=== PATIENT | female | born 1950 | race Caucasian/White ===

== ENCOUNTER 2016-07-10 08:04 | Emergency (ER) | payer OTHER ==
[~2016-07-10] VITALS: Ht 159.4 cm; Wt 110.6 kg
[~2016-07-10 08:04] MED LIST: ADVIN25050 INH; ALBU0.08 INH; ALBU1AER9 PO; ASCA500 PO; ASPI-232 PO; ASPI-391 PO; ATOR-26 PO; CALC500C70 PO; CALCTAB5 PO; CHOL20005 PO; CLOP1TAB15 PO; CLR10 PO; CYAN10005 PO; FERR1TAB39 PO; FLUO20CA35 PO; FRS/40 PO; GLUCTAB7 PO; HYDR-5688 PO; LEVO25TA PO; LISI-461 PO; METO25TA3 PO; MOME50SP5; MULT-506 PO; PANT40TA PO; ROPI0.5T15 PO; XNX25 PO
[2016-07-10 08:14] VITALS: TEMP 37.7; Ht 159.4 cm; Wt 110.6 kg
[2016-07-10] MEDS ORDERED: METHYLPREDNISOLONE 125 MG VIAL IV STA (08:52)
[2016-07-10] MEDS ORDERED: ALBUT/IPRATROP 3MG/0.5MG NEB 3 ML VIAL INH STA (08:52)
--- NOTE | 2016-07-10 08:59 | EMERGENCY ROOM VISIT NOTE ---
History Report prepared by Nyasia: Jamila Rodriguez Under the Supervision of: Dr. Chau Boss M.D. First contact with patient: 08:19 Chief Complaint: RESPIRATORY PROBLEMS Stated Complaint: BREATHING ISSUES History of Present Illness The patient is a 66 year old female who presents to the Emergency Room with complaints of persistent flu-like symptoms that began Wednesday night. She currently rates her discomfort as a 6/10 in severity. The patient states that Wednesday evening she began with a productive cough of dark yellow sputum. She additionally notes a sore throat, headache, and post nasal drip. The patient states that her symptoms have worsened so she consulted her primary care physician yesterday. She states that her was positive for the flu yesterday, but states that she was negative. The patient states that she was prescribed Amoxicillin for her symptoms and states that around 0100 she took a dose along with Tylenol. She additionally associates chills and diaphoresis, but is unsure if she has had a fever. The patient notes shortness of breath, chest pain, chest congestion, and nausea. She states that she used a Nebulizer treatment with relief of her shortness of breath. The patient notes a headache today. She denies any recent weight change, vomiting, leg pain or swelling, urinary symptoms, constipation, diarrhea. The patient notes a history of asthma , COPD, and a previous AL in 2008. She denies being on any steroids. Source of History: patient, spouse/significant other Onset: Wednesday night Position: other (global) Symptom Intensity: 6/10 Quality: other (flu like symptoms) Timing: worsening, other (persistent) Associated Symptoms: + SOB, + chest pain, + chills, + cough, + diaphoresis, + headache, + nausea, + sorethroat, No diarrhea, No urinary symptoms, No vomiting Note: Associated Symptoms: chest congestion, post nasal drip Review of Systems See HPI for pertinent positives & negatives. A total of 10 systems reviewed and were otherwise negative. Past Medical & Surgical Medical Problems: (1) Anxiety State Nos (2) Asthma (3) Asthma (4) Asthma exacerbation (5) Asthma exacerbation (6) Asthma exacerbation (7) Bronchitis (8) CAD (coronary artery disease) (9) Cellulitis (10) Cellulitis (11) Coccyx contusion (12) Contusion of lower back (13) Contusion of multiple sites (14) Depressive Disorder Nec (15) Diabetes (16) Esophageal Reflux (17) Fall (18) Fall (19) Hyperlipidemia Nec/Nos (20) Hypertension (21) Hypothyroidism Nos (22) Low back pain (23) Lumbar disc herniation (24) AL (myocardial infarction) (25) AL (myocardial infarction) (26) Multiple contusions (27) Pneumonia (28) Reactive airway disease with wheezing (29) Sciatica (30) Sinusitis (31) Venous stasis ulcer of ankle Surgical Problems: (1) History of hysterectomy (2) Hx of cholecystectomy Old medical records were reviewed. Nurse's notes were reviewed and I agree with. Family History Patient reports no known family medical history. Social History Smoking Status: Never Smoker Alcohol Use: none Drug Use: none Marital Status: Housing Status: lives with family Occupation Status: retired Current/Historical Medications Scheduled Alprazolam (Xanax), 0.25 MG PO BID Ascorbic Acid (Vitamin C), 1,000 MG PO QAM Aspirin (Aspir-81), 81 MG PO QAM Atorvastatin (Lipitor), 80 MG PO HS Calcium Carbonate-Vitamin D W/ (Caltrate 600 Plus), 1 TAB PO DAILY Calcium/Vitamin D (Os-Rajeev 500 Plus D), 1 TAB PO BID Cholecalciferol (Vitamin D3), 2 TAB PO QAM Clopidogrel (Plavix), 75 MG PO QAM Cyanocobalamin (Vitamin B-12), 2,000 MCG PO QAM Ferrous Sulfate Dried (Feosol), 200 MG PO QAM Fluoxetine (Prozac), 20 MG PO QAM Fluticasone Prop/Salmeterol (Advair Diskus 250-50 Mcg/Dose), 1 PUFF INH BID Furosemide (Lasix), 40 MG PO QAM Gabapentin (Gabapentin), 1 CAP PO BID Btbaslkbgwv-Gkgkmnsgsmf-Bmq C- (Glucosamine Chondroitin), 2 TABS PO QAM Levothyroxine Sodium (Synthroid), 25 MCG PO QAM Lisinopril (Lisinopril), 10 MG PO QAM Loratadine (Claritin), 10 MG PO QAM Methylprednisolone (Medrol Dosepak), 0 PO DAILY Metoprolol Succinate (Toprol Xl), 25 MG PO QAM Multivitamin (Multivitamin), 1 TAB PO QAM Pantoprazole (Protonix), 40 MG PO QAM Ropinirole (Requip), 1 MG PO HS Scheduled PRN Albuterol Sulf (Proventil 0.083% 2.5MG/3ML), 2.5 MG INH QID PRN for SOB/Wheezing Albuterol Sulfate (Proair Respiclick), 2 PUFFS INH Q4H PRN for Shortness of Breath Wlilooc-Dvuyolscrsvvr-Qkzkpmea (Excedrin Extra Strength), 1 TAB PO Q6 PRN for Pain Hydrocodone/Acetaminophen 5MG/325MG ([place] 5MG/325MG), 1-2 TABLET PO Q4 PRN for Pain Mometasone Furoate (Nasal) (Mometasone Furoate), 1-2 SPRAYS NA DAILY PRN for Nasal Congestion Allergies Coded Allergies: Doxycycline (Verified Allergy, Severe, rash, 07/10/16) Tetracyclines (Verified Allergy, Intermediate, HIVES, 07/10/16) Lidocaine (Verified Adverse Reaction, Unknown, PT REQUIRES A LARGER DOSE TO HAVE EFFECT, 07/10/16) Physical Exam Vital Signs Date Time Temp Pulse Resp B/P Pulse Ox O2 Delivery O2 Flow Rate FiO2 07/10/16 11:46 76 20 106/49 96 07/10/16 11:14 83 18 110/53 93 Room Air 07/10/16 10:16 87 20 135/66 95 Room Air 07/10/16 08:36 Room Air 07/10/16 08:14 37.7 100 18 162/77 98 Room Air Physical Exam General: Well developed well nourished, mildly ill appearing middle aged female , in no acute distress, breathing comfortably on room air. Normal speech. Dry hacking intermittent cough, no respiratory distress. HEENT: Normal cephalic atraumatic. Pupils are equal round and reactive to light. Extraocular movements are intact. Oropharynx is pink with moist mucous membranes. No swelling of the mouth lips or tongue. Neck: Supple with a midline trachea. No meningeal signs or stiffness, no JVD or bruits. No Stridor. Chest: Clear to auscultation bilaterally. No wheezes or rhonchi. No increased work of breathing. Heart: regular rate and rhythm. Abdomen: Soft nontender, nondistended without rebound guarding or rigidity. Extremities: No cyanosis clubbing or edema. No calf tenderness or assymetry Spine/Back. Non tender to palpation. No CVA tenderness Skin: Good turgor without rashes. Neurologic exam: Cranial nerves two through 12 are intact. Motor and sensation are intact and symmetrical throughout. Medical Decision & Procedures ER Provider Diagnostic Interpretation: X-ray results as stated below per interpretation by me and the radiologist: CHEST ONE VIEW PORTABLE HISTORY: Short of breath. Atypical CHEST PAIN COMPARISON: Chest 11/29/2015. FINDINGS: There are low lung volumes. Stable linear density left lung base favor scarring or subsegmental atelectasis. The lungs are otherwise clear. No pleural effusions. No pneumothorax. The heart remains moderately enlarged. IMPRESSION: No significant change compared to the prior study. No acute process. Stable cardiomegaly. Electronically signed by: Brendan Frank M.D. 07/10/2016 9:15 AM Dictated Date/Time: 07/10/2016 9:13 AM Laboratory Results 07/10/16 09:15 Red Blood Count 3.85, Mean Corpuscular Volume 93.5, Mean Corpuscular Hemoglobin 31.9, Mean Corpuscular Hemoglobin Concent 34.2, Mean Platelet Volume 9.8, Neutrophils (%) (Auto) 78.2, Lymphocytes (%) (Auto) 14.4, Monocytes (%) (Auto) 5.9, Eosinophils (%) (Auto) 0.9, Basophils (%) (Auto) 0.4, Neutrophils # (Auto) 4.39, Lymphocytes # (Auto) 0.81, Monocytes # (Auto) 0.33, Eosinophils # (Auto) 0.05, Basophils # (Auto) 0.02 07/10/16 09:15 Test 07/10/16 09:03 07/10/16 09:15 07/10/16 09:24 Influenza Type A Antigen Neg for Influ A (NEG) Influenza Type B Antigen Neg for Influ B (NEG) White Blood Count 5.61 K/uL (4.8-10.8) Red Blood Count 3.85 M/uL (4.2-5.4) Hemoglobin 12.3 g/dL (12.0-16.0) Hematocrit 36.0 % (37-47) Mean Corpuscular Volume 93.5 fL (80-100) Mean Corpuscular Hemoglobin 31.9 pg (25-34) Mean Corpuscular Hemoglobin Concent 34.2 g/dl (32-36) Platelet Count 196 K/uL (130-400) Mean Platelet Volume 9.8 fL (7.4-10.4) Neutrophils (%) (Auto) 78.2 % Lymphocytes (%) (Auto) 14.4 % Monocytes (%) (Auto) 5.9 % Eosinophils (%) (Auto) 0.9 % Basophils (%) (Auto) 0.4 % Neutrophils # (Auto) 4.39 K/uL (1.4-6.5) Lymphocytes # (Auto) 0.81 K/uL (1.2-3.4) Monocytes # (Auto) 0.33 K/uL (0.11-0.59) Eosinophils # (Auto) 0.05 K/uL (0-0.5) Basophils # (Auto) 0.02 K/uL (0-0.2) RDW Standard Deviation 49.1 fL (36.4-46.3) RDW Coefficient of Variation 14.3 % (11.5-14.5) Immature Granulocyte % (Auto) 0.2 % Immature Granulocyte # (Auto) 0.01 K/uL (0.00-0.02) Anion Gap 8.0 mmol/L (3-11) Est Creatinine Clear Calc Drug Dose 65.8 ml/min Estimated GFR () 68.0 Estimated GFR (Non- 58.7 BUN/Creatinine Ratio 14.3 (10-20) Calcium Level 9.0 mg/dl (8.5-10.1) Total Bilirubin 0.4 mg/dl (0.2-1) Direct Bilirubin 0.1 mg/dl (0-0.2) Aspartate Amino Transf (AST/SGOT) 28 U/L (15-37) Alanine Aminotransferase (ALT/SGPT) 45 U/L (12-78) Alkaline Phosphatase 140 U/L (45-117) Total Protein 8.3 gm/dl (6.4-8.2) Albumin 3.5 gm/dl (3.4-5.0) Lipase 225 U/L (73-393) Bedside Troponin I 0.000 ng/ml (0-0.045) NT-Oqf-C-Type Natriuretic Peptide 306 pg/ml (0-900) Laboratory studies as stated above per my review. Medications Administered Medications (Trade) Dose Ordered Sig/Dilshad Route Start Time Stop Time Status Last Admin Dose Admin Methylprednisolone Sodium Succinate (Solu-Medrol IV) 125 mg NOW STAT IV 07/10/16 08:52 07/10/16 08:56 DC 07/10/16 09:03 125 MG Albuterol/ Ipratropium (Duoneb) 3 ml NOW STAT INH 07/10/16 08:52 07/10/16 08:55 DC 07/10/16 09:02 3 ML Morphine Sulfate (MoRPHine SULFATE INJ) 4 mg NOW STAT IV 07/10/16 10:14 07/10/16 10:15 DC 07/10/16 10:43 4 MG Ondansetron HCl (Zofran Inj) 4 mg NOW STAT IV 07/10/16 10:14 07/10/16 10:15 DC 07/10/16 10:42 4 MG ECG Indication: SOB/dyspnea Rate (beats per minute): 91 Rhythm: normal sinus Findings: no acute ischemic change, no ectopy, other (normal intervals) Comparison ECG Date: 11/16/15 Change: no significant change ED Course 0822: Past medical records reviewed. The patient was evaluated in room B9, and a complete history and physical examination were performed by the medical student. 0842: Past medical records reviewed. The patient was evaluated in room B9, and a complete history and physical examination were performed. 0852: Ordered DuoNeb 3 ml INH, Solu-Medrol IV 125 mg IV. 1013: I reevaluated the patient and she is resting comfortably. I discussed the exam findings with her and I discussed the treatment plan. She verbalized complete understanding and agreement. She is ready to go home once she receives her medications. 1014: Ordered Zofran Inj 4 mg IV, Morphine Sulfate 4 mg IV. Medical Decision Differentials include, but are not limited to; influenza, bronchitis, pneumonia , acute coronary syndrome, arrhythmia, congestive heart failure. This patient comes in as described above. She has a history asthma and has a dry hacking cough. She has sinus type symptoms as well .her was diagnosed with influenza yesterday and she had a negative flu swab.- Her symptoms are gone on for about 45 days now. She looks well on exam except for having a dry hacking cough.. She's not hypoxemic. She's no respiratory distress. IV access established, EKG, chest and multiple blood testing was obtained. Influenza swab was negative. Chest x-ray shows no acute infiltrate failure or pneumothorax. EKG does not suggest acute cardiac event or arrhythmia. She has no white count or fever discussed infection or sepsis. She 's had no significant electrolyte or metabolic abnormalities. She was given DuoNeb as well as Solu-Medrol 125 mg IV, IV hydration, as well as IV morphine and IV Zofran. She is feeling much better and gup to going home. I think she does have a bronchitis/sinusitis that is exacerbating her asthma. I will have her continue use her meds at home including the antibiotics. She just started as well as use a Medrol Dosepak. She is to return if: Worsening of symptoms, shortness of breath, fever or chills, any problems concerns. She is happy the plan and discharged to home. Impression Primary Impression: Sinusitis Additional Impression: Bronchitis Scribe Attestation The scribe's documentation has been prepared under my direction and personally reviewed by me in its entirety. I confirm that the note above accurately reflects all work, treatment, procedures, and medical decision making performed by me. Departure Information Dispostion Home / Self-Care Prescriptions Methylprednisolone (MEDROL DOSEPAK) 4 Mg Bakari 0 PO DAILY, #1 PKT Prov: Chau Boss M.D. 07/10/16 Referrals Jose Maria Barriga M.D. (PCP) Forms HOME CARE DOCUMENTATION FORM, IMPORTANT VISIT INFORMATION, WORK / SCHOOL INSTRUCTIONS Patient Instructions My [facility] Additional Instructions Rest. Drink any of fluids. Continue your antibiotic and inhalers Use Medrol Dosepak as directed steroid Use your normal medication for his sinus headache. Return if: Increasing pain, shortness of breath, worsening symptoms, fever or chills any new problems or concerns. Follow-up with your doctor in 1-2 days for recheck. Problem Qualifiers
--- NOTE | 2016-07-10 09:16 | DIAGNOSTIC IMAGING REPORT ---
CHEST ONE VIEW PORTABLE HISTORY: Short of breath. Atypical CHEST PAIN COMPARISON: Chest 11/29/2015. FINDINGS: There are low lung volumes. Stable linear density left lung base favor scarring or subsegmental atelectasis. The lungs are otherwise clear. No pleural effusions. No pneumothorax. The heart remains moderately enlarged. IMPRESSION: No significant change compared to the prior study. No acute process. Stable cardiomegaly. Electronically signed by: Brendan Frank M.D. 07/10/2016 9:15 AM Dictated Date/Time: 07/10/2016 9:13 AM
[2016-07-10] MEDS ORDERED: NRN300 PO (09:35)
[2016-07-10 09:39] LABS: BASO % 0.4 %; BASO ABS # 0.02 K/uL (0-0.2); COMPLETE YES; EOS % 0.9 %; IG% 0.2 %; LYMPH % 14.4 %; LYMPH ABS # 0.81 K/uL (1.2-3.4); MEAN CELL VOLUME 93.5 fL (80-100); MEAN CORPUSCULAR HEMOGLOBIN 31.9 pg (25-34); MEAN CORPUSCULAR HGB CONC 34.2 g/dl (32-36); MEAN PLATELET VOLUME 9.8 fL (7.4-10.4); MONO % 5.9 %; NEUT % 78.2 %; PLATELET COUNT 196 K/uL (130-400); RED BLOOD COUNT 3.85 M/uL (4.2-5.4); WHITE BLOOD COUNT 5.61 K/uL (4.8-10.8)
[2016-07-10] MEDS ORDERED: CALCTAB7 PO (09:41)
[2016-07-10] MEDS ORDERED: ALBU18002 INH (09:41)
[2016-07-10] MEDS ORDERED: ALBINS/ INH (09:41)
[2016-07-10] MEDS ORDERED: MOME6000 (09:41)
[2016-07-10] MEDS ORDERED: ALPR0.25 PO (09:41)
[2016-07-10] MEDS ORDERED: ADVIN25050 INH (09:41)
[2016-07-10 09:56] LABS: BUN/CREATININE RATIO 14.3 (10-20); POTASSIUM 4.3 mmol/L (3.5-5.1)
[2016-07-10] MEDS ORDERED: ONDANSETRON INJ 2 MG/ML 2 ML VIAL IV STA (10:14)
[2016-07-10] MEDS ORDERED: MoRPHine SULFATE 4 MG/ML 1 ML CARP\\VIAL IV STA (10:14)
[2016-07-10] MEDS ORDERED: METH4PAK PO (10:19)
[2016-07-10 11:46] VITALS: BP 106/49; PULSE 76; O2SAT 96
[2017-02-19] MEDS ORDERED: NTRGSL/4 UT (08:57)
[2017-02-19] MEDS ORDERED: OMEG10007 PO (09:01)
[2017-02-19] MEDS ORDERED: DICL-201 PO (09:02)
== END 2016-07-10 11:49 | disposition home or self-care (01) ==
LOC: C.EDB 08:05
DX: J40 Bronchitis, not specified as acute or chronic (principal); J32.9 Chronic sinusitis, unspecified; I25.10 Atherosclerotic heart disease of native coronary artery without angina pectoris; E11.9 Type 2 diabetes mellitus without complications; E78.5 Hyperlipidemia, unspecified; K21.9 Gastro-esophageal reflux disease without esophagitis; E03.9 Hypothyroidism, unspecified; I10 Essential (primary) hypertension; F32.9 Major depressive disorder, single episode, unspecified; J45.909 Unspecified asthma, uncomplicated; F41.9 Anxiety disorder, unspecified; I25.2 Old myocardial infarction; Z86.19 Personal history of other infectious and parasitic diseases; Z87.828 Personal history of other (healed) physical injury and trauma; Z91.81 History of falling; Z79.82 Long term (current) use of aspirin; Z79.899 Other long term (current) drug therapy; Z88.1 Allergy status to other antibiotic agents; Z90.710 Acquired absence of both cervix and uterus; Z90.49 Acquired absence of other specified parts of digestive tract

== ENCOUNTER → 2016-08-28 | Outpatient (CLI) | payer OTHER ==
[~2016-08-28] MED LIST changes: +ALBINS/ INH; -ALBU0.08 INH; +ALBU18002 INH; -ALBU1AER9 PO; +ALPR0.25 PO; +AMOX875T PO; -CALCTAB5 PO; +CALCTAB7 PO; +CIPR0.3S OP; +CYCL5TAB PO; +DICL-201 PO; +METH4PAK PO; -MOME50SP5; +MOME6000; +NRN300 PO; +NTRGSL/4 UT; +OMEG10007 PO; -XNX25 PO
[2016-08-28 13:04] LABS: ALB/GLOB RATIO 0.8 (0.9-2); ALT/SGPT 40 U/L (12-78); AST/SGOT 26 U/L (15-37); BLOOD UREA NITROGEN 20 mg/dl (7-18); BUN/CREATININE RATIO 18.2 (10-20); CALCIUM 8.9 mg/dl (8.5-10.1); CARBON DIOXIDE 29 mmol/L (21-32); CHLORIDE 104 mmol/L (98-107); GLUCOSE 137 mg/dl (70-99); HDL CHOLESTEROL 43 mg/dl; POTASSIUM 4.7 mmol/L (3.5-5.1); SODIUM 140 mmol/L (136-145)
[2016-08-28 13:15] LABS: ALKALINE PHOSPHATASE 114 U/L (45-117); CHOLESTEROL 226 mg/dl (0-200); CHOLESTEROL/HDL RATIO 5.3; TRIGLYCERIDES 429 mg/dl (0-150)
== END | disposition home or self-care (01) ==
LOC: C.LABBFT 08:33
PROVIDERS: ATTEND Family Medicine
DX: E78.00 Pure hypercholesterolemia, unspecified (principal); E03.9 Hypothyroidism, unspecified

== ENCOUNTER 2016-11-29 14:50 | Emergency (ER) | payer OTHER ==
[~2016-11-29] VITALS: Ht 158.8 cm; Wt 109.0 kg
[~2016-11-29 14:50] MED LIST changes: -AMOX875T PO; -CIPR0.3S OP; -CYCL5TAB PO; -DICL-201 PO; -METH4PAK PO; -NTRGSL/4 UT; -OMEG10007 PO
[2016-11-29 15:03] VITALS: TEMP 36.8; Ht 158.8 cm; Wt 109.0 kg
[2016-11-29] MEDS ORDERED: CIPROFLOXACIN HCL 0.3% OP SOLN 2.5 ML BTL OP STA (15:50)
--- NOTE | 2016-11-29 16:08 | EMERGENCY ROOM VISIT NOTE ---
History Report prepared by Nyasia: Chase Dunlap Under the Supervision of: Dr. Juan Francisco Verma M.D. First contact with patient: 15:45 Chief Complaint: ILLNESS Stated Complaint: RED EYES,SOB,HEADACHE History of Present Illness The patient is a 66 year old female who presents to the Emergency Room with complaints of a persistent illness beginning a week ago. Her symptoms include chills, sore throat, headache, and productive cough. She notes that her eyes appear red and are matted. The patient states that her right eye was affected first, but it has now moved to her left eye as well. She notes that she has felt some wheezing during her coughing. The patient denies any known fevers, vomiting, or diarrhea. She notes that her currently has similar symptoms. She has a history of COPD. The patient has a history of sinus infections. Source of History: patient Onset: A week ago Quality: other (illness) Timing: other (persistent) Associated Symptoms: + chills, + headache, + sorethroat, + cough (productive ), No fevers (known), No vomiting, No diarrhea Review of Systems See HPI for pertinent positives & negatives. A total of 10 systems reviewed and were otherwise negative. Past Medical & Surgical Medical Problems: (1) Anxiety State Nos (2) Asthma (3) Asthma (4) Asthma exacerbation (5) Asthma exacerbation (6) Asthma exacerbation (7) Bronchitis (8) CAD (coronary artery disease) (9) Cellulitis (10) Cellulitis (11) Coccyx contusion (12) Contusion of lower back (13) Contusion of multiple sites (14) Depressive Disorder Nec (15) Diabetes (16) Esophageal Reflux (17) Fall (18) Fall (19) Hyperlipidemia Nec/Nos (20) Hypertension (21) Hypothyroidism Nos (22) Low back pain (23) Lumbar disc herniation (24) NM (myocardial infarction) (25) NM (myocardial infarction) (26) Multiple contusions (27) Pneumonia (28) Reactive airway disease with wheezing (29) Sciatica (30) Sinusitis (31) Venous stasis ulcer of ankle Surgical Problems: (1) History of hysterectomy (2) Hx of cholecystectomy Family History Patient reports no known family medical history. Social History Smoking Status: Never Smoker Alcohol Use: none Drug Use: none Marital Status: Housing Status: lives with family Occupation Status: retired Current/Historical Medications Scheduled Alprazolam (Xanax), 0.25 MG PO BID Amoxicillin & Pot Clavulanate (Augmentin 875-125 mg), 875 MG PO BID Ascorbic Acid (Vitamin C), 1,000 MG PO QAM Aspirin (Aspir-81), 81 MG PO QAM Atorvastatin (Lipitor), 80 MG PO HS Calcium Carbonate-Vitamin D W/ (Caltrate 600 Plus), 1 TAB PO DAILY Calcium/Vitamin D (Os-Rajeev 500 Plus D), 1 TAB PO BID Cholecalciferol (Vitamin D3), 2 TAB PO QAM Ciprofloxacin Hcl (Ophth) (Ciloxan Oph), 1 DROPS OP TID Clopidogrel (Plavix), 75 MG PO QAM Cyanocobalamin (Vitamin B-12), 2,000 MCG PO QAM Ferrous Sulfate Dried (Feosol), 200 MG PO QAM Fluoxetine (Prozac), 20 MG PO QAM Fluticasone Prop/Salmeterol (Advair Diskus 250-50 Mcg/Dose), 1 PUFF INH BID Furosemide (Lasix), 40 MG PO QAM Gabapentin (Gabapentin), 1 CAP PO BID Cpbyzykoyny-Vzjfsajfgti-Iao C- (Glucosamine Chondroitin), 2 TABS PO QAM Levothyroxine Sodium (Synthroid), 25 MCG PO QAM Lisinopril (Lisinopril), 10 MG PO QAM Loratadine (Claritin), 10 MG PO QAM Metoprolol Succinate (Toprol Xl), 25 MG PO QAM Multivitamin (Multivitamin), 1 TAB PO QAM Pantoprazole (Protonix), 40 MG PO QAM Ropinirole (Requip), 1 MG PO HS Scheduled PRN Albuterol Sulf (Proventil 0.083% 2.5MG/3ML), 2.5 MG INH QID PRN for SOB/Wheezing Albuterol Sulfate (Proair Respiclick), 2 PUFFS INH Q4H PRN for Shortness of Breath Giemazm-Qdyxhtxpejauz-Ziasuklw (Excedrin Extra Strength), 1 TAB PO Q6 PRN for Pain Hydrocodone/Acetaminophen 5MG/325MG ([place] 5MG/325MG), 1-2 TABLET PO Q4 PRN for Pain Mometasone Furoate (Nasal) (Mometasone Furoate), 1-2 SPRAYS NA DAILY PRN for Nasal Congestion Allergies Coded Allergies: Doxycycline (Verified Allergy, Severe, rash, 11/29/16) Tetracyclines (Verified Allergy, Intermediate, HIVES, 11/29/16) Lidocaine (Verified Adverse Reaction, Unknown, PT REQUIRES A LARGER DOSE TO HAVE EFFECT, 11/29/16) Physical Exam Vital Signs Date Time Temp Pulse Resp B/P (MAP) Pulse Ox O2 Delivery O2 Flow Rate FiO2 11/29/16 15:03 36.8 82 20 157/74 97 Room Air Physical Exam GENERAL: Patient is in no acute distress. HEENT: No acute trauma, normocephalic atraumatic, mucous membranes moist, mild nasal congestion, no scleral icterus. Bilateral conjunctivitis noted. PERRL. No throat erythema or exudate. NECK: No stridor, no adenopathy, no meningismus, trachea is midline. LUNGS: Scattered crackles on the right. No wheezing. Breath sounds equal. No respiratory distress. HEART: Without murmurs gallops or rubs, regular rate and rhythm. ABDOMEN: Soft, nontender, bowel sounds positive, no hernias, no peritonitis. EXTREMITIES: No cyanosis or edema, full range of motion of all the joints without pain or difficulty, no signs for acute trauma. NEUROLOGIC: Oriented x 3, no acute motor or sensory deficits, no focal weakness. SKIN: No rash, no jaundice, no diaphoresis. Medical Decision & Procedures ER Provider Diagnostic Interpretation: X-ray results as stated below per interpretation by me and the radiologist: SINGLE VIEW CHEST FINDINGS: An AP, portable, upright chest radiograph is compared to study dated 07/10/2016. The examination is degraded by portable technique and patient rotation. The cardiomediastinal heart is enlarged and there is atherosclerotic calcification of the thoracic aorta. The pulmonary vasculature is noncongested. There is minimal left basilar atelectasis. No airspace consolidation, large pleural effusion, or pneumothorax is seen. The skeletal structures are osteopenic. The bony thorax is grossly intact. IMPRESSION: Cardiomegaly with no acute cardiopulmonary abnormality. Electronically signed by: Juan Francisco Lux M.D. Medications Administered Medications (Trade) Dose Ordered Sig/Dilshad Route Start Time Stop Time Status Last Admin Dose Admin Ciprofloxacin HCl (Ciprofloxacin 0.3% Op Soln) 2 drops NOW STAT OP 11/29/16 15:50 11/29/16 15:52 DC 11/29/16 15:58 2 DROPS Amoxicillin/ Clavulanate Potassium (Augmentin Tab) 875 mg ONE ONCE PO 11/29/16 16:30 11/29/16 16:31 DC 11/29/16 16:37 875 MG ED Course 1547: The patient was evaluated in room B11B. A complete history and physical exam was performed. 1550: Ordered Ciprofloxacin 2 drops OP. 1630: Ordered Augmentin Tab 875 mg PO. 1627: Reevaluated the patient. Discussed results and discharge instructions: she verbalized understanding and agreement. The patient is ready for discharge. Medical Decision The patient is a 66 year old female who presents to the ED with complaints of a persistent illness. Differential diagnoses considered include sinusitis, conjunctivitis, pharyngitis, bronchitis, pneumonia, and URI. Blood pressure screening: Patient was found to have a slightly elevated blood pressure due to circumstances. I do not believe that the patient requires hypertension monitoring. Medication Reconciliation: I attest that I have personally reviewed the patient' s current medication list. The patient presents with upper respiratory symptoms, cough and lately, some conjunctivitis complaints. She has not had fever. She is not hypoxic or toxic. Chest film does not show pneumonia, cardiomegaly was seen. On exam, there was no significant pharyngitis. Upper nasal congestion was seen, she appeared to have conjunctivitis clinically. The patient has a sinusitis and bronchitis. I am going to place her on Augmentin. The patient was given Augmentin here orally. She was given Cipro drops to use for the conjunctivitis. She has albuterol to keep the lungs clear and to help with bronchospasm. She will follow with her doctor and return here for worsening symptoms. Impression Primary Impression: Sinusitis Additional Impressions: Acute bronchitis Conjunctivitis Scribe Attestation The scribe's documentation has been prepared under my direction and personally reviewed by me in its entirety. I confirm that the note above accurately reflects all work, treatment, procedures, and medical decision making performed by me. Departure Information Dispostion Home / Self-Care Prescriptions Ciprofloxacin Hcl (Ophth) (CILOXAN OPH) 0.3 % Josefina 1 DROPS OP TID, #1 BTL 1 Refill Prov: Juan Francisco Verma M.D. 11/29/16 Amoxicillin & Pot Clavulanate (Augmentin 875-125 mg) 1 Tab Tab 875 MG PO BID for 10 Days, #20 TAB Prov: Juan Francisco Verma M.D. 11/29/16 Referrals Jose Maria Barriga M.D. (PCP) Forms HOME CARE DOCUMENTATION FORM, IMPORTANT VISIT INFORMATION, WORK / SCHOOL INSTRUCTIONS Patient Instructions My [facility] Additional Instructions augmentin 2x per day for 10 days cipro drops to each eye, 1 drop 3x per day use albuterol every 4 hours for cough and congestion see faby garcia this week for a recheck return if worsening or feel more short of breath Problem Qualifiers
--- NOTE | 2016-11-29 16:11 | DIAGNOSTIC IMAGING REPORT ---
SINGLE VIEW CHEST CLINICAL HISTORY: Cough and chills FINDINGS: An AP, portable, upright chest radiograph is compared to study dated 07/10/2016. The examination is degraded by portable technique and patient rotation. The cardiomediastinal heart is enlarged and there is atherosclerotic calcification of the thoracic aorta. The pulmonary vasculature is noncongested. There is minimal left basilar atelectasis. No airspace consolidation, large pleural effusion, or pneumothorax is seen. The skeletal structures are osteopenic. The bony thorax is grossly intact. IMPRESSION: Cardiomegaly with no acute cardiopulmonary abnormality. Electronically signed by: Juan Francisco Lux M.D. 11/29/2016 4:09 PM Dictated Date/Time: 11/29/2016 4:08 PM
[2016-11-29] MEDS ORDERED: CIPR0.3S OP (16:27)
[2016-11-29] MEDS ORDERED: AMOX875T PO (16:27)
[2016-11-29] MEDS ORDERED: AMOXICILLIN/CLAVULANATE TAB 875 MG TAB PO ONE (16:30)
[2016-11-29 16:38] VITALS: BP 151/76; PULSE 78; O2SAT 97
[2017-02-19] MEDS ORDERED: NTRGSL/4 UT (08:57)
[2017-02-19] MEDS ORDERED: OMEG10007 PO (09:01)
[2017-02-19] MEDS ORDERED: DICL-201 PO (09:02)
== END 2016-11-29 16:40 | disposition home or self-care (01) ==
LOC: C.EDB 14:51
DX: J32.9 Chronic sinusitis, unspecified (principal); J20.9 Acute bronchitis, unspecified; H10.9 Unspecified conjunctivitis; F41.9 Anxiety disorder, unspecified; J45.909 Unspecified asthma, uncomplicated; I25.10 Atherosclerotic heart disease of native coronary artery without angina pectoris; E11.9 Type 2 diabetes mellitus without complications; K21.9 Gastro-esophageal reflux disease without esophagitis; E78.5 Hyperlipidemia, unspecified; I10 Essential (primary) hypertension; E03.9 Hypothyroidism, unspecified; I25.2 Old myocardial infarction; Z79.82 Long term (current) use of aspirin

== ENCOUNTER 2017-01-03 14:33 | Emergency (ER) | payer OTHER ==
[~2017-01-03] VITALS: Ht 157.5 cm; Wt 108.8 kg
[~2017-01-03 14:33] MED LIST changes: +CIPR0.3S OP
[2017-01-03 14:37] VITALS: BP 152/76; PULSE 77; TEMP 36.7; O2SAT 98; Ht 157.5 cm; Wt 108.8 kg
--- NOTE | 2017-01-03 15:20 | EMERGENCY ROOM VISIT NOTE ---
ED Visit Note First contact with patient: 14:43 CHIEF COMPLAINT: Low back pain HISTORY OF PRESENT ILLNESS: This 66-year-old female patient presents to the emergency department ambulatory, with her , complaining of pain in the low back which began approximately 2 weeks ago. The patient states at that time , she was walking her Bactrim, when she tripped over laundry, which was lying on the floor, and fell down and landed on her left side. The patient states she feels that she twisted her back at that time. The patient does have a history of sciatica, and states the symptoms came back after this fall. The patient did have low back surgery performed by Dr. Berger, approximately 2 years ago. The patient states she has not had issues with her sciatic nerve since that time. The patient has been experiencing worsening symptoms including muscle spasms, which seemed to lead to constant pain, that eventually improves, then she experiences sharp pain which wraps around her right side of her back around the buttock and down the right side of her front leg. The pain was gradual in onset, is now constant and worse with movement. The patient notes the pain as like muscle spasms, and sharp and a 4/10 currently, but 10/10 at its worst. The patient has taken Tylenol arthritis without relief of the pain. She states she also took some leftover [place] which she had lying around the house, which helps for a short period of time, then worsens again. The patient denies any loss of control of their bowel or bladder functions. There has been no leg numbness or weakness, and no change in sensation. No nausea or vomiting or abdominal pain. No chest pain or shortness of breath. No dysuria or increased urinary frequency. REVIEW OF SYSTEMS: A 10-system review of systems was performed with positives and pertinent negatives listed in the history of present illness. All other systems were reviewed and are negative. ALLERGIES: Doxycycline, lidocaine, tetracyclines MEDICATIONS: Please see list. I did personally review the patient's medication list with her. PMH: Hypertension, GERD, history of CO, restless leg syndrome, hyperlipidemia, CHF, hypothyroidism, asthma, chronic bronchitis, anxiety SOCIAL HISTORY: The patient lives locally with family. She denies drug, alcohol , tobacco use. PHYSICAL EXAM: VITALS: Vitals are noted on the nurse's note and reviewed by myself. Vital signs stable. GENERAL: This is a pleasant 66-year-old female, in no acute distress, nondiaphoretic, well-developed well-nourished. SKIN: The skin was without rashes, erythema, edema, or bruising. Capillary refill less than 2 seconds. NECK: Supple without nuchal rigidity. No cervical spine tenderness. No paraspinous muscle tenderness. HEART: Regular rate and rhythm without murmurs gallops or rubs. LUNGS: Clear to auscultation bilaterally without wheezes, rales or rhonchi. ABDOMEN: Positive bowel sounds x 4. Normal tympanic percussion. Soft, nontender, without masses or organomegaly. Jarquin sign negative. MUSCULOSKELETAL: No muscle atrophy, erythema, or edema noted of the back. There is no tenderness over the lumbar spinous processes. There is moderate tenderness over the paraspinous muscles bilaterally. There is no tenderness over the thoracic spine or paraspinous muscles. There are muscle spasms present. The patient is slow to move around with maximum tenderness with changing from a sitting position to lying down. Negative straight leg raise test bilaterally. NEURO: Patient was alert and oriented to person place and time. Normal sensation to light and sharp touch. Deep tendon reflexes 2+ in the lower extremities. Dorsalis pedis pulse 2+ bilaterally. Strength 5/5 and equal in the bilateral lower extremities. RADIOLOGY: X-Ray Lumbar Spine: FINDINGS: Alignment of lumbar spine is anatomic. Vertebral body heights are maintained. There is no fracture. There is iltn-uf-zwyabobf multilevel disc space narrowing with osteophytosis and vacuum disc phenomenon. There is moderate facet arthrosis. Several Schmorl's nodes are noted. There are cholecystectomy clips. IMPRESSION: 1. No lumbar spine fracture. 2. Moderate multilevel degenerative disc disease and facet arthrosis of the lumbar spine. EMERGENCY DEPARTMENT COURSE: The patient was seen and evaluated as above. X- ray of the lumbar spine was ordered and reviewed by myself and radiologist. This showed No acute fracture, but did show degenerative disc disease and facet arthrosis. I discussed the patient proper treatment options, including muscle relaxers, anti-inflammatory medications, and physical therapy. I encouraged her to follow up this week with her PCP and orthopedic surgeon. I discussed the case with Dr. Suarez, who is in agreement with the assessment and plan. The patient was discharged home in good condition. The patient's blood pressure in the emergency department was slightly elevated, however due to the patient's history, and complaints of pain at this time, I do feel that this is situational. The patient does follow regularly with her PCP and radiological health specialist regarding high blood pressure. DIFFERENTIAL DIAGNOSIS: Lumbar strain, sciatica, lumbar fracture, malignancy, and others DIAGNOSIS: Lumbar strain DISCHARGE INSTRUCTIONS AND TREATMENT: You have been treated in the Emergency Department for Back Pain. You have been prescribed [place] to be used for pain control. This is a narcotic medication. You cannot drive or consume alcohol while on this medicine. This medicine should only be used for pain that cannot be controlled with over-the- counter pain medicines. You have been prescribed a Medrol Dosepak. This is a steroid which will help decrease your inflammation, redness, and itch. Take the medicine as prescribed. Take the ENTIRE 6 day course of the steroids. You have been prescribed Flexeril (cyclobenzaprine) 1-2 tabs orally, three times per day. Do NOT exceed 30 mg (6 tabs) per day. Take your first dose at bedtime as it can make you drowsy. Always take all medications as prescribed. For pain control, you can use the following htos-udh-nhdotsq medicines (if >12 yo): - Regular strength (325mg/tab) Tylenol (acetaminophen) 2 tabs every 4-6 hours as needed. Do not exceed 9 tablets in a 24 hour period. Avoid taking more than 3 grams (3000 mg) of Tylenol per day. This includes any other sources of acetaminophen you may take on a regular basis. If this is an acute injury, ice can be applied to the area of pain for the first 3 days to help decrease pain and inflammation. After the first 3 days, a heating pad can be used over the area for continued soothing relief. You should schedule a follow-up appointment in 2-3 days with your Primary Care Provider for further evaluation and treatment of your back pain. You may want to consider physical therapy as an option outpatient for treatment of your chronic low back pain. You should follow up with your back surgeon. Please call his office tomorrow morning to schedule an appointment. Return to the Emergency Department if your current symptoms worsen despite treatment course outlined above, or if you develop any of the following symptoms : intractable pain despite aforementioned treatment course, loss of control of your bowel or bladder, numbness or tingling in your groin, or development of a fever. Problem List Medical Problems: (1) Anxiety State Nos Status: Chronic (2) Asthma Status: Chronic (3) Asthma Status: Chronic (4) Asthma exacerbation Status: Resolved (5) Asthma exacerbation Status: Resolved (6) Asthma exacerbation Status: Resolved (7) Bronchitis Status: Resolved (8) CAD (coronary artery disease) Status: Chronic (9) Cellulitis Status: Resolved (10) Cellulitis Status: Resolved (11) Coccyx contusion Status: Resolved (12) Contusion of lower back Status: Resolved (13) Contusion of multiple sites Status: Resolved (14) Depressive Disorder Nec Status: Chronic (15) Diabetes Status: Chronic (16) Esophageal Reflux Status: Chronic (17) Fall Status: Resolved (18) Fall Status: Resolved (19) Hyperlipidemia Nec/Nos Status: Chronic (20) Hypertension Status: Chronic (21) Hypothyroidism Nos Status: Chronic (22) Low back pain Status: Chronic (23) CO (myocardial infarction) Status: Resolved (24) CO (myocardial infarction) Status: Resolved (25) Multiple contusions Status: Resolved (26) Pneumonia Status: Resolved (27) Reactive airway disease with wheezing Status: Resolved (28) Sciatica Status: Chronic (29) Sinusitis Status: Resolved (30) Venous stasis ulcer of ankle Status: Chronic Surgical Problems: (1) History of hysterectomy Status: Resolved (2) Hx of cholecystectomy Status: Resolved Current/Historical Medications Scheduled Alprazolam (Xanax), 0.25 MG PO BID Ascorbic Acid (Vitamin C), 1,000 MG PO QAM Aspirin (Aspir-81), 81 MG PO QAM Atorvastatin (Lipitor), 80 MG PO HS Calcium Carbonate-Vitamin D W/ (Caltrate 600 Plus), 1 TAB PO DAILY Calcium/Vitamin D (Os-Rajeev 500 Plus D), 1 TAB PO BID Cholecalciferol (Vitamin D3), 2 TAB PO QAM Ciprofloxacin Hcl (Ophth) (Ciloxan Oph), 1 DROPS OP TID Clopidogrel (Plavix), 75 MG PO QAM Cyanocobalamin (Vitamin B-12), 2,000 MCG PO QAM Cyclobenzaprine Hcl (Flexeril), 5 MG PO TID Ferrous Sulfate Dried (Feosol), 200 MG PO QAM Fluoxetine (Prozac), 20 MG PO QAM Fluticasone Prop/Salmeterol (Advair Diskus 250-50 Mcg/Dose), 1 PUFF INH BID Furosemide (Lasix), 40 MG PO QAM Gabapentin (Gabapentin), 1 CAP PO BID Gdnghkmkysy-Eqykqezdujn-Its C- (Glucosamine Chondroitin), 2 TABS PO QAM Levothyroxine Sodium (Synthroid), 25 MCG PO QAM Lisinopril (Lisinopril), 10 MG PO QAM Loratadine (Claritin), 10 MG PO QAM Methylprednisolone (Medrol Dosepak), 0 PO DAILY Metoprolol Succinate (Toprol Xl), 25 MG PO QAM Multivitamin (Multivitamin), 1 TAB PO QAM Pantoprazole (Protonix), 40 MG PO QAM Ropinirole (Requip), 1 MG PO HS Scheduled PRN Albuterol Sulf (Proventil 0.083% 2.5MG/3ML), 2.5 MG INH QID PRN for SOB/Wheezing Albuterol Sulfate (Proair Respiclick), 2 PUFFS INH Q4H PRN for Shortness of Breath Xxcwrap-Ymuovijuhvedc-Vfdmntrq (Excedrin Extra Strength), 1 TAB PO Q6 PRN for Pain Hydrocodone/Acetaminophen 5MG/325MG ([place] 5MG/325MG), 1-2 TABLET PO Q4 PRN for Pain Hydrocodone/Acetaminophen 5MG/325MG ([place] 5MG/325MG), 1 TABLET PO q4-6H PRN for Pain Mometasone Furoate (Nasal) (Mometasone Furoate), 1-2 SPRAYS NA DAILY PRN for Nasal Congestion Allergies Coded Allergies: Doxycycline (Verified Allergy, Severe, rash, 11/29/16) Tetracyclines (Verified Allergy, Intermediate, HIVES, 11/29/16) Lidocaine (Verified Adverse Reaction, Unknown, PT REQUIRES A LARGER DOSE TO HAVE EFFECT, 11/29/16) Vital Signs Date Time Temp Pulse Resp B/P (MAP) Pulse Ox O2 Delivery O2 Flow Rate FiO2 01/03/17 14:37 36.7 77 18 152/76 98 Room Air Departure Information Impression Primary Impression: Strain of lumbar region Dispostion Home / Self-Care Condition GOOD Prescriptions Hydrocodone/Acetaminophen 5MG/325MG ([place] 5MG/325MG) Tab 1 TABLET PO q4-6H Y for Pain, #15 TAB For Initial Treatment Prov: Lily Sutton PA-C 01/03/17 Cyclobenzaprine Hcl (FLEXERIL) 5 Mg Tab 5 MG PO TID, #30 TAB PRN Prov: Lily Sutotn PA-C 01/03/17 Methylprednisolone (MEDROL DOSEPAK) 4 Mg Bakari 0 PO DAILY, #1 PKT Prov: Lily Sutton PA-C 01/03/17 Referrals Jose Maria Barriga M.D. (PCP) Adan Berger, DO Patient Instructions ED Sprain Strain Lumbar, [facility] Additional Instructions You have been treated in the Emergency Department for Back Pain. You have been prescribed [place] to be used for pain control. This is a narcotic medication. You cannot drive or consume alcohol while on this medicine. This medicine should only be used for pain that cannot be controlled with over-the- counter pain medicines. You have been prescribed a Medrol Dosepak. This is a steroid which will help decrease your inflammation, redness, and itch. Take the medicine as prescribed. Take the ENTIRE 6 day course of the steroids. You have been prescribed Flexeril (cyclobenzaprine) 1-2 tabs orally, three times per day. Do NOT exceed 30 mg (6 tabs) per day. Take your first dose at bedtime as it can make you drowsy. Always take all medications as prescribed. For pain control, you can use the following opma-pfo-fmqotwi medicines (if >12 yo): - Regular strength (325mg/tab) Tylenol (acetaminophen) 2 tabs every 4-6 hours as needed. Do not exceed 9 tablets in a 24 hour period. Avoid taking more than 3 grams (3000 mg) of Tylenol per day. This includes any other sources of acetaminophen you may take on a regular basis. If this is an acute injury, ice can be applied to the area of pain for the first 3 days to help decrease pain and inflammation. After the first 3 days, a heating pad can be used over the area for continued soothing relief. You should schedule a follow-up appointment in 2-3 days with your Primary Care Provider for further evaluation and treatment of your back pain. You may want to consider physical therapy as an option outpatient for treatment of your chronic low back pain. You should follow up with your back surgeon. Please call his office tomorrow morning to schedule an appointment. Return to the Emergency Department if your current symptoms worsen despite treatment course outlined above, or if you develop any of the following symptoms : intractable pain despite aforementioned treatment course, loss of control of your bowel or bladder, numbness or tingling in your groin, or development of a fever. Problem Qualifiers Primary Impression: Strain of lumbar region Encounter type: initial encounter Qualified Codes: S39.012A - Strain of muscle, fascia and tendon of lower back, initial encounter
--- NOTE | 2017-01-03 15:57 | DIAGNOSTIC IMAGING REPORT ---
L-SPINE MIN 4 VIEWS ROUTINE CLINICAL HISTORY: Lower back pain. COMPARISON: Lumbar spine radiographs August 21, 2014 and MRI the lumbar spine November 05, 2015. FINDINGS: Alignment of lumbar spine is anatomic. Vertebral body heights are maintained. There is no fracture. There is qnnz-mu-wfefeaet multilevel disc space narrowing with osteophytosis and vacuum disc phenomenon. There is moderate facet arthrosis. Several Schmorl's nodes are noted. There are cholecystectomy clips. IMPRESSION: 1. No lumbar spine fracture. 2. Moderate multilevel degenerative disc disease and facet arthrosis of the lumbar spine. Electronically signed by: Chaparro Stone M.D. 01/03/2017 3:56 PM Dictated Date/Time: 01/03/2017 3:55 PM
[2017-01-03] MEDS ORDERED: HYDR-5688 PO (16:21)
[2017-01-03] MEDS ORDERED: METH4PAK PO (16:21)
[2017-01-03] MEDS ORDERED: CYCL5TAB PO (16:21)
--- NOTE | 2017-01-03 16:21 | EMERGENCY ROOM VISIT NOTE ---
ED Visit Note First contact with patient: 14:43 This Patient was discussed with the physician child welfare assistant, Lily Sutton PA-C. The pertinent historical and physical exam findings were confirmed. I agree with the studies ordered and with the interpretations of these studies. I agree with the disposition and care plan.
[2017-02-19] MEDS ORDERED: NTRGSL/4 UT (08:57)
[2017-02-19] MEDS ORDERED: OMEG10007 PO (09:01)
[2017-02-19] MEDS ORDERED: DICL-201 PO (09:02)
== END 2017-01-03 16:32 | disposition home or self-care (01) ==
LOC: C.EDB 14:35 → C.EDD 16:32
DX: S39.012A Strain of muscle, fascia and tendon of lower back, initial encounter (principal); W18.09XA Striking against other object with subsequent fall, initial encounter; I10 Essential (primary) hypertension; K21.9 Gastro-esophageal reflux disease without esophagitis; I25.2 Old myocardial infarction; G25.81 Restless legs syndrome; E78.5 Hyperlipidemia, unspecified; I50.9 Heart failure, unspecified; E03.9 Hypothyroidism, unspecified; J45.909 Unspecified asthma, uncomplicated; F41.9 Anxiety disorder, unspecified; Z79.82 Long term (current) use of aspirin

== ENCOUNTER → 2017-02-10 | Outpatient (CLI) | payer OTHER ==
[~2017-02-10] MED LIST changes: +DICL-201 PO; +NTRGSL/4 UT; +OMEG10007 PO
[2017-02-10 11:14] LABS: BASO % 0.5 %; BASO ABS # 0.02 K/uL (0-0.2); COMPLETE YES; EOS % 1.6 %; HEMATOCRIT 34.1 % (37-47); IG% 0.2 %; LYMPH % 31.2 %; LYMPH ABS # 1.38 K/uL (1.2-3.4); MEAN CELL VOLUME 96.6 fL (80-100); MEAN CORPUSCULAR HEMOGLOBIN 31.7 pg (25-34); MEAN CORPUSCULAR HGB CONC 32.8 g/dl (32-36); MEAN PLATELET VOLUME 10.3 fL (7.4-10.4); MONO % 8.4 %; NEUT % 58.1 %; PLATELET COUNT 188 K/uL (130-400); RED BLOOD COUNT 3.53 M/uL (4.2-5.4); WHITE BLOOD COUNT 4.42 K/uL (4.8-10.8)
[2017-02-10 11:23] LABS: PROTHROMBIN TIME (PATIENT) 10.4 SECONDS (9.0-12.0)
[2017-02-10 11:25] LABS: BLOOD UREA NITROGEN 34 mg/dl (7-18); BUN/CREATININE RATIO 28.2 (10-20); CALCIUM 8.7 mg/dl (8.5-10.1); CARBON DIOXIDE 28 mmol/L (21-32); CHLORIDE 110 mmol/L (98-107); GLUCOSE 149 mg/dl (70-99); POTASSIUM 4.6 mmol/L (3.5-5.1); SODIUM 143 mmol/L (136-145)
--- NOTE | 2017-02-26 10:30 | CODING QUERY NO DIAGNOSIS ---
: 1950 TREATMENT RENDERED WITHOUT A DIAGNOSIS To promote full compliance with coding requirements relating to patient care, physician participation is requested in all cases of auto roller uncertainty. Please assist us with providing a diagnosis/symptom for the test(s) below: A diagnosis/symptom was not documented on your Order. A valid diagnosis/symptom is required to bill all insurances. Please remember that we are unable to code a diagnosis of rule out, probable, possible, questionable, or suspected. Tests that require a diagnosis for DOS 02/10/2017: * CBC WITH AUTO DIFFERENTIAL DIAGNOSIS: * PARTIAL RENAL PROFILE DIAGNOSIS: * PROTHROMBIN TIME PROFILE DIAGNOSIS: * PTT DIAGNOSIS: Provider Signature: Date: Thank you Lucy Reyes [employer] Management Once completed, please kindly fax back to [phone] For questions please call [phone]
== END | disposition home or self-care (01) ==
LOC: C.LABBC 08:56
PROVIDERS: ATTEND Orthopaedic Surgery Orthopaedic Surgery of the Spine
DX: Z01.818 Encounter for other preprocedural examination (principal); M48.06 Spinal stenosis, lumbar region; M47.16 Other spondylosis with myelopathy, lumbar region

== ENCOUNTER 2017-03-15 08:09 | Inpatient (IN) | payer OTHER ==
[2017-02-19 09:03] VITALS: Ht 157.5 cm; Wt 106.3 kg
--- NOTE | 2017-02-19 09:52 | PAT Medication Instructions ---
Service Date Feb 19, 2017. Current Home Medication List Albuterol Sulf (Proventil 0.083% 2.5MG/3ML), 2.5 MG INH QID PRN for SOB/Wheezing Albuterol Sulfate (Proair Respiclick), 2 PUFFS INH Q4H PRN for Shortness of Breath Alprazolam (Xanax), 0.25 MG PO BID Ascorbic Acid (Vitamin C), 1,000 MG PO QAM Aspirin (Aspir-81), 81 MG PO QAM Byrtcwo-Lvnrgnykgsdmj-Sqsxuzrk (Excedrin Extra Strength), 2 TAB PO Q6 PRN for Pain Atorvastatin (Lipitor), 80 MG PO HS Calcium Carbonate-Vitamin D W/ (Caltrate 600 Plus), 1 TAB PO QAM Cholecalciferol (Vitamin D3), 2,500 UNITS PO QAM Clopidogrel (Plavix), 75 MG PO QAM Cyanocobalamin (Vitamin B-12), 1,000 MCG PO QAM Diclofenac (Voltaren), 75 MG PO BID Ferrous Sulfate Dried (Feosol), 200 MG PO QAM Fish Oil ([place]-3), 1 CAP PO BID Fluoxetine (Prozac), 20 MG PO QAM Fluticasone Prop/Salmeterol (Advair Diskus 250-50 Mcg/Dose), 1 PUFF INH BID Furosemide (Lasix), 40 MG PO QAM Gabapentin (Gabapentin), 1 CAP PO BID Zergatkbhcb-Chvjzrivlon-Xyd C- (Glucosamine Chondroitin), 2 TABS PO QAM Hydrocodone/Acetaminophen 5MG/325MG ([place] 5MG/325MG), 1-2 TABLET PO Q4 PRN for Pain Levothyroxine Sodium (Synthroid), 25 MCG PO QAM Lisinopril (Lisinopril), 10 MG PO QAM Loratadine (Claritin), 10 MG PO QAM Metoprolol Succinate (Toprol Xl), 25 MG PO QAM Mometasone Furoate (Nasal) (Mometasone Furoate), 1-2 SPRAYS NA QPM Multivitamin (Multivitamin), 1 TAB PO QAM Nitroglycerin (Nitrostat), 0.4 MG UT PRN Pantoprazole (Protonix), 40 MG PO QAM Ropinirole (Requip), 1 MG PO HS Medication Instructions For Your Scheduled Surgery -Continue as directed: Nitroglycerin (Nitrostat), 0.4 MG UT PRN -Hold the following medications per your prescriber's instructions: Clopidogrel (Plavix), 75 MG PO QAM Hhnopwi-Jnppvdmhmhtfw-Mxtfssxw (Excedrin Extra Strength), 2 TAB PO Q6 PRN for Pain - Hold the following medications 2 weeks prior to surgery: Fish Oil ([place]-3), 1 CAP PO BID Gabuwdbnobq-Eulxqvquxvf-Wjw C- (Glucosamine Chondroitin), 2 TABS PO QAM - Hold the following medications 48 hours prior to surgery: Ropinirole (Requip), 1 MG PO HS (do not take the night before surgery) - Hold the following medications the morning of surgery: Lisinopril (Lisinopril), 10 MG PO QAM Furosemide (Lasix), 40 MG PO QAM Ferrous Sulfate Dried (Feosol), 200 MG PO QAM Cyanocobalamin (Vitamin B-12), 1,000 MCG PO QAM Loratadine (Claritin), 10 MG PO QAM Multivitamin (Multivitamin), 1 TAB PO QAM Calcium Carbonate-Vitamin D W/ (Caltrate 600 Plus), 1 TAB PO QAM Cholecalciferol (Vitamin D3), 2,500 UNITS PO QAM Ascorbic Acid (Vitamin C), 1,000 MG PO QAM - Take the following medications the morning of surgery with a sip of water: Fluticasone Prop/Salmeterol (Advair Diskus 250-50 Mcg/Dose), 1 PUFF INH BID Gabapentin (Gabapentin), 1 CAP PO BID Pantoprazole (Protonix), 40 MG PO QAM Fluoxetine (Prozac), 20 MG PO QAM Hydrocodone/Acetaminophen 5MG/325MG ([place] 5MG/325MG), 1-2 TABLET PO Q4 PRN for Pain (if needed can take up to four hours prior to surgery) Levothyroxine Sodium (Synthroid), 25 MCG PO QAM Metoprolol Succinate (Toprol Xl), 25 MG PO QAM Albuterol Sulf (Proventil 0.083% 2.5MG/3ML), 2.5 MG INH QID PRN for SOB/Wheezing Albuterol Sulfate (Proair Respiclick), 2 PUFFS INH Q4H PRN for Shortness of Breath (if needed, AND BRING WITH YOU THE MORNING OF THE SURGERY) Aspirin (Aspir-81), 81 MG PO QAM Alprazolam (Xanax), 0.25 MG PO BID - Take the following medications as scheduled the night before surgery: Fluticasone Prop/Salmeterol (Advair Diskus 250-50 Mcg/Dose), 1 PUFF INH BID Gabapentin (Gabapentin), 1 CAP PO BID Mometasone Furoate (Nasal) (Mometasone Furoate), 1-2 SPRAYS NA QPM Hydrocodone/Acetaminophen 5MG/325MG ([place] 5MG/325MG), 1-2 TABLET PO Q4 PRN for Pain Atorvastatin (Lipitor), 80 MG PO HS Alprazolam (Xanax), 0.25 MG PO BID If you have any questions please call us at [phone] or [phone] or [phone]
--- NOTE | 2017-03-12 17:23 | HISTORY & PHYSICAL EXAMINATION ---
DATE OF ADMISSION: 03/15/2017 CHIEF COMPLAINT: Back and lower extremity difficulty. PREOPERATIVE DIAGNOSIS: Disk herniation at L3-L4 and stenosis at L4-L5 lumbar spine. She has back and lower extremity difficulty. She has recurrent stenosis, recurrent disk herniation, and verified on CT scan. She has subjectivity of back and lower extremity difficulty, paresthesias, but no fever, sweats, chills. ALLERGIES: DOXYCYCLINE, LIDOCAINE. PAST MEDICAL HISTORY: Arthritis, spine issues, low back issues, acid reflux, obesity, hiatal hernia, angina, heart attack, hypertension, high cholesterol, palpitations, emphysema, COPD, asthma, anxiety, numbness, and anemia. MEDICATIONS: Quite numerous. I have reviewed them. They are scanned in the computer. We held off on dictation. REVIEW OF SYSTEMS: Denies any blurred vision, double vision, tinnitus, vertigo. Denies any chest pain, palpitations. Denies asthma, wheezing, shortness of breath. No nausea, vomiting, or bowel and bladder incontinence. OBJECTIVE: GENERAL: She is 5 feet 2 inches and weight 230. Alert, oriented, mentation normal. VITAL SIGNS: Blood pressure 130/80, pulse of 80, respiratory rate 16. CARDIAC: Normal S1, S2. ABDOMEN: Soft, nontender. No organomegaly. NEUROLOGIC: She has weakness of quadriceps, loss of sensation, decreased reflexes, and gait abnormality. Structurally, she has decreased range of motion, pain with percussion. IMAGING STUDIES: Reviewed. IMPRESSION: Disk herniation, L3-L4 lumbar spine, stenosis and mild instability and degenerative changes at L4-L5. DISPOSITION: She is being in preop for surgery. It will be a laminectomy and fusion, L3-L4 and L4-L5, lumbar spine.
[~2017-03-15] VITALS: Ht 157.5 cm; Wt 106.3 kg
[~2017-03-15 08:09] MED LIST changes: -CALC500C70 PO; +CEFAZOLIN 2000MG IV PUSH 10 ML IV SCH; -CIPR0.3S OP; -DICL-201 PO; +LACTATED RINGER'S 1000ML 1,000 ML IV SCH; +NSS 1000ML IV SCH
[2017-03-15 08:58] VITALS: BP 132/81; PULSE 79; TEMP 36.8; O2SAT 98
[2017-03-15] MEDS ORDERED: ONDANSETRON INJ 2 MG/ML 2 ML VIAL IV PRN ×2 (09:15→12:45)
[2017-03-15] MEDS ORDERED: EpHEDrine SULFATE INJ 50 MG/ML AMP IV PRN (09:15)
[2017-03-15] MEDS ORDERED: FLUMAZENIL 0.1 MG/1 ML 10 ML VIAL IV PRN (09:15)
[2017-03-15] MEDS ORDERED: MoRPHine SULFATE 10 MG/ML CARP/VIAL IV PRN (09:15)
[2017-03-15] MEDS ORDERED: NALOXONE HCL 0.4 MG/1 ML VIAL/CARP IV PRN ×2 (09:15→12:45)
[2017-03-15] MEDS ORDERED: MEPERIDINE HCL 25 MG/ML CARP IV PRN (09:15)
[2017-03-15] MEDS ORDERED: ATROPINE SULFATE 0.1 MG/ML 5ML SYR IV PRN (09:15)
[2017-03-15] MEDS ORDERED: PHENYLEPHRINE 100MCG/ML 5ML SYR IV PRN (09:15)
[2017-03-15] MEDS ORDERED: LABETALOL HCL IV 5 MG/ML 20ML IV PRN (09:15)
[2017-03-15] MEDS ORDERED: HYDROmorphone INJ 2 MG/ML SYR/VIAL ONE (09:17)
[2017-03-15] MEDS ORDERED: FENTANYL CITRATE INJ 50 MCG/1 ML 2 ML VIAL ONE (09:17)
[2017-03-15] MEDS ORDERED: MIDAZOLAM HCL 1 MG/ML 2ML VIAL ONE (09:17)
--- NOTE | 2017-03-15 09:47 | History & Physical Bridge Note ---
H&P Re-Evaluation Bridge Note: I have examined the patient, reviewed the History & Physical and in the interval since the performance of the History & Physical I have noted the following changes of clinical significance: No changes noted
[2017-03-15] MEDS ORDERED: BACITRACIN 50000 UNIT VIAL ONE (09:49)
[2017-03-15] MEDS ORDERED: THROMBIN FOR SOLN 20000 UNIT KIT ONE (09:49)
[2017-03-15] MEDS ORDERED: GELATIN SPONGE SZ 100 ONE ×2 (09:49→11:00)
[2017-03-15] MEDS ORDERED: VANCOMYCIN HCL 1000MG/20ML VIAL ONE (09:49)
[2017-03-15] MEDS ORDERED: BUPIVACAINE/EPINEPHRINE 0.25% 1:200,000 30 ML VIAL ONE (09:50)
[2017-03-15] MEDS ORDERED: EpHEDrine SULFATE 50MG/5ML SYR ONE (10:37)
[2017-03-15] MEDS ORDERED: ROCURONIUM BROMIDE 10 MG/ML 5 ML VIAL IV ONE ×2 (10:37→10:40)
[2017-03-15] MEDS ORDERED: NEOSTIGMINE METHYLSULFATE 5 MG/5 ML SYR ONE (10:37)
[2017-03-15] MEDS ORDERED: ONDANSETRON INJ 2 MG/ML 2 ML VIAL ONE (10:37)
[2017-03-15] MEDS ORDERED: GLYCOPYRROLATE INJ 0.2 MG/ML VIAL ONE (10:37)
[2017-03-15] MEDS ORDERED: DEXAMETHASONE SOD INJ 4 MG/ML VIAL ONE (10:37)
[2017-03-15] MEDS ORDERED: PROPOFOL IV EMULSION 10 MG/ML 20 ML VIAL IV ONE (10:37)
[2017-03-15] MEDS ORDERED: SODIUM CHLORIDE 0.9% 1000ML 1,000 ML IV SCH (12:44)
[2017-03-15] MEDS ORDERED: MAGNESIUM HYDROXIDE SUSP 30 ML UDC PO PRN (12:45)
[2017-03-15] MEDS ORDERED: LORAZEPAM INJ 1 MG in SYRINGE 0 ML IV PRN (12:45)
[2017-03-15] MEDS ORDERED: LORAZEPAM 1 MG TAB PO PRN (12:45)
[2017-03-15] MEDS ORDERED: PROMETHAZINE HCL INJ 12.5 MG in SODIUM CHLORIDE 0.9% 50ML 50 ML IV PRN (12:45)
[2017-03-15] MEDS ORDERED: NITROGLYCERIN 0.4 MG SL PER TAB CHARGE UT PRN (12:45)
[2017-03-15] MEDS ORDERED: ALBUTEROL HFA 8 GM INHALER INH PRN (12:45)
[2017-03-15] MEDS ORDERED: ALBUTEROL 0.083% NEBU SOLN 3 ML VIAL INH PRN (12:45)
[2017-03-15] MEDS ORDERED: METOCLOPRAMIDE HCL INJ 5 MG/ML 2 ML VIAL IV PRN (12:45)
[2017-03-15] MEDS ORDERED: ACETAMINOPHEN 325 MG TAB PO PRN (12:45)
--- NOTE | 2017-03-15 12:47 | [facility] Post Operative Brief Note ---
Immediate Operative Summary Operative Date Mar 15, 2017. Pre-Operative Diagnosis Disk herniation, L3-L4 lumbar spine, stenosis and mild instability and degenerative changes at L4-L5 Post-Operative Diagnosis Disk herniation, L3-L4 lumbar spine, stenosis and mild instability and degenerative changes at L4-L5 Procedure(s) Performed L3-L4, L4-L5 Laminectomy and Fusion Surgeon Dr. Adan Berger [employer] Architect Surgeon(s) Chau Muller PA-C Estimated Blood Loss 300mL Findings instability and stenosis Specimens None Complication(s) None Disposition Recovery Room / PACU
[2017-03-15] MEDS ORDERED: ALBUTEROL HFA INHALER 8.5 GM INH ONE (12:55)
[2017-03-15] MEDS: HYDROmorphone INJ 1 MG/ML SYR IV PRN ×3 (13:00→13:18)
--- NOTE | 2017-03-15 13:09 | OPERATIVE REPORT ---
DATE OF OPERATION: 03/15/2017 PREOPERATIVE DIAGNOSES: Cauda equina compression, spinal instability, stenosis L3-L4, L4-L5 lumbar spine. POSTOPERATIVE DIAGNOSES: Cauda equina compression, spinal instability, stenosis L3-L4, L4-L5 lumbar spine. PROCEDURE: Included a lumbar laminectomy revision strategies at L3-L4 and at L4-L5 lumbar spine, pedicle screw instrumentation, L4-L5 lumbar spine, posterolateral fusion at L3-L5, lumbar spine. COMPLICATIONS: Zero. BLOOD LOSS: Approximately 300 mL. COUNTS: Sponge and needle count correct at the close. IMPLANTS USED: By the [employer]. SURGEON: Adan Berger DO. PERFORMING ART[employer] RO[address] MANAGER: Chau Muller PA-C. DESCRIPTION OF PROCEDURE: The patient was taken to the operating room. A general intubated anesthetic provided to the patient, placed prone, prepped and draped sterile. I made a skin incision, fascial incision, putting in a deep self-retaining retractor. We meticulously dissected the dura from 3 down to 5, foraminotomies, partial facetectomies, each nerve was free of obstruction. Because of the instability that I knew preop and visualized intraoperatively, we instrumented the spine safely to get the pedicle screws, 3, 4 and 5 on the left and 3, 4 and 5 and right. This was locked into place. Cross table lateral imaging were appropriate. We then bone grafted over the transverse process of 3-5 with a combination of DBM and autogenous bone. We placed vancomycin deep as well. We closed fascia to fascia with #1 Vicryl suture, 2-0 as well on the subcuticular, 3-0 nylon on the skin. Sterile dressing applied. The patient returned to PACU stable. No apparent complications. I attest to the content of the Intraoperative Record and any orders documented therein. Any exception s are noted below.
[2017-03-15 13:17] LABS: HEMATOCRIT 36.6 % (37-47)
--- NOTE | 2017-03-15 13:24 | DIAGNOSTIC IMAGING REPORT ---
SPINE ONE VIEW, ANY LEVEL HISTORY: Laminectomy.. FLUOROSCOPY TIME: 5 seconds. FINDINGS: Intraoperative fluoroscopy was provided for the lumbar spine. 2 fluoroscopic spot images were obtained. IMPRESSION: Fluoroscopy provided for a low lumbar laminectomy and fusion. The above report was generated using voice recognition software. It may contain grammatical, syntax or spelling errors. Electronically signed by: Danny Neal M.D. 03/15/2017 1:23 PM Dictated Date/Time: 03/15/2017 1:22 PM
[2017-03-15] MEDS: HYDROmorphone HCL 0.5MG/ML 50 ML CASSETTE IV PRN ×4 (13:27→23:04)
--- NOTE | 2017-03-15 13:43 | Anesthesiology Progress Note ---
Anesthesia Post Op Note Date & Time Mar 15, 2017 at 13:42 Vital Signs Pain Intensity: 3 Vital Signs Past 12 Hours Date Time Temp Pulse Resp B/P (MAP) Pulse Ox O2 Delivery O2 Flow Rate FiO2 03/15/17 13:38 37.0 03/15/17 13:36 154/67 03/15/17 13:33 81 16 03/15/17 13:33 80 16 95 03/15/17 13:31 141/64 03/15/17 13:28 82 16 03/15/17 13:28 83 16 95 03/15/17 13:26 155/69 03/15/17 13:23 82 15 97 03/15/17 13:23 81 15 03/15/17 13:22 84 13 03/15/17 13:22 83 13 99 03/15/17 13:21 146/63 03/15/17 13:17 85 17 99 03/15/17 13:17 85 17 03/15/17 13:16 160/70 03/15/17 13:12 83 12 03/15/17 13:12 83 12 100 03/15/17 13:11 157/69 03/15/17 13:10 83 14 98 03/15/17 13:10 82 14 03/15/17 13:06 167/76 03/15/17 13:05 86 21 99 03/15/17 13:05 86 21 03/15/17 13:02 152/71 03/15/17 13:00 87 17 03/15/17 13:00 87 17 99 03/15/17 12:57 157/76 03/15/17 12:55 90 15 03/15/17 12:55 90 15 100 03/15/17 12:51 169/77 03/15/17 12:50 37.1 90 18 169/77 96 Oxymask 10 03/15/17 12:50 95 76 03/15/17 12:50 95 76 94 03/15/17 08:58 36.8 79 20 132/81 98 Room Air Notes Mental Status: alert / awake / arousable, participated in evaluation Pt Amnestic to Procedure: Yes Nausea / Vomiting: adequately controlled Pain: adequately controlled Airway Patency, RR, SpO2: stable & adequate BP & HR: stable & adequate Hydration State: stable & adequate Anesthetic Complications: no major complications apparent
[2017-03-15 14:48] VITALS: BP 146/70; PULSE 71; TEMP 36.9; O2SAT 99
[2017-03-15] MEDS: SODIUM CHLORIDE 0.9% 1000ML 1,000 ML IV SCH (15:02)
[2017-03-15 16:05] VITALS: BP 132/71; PULSE 61; TEMP 36.7; O2SAT 99
[2017-03-15] MEDS: CEFAZOLIN IV 2,000 MG in SYRINGE 0 ML IV SCH (17:50)
[2017-03-15] MEDS: DEXAMETHASONE INJ 10 MG in SYRINGE 0 ML IV SCH (17:50)
[2017-03-15 19:26] VITALS: BP 116/64; PULSE 62; TEMP 36.7; O2SAT 97
[2017-03-15 19:42] VITALS: O2SAT 97
[2017-03-15] MEDS: FLUTICASONE/SALMETEROL 250/50 (ADVAIR) 14 PUFF/1 INHALER INH SCH (20:41)
[2017-03-15] MEDS: GABAPENTIN 300 MG CAP PO SCH (20:42)
[2017-03-15] MEDS: ATORVASTATIN 40 MG TAB PO SCH (20:42)
[2017-03-15] MEDS: ROPINIROLE HCL 1 MG TAB PO SCH (20:42)
[2017-03-15] MEDS ORDERED: ALPRAZOLAM 0.25 MG TAB PO SCH (21:00)
[2017-03-16] MEDS: CEFAZOLIN IV 2,000 MG in SYRINGE 0 ML IV SCH ×2 (02:26→09:17)
[2017-03-16] MEDS: DEXAMETHASONE INJ 10 MG in SYRINGE 0 ML IV SCH ×3 (02:26→18:27)
[2017-03-16] MEDS: SODIUM CHLORIDE 0.9% 1000ML 1,000 ML IV SCH (02:35)
[2017-03-16 03:13] VITALS: BP 122/68; PULSE 63; TEMP 36.6; O2SAT 98
[2017-03-16] MEDS: LEVOTHYROXINE 25 MCG TAB PO SCH (05:41)
[2017-03-16] MEDS ORDERED: OXYCODONE/ACETAMINOPHEN 5-325 TAB PO PRN ×3 (06:00→08:00)
[2017-03-16] MEDS ORDERED: DC PCA ONE (06:00)
[2017-03-16] MEDS ORDERED: HYDROmorphone INJ 2 MG/ML SYR/VIAL IV PRN (06:00)
[2017-03-16] MEDS ORDERED: BISACODYL 5 MG TABEC PO PRN (06:00)
[2017-03-16] MEDS ORDERED: BISACODYL 10 MG SUPP PR PRN (06:00)
[2017-03-16] MEDS ORDERED: HYDROmorphone INJ 1 MG/ML SYR IV PRN (06:00)
[2017-03-16] MEDS ORDERED: NURSING DECISION MEDICATION ORDER SCH (06:45)
--- NOTE | 2017-03-16 07:20 | Anesthesiology Progress Note ---
Anesthesia Post Op Note Date & Time Mar 16, 2017 at 07:20 Vital Signs Pain Intensity: 4.0 Vital Signs Past 12 Hours Date Time Temp Pulse Resp B/P (MAP) Pulse Ox O2 Delivery O2 Flow Rate FiO2 03/16/17 03:13 36.6 63 18 122/68 (86) 98 Nasal Cannula 2.0 03/16/17 00:00 Nasal Cannula 2.0 03/15/17 19:42 97 Nasal Cannula 2.0 03/15/17 19:26 36.7 62 16 116/64 (81) 97 Nasal Cannula 2.0 Notes Mental Status: alert / awake / arousable, participated in evaluation Pt Amnestic to Procedure: Yes Nausea / Vomiting: adequately controlled Pain: adequately controlled Airway Patency, RR, SpO2: stable & adequate BP & HR: stable & adequate Hydration State: stable & adequate Anesthetic Complications: no major complications apparent
[2017-03-16 07:34] VITALS: BP 129/65; PULSE 68; TEMP 36.8; O2SAT 99
--- NOTE | 2017-03-16 08:29 | Clinical Documentation Query ---
CLINICAL DOCUMENTATION QUERY Dr. CORTEZ, In your clinical opinion is this patient being managed for: ( ) Morbid obesity with BMI 42.9 ( ) Not Agree ( ) Other explanation of clinical findings (Please Explain) ( ) Unable to determine (Please Define) ( ) Need to Discuss BMI: A significantly high (>40) or significantly low (<19) BMI will impact the severity of illness and risk of mortality of your patient. However, the physician must document a correlating diagnosis in the medical record. Please clarify and document your clinical opinion in the progress notes and discharge summary. Terms such as "probable", "suspected", "likely", "questionable", "possible", or "still to be ruled out" are acceptable. IF IN AGREEMENT, YOU MUST DOCUMENT ABOVE DIAGNOSTIC STATEMENT IN DAILY PROGRESS NOTES AND DISCHARGE SUMMARY. This document is not part of the patient's record. Thank You, Kasie Benavides RN [phone]
[2017-03-16] MEDS ORDERED: GLUCOSAMINE CHONDROITIN VIT C PO SCH (09:00)
[2017-03-16] MEDS: FLUTICASONE/SALMETEROL 250/50 (ADVAIR) 14 PUFF/1 INHALER INH SCH ×2 (09:06→20:51)
[2017-03-16] MEDS: CLOPIDOGREL BISULFATE 75 MG TAB PO SCH (09:07)
[2017-03-16] MEDS: LISINOPRIL 10 MG TAB PO SCH (09:07)
[2017-03-16] MEDS: GABAPENTIN 300 MG CAP PO SCH ×2 (09:08→20:52)
[2017-03-16] MEDS: CYANOCOBALAMIN 500 MCG TAB (VIT B-12) PO SCH (09:08)
[2017-03-16] MEDS: OXYCODONE/ACETAMINOPHEN 5-325 TAB PO PRN ×3 (09:10→23:53)
[2017-03-16] MEDS: ASPIRIN 81 MG ECTAB PO SCH (09:11)
[2017-03-16] MEDS: MULTIVITAMIN TAB PO SCH (09:11)
[2017-03-16] MEDS: FLUOXETINE HCL 20 MG CAP PO SCH (09:11)
[2017-03-16] MEDS: METOPROLOL SUCC 25MG EXT REL TAB PO SCH (09:11)
[2017-03-16] MEDS: ASCORBIC ACID 500 MG TAB PO SCH (09:12)
[2017-03-16] MEDS: LORATADINE 10 MG TAB PO SCH ×2 (09:12→11:15)
[2017-03-16] MEDS: FUROSEMIDE 40 MG TAB PO SCH (09:12)
[2017-03-16] MEDS: PANTOprazole SOD 40 MG TAB PO SCH (09:13)
[2017-03-16] MEDS: CHOLECALCIFEROL 1000 INTER.UNIT TAB PO SCH (09:13)
[2017-03-16] MEDS: POLYETHYLENE (MIRALAX) 17 GM PACK PO SCH (09:14)
[2017-03-16] MEDS: FERROUS SULFATE 325 MG TAB PO SCH (09:14)
[2017-03-16] MEDS: CALCIUM 600MG + VIT D 400 IU TAB PO SCH (09:14)
[2017-03-16 11:03] VITALS: BP 128/69; PULSE 73; TEMP 36.7; O2SAT 99
[2017-03-16] MEDS ORDERED: COUGH DROP (SUGAR FREE) LOZ 24 LOZ/1 BOX ONE (11:13)
[2017-03-16] MEDS ORDERED: NURSING VERBAL MED ORDER ONE (11:15)
[2017-03-16] MEDS ORDERED: COUGH DROP (SUGAR FREE) LOZ 24 LOZ/1 BOX PO PRN (11:30)
[2017-03-16 15:02] VITALS: BP 139/63; PULSE 77; TEMP 36.6; O2SAT 99
[2017-03-16] MEDS: ROPINIROLE HCL 1 MG TAB PO SCH (20:51)
[2017-03-16] MEDS: ATORVASTATIN 40 MG TAB PO SCH (20:51)
[2017-03-16 23:07] VITALS: BP 153/69; PULSE 68; TEMP 36.6; O2SAT 98
[2017-03-17 00:15] VITALS: O2SAT 98
[2017-03-17] MEDS: DEXAMETHASONE INJ 10 MG in SYRINGE 0 ML IV SCH (02:00)
[2017-03-17] MEDS: LEVOTHYROXINE 25 MCG TAB PO SCH (05:57)
--- NOTE | 2017-03-17 07:55 | Discharge Instructions ---
Discharge Instructions Date of Service Mar 17, 2017. Admission Reason for Admission: Lumbar Spinal Stenosis Discharge Discharge Diagnosis / Problem: same Discharge Goals Goal(s): Improve function Activity Recommendations Activity Limitations: as noted below Lifting Limitations: gradually increase as tolerated Exercise/Sports Limitations: until after follow-up appointment May Resume Sexual Activity: after follow-up appointment Shower/Bathe: keep incision dry . Instructions / Follow-Up Instructions / Follow-Up MEDICATIONS: Please take your prescriptions as instructed at your pre-op appointment. SPECIAL CARE: The following information is intended to answer some of the common questions and concerns regarding your surgery. Each patient is an individual and receives individual counselling throughout the course of treatment, from diagnosis to surgery all the way through recovery. What follows is not an exhaustive list, but should be a useful guide to some of the common questions and concerns patients have regarding their surgeries. These are not provided to keep you from calling us; rather, they give you something accurate and concrete to reference as you recover from your procedure. If you need us, we are available to you. As always, if you are not sure about something, call us at [phone]. MEDICAL EMERGENCIES: For these conditions, call 911 or go to your local hospital-based Emergency Department - not [facility] or equivalent. * Paralysis * Severe chest pain or difficulty breathing * Swelling or redness of either leg Spine procedures can be rather complex and though complications are rare, they do occur. In such cases, effective advice regarding emergency situations cannot always be addressed over the telephone. You may be referred to the emergency department for more effective management of your problem. Activity Limitations: It is important to give your body time to heal, so please limit your activities : * In general, don't do anything that moves your spine too much. You should avoid contact sports, twisting or heavy lifting while you recover. * 5-10 pounds is all you should attempt to lift. * You should not plan on driving for approximately 3 weeks and you should avoid traveling more than 30-45 minutes at a time. Longer trips should be broken down with walking breaks spaced appropriately. * Physical therapy is not usually required. * Walking and good posture practices will help you recover and regain your function. * Avoid straining or sudden changes in position. * In general, the goal is to take it easy and recover. Don't cause any new problems. Just relax. Showers: * Do not take a bath, use a Jacuzzi or hot tub or otherwise submerge your incision. * It is usually safe to take a shower 4-5 days after your surgery. * Your incision does not require any special creams or ointments. * Simply clean it with soap and water, dry and re-dress with a clean bandage afterwards. Incision: * Keep incision clean, dry and protected until your first follow-up appointment. * Some amount of drainage and redness is normal. Any drainage should be fairly clear and not have a foul odor. * If you feel anything is wrong or you have excessive drainage, please call us. * Your stitches and brett will be removed 10-14 days after your surgery. At the time of your first post-op visit. * Neck surgeries are typically closed with a suture underneath the skin. The steri-strips over the incision should be maintained until we see you in the office. Bracing: * You may be provided with a back or neck brace to encourage good posture and prevent injury. It will remind you not to do too much as you heal and will alert others to the fact that you have had a surgery. * Back braces may be removed for showers and when you are resting at home. They must be worn when you are walking around for any period of time or for travel. * For neck surgery, you will likely be provided with two cervical collars. The soft collar ([place] or foam rubber) is worn most commonly throughout the day and while sleeping. The plastic collar (provided at the hospital) is for showering/bathing. * Except while eating, collars should remain in place. More specifically, bracing is provided for a purpose and should be worn. * Please obtain your brace or collars prior to your operation and bring them to the hospital with you on the day of surgery. * You should also bring your collars to your post-op appointment with Dr. Berger. You should always take good care of your body and practice healthy habits, especially following surgery. You should: * Follow your doctor's treatment plan * Sit and stand properly with good posture (ears over shoulders, shoulders over hips) Don't slouch * Learn to lift correctly * Exercise regularly (low-impact aerobic exercise is especially good, but check with your doctor first) * Generally, be up and walking for 5-10 minutes at a time at least 3-4 times per day from the day you get home * Increasing walking to tolerance until you can walk for 20-30 minutes at a time * Attain and maintain a healthy body weight * Eat healthy foods ( a well-balanced, low-fat diet rich in fruits and vegetables) and get enough calcium * Avoid excessive use of alcohol When to call our office - If you notice any of the following: * Increased pain not relieve by pain medicine * Fevers greater then 100 degrees F, chills or flu symptoms * Increased redness around incision * Drainage from the incision that is not clear * Any foul smelling drainage * Swelling or fluid collection beneath the skin Miscellaneous: * In the hospital, you may be given a walker or cane for support while walking. These are temporary needs and are intended to prevent injuries due to falls. You may discontinue them when you feel strong and steady enough on your feet. * Sleep in a comfortable position. We find that many patients find a lounge chair or recliner with several pillows to be beneficial in the early post-operative period. * The support stockings should be used for 7-10 days and may be discontinued when you are back to walking more and conducting usual household activities. No problem is insignificant. We are here to help you and get you well. Contact us at [phone]. Definitions: Foraminotomy: If part of the disc or a bone spur (osteophyte) is pressing on a nerve as it leaves the vertebra (through an exit called the foramen), a foraminotomy may be done. Otomy means "to make an opening." A foraminotomy is making the opening of the foramen larger, so the nerve can exit without being compressed. Laminotomy: Similar to the foraminotomy, a laminotomy makes a larger opening, this time in your bony plate protecting your spinal canal and spinal cord (the lamina). The lamina may be pressing on your nerve, so the surgeon may make more room for the nerves using a laminotomy. Laminectomy: Sometimes, a laminotomy is not sufficient. The surgeon may need to remove all or part of the lamina. This procedure is called a laminectomy. This can often be done at many levels without any harmful effects. Current Hospital Diet Patient's current hospital diet: Regular Diet Discharge Diet Recommended Diet: Regular Diet Procedures Procedures Performed: L3-L4, L4-L5 Laminectomy and Fusion Pending Studies Studies pending at discharge: no Medical Emergencies . Who to Call and When: Medical Emergencies: If at any time you feel your situation is an emergency, please call 911 immediately. . Non-Emergent Contact Non-Emergency issues call your: Surgeon . "Provider Documentation" section prepared by Adan Berger. . VTE Core Measure Inpt VTE Proph given/why not?: Treatment not indicated
--- NOTE | 2017-03-17 08:04 | DISCHARGE SUMMARY ---
SUBJECTIVE: She is improved, stable after reconstructive spine surgery, minimal complaints, up ambulatory, alert, oriented, taking p.o. PHYSICAL EXAMINATION: Wound clean, dry. Afebrile. ASSESSMENT: Reconstructive spine surgery, doing well short run. DISPOSITION: She will be discharged home today. Instructions, precautions, warnings and advice given in the office duplicated here on the floor. She has prescription on her chart. We will see her back in 10 days.
[2017-03-17 08:14] VITALS: BP 158/74; PULSE 63; TEMP 36.7; O2SAT 100
[2017-03-17] MEDS: FERROUS SULFATE 325 MG TAB PO SCH (09:25)
[2017-03-17] MEDS: CALCIUM 600MG + VIT D 400 IU TAB PO SCH (09:25)
[2017-03-17] MEDS: MULTIVITAMIN TAB PO SCH (09:25)
[2017-03-17] MEDS: FLUTICASONE/SALMETEROL 250/50 (ADVAIR) 14 PUFF/1 INHALER INH SCH (09:25)
[2017-03-17] MEDS: ASPIRIN 81 MG ECTAB PO SCH (09:25)
[2017-03-17] MEDS: CLOPIDOGREL BISULFATE 75 MG TAB PO SCH (09:26)
[2017-03-17] MEDS: PANTOprazole SOD 40 MG TAB PO SCH (09:26)
[2017-03-17] MEDS: FUROSEMIDE 40 MG TAB PO SCH (09:26)
[2017-03-17] MEDS: GABAPENTIN 300 MG CAP PO SCH (09:26)
[2017-03-17] MEDS: CYANOCOBALAMIN 500 MCG TAB (VIT B-12) PO SCH (09:27)
[2017-03-17] MEDS: METOPROLOL SUCC 25MG EXT REL TAB PO SCH (09:27)
[2017-03-17] MEDS: FLUOXETINE HCL 20 MG CAP PO SCH (09:27)
[2017-03-17] MEDS: CHOLECALCIFEROL 1000 INTER.UNIT TAB PO SCH (09:28)
[2017-03-17] MEDS: ASCORBIC ACID 500 MG TAB PO SCH (09:28)
[2017-03-17] MEDS: LISINOPRIL 10 MG TAB PO SCH (09:29)
[2017-03-17] MEDS: POLYETHYLENE (MIRALAX) 17 GM PACK PO SCH (09:30)
[2017-03-17 09:32] VITALS: BP 139/69; PULSE 71
[2017-03-17 09:53] VITALS: BP 139/69; PULSE 71; TEMP 36.7; O2SAT 100
== END 2017-03-17 11:26 | disposition home or self-care (01) | DRG 460 ==
LOC: C.ACU 08:09 → ENRESERV 13:43 → C.3E 14:44
PROVIDERS: ADMIT Orthopaedic Surgery Orthopaedic Surgery of the Spine; ATTEND Orthopaedic Surgery Orthopaedic Surgery of the Spine
PROC: 0SG1071 Fusion of 2 or more Lumbar Vertebral Joints with Autologous Tissue Substitute, Posterior Approach, Posterior Column, Open Approach (ICD-10-PCS; principal; 2017-03-15 10:00)
DX: M48.061 Spinal stenosis, lumbar region without neurogenic claudication (principal); G83.4 Cauda equina syndrome; M51.26 Other intervertebral disc displacement, lumbar region; M47.896 Other spondylosis, lumbar region; K21.9 Gastro-esophageal reflux disease without esophagitis; E78.5 Hyperlipidemia, unspecified; I10 Essential (primary) hypertension; I25.2 Old myocardial infarction; J44.9 Chronic obstructive pulmonary disease, unspecified

== ENCOUNTER → 2017-08-03 | Outpatient (CLI) | payer OTHER ==
[~2017-08-03] MED LIST changes: -CEFAZOLIN 2000MG IV PUSH 10 ML IV SCH; -LACTATED RINGER'S 1000ML 1,000 ML IV SCH; -METO25TA3 PO; +METO25TA4 PO; -NSS 1000ML IV SCH
[2017-08-03 12:47] LABS: HEMATOCRIT 33.9 % (37-47); HEMOGLOBIN 11.3 g/dL (12.0-16.0); MEAN CELL VOLUME 92.6 fL (80-100); MEAN CORPUSCULAR HEMOGLOBIN 30.9 pg (25-34); MEAN CORPUSCULAR HGB CONC 33.3 g/dl (32-36); MEAN PLATELET VOLUME 9.7 fL (7.4-10.4); PLATELET COUNT 196 K/uL (130-400); RED CELL DISTRIBUTION WIDTH CV 15.2 % (11.5-14.5); RED CELL DISTRIBUTION WIDTH SD 51.6 fL (36.4-46.3); WHITE BLOOD COUNT 4.35 K/uL (4.8-10.8)
[2017-08-03 13:16] LABS: HEMOGLOBIN A1C 6.1 % (4.5-5.6)
[2017-08-03 13:31] LABS: ALBUMIN 3.4 gm/dl (3.4-5.0); ALT/SGPT 35 U/L (12-78); BLOOD UREA NITROGEN 17 mg/dl (7-18); CALCIUM 8.7 mg/dl (8.5-10.1); CARBON DIOXIDE 28 mmol/L (21-32); CHOLESTEROL 210 mg/dl (0-200); CREATININE 0.85 mg/dl (0.60-1.20); GLUCOSE 127 mg/dl (70-99); POTASSIUM 4.4 mmol/L (3.5-5.1); SODIUM 141 mmol/L (136-145)
[2017-08-03 13:33] LABS: AST/SGOT 22 U/L (15-37); TOTAL PROTEIN 7.7 gm/dl (6.4-8.2)
[2017-08-03 13:41] LABS: ALKALINE PHOSPHATASE 117 U/L (45-117); LDL CHOLESTEROL (DIRECT) 93 mg/dl
== END | disposition home or self-care (01) ==
LOC: C.LABPVFM 07:55
PROVIDERS: ATTEND Family Medicine
DX: I10 Essential (primary) hypertension (principal)

== ENCOUNTER → 2017-08-26 | Outpatient (CLI) | payer OTHER | END | disposition home or self-care (01) | LOC: C.MAMM 10:42 | PROVIDERS: ATTEND Family Medicine | DX: I10 Essential (primary) hypertension (principal); M85.89 Other specified disorders of bone density and structure, multiple sites ==

== ENCOUNTER → 2017-12-28 | Outpatient (CLI) | payer OTHER ==
[2017-12-28 12:35] LABS: BASO % 0.4 %; BASO ABS # 0.02 K/uL (0-0.2); EOS % 1.3 %; EOS ABS # 0.06 K/uL (0-0.5); HEMATOCRIT 34.7 % (37-47); HEMOGLOBIN 11.5 g/dL (12.0-16.0); IG# 0.01 K/uL (0.00-0.02); LYMPH % 40.4 %; LYMPH ABS # 1.83 K/uL (1.2-3.4); MEAN CELL VOLUME 95.3 fL (80-100); MEAN CORPUSCULAR HEMOGLOBIN 31.6 pg (25-34); MEAN CORPUSCULAR HGB CONC 33.1 g/dl (32-36); MEAN PLATELET VOLUME 10.4 fL (7.4-10.4); MONO % 8.8 %; NEUT % 48.9 %; NEUT ABS # 2.21 K/uL (1.4-6.5); PLATELET COUNT 208 K/uL (130-400); RED CELL DISTRIBUTION WIDTH SD 48.5 fL (36.4-46.3); WHITE BLOOD COUNT 4.53 K/uL (4.8-10.8)
[2017-12-28 12:49] LABS: ALKALINE PHOSPHATASE 108 U/L (45-117); ALT/SGPT 38 U/L (12-78); AST/SGOT 25 U/L (15-37); TOTAL PROTEIN 7.7 gm/dl (6.4-8.2)
== END | disposition home or self-care (01) ==
LOC: C.LAB1850 11:19
PROVIDERS: ATTEND Internal Medicine Rheumatology
DX: M20.40 Other hammer toe(s) (acquired), unspecified foot (principal); M05.741 Rheumatoid arthritis with rheumatoid factor of right hand without organ or systems involvement; M05.742 Rheumatoid arthritis with rheumatoid factor of left hand without organ or systems involvement; Z79.899 Other long term (current) drug therapy

== ENCOUNTER 2021-04-19 10:28 | Inpatient (IN) ==
--- NOTE | 2021-04-19 11:00 | Emergency Department Note ---
Impression & Plan Acute respiratory failure with hypoxia, Pneumonia due to COVID-19 virus, Breath, shortness ED Provider Note NAME: DELFINA LOYA AGE: 70 SEX: F : 1950 ARRIVES VIA: Ambulance INFORMANT: Patient ED PROVIDER(S): Derrick Garcia DO CHIEF COMPLAINT: shortness of breath HPI: Patient is a 70-year-old female who presents to the ER for symptoms which started about 10 days ago. She has been having cough, congestion, runny nose and shortness of breath. She has been febrile. She was brought in by EMS and found be hypoxic per EMS. She was found to be in the low 80s on room air. She was placed on nasal cannula and brought in. She admits to some nausea. No dysuria, urgency, or frequency. No other exacerbating or remitting factors. She was vaccinated back in August. ROS: See above HPI for pertinent positives & negatives. A total of 10 systems reviewed and were otherwise negative. � PAST MEDICAL HISTORY:��See Below PAST SURGICAL HISTORY:��See Below� FAMILY HISTORY:��See Below SOCIAL HISTORY:��See Below � HOME MEDICATIONS:��See Below ALLERGIES:��See Below � VITALS:��See Below PHYSICAL EXAMINATION: GENERAL: Sitting up in bed, alert, chronically ill-appearing, disheveled, moderate distress and obese EYE EXAM: normal conjunctiva. PERRL and EOM's grossly intact. OROPHARYNX: no exudate, no erythema, lips, buccal mucosa, and tongue normal and mucous membranes are moist NECK: supple, no nuchal rigidity, no adenopathy, non-tender LUNGS: Diminished bilaterally. Normal chest wall mechanics HEART: no murmurs, S1 normal and S2 normal ABDOMEN: abdomen soft, non-tender, normo-active bowel sounds, no masses, no rebound or guarding. UPPER EXTREMITIES: upper extremities are grossly normal. LOWER EXTREMITIES: No pitting edema. NEURO EXAM: Normal sensorium, cranial nerves II-XII grossly intact, normal speech, no gross weakness of arms, no gross weakness of legs. MEDICAL DECISION MAKING: Patient is a 70-year-old female who presents to the ER Covid positive for shortness of breath. She is found to be hypoxic at 78% on room air. Placed on 4 L nasal cannula. She is febrile tachy and hypoxic. IV was established blood was obtained. Labs show no significant leukocytosis and mild anemia 11.8. BMP along with LFTs bilirubin was unremarkable. Troponin was negative. Lipase was unremarkable. Procalcitonin was normal. Chest x-ray shows bilateral infiltrates. Patient was updated bedside. She was given IV fluids remained on nasal cannula and Tylenol. She was discussed with the hospitalist admitted for hypoxia with Covid pneumonia. She remained on nasal cannula. Triage Nursing notes reviewed. Limited review of prior medical records performed Vital Signs: reviewed and remarkable for hypoxic, hypotensive and tachycardic and febrile Differential diagnosis: Differential diagnoses includes but is not limited to pneumonia, bronchitis, COPD/Asthma exacerbation, pneumothorax, pulmonary embolism, congestive heart failure, acute coronary syndrome ER treatment provided: See below Diagnostics interpreted by me: ECG: Sinus tachycardia rate of 101 Left axis No PVCs QTC 495 Cardiac Monitoring: An order was placed for continuous cardiac monitoring. The monitor shows a rate of 105 with sinus rhythm. Laboratory studies: As stated above and show below. Imaging studies: Portable AP upright 1 view the chest shows bilateral infiltrates Consultation(s): Discussed with Maine Ellis for further evaluation Procedures: none Critical Care: I have personally spent 32 minutes of critical care time in the direct management of this patient. This includes bedside care, interpretation of diagnostic studies, and testing, discussion with consultants, patient, and family members, and other required patient management activities. This 32 minutes is in excess of all separately billable procedures. � Past Med/Surg History Medical History (Updated 04/19/21 @ 14:34 by Derrick Garcia DO) Anemia Anxiety Asthma inhalers--daily/prn, nebulizer prn CAD (coronary artery disease) Chest pain Chronic back pain Chronic obstructive pulmonary disease Depression Diffuse myofascial pain syndrome Diverticulosis of colon DM2 (diabetes mellitus, type 2) Edema GERD (gastroesophageal reflux disease) Hemorrhoids Hyperlipidemia Hypertension Hypothyroidism Left hip pain Left wrist fracture Lumbar facet joint syndrome PR (myocardial infarction) Migraine Myocardial Infarction 2008 Obesity Osteoarthritis Postlaminectomy syndrome of lumbosacral region Restless leg syndrome Rheumatoid arthritis Right hip pain Venous insufficiency Surgical History History of bilateral cataract extraction History of bilateral tubal ligation History of cardiac cath 2008--no stent--follows w Dr. Varma History of carpal tunnel release of both wrists History of cholecystectomy History of colonoscopy History of dilatation and curettage History of laminectomy History of lumbar fusion L3,4,5 History of lumpectomy of right breast benign tumor removed History of tooth extraction all teeth History of total abdominal hysterectomy and bilateral salpingo-oophorectomy History of ventral hernia repair Hx of removal of cyst R breast Status post endovenous radiofrequency ablation (RFA) of saphenous vein greater saphenous vein Status post trigger finger release R thumb Status post trigger finger release L thumb Family History Sister Family history of diabetes mellitus Daughter Family history of diabetes mellitus Grandmother (Maternal) Myocardial infarction Grandfather (Paternal) Myocardial infarction Denies family history of Ovarian cancer Prostate cancer Breast cancer Colorectal cancer Social History Smoking Status: Never smoker Second Hand Exposure: Yes ( smoked); Hx Alcohol Use: No Hx Substance Use: No Preferred Language: Kinyarwanda Communication Ability: Effective Harness Tier Required: No Beliefs That Will Affect Care: None marital status: / Current Living Situation: Family Current Living Situation Comment: Lives with daughter current occupational status: retired Feels Safe at Home: Yes caffeine: Yes Dental Care, Regularly: No Physical Activity Frequency: Daily Seatbelt Use: always Sunscreen Use: Yes Assistive Devices: Denture - Upper, Denture - Lower, Glasses and Nebulizer Allergies Allergies Allergy/AdvReac Type Severity Reaction Status Date / Time doxycycline Allergy Severe rash Verified 04/19/21 11:31 Tetracyclines Allergy Intermediate HIVES Verified 04/19/21 11:31 lidocaine AdvReac Unknown PT Verified 04/19/21 11:31 REQUIRES A LARGER DOSE TO HAVE EFFECT Unclassified Drugs Allergy Unknown ANTIBIOTICS Uncoded 04/19/21 11:31 GIVE HER A YEAST INFECTION Home Meds Home Medications Medication Instructions Recorded Confirmed B-complex with vitamin C (Super B 1 tab PO QAM 12/13/20 04/19/21 Complex-Vitamin C) Tumeric 400mg Capsule 400 mg PO QAM 12/13/20 04/19/21 ascorbic acid (vitamin C) 1,000 mg 1,000 mg PO QAM 12/13/20 04/19/21 tablet (Vitamin C) aspirin 81 mg tablet,delayed 81 mg PO QAM 12/13/20 04/19/21 release (Aspirin Low Dose) uzcqohn-qlzhueuqxgkly-zjwzjzod 250 2 tab PO Q6H PRN 12/13/20 04/19/21 mg-250 mg-65 mg tablet (Excedrin Extra Strength) atorvastatin 80 mg tablet (Lipitor) 80 mg PO QAM 12/13/20 04/19/21 calcium carbonate 600 mg calcium 600 mg PO QAM 12/13/20 04/19/21 (1,500 mg) tablet (Calcium) cholecalciferol (vitamin D3) 25 25 mcg PO QAM 12/13/20 04/19/21 mcg (1,000 unit) capsule (Vitamin D3) clopidogrel 75 mg tablet (Plavix) 75 mg PO QAM 12/13/20 04/19/21 ferrous sulfate 325 mg (65 mg 325 mg PO QAM 12/13/20 04/19/21 iron) tablet (Iron (ferrous sulfate)) folic acid 1 mg tablet 2 mg PO QAM 12/13/20 04/19/21 furosemide 40 mg tablet (Lasix) 40 mg PO QAM 12/13/20 04/19/21 glucosamine VZx-N1-Plxxxesay 2 tab PO QAM 12/13/20 04/19/21 mckinley 1,500 mg-400 unit-100 mg tablet (Glucosamine Daily Complex) ipratropium 0.5 mg-albuterol 3 mg 3 ml INHALATION TID PRN 12/13/20 04/19/21 (2.5 mg base)/3 mL nebulization soln loratadine 10 mg tablet (Claritin) 10 mg PO QAM 12/13/20 04/19/21 magnesium oxide 400 mg PO QAM 12/13/20 04/19/21 meclizine 25 mg tablet (Motion 25 mg PO Q6H PRN 12/13/20 04/19/21 Sickness (meclizine)) methotrexate sodium 2.5 mg tablet 20 mg PO WK 12/13/20 04/19/21 metoprolol succinate 50 mg 50 mg PO BID 12/13/20 04/19/21 tablet,extended release 24 hr (Toprol XL) multivitamin (Daily Multi-Vitamin) 1 tab PO QAM 12/13/20 04/19/21 omega 9-ixa-zja-fish oil 1,000 mg 1 cap PO QAM 12/13/20 04/19/21 (120 mg-180 mg) capsule (Fish Oil) pantoprazole 40 mg tablet,delayed 40 mg PO QAM 12/13/20 04/19/21 release (Protonix) ropinirole 0.5 mg tablet 1 mg PO HS 12/13/20 04/19/21 tofacitinib 11 mg tablet,extended 11 mg PO QAM 12/13/20 04/19/21 release 24 hr (Xeljanz XR) cyclobenzaprine 5 mg tablet 5 mg PO TID PRN 12/24/20 04/19/21 docusate sodium 100 mg capsule 100 mg PO DAILY 12/24/20 04/19/21 (Colace) ondansetron HCl 4 mg tablet 4 mg PO Q8H PRN 12/24/20 04/19/21 probiotic 1 tab PO DAILY 12/24/20 04/19/21 Previous Rx's Medication Instructions Recorded etodolac 200 mg capsule 200 mg PO Q12H PRN #14 cap 12/13/20 albuterol sulfate 90 mcg/actuation 1 - 2 puff INHALATION Q4H PRN #8.5 01/31/21 aerosol inhaler (ProAir HFA) g conjugated estrogens 0.625 mg/gram 0.625 mg VAGINAL QAM #30 g 01/31/21 vaginal cream (Premarin) fluticasone 250 mcg-salmeterol 50 1 inh INHALATION BID #60 ea 01/31/21 mcg/dose blistr powdr for inhalation (Advair Diskus) fluticasone propionate 50 2 spray INTRANASAL HS #16 g 01/31/21 mcg/actuation nasal spray,suspension (Flonase Allergy Relief) levothyroxine 25 mcg tablet 25 mcg PO DAILYBB #90 tab 01/31/21 (Synthroid) nitroglycerin 0.4 mg sublingual 0.4 mg SUBLINGUAL UD #30 tab 01/31/21 tablet (Nitrostat) nystatin 100,000 unit/gram topical 1 applic TOPICAL BID #30 g 01/31/21 powder duloxetine 30 mg capsule,delayed 30 mg PO QAM #90 cap 02/03/21 release (Cymbalta) duloxetine 60 mg capsule,delayed 60 mg PO QAM #90 cap 02/03/21 release (Cymbalta) alprazolam 0.25 mg tablet (Xanax) 0.25 mg PO Q8H PRN #90 tab 03/05/21 gabapentin 300 mg capsule 300 mg PO TID #90 cap 03/05/21 (Neurontin) lisinopril 10 mg tablet (Zestril) 10 mg PO QAM #90 tab 03/05/21 Results & Data (ED) Vital Signs Vital Signs - 24 hr 04/19/21 10:37 04/19/21 10:48 04/19/21 11:00 Temperature 38.5 C H Temperature Source Oral Pulse Rate 101 H 102 H 99 H Pulse Rate from SpO2 Sensor 99 H Pulse Rhythm Regular Pulse Strength Normal Respiratory Rate 22 22 28 H Respiratory Effort / Characteristics Spontaneous Labored Respiratory Depth Normal Respiratory Pattern Regular Blood Pressure 189/80 H Blood Pressure Mean 116 Blood Pressure Position Sitting Pulse Oximetry 78 L 97 Oxygen Delivery Method Room Air Oxygen Flow Rate 0 Sepsis Recent Fever Within 48 Hours Yes Sepsis New/Unexplained Change in Mental Status N/A Sepsis Action Taken by Nursing Physician Notified Oxygen Flow Rate - Titration 4 Pulse Oximetry Post Tiitration 96 04/19/21 11:01 04/19/21 11:30 04/19/21 12:00 Temperature Temperature Source Pulse Rate 99 H 98 H Pulse Rate from SpO2 Sensor 99 H 97 H Pulse Rhythm Pulse Strength Respiratory Rate 27 H 27 H Respiratory Effort / Characteristics Respiratory Depth Respiratory Pattern Blood Pressure 155/83 H Blood Pressure Mean 107 Blood Pressure Position Pulse Oximetry 96 97 98 Oxygen Delivery Method Nasal Cannula Oxygen Flow Rate 4 Sepsis Recent Fever Within 48 Hours Sepsis New/Unexplained Change in Mental Status Sepsis Action Taken by Nursing Oxygen Flow Rate - Titration Pulse Oximetry Post Tiitration 04/19/21 12:30 04/19/21 13:00 04/19/21 13:30 Temperature Temperature Source Pulse Rate 95 H 94 H 90 Pulse Rate from SpO2 Sensor 95 H 94 H 90 Pulse Rhythm Pulse Strength Respiratory Rate 30 H 25 H 23 Respiratory Effort / Characteristics Respiratory Depth Respiratory Pattern Blood Pressure 152/68 H 141/67 H 148/68 H Blood Pressure Mean 96 91 94 Blood Pressure Position Pulse Oximetry 99 97 99 Oxygen Delivery Method Oxygen Flow Rate Sepsis Recent Fever Within 48 Hours Sepsis New/Unexplained Change in Mental Status Sepsis Action Taken by Nursing Oxygen Flow Rate - Titration Pulse Oximetry Post Tiitration Laboratory Data Result diagrams: 04/19/21 10:55 04/19/21 10:55 Lab Results 04/19/21 04/19/21 04/19/21 Range/Units 10:55 10:55 10:55 WBC 6.17 (4.8-10.8) K/uL RBC 3.55 L (4.2-5.4) M/uL Hgb 11.8 L (12.0-16.0) g/dL Hct 36.2 L (37-47) % MCV 102.0 H (80-100) fL MCH 33.2 (25-34) pg MCHC 32.6 (32-36) g/dL RDW Std Deviation 60.6 H (36.4-46.3) fL RDW Coeff of Matthew 16.1 H (11.5-14.5) % Plt Count 155 (130-400) K/uL MPV 11.0 H (7.4-10.4) fL Immature Gran % (Auto) 0.0 % Neut % (Auto) 85.9 % Lymph % (Auto) 9.7 % Swain % (Auto) 4.2 % Eos % (Auto) 0.0 % Baso % (Auto) 0.2 % Neut # (Auto) 5.30 (1.4-6.5) K/uL Lymph # (Auto) 0.60 L (1.2-3.4) K/uL Swain # (Auto) 0.26 (0.11-0.59) K/uL Eos # (Auto) 0.00 (0-0.5) K/uL Baso # (Auto) 0.01 (0-0.2) K/uL Immature Gran # (Auto) 0.00 (0.00-0.02) K/uL D-Dimer (0-500) ug/L FEU Sodium 137 (136-145) mmol/L Potassium 3.6 (3.5-5.1) mmol/L Chloride 104 (98-107) mmol/L Carbon Dioxide 27 (21-32) mmol/L Anion Gap 6.0 (3-11) BUN 15 (7-18) mg/dl Creatinine 0.95 (0.6-1.2) mg/dl Est Cr Clr Drug Dosing 66.8 ml/min Est GFR ( Amer) 70.3 ml/min Est GFR (Non-Af Amer) 60.7 ml/min BUN/Creatinine Ratio 15.5 (10-20) Glucose 141 H (70-99) mg/dl Calcium 8.8 (8.5-10.1) mg/dl Total Bilirubin 0.5 (0.2-1) mg/dl AST 61 H (15-37) U/L ALT 29 (12-78) U/L Alkaline Phosphatase 120 H (45-117) U/L Troponin I < 0.015 (0-0.045) ng/ml C-Reactive Protein 8.01 H (0-0.29) mg/dl Total Protein 8.3 H (6.4-8.2) gm/dl Albumin 2.9 L (3.4-5.0) gm/dl Globulin 5.4 H (2.5-4.0) gm/dl Albumin/Globulin Ratio 0.5 L (0.9-2) Lipase 235 (73-393) U/L Procalcitonin (0-0.5) ng/ml 04/19/21 04/19/21 Range/Units 10:55 10:55 WBC (4.8-10.8) K/uL RBC (4.2-5.4) M/uL Hgb (12.0-16.0) g/dL Hct (37-47) % MCV (80-100) fL MCH (25-34) pg MCHC (32-36) g/dL RDW Std Deviation (36.4-46.3) fL RDW Coeff of Matthew (11.5-14.5) % Plt Count (130-400) K/uL MPV (7.4-10.4) fL Immature Gran % (Auto) % Neut % (Auto) % Lymph % (Auto) % Swain % (Auto) % Eos % (Auto) % Baso % (Auto) % Neut # (Auto) (1.4-6.5) K/uL Lymph # (Auto) (1.2-3.4) K/uL Swain # (Auto) (0.11-0.59) K/uL Eos # (Auto) (0-0.5) K/uL Baso # (Auto) (0-0.2) K/uL Immature Gran # (Auto) (0.00-0.02) K/uL D-Dimer 650 H* (0-500) ug/L FEU Sodium (136-145) mmol/L Potassium (3.5-5.1) mmol/L Chloride (98-107) mmol/L Carbon Dioxide (21-32) mmol/L Anion Gap (3-11) BUN (7-18) mg/dl Creatinine (0.6-1.2) mg/dl Est Cr Clr Drug Dosing ml/min Est GFR ( Amer) ml/min Est GFR (Non-Af Amer) ml/min BUN/Creatinine Ratio (10-20) Glucose (70-99) mg/dl Calcium (8.5-10.1) mg/dl Total Bilirubin (0.2-1) mg/dl AST (15-37) U/L ALT (12-78) U/L Alkaline Phosphatase (45-117) U/L Troponin I (0-0.045) ng/ml C-Reactive Protein (0-0.29) mg/dl Total Protein (6.4-8.2) gm/dl Albumin (3.4-5.0) gm/dl Globulin (2.5-4.0) gm/dl Albumin/Globulin Ratio (0.9-2) Lipase (73-393) U/L Procalcitonin < 0.05 (0-0.5) ng/ml Administered Medications Discontinued Medications Acetaminophen (Acetaminophen 325 Mg Tab) 650 mg PO NOW STA Stop: 04/19/21 11:52 Last Admin: 04/19/21 12:09 Dose: 650 mg Documented by: [id number] Dexamethasone Sodium Phosphate (DexamethasonePf 10 Mg/Ml Vial) 6 mg IV NOW ONE Stop: 04/19/21 11:52 Last Admin: 04/19/21 12:10 Dose: 6 mg Documented by: [id number] Sodium Chloride (Nss) 500 mls @ 999 mls/hr IV .Q31M ONE Stop: 04/19/21 12:21 Last Infusion: 04/19/21 14:06 Dose: 0 mls/hr Documented by: [id number] Admin: 04/19/21 12:09 Dose: 999 mls/hr Documented by: [id number] Imaging Data Radiologist's Impression: Chest X-Ray 04/19/21 10:48 SINGLE VIEW CHEST CLINICAL HISTORY: Atypical chest pain. FINDINGS: An AP, portable, upright chest radiograph is compared to study dated 11/29/2016. The heart is enlarged noting atherosclerotic calcification of the thoracic ureter. There are low lung volumes. Bilateral airspace opacities are noted. No large pleural effusion or pneumothorax is seen. The skeletal structures are osteopenic. The bony thorax is grossly intact. Calcific tendinopathy is noted in the right shoulder. IMPRESSION: Cardiomegaly with bilateral airspace opacities. This could represent pulmonary edema and/or an infectious/inflammatory pneumonitis. Clinical correlation will be essential and radiographic follow-up to resolution is recommended. ACT 112: Negative or not required by law. Electronically signed by: Juan Francisco Lux M.D. 04/19/2021 11:24 AM Discharge Plan Visit Data Chief Complaint: Shortness of Breath/Dyspnea Stated Complaint: SOB, COVID + ED Provider: Derrick Garcia Discharge Problem: Acute respiratory failure with hypoxia, Pneumonia due to COVID-19 virus, Breath, shortness Forms Stand Alone Forms: [facility] Prescriptions Prescriptions: No Action cyclobenzaprine 5 mg tablet 5 mg PO TID PRN (Reason: Muscle Spasm) RF: 0 docusate sodium [Colace] 100 mg capsule 100 mg PO DAILY RF: 0 probiotic 1 tab PO DAILY RF: 0 ondansetron HCl 4 mg tablet 4 mg PO Q8H PRN (Reason: Nausea And Vomiting) RF: 0 albuterol sulfate [ProAir HFA] 90 mcg/actuation HFA aerosol inhaler 1 - 2 puff INHALATION Q4H PRN (Reason: Shortness Of Breath Or Wheezing) Qty: 8.5 RF: 2 Premarin 0.625 mg/gram cream 0.625 mg VAGINAL QAM Qty: 30 RF: 0 fluticasone propion-salmeterol [Advair Diskus] 250-50 mcg/dose blister with device 1 inh INHALATION BID Qty: 60 RF: 1 fluticasone propionate [Flonase Allergy Relief] 50 mcg/actuation spray,suspension 2 spray INTRANASAL HS Qty: 16 RF: 2 levothyroxine [Synthroid] 25 mcg tablet 25 mcg PO DAILYBB Qty: 90 RF: 0 nitroglycerin [Nitrostat] 0.4 mg tablet, sublingual 0.4 mg sublingual UD Qty: 30 RF: 0 nystatin 100,000 unit/gram powder 1 applic topical BID Qty: 30 RF: 1 duloxetine [Cymbalta] 60 mg capsule,delayed release(DR/EC) 60 mg PO QAM Qty: 90 RF: 1 duloxetine [Cymbalta] 30 mg capsule,delayed release(DR/EC) 30 mg PO QAM Qty: 90 RF: 1 alprazolam [Xanax] 0.25 mg tablet 0.25 mg PO Q8H PRN (Reason: Anxiety) Qty: 90 RF: 0 gabapentin [Neurontin] 300 mg capsule 300 mg PO TID Qty: 90 RF: 0 lisinopril [Zestril] 10 mg tablet 10 mg PO QAM Qty: 90 RF: 0 multivitamin [Daily Multi-Vitamin] Tablet 1 tab PO QAM RF: 0 furosemide [Lasix] 40 mg Tablet 40 mg PO QAM RF: 0 atorvastatin [Lipitor] 80 mg Tablet 80 mg PO QAM RF: 0 ascorbic acid (vitamin C) [Vitamin C] 1,000 mg Tablet 1,000 mg PO QAM RF: 0 ipratropium-albuterol 0.5 mg-3 mg(2.5 mg base)/3 mL Solution For Nebulization 3 ml INHALATION TID PRN (Reason: Shortness Of Breath) RF: 0 metoprolol succinate [Toprol XL] 50 mg Tablet Extended Release 24 Hr 50 mg PO BID RF: 0 clopidogrel [Plavix] 75 mg Tablet 75 mg PO QAM RF: 0 aspirin [Aspirin Low Dose] 81 mg Tablet,Delayed Release (Dr/Ec) 81 mg PO QAM RF: 0 calcium carbonate [Calcium 600] 600 mg calcium (1,500 mg) Tablet 600 mg PO QAM RF: 0 methotrexate sodium 2.5 mg Tablet 20 mg PO WK RF: 0 meclizine [Motion Sickness (meclizine)] 25 mg Tablet 25 mg PO Q6H PRN (Reason: Dizziness) RF: 0 pantoprazole [Protonix] 40 mg Tablet,Delayed Release (Dr/Ec) 40 mg PO QAM RF: 0 ferrous sulfate [Iron (ferrous sulfate)] 325 mg (65 mg iron) Tablet 325 mg PO QAM RF: 0 ropinirole 0.5 mg Tablet 1 mg PO HS RF: 0 folic acid 1 mg Tablet 2 mg PO QAM RF: 0 Excedrin Extra Strength 250-250-65 mg Tablet 2 tab PO Q6H PRN (Reason: Headache) RF: 0 loratadine [Claritin] 10 mg Tablet 10 mg PO QAM RF: 0 cholecalciferol (vitamin D3) [Vitamin D3] 25 mcg (1,000 unit) Capsule 25 mcg PO QAM RF: 0 B-complex with vitamin C [Super B Complex-Vitamin C] Tablet 1 tab PO QAM RF: 0 omega 8-zek-oes-fish oil [Fish Oil] 1,000 mg (120 mg-180 mg) Capsule 1 cap PO QAM RF: 0 ybtsluquyci-W0-Eruvsiqzf serr [Glucosamine Daily Complex] 1,500-400-100 mg-unit-mg Tablet 2 tab PO QAM RF: 0 Xeljanz XR 11 mg Tablet Extended Release 24 Hr 11 mg PO QAM RF: 0 magnesium oxide 400 mg magnesium Tablet 400 mg PO QAM RF: 0 Tumeric 400mg Capsule 400 mg PO QAM RF: 0 etodolac 200 mg capsule 200 mg PO Q12H PRN (Reason: pain) Qty: 14 RF: 0 Referrals Referrals: Kaycee Sarkar MD [Primary Care Provider] -
[2021-04-19 11:11] LABS: Basophils # (auto) 0.01 K/uL (0-0.2); Basophils % (auto) 0.2 %; Hematocrit (blood only) 36.2 % (37-47); Hemoglobin 11.8 g/dL (12.0-16.0); Lymphocytes % (auto) 9.7 %; Mean Corpuscular Hemoglobin 33.2 pg (25-34); Mean Corpuscular Hgb Conc 32.6 g/dL (32-36); Monocytes # (auto) 0.26 K/uL (0.11-0.59); Monocytes % (auto) 4.2 %; Neutrophils % (auto) 85.9 %; Platelet Count 155 K/uL (130-400); RDW Coefficient of Variation 16.1 % (11.5-14.5); RDW Standard Deviation 60.6 fL (36.4-46.3); Red Blood Count 3.55 M/uL (4.2-5.4); White Blood Count 6.17 K/uL (4.8-10.8)
--- NOTE | 2021-04-19 11:25 | XRay Report ---
SINGLE VIEW CHEST CLINICAL HISTORY: Atypical chest pain. FINDINGS: An AP, portable, upright chest radiograph is compared to study dated 11/29/2016. The heart is enlarged noting atherosclerotic calcification of the thoracic ureter. There are low lung volumes. Bi lateral airspace opacities are noted. No large pleural effusion or pneumothorax is seen. The skeletal structures are osteopenic. The bony thorax is grossly intact. Calcific tendinopathy is noted in the right shoulder. IMPRESSION: Cardiomegaly with bilateral airspace opacities. This could represent pulmonary edema and/ or an infectious/inflammatory pneumonitis. Clinical correlation will be essential and radiographic fo llow-up to resolution is recommended. ACT 112: Negative or not required by law. Electronically signed by: Juan Francisco Lux M.D. 04/19/2021 11:24 AM
[2021-04-19 11:28] LABS: Alanine Aminotransferase 29 U/L (12-78); Albumin Level 2.9 gm/dl (3.4-5.0); Aspartate Aminotransferase 61 U/L (15-37); BUN Creatinine Ratio 15.5 (10-20); Blood Urea Nitrogen 15 mg/dl (7-18); Calcium 8.8 mg/dl (8.5-10.1); Carbon Dioxide 27 mmol/L (21-32); Chloride 104 mmol/L (98-107); Creatinine Clr Calc Pharmacy 66.8 ml/min; Est GFR (African American) 70.3 ml/min; Est GFR (Non-African American) 60.7 ml/min; Glucose 141 mg/dl (70-99); Lipase 235 U/L (73-393); Potassium 3.6 mmol/L (3.5-5.1); Sodium 137 mmol/L (136-145)
[2021-04-19 11:33] LABS: Albumin Globulin Ratio 0.5 (0.9-2); Alkaline Phosphatase 120 U/L (45-117); Bilirubin,Total 0.5 mg/dl (0.2-1); Globulin 5.4 gm/dl (2.5-4.0); Total Protein 8.3 gm/dl (6.4-8.2); Troponin I < 0.015 ng/ml (0-0.045)
[2021-04-19] MEDS ORDERED: dexAMETHasone**PF** 10 MG/ML VIAL IV ONE (11:51)
[2021-04-19] MEDS ORDERED: ACETAMINOPHEN 325 MG TAB PO STA (11:51)
[2021-04-19] MEDS ORDERED: SODIUM CHLORIDE 0.9% 500 ML IV ONE (11:51)
--- NOTE | 2021-04-19 12:39 | Electrocardiogram Report ---
Test Reason : Blood Pressure : / mmHG Vent. Rate : 101 BPM Atrial Rate : 101 BPM P-R Int : 164 ms QRS Dur : 084 ms QT Int : 382 ms P-R-T Axes : 011 -18 075 degrees QTc Int : 495 ms Sin[address] tachycardia N[address] ST abnormality Otherwise normal ECG When compared with ECG of 10-JUL-2016 09:01, Nonspecific T wave abnormality now evident in Lateral leads Confirmed by Dago Pina ([id number]) on 04/19/2021 12:38:48 PM Referred By: Confirmed By:Cornelio Pina
--- NOTE | 2021-04-19 12:43 | History & Physical Report ---
Date of Service April 19, 2021 Assessment & Plan (1) Pneumonia due to COVID-19 virus: Plan: Patient presents on the 11th day of symptoms with progressively worsening shortness of breath and acute respiratory failure with hypoxia tested positive on 04/14 for Covid-19. She was fully vaccinated in 07/2020 Chest x-ray with bilateral airspace opacities consistent with viral pneumonia Still having fevers, but procalcitonin is negative, doubt bacterial superinfection-no need for antibiotics She is outside the window for remdesivir to be an effective treatment CRP is significantly elevated at 8 D-dimer elevated at 600-CT angiogram chest pending at the time of admission -Admit to PCU on Covid precautions -Continue dexamethasone 6 mg IV once daily -We will order DuoNebs scheduled -Continue home maintenance inhalers -Continue supplemental O2 to keep pulse ox greater than 92% -Check CT angiogram chest to rule out PE -Add incentive spirometry and flutter valve -Encouraged prone or side positioning as tolerated -Hold home methotrexate and Xeljanz for now -Check CRP, CBC, CMP in the morning-if respiratory status declines and for 72 hours, she would be a good candidate for baricitinib or tocilizumab -Tylenol as needed for fevers -Diet as tolerated -Okay to restart home p.o. Lasix to keep lungs dry -Lovenox 40 mg SQ twice daily for now for DVT prophylaxis, but obviously if PE found on CT angiogram, would fully anticoagulate (2) Acute respiratory failure with hypoxia: Plan: As above (3) DM2 (diabetes mellitus, type 2): Plan: Hemoglobin A1c 6.6% earlier this year Given that she will be on IV dexamethasone, start Accu-Cheks before meals and at bedtime and NovoLog supplemental insulin as needed Check hemoglobin A1c in the morning (4) Asthma: Plan: Continue home maintenance inhalers and scheduled duo nebs (5) Diffuse myofascial pain syndrome: Plan: Continue home Cymbalta (6) Hypertension: Plan: Blood pressures are mildly elevated here Continue home lisinopril, Lasix, metoprolol (7) Obesity: Plan: BMI 36.6 Needs weight loss (8) CAD (coronary artery disease): Plan: History of NSTEMI 10/2008 with nonobstructive mid LAD stenosis as well as severe stenosis distal segment of left circumflex marginal on cardiac catheterization. No acute issues, troponin here is negative, ECG without acute ischemic changes Continue home aspirin, Plavix, statin, metoprolol, lisinopril (9) Lumbar spinal stenosis: Plan: Continue home gabapentin (10) Hypothyroidism: Plan: Continue home levothyroxine (11) Hyperlipidemia: Plan: Continue home statin (12) Depression: Plan: Continue home Cymbalta (13) Rheumatoid arthritis: Plan: Hold home NSAID, Xeljanz, and methotrexate for now Recommend discussing her care with sales support advisor on Wednesday to see if these medications would be okay to restart I do not think she has secondary bacterial infection at this time although there are ongoing fevers which are likely related to the Covid Plan: DVT prophylaxis-Lovenox 40 mg twice daily as above for now, but fully anticoagulate if PE found Hold home vaginal estrogen given prothrombotic properties SCDs Disposition-admit to telemetry unit, Covid precautions Full code Patient reports her daughter, son, and granddaughter would all be her decision makers if she cannot make decisions for herself History of Present Illness Chief Complaint: Covid, shortness of breath Primary Care Provider: Kaycee Sarkar MD This patient is a 70-year-old fully Covid vaccinated patient with a history of obesity, CAD, COPD, DM 2, HTN, hypothyroidism, migraines, RLS, RA on Xeljanz and MTX who presents to the ER with progressively worsening shortness of breath and was hypoxic at home with pulse ox in the 70s on room air. She was diagnosed with Covid on 04/14 with a positive test at this facility, but started having symptoms approximately 11 days ago on 04/09/2021. Her symptoms have mostly involved cough and shortness of breath, but also initially had headache, diarrhea, body aches, weakness, and fevers. She initially had some dry heaves as well but that has resolved and she has been able to eat some foods like toast and broth and Jell-O. She does report having pain with deep inspiration in the center of her chest which has been ongoing for 10 days. In the ER, she was found to have a pulse ox of 78% on room air and was placed on supplemental O2-she was with a pulse ox of 98% on 4 L when I saw her. She also had a fever and was tachycardic. She was given Tylenol, IV dexamethasone, and 500 mL bolus of normal saline. Her chest x-ray showed bilateral airspace opacities consistent with viral pneumonia. She was feeling a bit better after being on the oxygen. She will be admitted for Covid-19 pneumonia with acute respiratory failure with hypoxia. Allergies Allergy/AdvReac Type Severity Reaction Status Date / Time doxycycline Allergy Severe rash Verified 04/19/21 11:31 Tetracyclines Allergy Intermediate HIVES Verified 04/19/21 11:31 lidocaine AdvReac Unknown PT Verified 04/19/21 11:31 REQUIRES A LARGER DOSE TO HAVE EFFECT Unclassified Drugs Allergy Unknown ANTIBIOTICS Uncoded 04/19/21 11:31 GIVE HER A YEAST INFECTION Home Medications Medication Instructions Recorded Confirmed Type B-complex with vitamin C (Super B 1 tab PO QAM 12/13/20 04/19/21 History Complex-Vitamin C) Tumeric 400mg Capsule 400 mg PO QAM 12/13/20 04/19/21 History ascorbic acid (vitamin C) 1,000 mg 1,000 mg PO QA 12/13/20 04/19/21 History tablet (Vitamin C) aspirin 81 mg tablet,delayed 81 mg PO QA 12/13/20 04/19/21 History release (Aspirin Low Dose) twtwezo-ddpobxvyccrmi-dzfireov 250 2 tab PO Q6H PRN 12/13/20 04/19/21 History mg-250 mg-65 mg tablet (Excedrin Extra Strength) atorvastatin 80 mg tablet (Lipitor) 80 mg PO QAM 12/13/20 04/19/21 History calcium carbonate 600 mg calcium 600 mg PO QA 12/13/20 04/19/21 History (1,500 mg) tablet (Calcium) cholecalciferol (vitamin D3) 25 25 mcg PO QAM 12/13/20 04/19/21 History mcg (1,000 unit) capsule (Vitamin D3) clopidogrel 75 mg tablet (Plavix) 75 mg PO QAM 12/13/20 04/19/21 History etodolac 200 mg capsule 200 mg PO Q12H PRN #14 cap 12/13/20 04/19/21 Rx ferrous sulfate 325 mg (65 mg 325 mg PO QAM 12/13/20 04/19/21 History iron) tablet (Iron (ferrous sulfate)) folic acid 1 mg tablet 2 mg PO QAM 12/13/20 04/19/21 History furosemide 40 mg tablet (Lasix) 40 mg PO QAM 12/13/20 04/19/21 History glucosamine XSd-V0-Iwwnnvkfl 2 tab PO QAM 12/13/20 04/19/21 History mckinley 1,500 mg-400 unit-100 mg tablet (Glucosamine Daily Complex) ipratropium 0.5 mg-albuterol 3 mg 3 ml INHALATION TID PRN 12/13/20 04/19/21 History (2.5 mg base)/3 mL nebulization soln loratadine 10 mg tablet (Claritin) 10 mg PO QAM 12/13/20 04/19/21 History magnesium oxide 400 mg PO QAM 12/13/20 04/19/21 History meclizine 25 mg tablet (Motion 25 mg PO Q6H PRN 12/13/20 04/19/21 History Sickness (meclizine)) methotrexate sodium 2.5 mg tablet 20 mg PO WK 12/13/20 04/19/21 History metoprolol succinate 50 mg 50 mg PO BID 12/13/20 04/19/21 History tablet,extended release 24 hr (Toprol XL) multivitamin (Daily Multi-Vitamin) 1 tab PO QAM 12/13/20 04/19/21 History omega 7-are-eqn-fish oil 1,000 mg 1 cap PO QAM 12/13/20 04/19/21 History (120 mg-180 mg) capsule (Fish Oil) pantoprazole 40 mg tablet,delayed 40 mg PO QAM 12/13/20 04/19/21 History release (Protonix) ropinirole 0.5 mg tablet 1 mg PO HS 12/13/20 04/19/21 History tofacitinib 11 mg tablet,extended 11 mg PO QAM 12/13/20 04/19/21 History release 24 hr (Xeljanz XR) cyclobenzaprine 5 mg tablet 5 mg PO TID PRN 12/24/20 04/19/21 History docusate sodium 100 mg capsule 100 mg PO DAILY 12/24/20 04/19/21 History (Colace) ondansetron HCl 4 mg tablet 4 mg PO Q8H PRN 12/24/20 04/19/21 History probiotic 1 tab PO DAILY 12/24/20 04/19/21 History albuterol sulfate 90 mcg/actuation 1 - 2 puff INHALATION Q4H PRN #8.5 01/31/21 04/19/21 Rx aerosol inhaler (ProAir HFA) g conjugated estrogens 0.625 mg/gram 0.625 mg VAGINAL QAM #30 g 01/31/21 04/19/21 Rx vaginal cream (Premarin) fluticasone 250 mcg-salmeterol 50 1 inh INHALATION BID #60 ea 01/31/21 04/19/21 Rx mcg/dose blistr powdr for inhalation (Advair Diskus) fluticasone propionate 50 2 spray INTRANASAL HS #16 g 01/31/21 04/19/21 Rx mcg/actuation nasal spray,suspension (Flonase Allergy Relief) levothyroxine 25 mcg tablet 25 mcg PO DAILYBB #90 tab 01/31/21 04/19/21 Rx (Synthroid) nitroglycerin 0.4 mg sublingual 0.4 mg SUBLINGUAL UD #30 tab 01/31/21 04/19/21 Rx tablet (Nitrostat) nystatin 100,000 unit/gram topical 1 applic TOPICAL BID #30 g 01/31/21 04/19/21 Rx powder duloxetine 30 mg capsule,delayed 30 mg PO QAM #90 cap 02/03/21 04/19/21 Rx release (Cymbalta) duloxetine 60 mg capsule,delayed 60 mg PO QAM #90 cap 02/03/21 04/19/21 Rx release (Cymbalta) alprazolam 0.25 mg tablet (Xanax) 0.25 mg PO Q8H PRN #90 tab 03/05/21 04/19/21 Rx gabapentin 300 mg capsule 300 mg PO TID #90 cap 03/05/21 04/19/21 Rx (Neurontin) lisinopril 10 mg tablet (Zestril) 10 mg PO QAM #90 tab 03/05/21 04/19/21 Rx Past Med/Surg History Medical History (Updated 04/19/21 @ 14:34 by Derrick Garcia DO) Anemia Anxiety Asthma inhalers--daily/prn, nebulizer prn CAD (coronary artery disease) Chest pain Chronic back pain Chronic obstructive pulmonary disease Depression Diffuse myofascial pain syndrome Diverticulosis of colon DM2 (diabetes mellitus, type 2) Edema GERD (gastroesophageal reflux disease) Hemorrhoids Hyperlipidemia Hypertension Hypothyroidism Left hip pain Left wrist fracture Lumbar facet joint syndrome [place] (myocardial infarction) Migraine Myocardial Infarction 2009 Obesity Osteoarthritis Postlaminectomy syndrome of lumbosacral region Restless leg syndrome Rheumatoid arthritis Right hip pain Venous insufficiency Surgical History History of bilateral cataract extraction History of bilateral tubal ligation History of cardiac cath 2008--no stent--follows w Dr. Varma History of carpal tunnel release of both wrists History of cholecystectomy History of colonoscopy History of dilatation and curettage History of laminectomy History of lumbar fusion L3,4,5 History of lumpectomy of right breast benign tumor removed History of tooth extraction all teeth History of total abdominal hysterectomy and bilateral salpingo-oophorectomy History of ventral hernia repair Hx of removal of cyst R breast Status post endovenous radiofrequency ablation (RFA) of saphenous vein greater saphenous vein Status post trigger finger release R thumb Status post trigger finger release L thumb Family History Sister Family history of diabetes mellitus Daughter Family history of diabetes mellitus Grandmother (Maternal) Myocardial infarction Grandfather (Paternal) Myocardial infarction Denies family history of Ovarian cancer Prostate cancer Breast cancer Colorectal cancer Social History Smoking Status: Never smoker Second Hand Exposure: Yes ( smoked); Hx Alcohol Use: No Hx Substance Use: No Preferred Language: Azeri Communication Ability: Effective Crtt Required: No Beliefs That Will Affect Care: None marital status: / Current Living Situation: Family Current Living Situation Comment: Lives with daughter current occupational status: retired Feels Safe at Home: Yes caffeine: Yes Dental Care, Regularly: No Physical Activity Frequency: Daily Seatbelt Use: always Sunscreen Use: Yes Assistive Devices: Denture - Upper, Denture - Lower, Glasses and Nebulizer Review of Systems Review of Systems: All systems reviewed & are unremarkable except as noted in HPI & below Physical Exam Constitutional: WD/WN, vitals as above Eyes: PERRL, conjunctivae normal, anicteric sclerae ENMT: external ear and nose normal, oropharynx normal Neck: trachea midline, no thyromegaly Respiratory: normal respiratory effort; no cough Auscultation: + crackles (In bilateral lower and middle lung fatima); no rhonchi and no wheezes Cardiovascular: RRR, no murmur, no edema Chest (Breasts): Chest: normal inspection of chest Gastrointestinal (Abdomen): normal bowel sounds, soft, nontender, no hepatosplenomegaly Musculoskeletal: Extremities: extremities normal to inspection; no cyanosis and no clubbing Skin: no rashes, warm and dry Neurologic: moves all extremities and awake; no focal motor deficits Psychiatric: A+Ox3, euthymic affect Lymphatic: no lymphedema Results & Data Results & Data ([facility]) Vital Signs (Past 12 Hours) Vital Signs Temp Pulse Resp BP Pulse Ox 04/19/21 12:00 98 H 27 H 155/83 H 98 04/19/21 11:30 99 H 27 H 97 04/19/21 11:01 96 04/19/21 11:00 99 H 28 H 97 04/19/21 10:48 38.5 C H 102 H 22 189/80 H 78 L 04/19/21 10:37 101 H 22 Laboratory Results 04/19/21 04/19/21 Range/Units 10:55 10:55 WBC 6.17 (4.8-10.8) K/uL RBC 3.55 L (4.2-5.4) M/uL Hgb 11.8 L (12.0-16.0) g/dL Hct 36.2 L (37-47) % MCV 102.0 H (80-100) fL MCH 33.2 (25-34) pg MCHC 32.6 (32-36) g/dL RDW Std Deviation 60.6 H (36.4-46.3) fL RDW Coeff of Matthew 16.1 H (11.5-14.5) % Plt Count 155 (130-400) K/uL MPV 11.0 H (7.4-10.4) fL Immature Gran % (Auto) 0.0 % Neut % (Auto) 85.9 % Lymph % (Auto) 9.7 % [place] % (Auto) 4.2 % Eos % (Auto) 0.0 % Baso % (Auto) 0.2 % Neut # (Auto) 5.30 (1.4-6.5) K/uL Lymph # (Auto) 0.60 L (1.2-3.4) K/uL [place] # (Auto) 0.26 (0.11-0.59) K/uL Eos # (Auto) 0.00 (0-0.5) K/uL Baso # (Auto) 0.01 (0-0.2) K/uL Immature Gran # (Auto) 0.00 (0.00-0.02) K/uL Sodium 137 (136-145) mmol/L Potassium 3.6 (3.5-5.1) mmol/L Chloride 104 (98-107) mmol/L Carbon Dioxide 27 (21-32) mmol/L Anion Gap 6.0 (3-11) BUN 15 (7-18) mg/dl Creatinine 0.95 (0.6-1.2) mg/dl Est Cr Clr Drug Dosing 66.8 ml/min Est GFR ( Amer) 70.3 ml/min Est GFR (Non-Af Amer) 60.7 ml/min BUN/Creatinine Ratio 15.5 (10-20) Glucose 141 H (70-99) mg/dl Calcium 8.8 (8.5-10.1) mg/dl Total Bilirubin 0.5 (0.2-1) mg/dl AST 61 H (15-37) U/L ALT 29 (12-78) U/L Alkaline Phosphatase 120 H (45-117) U/L Troponin I < 0.015 (0-0.045) ng/ml Total Protein 8.3 H (6.4-8.2) gm/dl Albumin 2.9 L (3.4-5.0) gm/dl Globulin 5.4 H (2.5-4.0) gm/dl Albumin/Globulin Ratio 0.5 L (0.9-2) Lipase 235 (73-393) U/L Diagnostic Findings Chest X-Ray 04/19/21 10:48 SINGLE VIEW CHEST CLINICAL HISTORY: Atypical chest pain. FINDINGS: An AP, portable, upright chest radiograph is compared to study dated 11/29/2016. The heart is enlarged noting atherosclerotic calcification of the thoracic ureter. There are low lung volumes. Bilateral airspace opacities are noted. No large pleural effusion or pneumothorax is seen. The skeletal structures are osteopenic. The bony thorax is grossly intact. Calcific tendinopathy is noted in the right shoulder. IMPRESSION: Cardiomegaly with bilateral airspace opacities. This could represent pulmonary edema and/or an infectious/inflammatory pneumonitis. Clinical correlation will be essential and radiographic follow-up to resolution is recommended. ACT 112: Negative or not required by law. Electronically signed by: Juan Francisco Lux M.D. 04/19/2021 11:24 AM 04/19/21 04/19/21 Range/Units 10:55 10:55 WBC 6.17 (4.8-10.8) K/uL RBC 3.55 L (4.2-5.4) M/uL Hgb 11.8 L (12.0-16.0) g/dL Hct 36.2 L (37-47) % MCV 102.0 H (80-100) fL MCH 33.2 (25-34) pg MCHC 32.6 (32-36) g/dL RDW Std Deviation 60.6 H (36.4-46.3) fL RDW Coeff of Matthew 16.1 H (11.5-14.5) % Plt Count 155 (130-400) K/uL MPV 11.0 H (7.4-10.4) fL Immature Gran % (Auto) 0.0 % Neut % (Auto) 85.9 % Lymph % (Auto) 9.7 % Dor[place] % (Auto) 4.2 % Eos % (Auto) 0.0 % Baso % (Auto) 0.2 % Neut # (Auto) 5.30 (1.4-6.5) K/uL Lymph # (Auto) 0.60 L (1.2-3.4) K/uL [place] # (Auto) 0.26 (0.11-0.59) K/uL Eos # (Auto) 0.00 (0-0.5) K/uL Baso # (Auto) 0.01 (0-0.2) K/uL Immature Gran # (Auto) 0.00 (0.00-0.02) K/uL Sodium 137 (136-145) mmol/L Potassium 3.6 (3.5-5.1) mmol/L Chloride 104 (98-107) mmol/L Carbon Dioxide 27 (21-32) mmol/L Anion Gap 6.0 (3-11) BUN 15 (7-18) mg/dl Creatinine 0.95 (0.6-1.2) mg/dl Est Cr Clr Drug Dosing 66.8 ml/min Est GFR ( Amer) 70.3 ml/min Est GFR (Non-Af Amer) 60.7 ml/min BUN/Creatinine Ratio 15.5 (10-20) Glucose 141 H (70-99) mg/dl Calcium 8.8 (8.5-10.1) mg/dl Total Bilirubin 0.5 (0.2-1) mg/dl AST 61 H (15-37) U/L ALT 29 (12-78) U/L Alkaline Phosphatase 120 H (45-117) U/L Troponin I < 0.015 (0-0.045) ng/ml Total Protein 8.3 H (6.4-8.2) gm/dl Albumin 2.9 L (3.4-5.0) gm/dl Globulin 5.4 H (2.5-4.0) gm/dl Albumin/Globulin Ratio 0.5 L (0.9-2) Lipase 235 (73-393) U/L ECG Additional Comments: ECG on 04/19/2021 at 1035 with sinus tachycardia, rate 101, nonspecific ST abnormality in lateral leads Code Status & VTE Plan Code Status Full code VTE Prophylaxis Plan VTE Prophylaxis will be ordered: Yes PG Care Time/CCT Total # of Minutes Spent Total Time Spent with Patient: Total time spent is greater than 50% in coordination of care (as documented) at patient's floor/unit and/or counseling patient: Coding Level of Care Code 58198 Initial Inpt Care Lvl 3 Diagnoses DM2 (diabetes mellitus, type 2) E11.9 Diffuse myofascial pain syndrome M79.18 Hypertension I10 Obesity E66.9 CAD (coronary artery disease) I25.10 Lumbar spinal stenosis M48.061 Hypothyroidism E03.9 Hyperlipidemia E78.5 Depression F32.9 Asthma J45.909 Pneumonia due to COVID-19 virus U07.1; J12.82 Acute respiratory failure with hypoxia J96.01 Rheumatoid arthritis M06.9
[2021-04-19 13:44] LABS: D Dimer 650 ug/L FEU (0-500)
[2021-04-19] MEDS ORDERED: OPTIRAY 320 125ml IV ONE (15:18)
--- NOTE | 2021-04-19 15:31 | CT Scan Report ---
CT ANGIOGRAM OF THE CHEST CLINICAL HISTORY: Hypoxia. Covid. COMPARISON STUDY: Chest x-ray dated 04/19/2021. Chest CT dated 09/17/2013. TECHNIQUE: Following the IV administration of 117 cc of Optiray 320, CT angiogram of the chest was pe rformed from the upper abdomen to the thoracic inlet utilizing the pulmonary embolus protocol. Images are reviewed in the axial, sagittal, and coronal planes. 3-D MIPS images are created and assessed. I V contrast was administered without complication. A dose lowering technique was utilized adhering to the principles of ALARA. The examination is significantly degraded by motion artifact. CT DOSE: 523.68 mGycm FINDINGS: Thyroid: Imaged portions of the thyroid gland are normal in size and attenuation. Thoracic aorta: There is mild atherosclerotic calcification of the thoracic aorta, which is normal in caliber and demonstrates standard 3-vessel arch anatomy. No dissection is seen. Pulmonary vasculature: The pulmonary trunk is normal in caliber. There are no filling defects identif ied in main, lobar, or proximal segmental pulmonary branches to suggest pulmonary embolus. Evaluation of the peripheral branches is severely degraded by motion artifact. Heart: The heart is enlarged and without pericardial effusion. The coronary arteries are densely calc ified. Lungs and pleural spaces: Evaluation of the lung parenchyma is significantly degraded by motion artif act. Multifocal airspace consolidation is seen throughout both lungs. No pleural effusion is identifi ed. The trachea and central airways are clear. There are scattered calcified granulomas. A 6 mm right upper lobe pulmonary nodule on image #173 is new from previous. Atelectasis is present at the lung b ases. Mediastinum: Mildly enlarged mediastinal lymph nodes measure up to 15 mm in short axis. Keila: Clear. Axillae: There is no axillary lymphadenopathy. Upper abdomen: Partially visualized upper abdominal viscera is within normal limits. Skeletal structures: The skeletal structures are osteopenic. Degenerative change and kyphoscoliosis a re observed in the thoracic spine. No lytic or blastic bony lesions are seen. IMPRESSION: 1. Motion compromised examination. 2. There is no evidence of central pulmonary embolus in the main, lobar, or proximal segmental pulmon keri arteries. 3. Multifocal airspace consolidation is consistent with the reported history of a viral pneumonia. Ra diographic follow-up to resolution is recommended. 4. Cardiomegaly. 5. A 6 mm nodular density in the right upper lobe is new from 09/17/2013. This is pathologically indet erminant and may be inflammatory. A 3-4 month follow-up chest CT is recommended for reassessment/to d ocument resolution. 6. Additional findings as above. ACT 112: Positive. There are findings on this exam that require communication between the performing entity and the patient following Patient Test Result Information Act ([place] Act 112) guidelines. Electronically signed by: Juan Francisco Lux M.D. 04/19/2021 3:30 PM
[2021-04-19] MEDS ORDERED: GLUCOSE 10 TABS/TUBE PO PRN (17:21)
[2021-04-19] MEDS ORDERED: NON-FORMULARY MEDICATION (Aspirin-Acetaminophen-Caffeine [Excedrin Extra Strength] 250-250 PO PRN (17:21)
[2021-04-19] MEDS ORDERED: NITROGLYCERIN SL 0.4 MG/TAB TAB SL PRN (17:21)
[2021-04-19] MEDS ORDERED: CARBOHYDRATES FOR HYPOGLYCEMIA PO PRN (17:21)
[2021-04-19] MEDS ORDERED: ONDANSETRON INJ 2 MG/ML 2 ML VIAL IV PRN (17:21)
[2021-04-19] MEDS ORDERED: GLUCAGON FOR INJ 1 MG VIAL SQ PRN (17:21)
[2021-04-19] MEDS ORDERED: CYCLOBENZAPRINE HCL 10 MG TAB PO PRN (17:21)
[2021-04-19] MEDS ORDERED: GLUCOSE 40% GEL 15 GM TUBE PO PRN (17:21)
[2021-04-19] MEDS ORDERED: DEXTROSE 50% 50 ML SYRINGE IV PRN (17:21)
[2021-04-19] MEDS: ALBUT/IPRATROP 3MG/0.5MG NEB 3 ML VIAL NEB SCH ×2 (17:58)
[2021-04-19] MEDS: INSULIN ASPART 100 UNITS/ML 3 ML PEN SC SCH ×2 (18:36→21:54)
[2021-04-19] MEDS: GABAPENTIN 300 MG CAP PO SCH ×2 (18:36→20:40)
[2021-04-19] MEDS: rOPINIRole HCL 1 MG TABLET PO SCH (20:39)
[2021-04-19] MEDS: METOPROLOL SUCC 50MG EXT REL TAB PO SCH (20:39)
[2021-04-19] MEDS: ENOXAPARIN INJ 40 MG/0.4 ML SYR SQ SCH (20:40)
[2021-04-19] MEDS: ALPRAZolam 0.25 MG TABLET PO PRN (22:16)
[2021-04-19] MEDS: FLUTICASONE PROPIONATE NA SPR 16 GM BTL NAE SCH (22:17)
[2021-04-20] MEDS: LEVOTHYROXINE SODIUM 25 MCG TABLET PO SCH (05:34)
[2021-04-20] MEDS ORDERED: guaiFENesin SUGAR FREE 100 MG/5 ML UDC PO STA (05:55)
[2021-04-20] MEDS: ALBUT/IPRATROP 3MG/0.5MG NEB 3 ML VIAL NEB SCH (07:22)
[2021-04-20 07:43] LABS: Hematocrit (blood only) 36.8 % (37-47); Hemoglobin 11.9 g/dL (12.0-16.0); Immature Granulocytes # (auto) 0.02 K/uL (0.00-0.02); Immature Granulocytes % (auto) 0.4 %; Lymphocytes % (auto) 9.3 %; Mean Corpuscular Hemoglobin 32.9 pg (25-34); Mean Corpuscular Hgb Conc 32.3 g/dL (32-36); Mean Corpuscular Volume 101.7 fL (80-100); Mean Platelet Volume 10.7 fL (7.4-10.4); Monocytes # (auto) 0.34 K/uL (0.11-0.59); Monocytes % (auto) 6.3 %; Neutrophils # (auto) 4.51 K/uL (1.4-6.5); Platelet Count 194 K/uL (130-400); RDW Coefficient of Variation 15.9 % (11.5-14.5); RDW Standard Deviation 59.1 fL (36.4-46.3); Red Blood Count 3.62 M/uL (4.2-5.4); White Blood Count 5.37 K/uL (4.8-10.8)
[2021-04-20] MEDS: MAGNESIUM OXIDE 400 MG TAB PO SCH (07:51)
[2021-04-20] MEDS: PANTOprazole 40 MG TAB PO SCH (07:51)
[2021-04-20] MEDS: FUROSEMIDE 40 MG TAB PO SCH (07:51)
[2021-04-20] MEDS: MULTIVITAMIN TAB PO SCH (07:51)
[2021-04-20] MEDS: METOPROLOL SUCC 50MG EXT REL TAB PO SCH ×2 (07:51→21:09)
[2021-04-20] MEDS: LORATADINE 10 MG TAB PO SCH (07:51)
[2021-04-20] MEDS: GABAPENTIN 300 MG CAP PO SCH ×3 (07:52→21:09)
[2021-04-20] MEDS: ATORVASTATIN 40 MG TAB PO SCH (07:52)
[2021-04-20] MEDS: lisinopril 10 MG TAB PO SCH (07:52)
[2021-04-20] MEDS: CALCIUM CARBONATE 1250MG TAB PO SCH (07:52)
[2021-04-20] MEDS: FOLIC ACID 1 MG TAB PO SCH (07:52)
[2021-04-20] MEDS: CHOLECALCIFEROL 1,000 UNITS 25 MCG TAB PO SCH (07:52)
[2021-04-20] MEDS: dexAMETHasone 6 MG in SYRINGE 0 ML IV SCH (07:53)
[2021-04-20] MEDS: DULoxetine HCL 30 MG CAP PO SCH (07:53)
[2021-04-20] MEDS: ASCORBIC ACID 500 MG TAB PO SCH (07:53)
[2021-04-20] MEDS: DULoxetine HCL 60 MG CAP PO SCH (07:53)
[2021-04-20] MEDS: ASPIRIN 81 MG ECTAB PO SCH (07:53)
[2021-04-20] MEDS: FERROUS SULFATE 325 MG TAB PO SCH (07:53)
[2021-04-20] MEDS: ENOXAPARIN INJ 40 MG/0.4 ML SYR SQ SCH ×2 (07:54→21:10)
[2021-04-20] MEDS: CLOPIDOGREL BISULFATE 75 MG TAB PO SCH (07:55)
[2021-04-20] MEDS: FLUTICASONE/VILANTEROL 200/25MCG 14 PUFFS/INHALER INH SCH (07:55)
[2021-04-20 08:02] LABS: Albumin Level 2.7 gm/dl (3.4-5.0); BUN Creatinine Ratio 23.4 (10-20); Calcium 8.4 mg/dl (8.5-10.1); Creatinine Clr Calc Pharmacy 75.9 ml/min; Est GFR (African American) 96.7 ml/min; Est GFR (Non-African American) 83.4 ml/min; Magnesium 2.1 mg/dl (1.8-2.4); Potassium 4.1 mmol/L (3.5-5.1)
[2021-04-20 08:05] LABS: Albumin Globulin Ratio 0.5 (0.9-2); Bilirubin,Total 0.6 mg/dl (0.2-1); C Reactive Protein 9.87 mg/dl (0-0.29); Globulin 5.4 gm/dl (2.5-4.0); Total Protein 8.1 gm/dl (6.4-8.2)
[2021-04-20] MEDS: INSULIN ASPART 100 UNITS/ML 3 ML PEN SC SCH ×4 (09:20→21:00)
--- NOTE | 2021-04-20 10:00 | Hospitalist Progress Note ---
Date of Service April 20, 2021 Assessment & Plan (1) Pneumonia due to COVID-19 virus: Plan: Patient presents on the 11th day of symptoms with progressively worsening shortness of breath and acute respiratory failure with hypoxia tested positive on 04/14 for Covid-19. She was fully vaccinated in 07/2020 Chest x-ray with bilateral airspace opacities consistent with viral pneumonia continue dexamethasone 6mg IV stable on 15L right now but might have to move up to Vapotherm CRP is significantly elevated at 8 CT angiogram chest: no PE, just shows viral pneumonia incentive spirometry and flutter valve -Encouraged prone or side positioning as tolerated -Hold home methotrexate and Xeljanz for now -Lovenox 40 mg SQ twice daily for now for DVT prophylaxis (2) Acute respiratory failure with hypoxia: Plan: As above stable on 10-15L today (3) DM2 (diabetes mellitus, type 2): Plan: Hemoglobin A1c 6.6% earlier this year Given that she will be on IV dexamethasone, start Accu-Cheks before meals and at bedtime and NovoLog supplemental insulin as needed Check hemoglobin A1c in the morning monitor for hypoglycemia/hyperglycemia (4) Asthma: Plan: Continue home maintenance inhalers and scheduled duo nebs no wheezing on examination (5) Diffuse myofascial pain syndrome: Plan: Continue home Cymbalta (6) Hypertension: Plan: Blood pressures are mildly elevated here Continue home lisinopril, Lasix, metoprolol (7) Obesity: Plan: BMI 36.6 Needs weight loss (8) CAD (coronary artery disease): Plan: History of NSTEMI 10/2008 with nonobstructive mid LAD stenosis as well as severe stenosis distal segment of left circumflex marginal on cardiac catheterization. No acute issues, troponin here is negative, ECG without acute ischemic changes Continue home aspirin, Plavix, statin, metoprolol, lisinopril (9) Lumbar spinal stenosis: Plan: Continue home gabapentin (10) Hypothyroidism: Plan: Continue home levothyroxine (11) Hyperlipidemia: Plan: Continue home statin (12) Depression: Plan: Continue home Cymbalta (13) Rheumatoid arthritis: Plan: Hold home NSAID, Xeljanz, and methotrexate for now Recommend discussing her care with picture copyist on Wednesday to see if these medications would be okay to restart Plan: DVT prophylaxis-Lovenox 40 mg twice daily Disposition-admit to telemetry unit, Covid precautions Full code Patient reports her daughter, son, and granddaughter would all be her decision makers if she cannot make decisions for herself Admission and Anticipated Discharge Date Admission Date: April 19, 2021 Subjective patient doing a little better this morning, down to 10L from 15L but then back up to 15L in afternoon no distress, minimal cough, no fever she is eating okay, not great discussed importance of laying on her side or stomach if possible she sees Rheumatology at [facility], will reach out to them tomorrow about her RA medications reviewed chart, reviewed labs Review of Systems Review of Systems: All systems reviewed & are unremarkable except as noted in Subjective Respiratory: + cough and + dyspnea Physical Exam Physical Exam: General: well developed, well nourished, obese female, no acute distress, comfortable Neck: supple, trachea midline, normal thyroid Lungs: clear to auscultation bilaterally, + tachypnea, + cough, no accessory muscle use, no distress Heart: regular S1 and S2, no murmur, peripheral pulses normal, capillary refill normal, no edema Abdomen: soft, NT, ND, + BS, no hepatomegaly, normal to percussion Extremities: normal in appearance, no cyanosis, no petechiae, strength is 5/5 bilaterally Neuro: awake, cooperative, moves all extremities, no focal motor deficits, CN II-XII intact, sensation in extremities intact, normal speech Skin: warm, dry, no rash, normal turgor Psych: Awake, alert oriented x 3, euthymic affect Results & Data Results & Data ([facility]) Vital Signs (Past 12 Hours) Vital Signs Temp Pulse Pulse Pulse Resp BP Pulse Ox 04/20/21 07:53 37.0 C 72 20 142/63 H 94 04/20/21 07:24 76 16 98 04/20/21 05:54 22 113/53 L 92 04/20/21 03:22 36.8 C 80 20 134/66 91 04/19/21 23:50 18 90 04/19/21 22:45 37.0 C 75 16 118/53 L 90 04/19/21 22:19 82 Laboratory Results Laboratory Results - last 24 hr 04/19/21 04/19/21 04/19/21 10:55 10:55 10:55 WBC 6.17 RBC 3.55 L Hgb 11.8 L Hct 36.2 L MCV 102.0 H MCH 33.2 MCHC 32.6 RDW Std Deviation 60.6 H RDW Coeff of Matthew 16.1 H Plt Count 155 MPV 11.0 H Immature Gran % (Auto) 0.0 Neut % (Auto) 85.9 Lymph % (Auto) 9.7 Sullivan % (Auto) 4.2 Eos % (Auto) 0.0 Baso % (Auto) 0.2 Neut # (Auto) 5.30 Lymph # (Auto) 0.60 L Sullivan # (Auto) 0.26 Eos # (Auto) 0.00 Baso # (Auto) 0.01 Immature Gran # (Auto) 0.00 D-Dimer Sodium 137 Potassium 3.6 Chloride 104 Carbon Dioxide 27 Anion Gap 6.0 BUN 15 Creatinine 0.95 Est Cr Clr Drug Dosing 66.8 Est GFR ( Amer) 70.3 Est GFR (Non-Af Amer) 60.7 BUN/Creatinine Ratio 15.5 Glucose 141 H POC Glucose Estimat Average Glucose Hemoglobin A1c Calcium 8.8 Magnesium Total Bilirubin 0.5 AST 61 H ALT 29 Alkaline Phosphatase 120 H Troponin I < 0.015 C-Reactive Protein 8.01 H Total Protein 8.3 H Albumin 2.9 L Globulin 5.4 H Albumin/Globulin Ratio 0.5 L Lipase 235 Procalcitonin 04/19/21 04/19/21 04/19/21 10:55 10:55 18:04 WBC RBC Hgb Hct MCV MCH MCHC RDW Std Deviation RDW Coeff of Matthew Plt Count MPV Immature Gran % (Auto) Neut % (Auto) Lymph % (Auto) Sullivan % (Auto) Eos % (Auto) Baso % (Auto) Neut # (Auto) Lymph # (Auto) Sullivan # (Auto) Eos # (Auto) Baso # (Auto) Immature Gran # (Auto) D-Dimer 650 H* Sodium Potassium Chloride Carbon Dioxide Anion Gap BUN Creatinine Est Cr Clr Drug Dosing Est GFR ( Amer) Est GFR (Non-Af Amer) BUN/Creatinine Ratio Glucose POC Glucose 185 H Estimat Average Glucose Hemoglobin A1c Calcium Magnesium Total Bilirubin AST ALT Alkaline Phosphatase Troponin I C-Reactive Protein Total Protein Albumin Globulin Albumin/Globulin Ratio Lipase Procalcitonin < 0.05 04/19/21 04/20/21 04/20/21 20:15 05:31 05:32 WBC 5.37 RBC 3.62 L Hgb 11.9 L Hct 36.8 L MCV 101.7 H MCH 32.9 MCHC 32.3 RDW Std Deviation 59.1 H RDW Coeff of Matthew 15.9 H Plt Count 194 MPV 10.7 H Immature Gran % (Auto) 0.4 Neut % (Auto) 84.0 Lymph % (Auto) 9.3 Sullivan % (Auto) 6.3 Eos % (Auto) 0.0 Baso % (Auto) 0.0 Neut # (Auto) 4.51 Lymph # (Auto) 0.50 L Sullivan # (Auto) 0.34 Eos # (Auto) 0.00 Baso # (Auto) 0.00 Immature Gran # (Auto) 0.02 D-Dimer Sodium Potassium Chloride Carbon Dioxide Anion Gap BUN Creatinine Est Cr Clr Drug Dosing Est GFR ( Amer) Est GFR (Non-Af Amer) BUN/Creatinine Ratio Glucose POC Glucose 167 H 130 H Estimat Average Glucose Hemoglobin A1c Calcium Magnesium Total Bilirubin AST ALT Alkaline Phosphatase Troponin I C-Reactive Protein Total Protein Albumin Globulin Albumin/Globulin Ratio Lipase Procalcitonin 04/20/21 04/20/21 04/20/21 05:32 05:32 07:09 WBC RBC Hgb Hct MCV MCH MCHC RDW Std Deviation RDW Coeff of Matthew Plt Count MPV Immature Gran % (Auto) Neut % (Auto) Lymph % (Auto) Sullivan % (Auto) Eos % (Auto) Baso % (Auto) Neut # (Auto) Lymph # (Auto) Sullivan # (Auto) Eos # (Auto) Baso # (Auto) Immature Gran # (Auto) D-Dimer Sodium 142 Potassium 4.1 Chloride 107 Carbon Dioxide 25 Anion Gap 10.0 BUN 17 Creatinine 0.73 Est Cr Clr Drug Dosing 75.9 Est GFR ( Amer) 96.7 Est GFR (Non-Af Amer) 83.4 BUN/Creatinine Ratio 23.4 H Glucose 131 H POC Glucose 131 H Estimat Average Glucose Pending Hemoglobin A1c Pending Calcium 8.4 L Magnesium 2.1 Total Bilirubin 0.6 AST 58 H ALT 27 Alkaline Phosphatase 116 Troponin I C-Reactive Protein 9.87 H Total Protein 8.1 Albumin 2.7 L Globulin 5.4 H Albumin/Globulin Ratio 0.5 L Lipase Procalcitonin Medications Administered Current Inpatient Medications Acetaminophen (Acetaminophen 325 Mg Tab) 650 mg PO Q4H PRN PRN Reason: Pain or Fever Stop: 05/19/21 17:20 Albuterol (Albut/Ipratrop 3mg/0.5mg Neb 3 Ml Vial) 3 ml NEB QIDR [facility] Stop: 05/19/21 17:20 Last Admin: 04/20/21 07:22 Dose: 3 ml Documented by: Alprazolam (Alprazolam 0.25 Mg Tablet) 0.25 mg PO Q8H PRN PRN Reason: Anxiety Stop: 05/19/21 17:20 Last Admin: 04/19/21 22:16 Dose: 0.25 mg Documented by: Ascorbic Acid (Ascorbic Acid 500 Mg Tab) 1,000 mg PO [facility] Stop: 05/20/21 08:59 Last Admin: 04/20/21 07:53 Dose: 1,000 mg Documented by: Aspirin (Aspirin 81 Mg Ectab) 81 mg PO [facility] Stop: 05/20/21 08:59 Last Admin: 04/20/21 07:53 Dose: 81 mg Documented by: Atorvastatin Calcium (Atorvastatin 40 Mg Tab) 80 mg PO [facility] Stop: 05/20/21 08:59 Last Admin: 04/20/21 07:52 Dose: 80 mg Documented by: Calcium Carbonate (Calcium Carbonate 1250mg Tab) 1,250 mg PO [facility] Stop: 05/20/21 08:59 Last Admin: 04/20/21 07:52 Dose: 1,250 mg Documented by: Clopidogrel Bisulfate (Clopidogrel Bisulfate 75 Mg Tab) 75 mg PO [facility] Stop: 05/20/21 08:59 Last Admin: 04/20/21 07:55 Dose: 75 mg Documented by: Cyclobenzaprine HCl (Cyclobenzaprine Hcl 10 Mg Tab) 5 mg PO TID PRN PRN Reason: Muscle Spasm Stop: 05/19/21 17:20 Dextrose (Dextrose 50% 50 Ml Syringe) 25 - 50 ml IV UD PRN; Protocol PRN Reason: Hypoglycemia Protocol Stop: 05/19/21 17:20 Duloxetine HCl (Duloxetine Hcl 30 Mg Cap) 30 mg PO [facility] Stop: 05/20/21 08:59 Last Admin: 04/20/21 07:53 Dose: 30 mg Documented by: Duloxetine HCl (Duloxetine Hcl 60 Mg Cap) 60 mg PO [facility] Stop: 05/20/21 08:59 Last Admin: 04/20/21 07:53 Dose: 60 mg Documented by: Enoxaparin Sodium (Enoxaparin Inj 40 Mg/0.4 Ml Syr) 40 mg SQ BID [facility] Stop: 05/19/21 20:59 Last Admin: 04/20/21 07:54 Dose: 40 mg Documented by: Ferrous Sulfate (Ferrous Sulfate 325 Mg Tab) 325 mg PO QAM [facility] Stop: 05/20/21 08:59 Last Admin: 04/20/21 07:53 Dose: 325 mg Documented by: Fluticasone Propionate (Fluticasone Propionate Na Spr 16 Gm Btl) 2 sprays JENSEN HS [facility] Stop: 05/19/21 20:59 Last Admin: 04/19/21 22:17 Dose: 2 sprays Documented by: Fluticasone/Vilanterol (Fluticasone/Vilanterol 200/25mcg 14 Puffs/Inhaler) 1 puffs INH DAILY [facility] Stop: 05/20/21 08:59 Last Admin: 04/20/21 07:55 Dose: 1 puffs Documented by: Folic Acid (Folic Acid 1 Mg Tab) 2 mg PO QAM [facility] Stop: 05/20/21 08:59 Last Admin: 04/20/21 07:52 Dose: 2 mg Documented by: Furosemide (Furosemide 40 Mg Tab) 40 mg PO QAM [facility] Stop: 05/20/21 08:59 Last Admin: 04/20/21 07:51 Dose: 40 mg Documented by: Gabapentin (Gabapentin 300 Mg Cap) 300 mg PO TID [facility] Stop: 05/19/21 17:20 Last Admin: 04/20/21 07:52 Dose: 300 mg Documented by: Glucagon (Glucagon For Inj 1 Mg Vial) 1 mg SQ UD PRN; Protocol PRN Reason: Hypoglycemia Protocol Stop: 05/19/21 17:20 Glucose (Glucose 10 Tabs/Tube) 4 - 8 tabs PO UD PRN; Protocol PRN Reason: Hypoglycemia Protocol Stop: 05/19/21 17:20 Glucose (Glucose 40% Gel 15 Gm Tube) 15 - 30 gm PO UD PRN; Protocol PRN Reason: Hypoglycemia Protocol Stop: 05/19/21 17:20 Dexamethasone 6 mg/ Syringe 1.5 mls @ 1 mls/min IV QAM [facility] Stop: 05/20/21 08:59 Last Admin: 04/20/21 07:53 Dose: 1 mls/min Documented by: Insulin Aspart (Insulin Aspart 100 Units/Ml 3 Ml Pen) 0 units SC [facility] Stop: 05/19/21 17:20 Last Admin: 04/20/21 09:20 Dose: 2 units Documented by: Levothyroxine Sodium (Levothyroxine Sodium 25 Mcg Tablet) [facility] Stop: 05/20/21 06:29 Last Admin: 04/20/21 05:34 Dose: 25 mcg Documented by: Lisinopril (Lisinopril 10 Mg Tab) 10 mg PO [facility] Stop: 05/20/21 08:59 Last Admin: 04/20/21 07:52 Dose: 10 mg Documented by: Loratadine (Loratadine 10 Mg Tab) 10 mg PO [facility] Stop: 05/20/21 08:59 Last Admin: 04/20/21 07:51 Dose: 10 mg Documented by: Magnesium Oxide (Magnesium Oxide 400 Mg Tab) 400 mg PO [facility] Stop: 05/20/21 08:59 Last Admin: 04/20/21 07:51 Dose: 400 mg Documented by: Metoprolol Succinate (Metoprolol Succ 50mg Ext Rel Tab) 50 mg PO BID [facility] Stop: 05/19/21 20:59 Last Admin: 04/20/21 07:51 Dose: 50 mg Documented by: Miscellaneous (Carbohydrates For Hypoglycemia ) 15 - 30 gm PO UD PRN PRN Reason: Hypoglycemia Protocol Stop: 05/19/21 17:20 Multivitamins (Multivitamin Tab) 1 tab PO [facility] Stop: 05/20/21 08:59 Last Admin: 04/20/21 07:51 Dose: 1 tab Documented by: Nitroglycerin (Nitroglycerin Sl 0.4 Mg/Tab Tab) 0.4 mg SL UD PRN PRN Reason: Chest Pain Stop: 05/19/21 17:20 Ondansetron HCl (Ondansetron Inj 2 Mg/Ml 2 Ml Vial) 4 mg IV Q6H PRN PRN Reason: Nausea Stop: 05/19/21 17:20 Pantoprazole Sodium (Pantoprazole 40 Mg Tab) 40 mg PO [facility] Stop: 05/20/21 08:59 Last Admin: 04/20/21 07:51 Dose: 40 mg Documented by: Ropinirole HCl (Ropinirole Hcl 1 Mg Tablet) 1 mg PO HS [facility] Stop: 05/19/21 20:59 Last Admin: 04/19/21 20:39 Dose: 1 mg Documented by: Vitamin D (Cholecalciferol 1,000 Units 25 Mcg Tab) 1,000 units PO QAM [facility] Stop: 05/20/21 08:59 Last Admin: 04/20/21 07:52 Dose: 1,000 units Documented by: PG Care Time/CCT Total # of Minutes Spent Total Time Spent with Patient: Total time spent is greater than 50% in coordination of care (as documented) at patient's floor/unit and/or counseling patient: Coding Level of Care Code 58125 Subseq Hosp Care Lvl 3 Diagnoses Pneumonia due to COVID-19 virus U07.1; J12.82 Acute respiratory failure with hypoxia J96.01 DM2 (diabetes mellitus, type 2) E11.9 Asthma J45.909 Diffuse myofascial pain syndrome M79.18 Hypertension I10 Obesity E66.9 CAD (coronary artery disease) I25.10 Lumbar spinal stenosis M48.061 Hypothyroidism E03.9 Hyperlipidemia E78.5 Depression F32.9 Rheumatoid arthritis M06.9
[2021-04-20] MEDS ORDERED: ALBUT/IPRATROP 3MG/0.5MG NEB 3 ML VIAL NEB PRN (10:33)
[2021-04-20] MEDS: ALPRAZolam 0.25 MG TABLET PO PRN ×2 (12:02→23:40)
[2021-04-20] MEDS: rOPINIRole HCL 1 MG TABLET PO SCH (21:09)
[2021-04-20] MEDS: FLUTICASONE PROPIONATE NA SPR 16 GM BTL NAE SCH (21:09)
[2021-04-21] MEDS: LEVOTHYROXINE SODIUM 25 MCG TABLET PO SCH (05:44)
[2021-04-21 07:42] LABS: Estimated Average Glucose 146 mg/dl; Hemoglobin A1C 6.7 % (4.5-5.6)
[2021-04-21] MEDS: INSULIN ASPART 100 UNITS/ML 3 ML PEN SC SCH ×4 (08:45→21:26)
[2021-04-21] MEDS: ALPRAZolam 0.25 MG TABLET PO PRN ×2 (09:24→22:39)
[2021-04-21] MEDS: dexAMETHasone 6 MG in SYRINGE 0 ML IV SCH (09:24)
[2021-04-21] MEDS: CLOPIDOGREL BISULFATE 75 MG TAB PO SCH (09:24)
[2021-04-21] MEDS: CALCIUM CARBONATE 1250MG TAB PO SCH (09:24)
[2021-04-21] MEDS: MULTIVITAMIN TAB PO SCH (09:24)
[2021-04-21] MEDS: FUROSEMIDE 40 MG TAB PO SCH (09:25)
[2021-04-21] MEDS: CHOLECALCIFEROL 1,000 UNITS 25 MCG TAB PO SCH (09:25)
[2021-04-21] MEDS: ASCORBIC ACID 500 MG TAB PO SCH (09:25)
[2021-04-21] MEDS: DULoxetine HCL 30 MG CAP PO SCH (09:25)
[2021-04-21] MEDS: ASPIRIN 81 MG ECTAB PO SCH (09:25)
[2021-04-21] MEDS: FLUTICASONE/VILANTEROL 200/25MCG 14 PUFFS/INHALER INH SCH (09:25)
[2021-04-21] MEDS: lisinopril 10 MG TAB PO SCH (09:25)
[2021-04-21] MEDS: MAGNESIUM OXIDE 400 MG TAB PO SCH (09:25)
[2021-04-21] MEDS: FERROUS SULFATE 325 MG TAB PO SCH (09:25)
[2021-04-21] MEDS: LORATADINE 10 MG TAB PO SCH (09:26)
[2021-04-21] MEDS: ENOXAPARIN INJ 40 MG/0.4 ML SYR SQ SCH ×2 (09:26→21:01)
[2021-04-21] MEDS: FOLIC ACID 1 MG TAB PO SCH (09:26)
[2021-04-21] MEDS: ATORVASTATIN 40 MG TAB PO SCH (09:26)
[2021-04-21] MEDS: DULoxetine HCL 60 MG CAP PO SCH (09:26)
[2021-04-21] MEDS: PANTOprazole 40 MG TAB PO SCH (09:26)
[2021-04-21] MEDS: GABAPENTIN 300 MG CAP PO SCH ×3 (09:27→21:00)
[2021-04-21] MEDS: METOPROLOL SUCC 50MG EXT REL TAB PO SCH ×2 (09:27→21:00)
--- NOTE | 2021-04-21 11:04 | Hospitalist Progress Note ---
Date of Service April 21, 2021 Assessment & Plan (1) Pneumonia due to COVID-19 virus: Plan: Patient presents on the 11th day of symptoms with progressively worsening shortness of breath and acute respiratory failure with hypoxia tested positive on 04/14 for Covid-19. She was fully vaccinated in 07/2020 Chest x-ray with bilateral airspace opacities consistent with viral pneumonia continue dexamethasone 6mg IV daily, day 3 stable on 15L for the past few days CRP was significantly elevated at 8 CT angiogram chest: no PE, just shows viral pneumonia incentive spirometry and flutter valve -Encouraged prone or side positioning as tolerated -Hold home methotrexate and Xeljanz for now -Lovenox 40 mg SQ twice daily for DVT prophylaxis (2) Acute respiratory failure with hypoxia: Plan: As above stable on 15L today continue Lasix 40mg PO daily (3) DM2 (diabetes mellitus, type 2): Plan: Hemoglobin A1c 6.6% earlier this year Given that she will be on IV dexamethasone, start Accu-Cheks before meals and at bedtime and NovoLog supplemental insulin as needed Check hemoglobin A1c - 6% monitor for hypoglycemia/hyperglycemia, no issues thus far, eating well (4) Asthma: Plan: Continue home maintenance inhalers and scheduled duo nebs no wheezing on examination (5) Diffuse myofascial pain syndrome: Plan: Continue home Cymbalta (6) Hypertension: Plan: Blood pressures are mildly elevated here Continue home lisinopril, Lasix, metoprolol (7) Obesity: Plan: BMI 36.6 Needs weight loss (8) CAD (coronary artery disease): Plan: History of NSTEMI 10/2008 with nonobstructive mid LAD stenosis as well as severe stenosis distal segment of left circumflex marginal on cardiac catheterization. No acute issues, troponin here is negative, ECG without acute ischemic changes Continue home aspirin, Plavix, statin, metoprolol, lisinopril (9) Lumbar spinal stenosis: Plan: Continue home gabapentin (10) Hypothyroidism: Plan: Continue home levothyroxine (11) Hyperlipidemia: Plan: Continue home statin (12) Depression: Plan: Continue home Cymbalta (13) Rheumatoid arthritis: Plan: Hold home NSAID, Xeljanz, and methotrexate for now Plan: DVT prophylaxis-Lovenox 40 mg twice daily Disposition-admit to telemetry unit, Covid precautions Full code Patient reports her daughter, son, and granddaughter would all be her decision makers if she cannot make decisions for herself Admission and Anticipated Discharge Date Admission Date: April 19, 2021 Subjective patient doing okay, feels about the same as yesterday, she is on 15L, no distress at rest eating well, ate all her breakfast this morning no fever/chills, minimal cough, no chest pain, no diarrhea she got really short of breath and desaturated last night ambulating to the toilet, now with bedside commode she mentioned that I took care of her sister and in the past, they both , she misses them Review of Systems Review of Systems: All systems reviewed & are unremarkable except as noted in Subjective Constitutional: no fever, no sweats, no fatigue and no weakness Respiratory: + dyspnea and + dyspnea on exertion Physical Exam Physical Exam: General: well developed, well nourished, obese female, no acute distress, comfortable Neck: supple, trachea midline, normal thyroid Lungs: clear to auscultation bilaterally, + tachypnea, + cough, no accessory muscle use, no distress Heart: regular S1 and S2, no murmur, peripheral pulses normal, capillary refill normal, no edema Abdomen: soft, NT, ND, + BS, no hepatomegaly, normal to percussion Extremities: normal in appearance, no cyanosis, no petechiae, strength is 5/5 bilaterally Neuro: awake, cooperative, moves all extremities, no focal motor deficits, CN II-XII intact, sensation in extremities intact, normal speech Skin: warm, dry, no rash, normal turgor Psych: Awake, alert oriented x 3, euthymic affect Results & Data Results & Data ([facility]) Vital Signs (Past 12 Hours) Vital Signs Temp Pulse Pulse Pulse Resp BP Pulse Ox 04/21/21 07:59 66 04/21/21 07:04 36.7 C 67 22 137/60 92 04/21/21 04:06 36.4 C L 80 20 152/62 H 91 04/20/21 23:40 36.9 C 70 20 137/64 93 Laboratory Results Laboratory Results - last 24 hr 04/20/21 04/20/21 04/20/21 05:32 16:16 20:54 POC Glucose 160 H 151 H Estimat Average Glucose 146 Hemoglobin A1c 6.7 H 04/21/21 07:03 POC Glucose 127 H Estimat Average Glucose Hemoglobin A1c Medications Administered Current Inpatient Medications Acetaminophen (Acetaminophen 325 Mg Tab) 650 mg PO Q4H PRN PRN Reason: Pain or Fever Stop: 05/19/21 17:20 Albuterol (Albut/Ipratrop 3mg/0.5mg Neb 3 Ml Vial) 3 ml NEB Q4R PRN PRN Reason: Shortness Of Breath Or Wheezing Stop: 05/20/21 10:59 Alprazolam (Alprazolam 0.25 Mg Tablet) 0.25 mg PO Q8H PRN PRN Reason: Anxiety Stop: 05/19/21 17:20 Last Admin: 04/21/21 09:24 Dose: 0.25 mg Documented by: Ascorbic Acid (Ascorbic Acid 500 Mg Tab) 1,000 mg PO [facility] Stop: 05/20/21 08:59 Last Admin: 04/21/21 09:25 Dose: 1,000 mg Documented by: Aspirin (Aspirin 81 Mg Ectab) 81 mg PO [facility] Stop: 05/20/21 08:59 Last Admin: 04/21/21 09:25 Dose: 81 mg Documented by: Atorvastatin Calcium (Atorvastatin 40 Mg Tab) 80 mg PO [facility] Stop: 05/20/21 08:59 Last Admin: 04/21/21 09:26 Dose: 80 mg Documented by: Calcium Carbonate (Calcium Carbonate 1250mg Tab) 1,250 mg PO [facility] Stop: 05/20/21 08:59 Last Admin: 04/21/21 09:24 Dose: 1,250 mg Documented by: Clopidogrel Bisulfate (Clopidogrel Bisulfate 75 Mg Tab) 75 mg PO [facility] Stop: 05/20/21 08:59 Last Admin: 04/21/21 09:24 Dose: 75 mg Documented by: Cyclobenzaprine HCl (Cyclobenzaprine Hcl 10 Mg Tab) 5 mg PO TID PRN PRN Reason: Muscle Spasm Stop: 05/19/21 17:20 Dextrose (Dextrose 50% 50 Ml Syringe) 25 - 50 ml IV UD PRN; Protocol PRN Reason: Hypoglycemia Protocol Stop: 05/19/21 17:20 Duloxetine HCl (Duloxetine Hcl 30 Mg Cap) 30 mg PO [facility] Stop: 05/20/21 08:59 Last Admin: 04/21/21 09:25 Dose: 30 mg Documented by: Duloxetine HCl (Duloxetine Hcl 60 Mg Cap) 60 mg PO QAM [facility] Stop: 05/20/21 08:59 Last Admin: 04/21/21 09:26 Dose: 60 mg Documented by: Enoxaparin Sodium (Enoxaparin Inj 40 Mg/0.4 Ml Syr) 40 mg SQ BID [facility] Stop: 05/19/21 20:59 Last Admin: 04/21/21 09:26 Dose: 40 mg Documented by: Ferrous Sulfate (Ferrous Sulfate 325 Mg Tab) 325 mg PO QAM [facility] Stop: 05/20/21 08:59 Last Admin: 04/21/21 09:25 Dose: 325 mg Documented by: Fluticasone Propionate (Fluticasone Propionate Na Spr 16 Gm Btl) 2 sprays JENSEN HS [facility] Stop: 05/19/21 20:59 Last Admin: 04/20/21 21:09 Dose: 2 sprays Documented by: Fluticasone/Vilanterol (Fluticasone/Vilanterol 200/25mcg 14 Puffs/Inhaler) 1 puffs INH DAILY [facility] Stop: 05/20/21 08:59 Last Admin: 04/21/21 09:25 Dose: 1 puffs Documented by: Folic Acid (Folic Acid 1 Mg Tab) 2 mg PO QAM [facility] Stop: 05/20/21 08:59 Last Admin: 04/21/21 09:26 Dose: 2 mg Documented by: Furosemide (Furosemide 40 Mg Tab) 40 mg PO QAM [facility] Stop: 05/20/21 08:59 Last Admin: 04/21/21 09:25 Dose: 40 mg Documented by: Gabapentin (Gabapentin 300 Mg Cap) 300 mg PO TID [facility] Stop: 05/19/21 17:20 Last Admin: 04/21/21 09:27 Dose: 300 mg Documented by: Glucagon (Glucagon For Inj 1 Mg Vial) 1 mg SQ UD PRN; Protocol PRN Reason: Hypoglycemia Protocol Stop: 05/19/21 17:20 Glucose (Glucose 10 Tabs/Tube) 4 - 8 tabs PO UD PRN; Protocol PRN Reason: Hypoglycemia Protocol Stop: 05/19/21 17:20 Glucose (Glucose 40% Gel 15 Gm Tube) 15 - 30 gm PO UD PRN; Protocol PRN Reason: Hypoglycemia Protocol Stop: 05/19/21 17:20 Dexamethasone 6 mg/ Syringe 1.5 mls @ 1 mls/min IV QAM [facility] Stop: 05/20/21 08:59 Last Admin: 04/21/21 09:24 Dose: 1 mls/min Documented by: Insulin Aspart (Insulin Aspart 100 Units/Ml 3 Ml Pen) 0 units SC ACHS [facility] Stop: 05/19/21 17:20 Last Admin: 04/21/21 08:45 Dose: 2 units Documented by: Levothyroxine Sodium (Levothyroxine Sodium 25 Mcg Tablet) [facility] Stop: 05/20/21 06:29 Last Admin: 04/21/21 05:44 Dose: 25 mcg Documented by: Lisinopril (Lisinopril 10 Mg Tab) 10 mg PO [facility] Stop: 05/20/21 08:59 Last Admin: 04/21/21 09:25 Dose: 10 mg Documented by: Loratadine (Loratadine 10 Mg Tab) 10 mg PO [facility] Stop: 05/20/21 08:59 Last Admin: 04/21/21 09:26 Dose: 10 mg Documented by: Magnesium Oxide (Magnesium Oxide 400 Mg Tab) 400 mg PO [facility] Stop: 05/20/21 08:59 Last Admin: 04/21/21 09:25 Dose: 400 mg Documented by: Metoprolol Succinate (Metoprolol Succ 50mg Ext Rel Tab) 50 mg PO BID [facility] Stop: 05/19/21 20:59 Last Admin: 04/21/21 09:27 Dose: 50 mg Documented by: Miscellaneous (Carbohydrates For Hypoglycemia ) 15 - 30 gm PO UD PRN PRN Reason: Hypoglycemia Protocol Stop: 05/19/21 17:20 Multivitamins (Multivitamin Tab) 1 tab PO [facility] Stop: 05/20/21 08:59 Last Admin: 04/21/21 09:24 Dose: 1 tab Documented by: Nitroglycerin (Nitroglycerin Sl 0.4 Mg/Tab Tab) 0.4 mg SL UD PRN PRN Reason: Chest Pain Stop: 05/19/21 17:20 Ondansetron HCl (Ondansetron Inj 2 Mg/Ml 2 Ml Vial) 4 mg IV Q6H PRN PRN Reason: Nausea Stop: 05/19/21 17:20 Pantoprazole Sodium (Pantoprazole 40 Mg Tab) 40 mg PO [facility] Stop: 05/20/21 08:59 Last Admin: 04/21/21 09:26 Dose: 40 mg Documented by: Ropinirole HCl (Ropinirole Hcl 1 Mg Tablet) 1 mg PO HS [facility] Stop: 05/19/21 20:59 Last Admin: 04/20/21 21:09 Dose: 1 mg Documented by: Vitamin D (Cholecalciferol 1,000 Units 25 Mcg Tab) 1,000 units PO QAM [facility] Stop: 05/20/21 08:59 Last Admin: 04/21/21 09:25 Dose: 1,000 units Documented by: PG Care Time/CCT Total # of Minutes Spent Total Time Spent with Patient: Total time spent is greater than 50% in coordination of care (as documented) at patient's floor/unit and/or counseling patient: Coding Level of Care Code 66554 Subseq Hosp Care Lvl 2 Diagnoses Pneumonia due to COVID-19 virus U07.1; J12.82 Acute respiratory failure with hypoxia J96.01 DM2 (diabetes mellitus, type 2) E11.9 Asthma J45.909 Diffuse myofascial pain syndrome M79.18 Hypertension I10 Obesity E66.9 CAD (coronary artery disease) I25.10 Lumbar spinal stenosis M48.061 Hypothyroidism E03.9 Hyperlipidemia E78.5 Depression F32.9 Rheumatoid arthritis M06.9
[2021-04-21] MEDS: rOPINIRole HCL 1 MG TABLET PO SCH (21:00)
[2021-04-21] MEDS: FLUTICASONE PROPIONATE NA SPR 16 GM BTL NAE SCH (21:00)
[2021-04-21] MEDS: ACETAMINOPHEN 325 MG TAB PO PRN (22:49)
[2021-04-22] MEDS: LEVOTHYROXINE SODIUM 25 MCG TABLET PO SCH (05:28)
[2021-04-22] MEDS: INSULIN ASPART 100 UNITS/ML 3 ML PEN SC SCH ×4 (08:15→20:43)
[2021-04-22] MEDS: ALPRAZolam 0.25 MG TABLET PO PRN ×2 (08:34→22:08)
[2021-04-22] MEDS: dexAMETHasone 6 MG in SYRINGE 0 ML IV SCH (08:34)
[2021-04-22] MEDS: MAGNESIUM OXIDE 400 MG TAB PO SCH (08:35)
[2021-04-22] MEDS: LORATADINE 10 MG TAB PO SCH (08:35)
[2021-04-22] MEDS: CALCIUM CARBONATE 1250MG TAB PO SCH (08:35)
[2021-04-22] MEDS: FLUTICASONE/VILANTEROL 200/25MCG 14 PUFFS/INHALER INH SCH (08:35)
[2021-04-22] MEDS: FERROUS SULFATE 325 MG TAB PO SCH (08:35)
[2021-04-22] MEDS: MULTIVITAMIN TAB PO SCH (08:35)
[2021-04-22] MEDS: GABAPENTIN 300 MG CAP PO SCH ×3 (08:35→20:42)
[2021-04-22 08:36] LABS: Creatinine Clr Calc Pharmacy 63.9 ml/min; Est GFR (African American) 78.2 ml/min; Est GFR (Non-African American) 67.5 ml/min
[2021-04-22] MEDS: ATORVASTATIN 40 MG TAB PO SCH (08:36)
[2021-04-22] MEDS: lisinopril 10 MG TAB PO SCH (08:36)
[2021-04-22] MEDS: DULoxetine HCL 30 MG CAP PO SCH (08:36)
[2021-04-22] MEDS: FUROSEMIDE 40 MG TAB PO SCH (08:36)
[2021-04-22] MEDS: CHOLECALCIFEROL 1,000 UNITS 25 MCG TAB PO SCH (08:36)
[2021-04-22] MEDS: PANTOprazole 40 MG TAB PO SCH (08:36)
[2021-04-22] MEDS: FOLIC ACID 1 MG TAB PO SCH (08:36)
[2021-04-22] MEDS: METOPROLOL SUCC 50MG EXT REL TAB PO SCH ×2 (08:36→20:42)
[2021-04-22] MEDS: DULoxetine HCL 60 MG CAP PO SCH (08:36)
[2021-04-22] MEDS: ASPIRIN 81 MG ECTAB PO SCH (08:36)
[2021-04-22] MEDS: CLOPIDOGREL BISULFATE 75 MG TAB PO SCH (08:36)
[2021-04-22] MEDS: ASCORBIC ACID 500 MG TAB PO SCH (08:37)
[2021-04-22] MEDS: ENOXAPARIN INJ 40 MG/0.4 ML SYR SQ SCH ×2 (08:37→20:43)
--- NOTE | 2021-04-22 10:09 | Hospitalist Progress Note ---
Date of Service April 22, 2021 Assessment & Plan (1) Pneumonia due to COVID-19 virus: Plan: Patient presents on the 11th day of symptoms with progressively worsening shortness of breath and acute respiratory failure with hypoxia tested positive on 04/14 for Covid-19. She was fully vaccinated in 07/2020 Chest x-ray with bilateral airspace opacities consistent with viral pneumonia continue dexamethasone 6mg IV daily on 15L for the past few days CRP was significantly elevated at 8 CT angiogram chest: no PE, just shows viral pneumonia incentive spirometry and flutter valve -Encouraged prone or side positioning as tolerated -Hold home methotrexate and Xeljanz for now, xeljanz is a JAK2 inhibitor and precludes baricitinib -Lovenox 40 mg SQ twice daily for DVT prophylaxis (2) Acute respiratory failure with hypoxia: Plan: As above stable on 15L today continue Lasix 40mg PO daily (3) DM2 (diabetes mellitus, type 2): Plan: Hemoglobin A1c 6.6% earlier this year Given that she will be on IV dexamethasone, start Accu-Cheks before meals and at bedtime and NovoLog supplemental insulin as needed Check hemoglobin A1c - 6% monitor for hypoglycemia/hyperglycemia, no issues thus far, eating well (4) Asthma: Plan: Continue home maintenance inhalers and scheduled duo nebs no wheezing on examination (5) Diffuse myofascial pain syndrome: Plan: Continue home Cymbalta (6) Hypertension: Plan: Blood pressures are mildly elevated here Continue home lisinopril, Lasix, metoprolol (7) Obesity: Plan: BMI 36.6 Needs weight loss (8) CAD (coronary artery disease): Plan: History of NSTEMI 10/2008 with nonobstructive mid LAD stenosis as well as severe stenosis distal segment of left circumflex marginal on cardiac catheterization. No acute issues, troponin here is negative, ECG without acute ischemic changes Continue home aspirin, Plavix, statin, metoprolol, lisinopril (9) Lumbar spinal stenosis: Plan: Continue home gabapentin (10) Hypothyroidism: Plan: Continue home levothyroxine (11) Hyperlipidemia: Plan: Continue home statin (12) Depression: Plan: Continue home Cymbalta (13) Rheumatoid arthritis: Plan: Hold home NSAID, Xeljanz, and methotrexate for now Plan: DVT prophylaxis-Lovenox 40 mg twice daily Disposition-admit to telemetry unit, Covid precautions Full code Patient reports her daughter, son, and granddaughter would all be her decision makers if she cannot make decisions for herself Admission and Anticipated Discharge Date Admission Date: April 19, 2021 Subjective pt is stable still with oxygen requirements that are high. non productive cough, weakness Review of Systems Review of Systems: Moderate respiratory distress and fatigue no headache, no visual changes no speech or swallowing issues no chest pain, pressure or palpitations moderate shortness of breath,non productive cough no abdominal pain, nausea or vomiting, c/o some mild diarrhea no dysuria, hematuria or frequency no focal joint pain or swelling no back pain, CVA tenderness or radicular pain no bruising, bleeding or rashes no focal signs of weakness or numbness or altered sensation no complaints of anxiety or depression.. Results & Data Results & Data ([facility]) Vital Signs (Past 12 Hours) Vital Signs Temp Pulse Pulse Pulse Resp BP Pulse Ox 04/22/21 08:20 90 18 95 04/22/21 07:34 88 04/22/21 07:10 98.2 F 88 19 134/71 88 L 04/22/21 02:48 98.1 F 91 H 17 144/69 H 92 04/21/21 23:52 145/65 H 04/21/21 22:52 97.9 F 91 H 20 160/72 H 91 04/21/21 22:19 91 H PG Care Time/CCT Total # of Minutes Spent Total Time Spent with Patient: Total time spent is greater than 50% in coordination of care (as documented) at patient's floor/unit and/or counseling patient: Coding Level of Care Code 56596 Subseq Hosp Care Lvl 2 Diagnoses Pneumonia due to COVID-19 virus U07.1; J12.82 Acute respiratory failure with hypoxia J96.01 DM2 (diabetes mellitus, type 2) E11.9 Asthma J45.909 Diffuse myofascial pain syndrome M79.18 Hypertension I10 Obesity E66.9 CAD (coronary artery disease) I25.10 Lumbar spinal stenosis M48.061 Hypothyroidism E03.9 Hyperlipidemia E78.5 Depression F32.9 Rheumatoid arthritis M06.9
[2021-04-22] MEDS: rOPINIRole HCL 1 MG TABLET PO SCH (20:42)
[2021-04-22] MEDS: FLUTICASONE PROPIONATE NA SPR 16 GM BTL NAE SCH (20:43)
[2021-04-23] MEDS ORDERED: SODIUM CHLORIDE 0.65% NA SOLN 45 ML (OCEAN) PRN (00:30)
[2021-04-23] MEDS: BENZONATATE 100 MG CAPSULE PO SCH ×4 (01:38→20:35)
[2021-04-23] MEDS: LEVOTHYROXINE SODIUM 25 MCG TABLET PO SCH (05:54)
--- NOTE | 2021-04-23 08:55 | Hospitalist Progress Note ---
Date of Service April 23, 2021 Assessment & Plan (1) Pneumonia due to COVID-19 virus: Plan: Patient presents on the 11th day of symptoms with progressively worsening shortness of breath and acute respiratory failure with hypoxia tested positive on 04/14 for Covid-19. She was fully vaccinated in 07/2020 Chest x-ray with bilateral airspace opacities consistent with viral pneumonia continue dexamethasone 6mg IV daily On Vapotherm 40 L at 95% CRP was significantly elevated at 8 CT angiogram chest: no PE, just shows viral pneumonia incentive spirometry and flutter valve -Encouraged prone or side positioning as tolerated -Hold home methotrexate and Xeljanz for now, xeljanz is a JAK2 inhibitor and precludes baricitinib -Lovenox 40 mg SQ twice daily for DVT prophylaxis (2) Acute respiratory failure with hypoxia: Plan: As above stable on 15L today continue Lasix 40mg PO daily (3) DM2 (diabetes mellitus, type 2): Plan: Hemoglobin A1c 6.6% earlier this year Given that she will be on IV dexamethasone, start Accu-Cheks before meals and at bedtime and NovoLog supplemental insulin as needed Check hemoglobin A1c - 6% (4) Asthma: Plan: Continue home maintenance inhalers and scheduled duo nebs no wheezing on examination (5) Diffuse myofascial pain syndrome: Plan: Continue home Cymbalta (6) Hypertension: Plan: Blood pressures are mildly elevated here Continue home lisinopril, Lasix, metoprolol (7) Obesity: Plan: BMI 36.6 Needs weight loss (8) CAD (coronary artery disease): Plan: History of NSTEMI 10/2008 with nonobstructive mid LAD stenosis as well as severe stenosis distal segment of left circumflex marginal on cardiac catheterization. No acute issues, troponin here is negative, ECG without acute ischemic changes Continue home aspirin, Plavix, statin, metoprolol, lisinopril (9) Lumbar spinal stenosis: Plan: Continue home gabapentin (10) Hypothyroidism: Plan: Continue home levothyroxine (11) Hyperlipidemia: Plan: Continue home statin (12) Depression: Plan: Continue home Cymbalta (13) Rheumatoid arthritis: Plan: Hold home NSAID, Xeljanz, and methotrexate for now Plan: DVT prophylaxis-Lovenox 40 mg twice daily Disposition-admit to telemetry unit, Covid precautions Full code Patient reports her daughter, son, and granddaughter would all be her decision makers if she cannot make decisions for herself Admission and Anticipated Discharge Date Admission Date: April 19, 2021 Subjective pt is stable still with oxygen requirements that are high. non productive cough, weakness . was seen by Pulmonary medicine and concern for possible decline to need intubation, at this time aggressive pulmonary toilet and body positioning to help oxygenation Review of Systems Review of Systems: Moderate distress and fatigue no headache, no visual changes no speech or swallowing issues no chest pain, pressure or palpitations significant shortness of breath, productive cough no abdominal pain, nausea or vomiting, diarrhea or constipation no dysuria, hematuria or frequency no focal joint pain or swelling no back pain, CVA tenderness or radicular pain no bruising, bleeding or rashes no focal signs of weakness or numbness or altered sensation no complaints of anxiety or depression.. Physical Exam Physical Exam: The patient appeared severely ill respiratory distress Vital signs as documented. Head exam is normocephalic atraumatic Neck is without JVD, thyromegaly, or carotid bruits. Lungs are coarse lung sounds in all fatima Cardiac exam, Rhythm is regular.. No murmurs, rubs or gallops. Abdominal exam reveals normal bowel sounds, soft non tender, no masses Extremities are nonedematous and both pedal pulses are present Neurologic exam is alert and oriented, no focal loss of strength or sensation Skin is without bruises or rashes Psychologically is without concerns for anxiety or depression.. Results & Data Results & Data ([facility]) Vital Signs (Past 12 Hours) Vital Signs Temp Pulse Pulse Resp BP Pulse Ox 04/23/21 08:31 98 H 21 93 04/23/21 08:22 98.6 F 100 H 24 147/81 H 92 04/23/21 04:28 98.8 F 95 H 20 155/74 H 90 04/23/21 02:28 68 20 92 04/23/21 01:38 94 04/23/21 00:52 93 H 20 95 04/22/21 23:50 89 L 04/22/21 23:30 93 H 20 90 04/22/21 23:25 20 91 04/22/21 23:18 90 04/22/21 22:52 93 04/22/21 22:46 98.4 F 94 H 18 156/73 H 86 L 04/22/21 22:21 92 H PG Care Time/CCT Total # of Minutes Spent Total Time Spent with Patient: Total time spent is greater than 50% in coordination of care (as documented) at patient's floor/unit and/or counseling patient: Coding Level of Care Code 71131 Subseq Hosp Care Lvl 3 Diagnoses Pneumonia due to COVID-19 virus U07.1; J12.82 Acute respiratory failure with hypoxia J96.01 DM2 (diabetes mellitus, type 2) E11.9 Asthma J45.909 Diffuse myofascial pain syndrome M79.18 Hypertension I10 Obesity E66.9 CAD (coronary artery disease) I25.10 Lumbar spinal stenosis M48.061 Hypothyroidism E03.9 Hyperlipidemia E78.5 Depression F32.9 Rheumatoid arthritis M06.9
[2021-04-23] MEDS: ENOXAPARIN INJ 40 MG/0.4 ML SYR SQ SCH ×2 (09:36→20:36)
[2021-04-23] MEDS: FOLIC ACID 1 MG TAB PO SCH (09:36)
[2021-04-23] MEDS: FLUTICASONE/VILANTEROL 200/25MCG 14 PUFFS/INHALER INH SCH (09:36)
[2021-04-23] MEDS: FUROSEMIDE 40 MG TAB PO SCH (09:37)
[2021-04-23] MEDS: GABAPENTIN 300 MG CAP PO SCH ×3 (09:37→20:35)
[2021-04-23] MEDS: DULoxetine HCL 30 MG CAP PO SCH (09:37)
[2021-04-23] MEDS: MULTIVITAMIN TAB PO SCH (09:37)
[2021-04-23] MEDS: CLOPIDOGREL BISULFATE 75 MG TAB PO SCH (09:37)
[2021-04-23] MEDS: FERROUS SULFATE 325 MG TAB PO SCH (09:37)
[2021-04-23] MEDS: LORATADINE 10 MG TAB PO SCH (09:38)
[2021-04-23] MEDS: DULoxetine HCL 60 MG CAP PO SCH (09:38)
[2021-04-23] MEDS: CALCIUM CARBONATE 1250MG TAB PO SCH (09:38)
[2021-04-23] MEDS: METOPROLOL SUCC 50MG EXT REL TAB PO SCH ×2 (09:38→20:36)
[2021-04-23] MEDS: ASPIRIN 81 MG ECTAB PO SCH (09:39)
[2021-04-23] MEDS: PANTOprazole 40 MG TAB PO SCH (09:39)
[2021-04-23] MEDS: ATORVASTATIN 40 MG TAB PO SCH (09:39)
[2021-04-23] MEDS: ASCORBIC ACID 500 MG TAB PO SCH (09:39)
[2021-04-23] MEDS: CHOLECALCIFEROL 1,000 UNITS 25 MCG TAB PO SCH (09:39)
[2021-04-23] MEDS: MAGNESIUM OXIDE 400 MG TAB PO SCH (09:39)
[2021-04-23] MEDS: INSULIN ASPART 100 UNITS/ML 3 ML PEN SC SCH ×4 (09:40→20:43)
[2021-04-23] MEDS: lisinopril 10 MG TAB PO SCH (09:40)
[2021-04-23] MEDS: dexAMETHasone 6 MG in SYRINGE 0 ML IV SCH ×2 (09:49→20:37)
[2021-04-23] MEDS: ALPRAZolam 0.25 MG TABLET PO PRN (09:49)
--- NOTE | 2021-04-23 14:57 | XRay Report ---
XR chest 1V portable HISTORY: Shortness of breath. Follow-up airspace opacities. COMPARISON: Chest 04/19/2021. FINDINGS: There are low lung volumes. No pneumothorax. No pleural effusions. The heart remains mildly enlarged. Slight progression of the patchy bilateral airspace opacities consistent with a viral pneu monia. This is most pronounced on the right. IMPRESSION: Slight progression of the patchy bilateral airspace opacities consistent with a viral pneumonia. ACT 112: Negative or not required by law. Electronically signed by: Brendan Frank M.D. 04/23/2021 2:55 PM
--- NOTE | 2021-04-23 15:50 | Pulmonary Consultation ---
Date of Consultation April 23, 2021 Assessment & Plan (1) Pneumonia due to COVID-19 virus: Neuro - Anxiety - No acute needs - Continue Duloxetine and Alprazolam - Continue supportive efforts Cardiac - CAD, HTN, HLD, - No evidence of shock or failure - Continue supportive care - Continue Lisinopril - Continue ASA, Plavix - Continue BB Respiratory - COVID 19 pneumonia,, Hypoxia with respiratory failure, Asthma, - Currently not a candidate for Tozcilizumab or Baracitinib secondary to HD#4 - She is also on Xeljanz and Methotrexate as outpatient - although MTX is being held - Continue Decadron - could consider increasing her dose as not a candidate for Toczi or Baracitinib - Continue HFNC and pulmonary toileting and recruitment with rotation, ICS, Flutter valve, and OOB - Continue Michelle and Nebs and nasal spray - Would want intubated if refractory hypoxemia or imminent failure - Continue supportive care with HFNC GI - Obesity, GERD - Continue with PPI - Eating well- continue support RENAL/LYTES - No acute needs- continue to follow renal indcies - No acute needs ENDO - DMII BG in house has been <180 HEME - No acute needs ID - no elevation in WBC, normal NLR LINES/IV ACCESS - PIV DVT PROPHYLAXIS - Lovenox 40mg Sub q 12 (2) Acute respiratory failure with hypoxia: (3) DM2 (diabetes mellitus, type 2): (4) Asthma: (5) Diffuse myofascial pain syndrome: (6) Hypertension: (7) Obesity: (8) CAD (coronary artery disease): (9) Lumbar spinal stenosis: (10) Hypothyroidism: (11) Hyperlipidemia: (12) Depression: (13) Rheumatoid arthritis: Patient seen and examined with LUTHER and agree with note as above. We will increase Decadron dosing to 6 mg twice daily. Would recommend continuing this for 5 days and then tapering steroids. She is currently on pantoprazole 40 mg daily. Patient is willing to undergo intubation if her condition continues to worsen. Chest x-ray findings and CT chest findings reviewed. She has severe bilateral infiltrates consistent with COVID-19 viral pneumonia. She does have significant potential for sudden decompensation requiring intubation and m echanical ventilation. We will continue to follow. History of Present Illness Reason for Consultation: COVID 19 with Hypoxia with respiratory failure Requesting Physician: Evan Olsen MD Attending Physician: Evan Olsen MD History of Present Illness 70 YOF with past medical history of: Morbid Obesity, CAD, COPD, DM II, Hypothyroidism, Restless leg, RA. Patient is HD #4 and COVID day # 9. CRP HD#1 was 9.8. Patient remains on HFNC 40liter flow and [id number]%. Patient remains in bed and not self rotating or proning. Patient mostly complains of stuffy nose. She remains tachypneic without tachycardia. Initial evaluation Pt SPo2 88%. Following ICS and deep breathing her SPO2 went up to 93-94%. She also got up to bedside commode without any drop in her oxygenation saturation. Is up to BSC with SPO2 holding steady >93%. Discussed therapeutic options with the patient as well as intubation. Patient does not want to be intubated at this time as s he felt she was getting better, but if it was imminent or emergent she would want to be intubated. Continue with pulmonary therapy, ICS, Self rotation, keeping off of back and recruiting alveolar. Medications reviewed, Labs reviewed- no blood or urine cultures, imaging reviewed from admission, repeated CXR today with hypoinflation but no acute worsening. Allergies Allergy/AdvReac Type Severity Reaction Status Date / Time doxycycline Allergy Severe rash Verified 04/19/21 11:31 Tetracyclines Allergy Intermediate HIVES Verified 04/19/21 11:31 lidocaine AdvReac Unknown PT Verified 04/19/21 11:31 REQUIRES A LARGER DOSE TO HAVE EFFECT Unclassified Drugs Allergy Unknown ANTIBIOTICS Uncoded 04/19/21 11:31 GIVE HER A YEAST INFECTION Home Medications Medication Instructions Recorded Confirmed Type B-complex with vitamin C (Super B 1 tab PO QAM 12/13/20 04/19/21 History Complex-Vitamin C) Tumeric 400mg Capsule 400 mg PO QAM 12/13/20 04/19/21 History ascorbic acid (vitamin C) 1,000 mg 1,000 mg PO QAM 12/13/20 04/19/21 History tablet (Vitamin C) aspirin 81 mg tablet,delayed 81 mg PO QAM 12/13/20 04/19/21 History release (Aspirin Low Dose) nycdpsz-yjifjdbbzaqrs-uihkqvcb 250 2 tab PO Q6H PRN 12/13/20 04/19/21 History mg-250 mg-65 mg tablet (Excedrin Extra Strength) atorvastatin 80 mg tablet (Lipitor) 80 mg PO QAM 12/13/20 04/19/21 History calcium carbonate 600 mg calcium 600 mg PO QAM 12/13/20 04/19/21 History (1,500 mg) tablet (Calcium) cholecalciferol (vitamin D3) 25 25 mcg PO QAM 12/13/20 04/19/21 History mcg (1,000 unit) capsule (Vitamin D3) clopidogrel 75 mg tablet (Plavix) 75 mg PO QAM 12/13/20 04/19/21 History etodolac 200 mg capsule 200 mg PO Q12H PRN #14 cap 12/13/20 04/19/21 Rx ferrous sulfate 325 mg (65 mg 325 mg PO QAM 12/13/20 04/19/21 History iron) tablet (Iron (ferrous sulfate)) folic acid 1 mg tablet 2 mg PO QAM 12/13/20 04/19/21 History furosemide 40 mg tablet (Lasix) 40 mg PO QAM 12/13/20 04/19/21 History glucosamine WCw-[id number]-Zmeszwlxw 2 tab PO QAM 12/13/20 04/19/21 History mckinley 1,500 mg-400 unit-100 mg tablet (Glucosamine Daily Complex) ipratropium 0.5 mg-albuterol 3 mg 3 ml INHALATION TID PRN 12/13/20 04/19/21 History (2.5 mg base)/3 mL nebulization soln loratadine 10 mg tablet (Claritin) 10 mg PO QAM 12/13/20 04/19/21 History magnesium oxide 400 mg PO QAM 12/13/20 04/19/21 History meclizine 25 mg tablet (Motion 25 mg PO Q6H PRN 12/13/20 04/19/21 History Sickness (meclizine)) methotrexate sodium 2.5 mg tablet 20 mg PO WK 12/13/20 04/19/21 History metoprolol succinate 50 mg 50 mg PO BID 12/13/20 04/19/21 History tablet,extended release 24 hr (Toprol XL) multivitamin (Daily Multi-Vitamin) 1 tab PO QAM 12/13/20 04/19/21 History omega 2-uga-nvm-fish oil 1,000 mg 1 cap PO QAM 12/13/20 04/19/21 History (120 mg-180 mg) capsule (Fish Oil) pantoprazole 40 mg tablet,delayed 40 mg PO QAM 12/13/20 04/19/21 History release (Protonix) ropinirole 0.5 mg tablet 1 mg PO HS 12/13/20 04/19/21 History tofacitinib 11 mg tablet,extended 11 mg PO QAM 12/13/20 04/19/21 History release 24 hr (Xeljanz XR) cyclobenzaprine 5 mg tablet 5 mg PO TID PRN 12/24/20 04/19/21 History docusate sodium 100 mg capsule 100 mg PO DAILY 12/24/20 04/19/21 History (Colace) ondansetron HCl 4 mg tablet 4 mg PO Q8H PRN 12/24/20 04/19/21 History probiotic 1 tab PO DAILY 12/24/20 04/19/21 History albuterol sulfate 90 mcg/actuation 1 - 2 puff INHALATION Q4H PRN #8.5 01/31/21 04/19/21 Rx aerosol inhaler (ProAir HFA) g conjugated estrogens 0.625 mg/gram 0.625 mg VAGINAL QAM #30 g 01/31/21 04/19/21 Rx vaginal cream (Premarin) fluticasone 250 mcg-salmeterol 50 1 inh INHALATION BID #60 ea 01/31/21 04/19/21 Rx mcg/dose blistr powdr for inhalation (Advair Diskus) fluticasone propionate 50 2 spray INTRANASAL HS #16 g 01/31/21 04/19/21 Rx mcg/actuation nasal spray,suspension (Flonase Allergy Relief) levothyroxine 25 mcg tablet 25 mcg PO DAILYBB #90 tab 01/31/21 04/19/21 Rx (Synthroid) nitroglycerin 0.4 mg sublingual 0.4 mg SUBLINGUAL UD #30 tab 01/31/21 04/19/21 Rx tablet (Nitrostat) nystatin 100,000 unit/gram topical 1 applic TOPICAL BID #30 g 01/31/21 04/19/21 Rx powder duloxetine 30 mg capsule,delayed 30 mg PO QAM #90 cap 02/03/21 04/19/21 Rx release (Cymbalta) duloxetine 60 mg capsule,delayed 60 mg PO QAM #90 cap 02/03/21 04/19/21 Rx release (Cymbalta) alprazolam 0.25 mg tablet (Xanax) 0.25 mg PO Q8H PRN #90 tab 03/05/21 04/19/21 Rx gabapentin 300 mg capsule 300 mg PO TID #90 cap 03/05/21 04/19/21 Rx (Neurontin) lisinopril 10 mg tablet (Zestril) 10 mg PO QAM #90 tab 03/05/21 04/19/21 Rx Patient History Medical History (Updated 04/19/21 @ 14:34 by Derrick Garcia DO) Anemia Anxiety Asthma inhalers--daily/prn, nebulizer prn CAD (coronary artery disease) Chest pain Chronic back pain Chronic obstructive pulmonary disease Depression Diffuse myofascial pain syndrome Diverticulosis of colon DM2 (diabetes mellitus, type 2) Edema GERD (gastroesophageal reflux disease) Hemorrhoids Hyperlipidemia Hypertension Hypothyroidism Left hip pain Left wrist fracture Lumbar facet joint syndrome NV (myocardial infarction) Migraine Myocardial Infarction 2008 Obesity Osteoarthritis Postlaminectomy syndrome of lumbosacral region Restless leg syndrome Rheumatoid arthritis Right hip pain Venous insufficiency Surgical History History of bilateral cataract extraction History of bilateral tubal ligation History of cardiac cath 2008--no stent--follows w Dr. Varma History of carpal tunnel release of both wrists History of cholecystectomy History of colonoscopy History of dilatation and curettage History of laminectomy History of lumbar fusion L3,4,5 History of lumpectomy of right breast benign tumor removed History of tooth extraction all teeth History of total abdominal hysterectomy and bilateral salpingo-oophorectomy History of ventral hernia repair Hx of removal of cyst R breast Status post endovenous radiofrequency ablation (RFA) of saphenous vein greater saphenous vein Status post trigger finger release R thumb Status post trigger finger release L thumb Family History Sister Family history of diabetes mellitus Daughter Family history of diabetes mellitus Grandmother (Maternal) Myocardial infarction Grandfather (Paternal) Myocardial infarction Denies family history of Ovarian cancer Prostate cancer Breast cancer Colorectal cancer Social History Smoking Status: Never smoker Second Hand Exposure: Yes; Do You Dip or Chew Tobacco: No; Tobacco Cessation Education Requested by Patient: No Hx Alcohol Use: No Hx Substance Use: No Preferred Language: Gambian Communication Ability: Effective 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: No Beliefs That Will Affect Care: None marital status: / Current Living Situation: Family Current Living Situation Comment: with Bailee current occupational status: retired Other Information That Helps Us Care for You: No Feels Safe at Home: Yes Safety Concerns: Feels Safe At This Time caffeine: Yes Dental Care, Regularly: No Physical Activity Frequency: Daily Seatbelt Use: always Sunscreen Use: Yes Assistive Devices: Oxygen - Continuous and Walker Assistive Devices Comment: hearing aids at home Review of Systems Review of Systems: REVIEW OF SYSTEMS: Constitutional: (+) generalized weakness, No fever, sweats or chills Eyes: No diplopia, no worsening or blurred vision ENT: (+) stuffy nose, normal hearing, no trouble swallowing Respiratory: (+) cough, sputum, dyspnea at rest or on exertion Cardiovascular: No chest pain, tightness or palpitations Abdomen: No pain, nausea, vomiting, diarrhea or constipation Musculoskeletal: No joint pain, calf pain, swelling Neurologic: No weakness, numbness/tingling, or balance problems Psychiatric: No anxiety or depression Skin: No rash or itch Physical Exam Physical Exam: PHYSICAL EXAM: General: awake, alert, no apparent distress Head: Normocephalic, atraumatic ENT: PERRL, EOMI, no pharyngeal exudate, mucous membranes moist Neuro: AAO x 3, speech clear and appropriate, strength intact bilaterally 5/5, sensation intact and equal all extremities and dermatomes, no pronator drift Chest: equal rise and fall of the chest, scattered wheeze with rhonchi throughout, on HFNC Cardiac: Regular rate and rhythm, telemetry reviewed, skin warm dry, cap refill <3 seconds, peripheral pulses +2 no JVD, no murmur, no JVD, no edema GI: NABS x 4 quadrants, soft, nontender to palpation, no rebound, guarding or tenderness : Spontaneously voiding, no pain, no CVA tenderness, Extremities: Normal inspection, no peripheral edema or erythema, calfs nontender to palpation Psych: Normal mood and affect Results & Data Results & Data ([facility]) Vital Signs (Past 12 Hours) Vital Signs Temp Pulse Resp BP Pulse Ox 04/23/21 14:18 81 21 93 04/23/21 12:08 38 C H 105 H 22 154/72 H 89 L 04/23/21 10:55 89 22 90 04/23/21 08:31 98 H 21 93 04/23/21 08:22 37 C 100 H 24 147/81 H 92 04/23/21 04:28 37.1 C 95 H 20 155/74 H 90 Laboratory Results Abnormal lab results 04/22/21 04/22/21 04/23/21 Range/Units 16:53 20:15 08:40 POC Glucose 171 H 171 H 106 H (70-99) mg/dl 04/23/21 Range/Units 12:06 POC Glucose 154 H (70-99) mg/dl Medications Administered Acetaminophen (Acetaminophen 325 Mg Tab) 650 mg PO Q4H PRN PRN Reason: Pain or Fever Stop: 05/19/21 17:20 Last Admin: 04/21/21 22:49 Dose: 650 mg Documented by: [id number] Albuterol (Albut/Ipratrop 3mg/0.5mg Neb 3 Ml Vial) 3 ml NEB Q4R PRN PRN Reason: Shortness Of Breath Or Wheezing Stop: 05/20/21 10:59 Last Admin: 04/23/21 00:51 Dose: 3 ml Documented by: [id number] Alprazolam (Alprazolam 0.25 Mg Tablet) 0.25 mg PO Q8H PRN PRN Reason: Anxiety Stop: 05/19/21 17:20 Last Admin: 04/23/21 09:49 Dose: 0.25 mg Documented by: [id number] Admin: 04/22/21 22:08 Dose: 0.25 mg Documented by: [id number] Admin: 04/22/21 08:34 Dose: 0.25 mg Documented by: [id number] Admin: 04/21/21 22:39 Dose: 0.25 mg Documented by: [id number] Admin: 04/21/21 09:24 Dose: 0.25 mg Documented by: [id number] Admin: 04/20/21 23:40 Dose: 0.25 mg Documented by: [id number] Admin: 04/20/21 12:02 Dose: 0.25 mg Documented by: [id number] Admin: 04/19/21 22:16 Dose: 0.25 mg Documented by: [id number] Ascorbic Acid (Ascorbic Acid 500 Mg Tab) 1,000 mg PO [facility] Stop: 05/20/21 08:59 Last Admin: 04/23/21 09:39 Dose: 1,000 mg Documented by: [id number] Admin: 04/22/21 08:37 Dose: 1,000 mg Documented by: [id number] Admin: 04/21/21 09:25 Dose: 1,000 mg Documented by: [id number] Admin: 04/20/21 07:53 Dose: 1,000 mg Documented by: [id number] Aspirin (Aspirin 81 Mg Ectab) 81 mg PO [facility] Stop: 05/20/21 08:59 Last Admin: 04/23/21 09:39 Dose: 81 mg Documented by: [id number] Admin: 04/22/21 08:36 Dose: 81 mg Documented by: [id number] Admin: 04/21/21 09:25 Dose: 81 mg Documented by: [id number] Admin: 04/20/21 07:53 Dose: 81 mg Documented by: [id number] Atorvastatin Calcium (Atorvastatin 40 Mg Tab) 80 mg PO [facility] Stop: 05/20/21 08:59 Last Admin: 04/23/21 09:39 Dose: 80 mg Documented by: [id number] Admin: 04/22/21 08:36 Dose: 80 mg Documented by: [id number] Admin: 04/21/21 09:26 Dose: 80 mg Documented by: [id number] Admin: 04/20/21 07:52 Dose: 80 mg Documented by: [id number] Benzonatate (Benzonatate 100 Mg Capsule) 100 mg PO TID [facility] Stop: 05/23/21 01:29 Last Admin: 04/23/21 14:01 Dose: 100 mg Documented by: [id number] Admin: 04/23/21 09:38 Dose: 100 mg Documented by: [id number] Admin: 04/23/21 01:38 Dose: 100 mg Documented by: [id number] Calcium Carbonate (Calcium Carbonate 1250mg Tab) 1,250 mg PO [facility] Stop: 05/20/21 08:59 Last Admin: 04/23/21 09:38 Dose: 1,250 mg Documented by: [id number] Admin: 04/22/21 08:35 Dose: 1,250 mg Documented by: [id number] Admin: 04/21/21 09:24 Dose: 1,250 mg Documented by: [id number] Admin: 04/20/21 07:52 Dose: 1,250 mg Documented by: [id number] Clopidogrel Bisulfate (Clopidogrel Bisulfate 75 Mg Tab) 75 mg PO QAM [facility] Stop: 05/20/21 08:59 Last Admin: 04/23/21 09:37 Dose: 75 mg Documented by: [id number] Admin: 04/22/21 08:36 Dose: 75 mg Documented by: [id number] Admin: 04/21/21 09:24 Dose: 75 mg Documented by: [id number] Admin: 04/20/21 07:55 Dose: 75 mg Documented by: [id number] Duloxetine HCl (Duloxetine Hcl 30 Mg Cap) 30 [facility] Stop: 05/20/21 08:59 Last Admin: 04/23/21 09:37 Dose: 30 mg Documented by: [id number] Admin: 04/22/21 08:36 Dose: 30 mg Documented by: [id number] Admin: 04/21/21 09:25 Dose: 30 mg Documented by: [id number] Admin: 04/20/21 07:53 Dose: 30 mg Documented by: [id number] Duloxetine HCl (Duloxetine Hcl 60 Mg Cap) 60 mg PO [facility] Stop: 05/20/21 08:59 Last Admin: 04/23/21 09:38 Dose: 60 mg Documented by: [id number] Admin: 04/22/21 08:36 Dose: 60 mg Documented by: [id number] Admin: 04/21/21 09:26 Dose: 60 mg Documented by: [id number] Admin: 04/20/21 07:53 Dose: 60 mg Documented by: [id number] Enoxaparin Sodium (Enoxaparin Inj 40 Mg/0.4 Ml Syr) 40 mg SQ BID [facility] Stop: 05/19/21 20:59 Last Admin: 04/23/21 09:36 Dose: 40 mg Documented by: [id number] Admin: 04/22/21 20:43 Dose: 40 mg Documented by: [id number] Admin: 04/22/21 08:37 Dose: 40 mg Documented by: [id number] Admin: 04/21/21 21:01 Dose: 40 mg Documented by: [id number] Admin: 04/21/21 09:26 Dose: 40 mg Documented by: [id number] Admin: 04/20/21 21:10 Dose: 40 mg Documented by: [id number] Admin: 04/20/21 07:54 Dose: 40 mg Documented by: [id number] Admin: 04/19/21 20:40 Dose: 40 mg Documented by: [id number] Ferrous Sulfate (Ferrous Sulfate 325 Mg Tab) 325 mg PO QAM [facility] Stop: 05/20/21 08:59 Last Admin: 04/23/21 09:37 Dose: 325 mg Documented by: [id number] Admin: 04/22/21 08:35 Dose: 325 mg Documented by: [id number] Admin: 04/21/21 09:25 Dose: 325 mg Documented by: [id number] Admin: 04/20/21 07:53 Dose: 325 mg Documented by: [id number] Fluticasone Propionate (Fluticasone Propionate Na Spr 16 Gm Btl) 2 sprays JENSEN HS [facility] Stop: 05/19/21 20:59 Last Admin: 04/22/21 20:43 Dose: 2 sprays Documented by: [id number] Admin: 04/21/21 21:00 Dose: 2 sprays Documented by: [id number] Admin: 04/20/21 21:09 Dose: 2 sprays Documented by: [id number] Admin: 04/19/21 22:17 Dose: 2 sprays Documented by: [id number] Fluticasone/Vilanterol (Fluticasone/Vilanterol 200/25mcg 14 Puffs/Inhaler) 1 puffs INH DAILY [facility] Stop: 05/20/21 08:59 Last Admin: 04/23/21 09:36 Dose: 1 puffs Documented by: [id number] Admin: 04/22/21 08:35 Dose: 1 puffs Documented by: [id number] Admin: 04/21/21 09:25 Dose: 1 puffs Documented by: [id number] Admin: 04/20/21 07:55 Dose: 1 puffs Documented by: [id number] Folic Acid (Folic Acid 1 Mg Tab) 2 mg PO QAM [facility] Stop: 05/20/21 08:59 Last Admin: 04/23/21 09:36 Dose: 2 mg Documented by: [id number] Admin: 04/22/21 08:36 Dose: 2 mg Documented by: [id number] Admin: 04/21/21 09:26 Dose: 2 mg Documented by: [id number] Admin: 04/20/21 07:52 Dose: 2 mg Documented by: [id number] Furosemide (Furosemide 40 Mg Tab) 40 mg PO QAM [facility] Stop: 05/20/21 08:59 Last Admin: 04/23/21 09:37 Dose: 40 mg Documented by: [id number] Admin: 04/22/21 08:36 Dose: 40 mg Documented by: [id number] Admin: 04/21/21 09:25 Dose: 40 mg Documented by: [id number] Admin: 04/20/21 07:51 Dose: 40 mg Documented by: [id number] Gabapentin (Gabapentin 300 Mg Cap) 300 mg PO TID [facility] Stop: 05/19/21 17:20 Last Admin: 04/23/21 14:02 Dose: 300 mg Documented by: [id number] Admin: 04/23/21 09:37 Dose: 300 mg Documented by: [id number] Admin: 04/22/21 20:42 Dose: 300 mg Documented by: [id number] Admin: 04/22/21 13:01 Dose: 300 mg Documented by: [id number] Admin: 04/22/21 08:35 Dose: 300 mg Documented by: [id number] Admin: 04/21/21 21:00 Dose: 300 mg Documented by: [id number] Admin: 04/21/21 14:43 Dose: 300 mg Documented by: [id number] Admin: 04/21/21 09:27 Dose: 300 mg Documented by: [id number] Admin: 04/20/21 21:09 Dose: 300 mg Documented by: [id number] Admin: 04/20/21 12:42 Dose: 300 mg Documented by: [id number] Admin: 04/20/21 07:52 Dose: 300 mg Documented by: [id number] Admin: 04/19/21 20:40 Dose: 300 mg Documented by: [id number] Admin: 04/19/21 18:36 Dose: 300 mg Documented by: [id number] Dexamethasone 6 mg/ Syringe 1.5 mls @ 1 mls/min IV QAM [facility] Stop: 05/20/21 08:59 Last Admin: 04/23/21 09:49 Dose: 1 mls/min Documented by: [id number] Admin: 04/22/21 08:34 Dose: 1 mls/min Documented by: [id number] Admin: 04/21/21 09:24 Dose: 1 mls/min Documented by: [id number] Admin: 04/20/21 07:53 Dose: 1 mls/min Documented by: [id number] Insulin Aspart (Insulin Aspart 100 Units/Ml 3 Ml Pen) 0 units SC ACHS [facility] Stop: 05/19/21 17:20 Last Admin: 04/23/21 14:01 Dose: 1 units Documented by: [id number] Cosigned by: [id number] Admin: 04/23/21 09:40 Dose: Not Given Documented by: [id number] Admin: 04/22/21 20:43 Dose: 1 units Documented by: [id number] Cosigned by: [id number] Admin: 04/22/21 18:36 Dose: 3 units Documented by: [id number] Cosigned by: [id number] Admin: 04/22/21 13:17 Dose: 3 units Documented by: [id number] Cosigned by: [id number] Admin: 04/22/21 08:15 Dose: 3 units Documented by: [id number] Cosigned by: [id number] Admin: 04/21/21 21:26 Dose: 2 units Documented by: [id number] Cosigned by: [id number] Admin: 04/21/21 17:49 Dose: 3 units Documented by: [id number] Cosigned by: [id number] Admin: 04/21/21 12:53 Dose: 3 units Documented by: [id number] Cosigned by: [id number] Admin: 04/21/21 08:45 Dose: 2 units Documented by: [id number] Cosigned by: [id number] Admin: 04/20/21 21:00 Dose: 1 units Documented by: [id number] Cosigned by: [id number] Admin: 04/20/21 17:28 Dose: 3 units Documented by: [id number] Cosigned by: [id number] Admin: 04/20/21 12:56 Dose: 4 units Documented by: [id number] Cosigned by: [id number] Admin: 04/20/21 09:20 Dose: 2 units Documented by: [id number] Cosigned by: [id number] Admin: 04/19/21 21:54 Dose: 1 units Documented by: [id number] Cosigned by: [id number] Admin: 04/19/21 18:36 Dose: 6 units Documented by: [id number] Cosigned by: [id number] Levothyroxine Sodium (Levothyroxine Sodium 25 Mcg Tablet) 25 mcg PO DAILYBB [facility] Stop: 05/20/21 06:29 Last Admin: 04/23/21 05:54 Dose: 25 mcg Documented by: [id number] Admin: 04/22/21 05:28 Dose: 25 mcg Documented by: [id number] Admin: 04/21/21 05:44 Dose: 25 mcg Documented by: [id number] Admin: 04/20/21 05:34 Dose: 25 mcg Documented by: [id number] Lisinopril (Lisinopril 10 Mg Tab) [facility] Stop: 05/20/21 08:59 Last Admin: 04/23/21 09:40 Dose: 10 mg Documented by: [id number] Admin: 04/22/21 08:36 Dose: 10 mg Documented by: [id number] Admin: 04/21/21 09:25 Dose: 10 mg Documented by: [id number] Admin: 04/20/21 07:52 Dose: 10 mg Documented by: [id number] Loratadine (Loratadine 10 Mg Tab) 10 mg [facility] [place] Stop: 05/20/21 08:59 Last Admin: 04/23/21 09:38 Dose: 10 mg Documented by: [id number] Admin: 04/22/21 08:35 Dose: 10 mg Documented by: [id number] Admin: 04/21/21 09:26 Dose: 10 mg Documented by: [id number] Admin: 04/20/21 07:51 Dose: 10 mg Documented by: [id number] Magnesium Oxide (Magnesium Oxide 400 Mg Tab) 400 mg PO [facility] Stop: 05/20/21 08:59 Last Admin: 04/23/21 09:39 Dose: 400 mg Documented by: [id number] Admin: 04/22/21 08:35 Dose: 400 mg Documented by: [id number] Admin: 04/21/21 09:25 Dose: 400 mg Documented by: [id number] Admin: 04/20/21 07:51 Dose: 400 mg Documented by: [id number] Metoprolol Succinate (Metoprolol Succ 50mg Ext Rel Tab) 50 mg PO BID [facility] Stop: 05/19/21 20:59 Last Admin: 04/23/21 09:38 Dose: 50 mg Documented by: [id number] Admin: 04/22/21 20:42 Dose: 50 mg Documented by: [id number] Admin: 04/22/21 08:36 Dose: 50 mg Documented by: [id number] Admin: 04/21/21 21:00 Dose: 50 mg Documented by: [id number] Admin: 04/21/21 09:27 Dose: 50 mg Documented by: [id number] Admin: 04/20/21 21:09 Dose: 50 mg Documented by: [id number] Admin: 04/20/21 07:51 Dose: 50 mg Documented by: [id number] Admin: 04/19/21 20:39 Dose: 50 mg Documented by: [id number] Multivitamins (Multivitamin Tab) 1 tab [facility] Stop: 05/20/21 08:59 Last Admin: 04/23/21 09:37 Dose: 1 tab Documented by: [id number] Admin: 04/22/21 08:35 Dose: 1 tab Documented by: [id number] Admin: 04/21/21 09:24 Dose: 1 tab Documented by: [id number] Admin: 04/20/21 07:51 Dose: 1 tab Documented by: [id number] Pantoprazole Sodium (Pantoprazole 40 Mg Tab) 40 mg PO [facility] Stop: 05/20/21 08:59 Last Admin: 04/23/21 09:39 Dose: 40 mg Documented by: [id number] Admin: 04/22/21 08:36 Dose: 40 mg Documented by: [id number] Admin: 04/21/21 09:26 Dose: 40 mg Documented by: [id number] Admin: 04/20/21 07:51 Dose: 40 mg Documented by: [id number] Ropinirole HCl (Ropinirole Hcl 1 Mg Tablet) 1 mg PO [facility] Stop: 05/19/21 20:59 Last Admin: 04/22/21 20:42 Dose: 1 mg Documented by: [id number] Admin: 04/21/21 21:00 Dose: 1 mg Documented by: [id number] Admin: 04/20/21 21:09 Dose: 1 mg Documented by: [id number] Admin: 04/19/21 20:39 Dose: 1 mg Documented by: [id number] Sodium Chloride (Sodium Chloride 0.65% Na Soln 45 Ml ([place])) 2 sprays NA TID PRN PRN Reason: Nasal Congestion Stop: 05/23/21 00:29 Last Admin: 04/23/21 01:38 Dose: 2 sprays Documented by: [id number] Vitamin D (Cholecalciferol 1,000 Units 25 Mcg Tab) 1,000 units [facility] Stop: 05/20/21 08:59 Last Admin: 04/23/21 09:39 Dose: 1,000 units Documented by: [id number] Admin: 04/22/21 08:36 Dose: 1,000 units Documented by: [id number] Admin: 04/21/21 09:25 Dose: 1,000 units Documented by: [id number] Admin: 04/20/21 07:52 Dose: 1,000 units Documented by: [id number] Discontinued Medications Acetaminophen (Acetaminophen 325 Mg Tab) 650 mg PO NOW STA Stop: 04/19/21 11:52 Last Admin: 04/19/21 12:09 Dose: 650 mg Documented by: [id number] Albuterol (Albut/Ipratrop 3mg/0.5mg Neb 3 Ml Vial) 3 ml NEB QIDR SANDRA Stop: 05/19/21 17:20 Last Admin: 04/20/21 07:22 Dose: 3 ml Documented by: [id number] Admin: 04/19/21 17:58 Dose: Not Given Documented by: [id number] Admin: 04/19/21 17:58 Dose: 3 ml Documented by: [id number] Dexamethasone Sodium Phosphate (DexamethasonePf 10 Mg/Ml Vial) 6 mg IV NOW ONE Stop: 04/19/21 11:52 Last Admin: 04/19/21 12:10 Dose: 6 mg Documented by: [id number] Guaifenesin (Guaifenesin Sugar Free 100 Mg/5 Ml Udc) 100 mg PO NOW STA Stop: 04/20/21 05:56 Last Admin: 04/20/21 06:05 Dose: 100 mg Documented by: [id number] Sodium Chloride (Nss) 500 mls @ 999 mls/hr IV .Q31M ONE Stop: 04/19/21 12:21 Last Infusion: 04/19/21 14:06 Dose: 0 mls/hr Documented by: [id number] Admin: 04/19/21 12:09 Dose: 999 mls/hr Documented by: [id number] Ioversol (Optiray 320 125ml) 117 ml IV ONCE ONE Stop: 04/19/21 15:19 Last Admin: 04/19/21 15:18 Dose: 117 ml Documented by: [id number] PG Care Time/CCT Total # of Minutes Spent Total Time Spent with Patient: Total time spent is greater than 50% in coordination of care (as documented) at patient's floor/unit and/or counseling patient: Coding Level of Care Code 14943 Inpt Consult Level 4 Diagnoses Pneumonia due to COVID-19 virus U07.1; J12.82 Acute respiratory failure with hypoxia J96.01 DM2 (diabetes mellitus, type 2) E11.9 Asthma J45.909 Diffuse myofascial pain syndrome M79.18 Hypertension I10 Obesity E66.9 CAD (coronary artery disease) I25.10 Lumbar spinal stenosis M48.061 Hypothyroidism E03.9 Hyperlipidemia E78.5 Depression F32.9 Rheumatoid arthritis M06.9
[2021-04-23] MEDS: ACETAMINOPHEN 325 MG TAB PO PRN (19:45)
[2021-04-23] MEDS: rOPINIRole HCL 1 MG TABLET PO SCH (20:35)
[2021-04-23] MEDS: FLUTICASONE PROPIONATE NA SPR 16 GM BTL NAE SCH (23:54)
[2021-04-24] MEDS: LEVOTHYROXINE SODIUM 25 MCG TABLET PO SCH (06:07)
[2021-04-24] MEDS ORDERED: FUROSEMIDE 40 MG/4 ML VIAL IV ONE (07:38)
[2021-04-24] MEDS: INSULIN ASPART 100 UNITS/ML 3 ML PEN SC SCH ×4 (08:15→20:17)
[2021-04-24] MEDS: ASPIRIN 81 MG ECTAB PO SCH (09:20)
[2021-04-24] MEDS: ATORVASTATIN 40 MG TAB PO SCH (09:20)
[2021-04-24] MEDS: ASCORBIC ACID 500 MG TAB PO SCH (09:20)
[2021-04-24] MEDS: dexAMETHasone 6 MG in SYRINGE 0 ML IV SCH ×2 (09:20→20:18)
[2021-04-24] MEDS: FOLIC ACID 1 MG TAB PO SCH (09:21)
[2021-04-24] MEDS: BENZONATATE 100 MG CAPSULE PO SCH ×3 (09:21→20:14)
[2021-04-24] MEDS: CHOLECALCIFEROL 1,000 UNITS 25 MCG TAB PO SCH (09:21)
[2021-04-24] MEDS: CALCIUM CARBONATE 1250MG TAB PO SCH (09:21)
[2021-04-24] MEDS: FLUTICASONE/VILANTEROL 200/25MCG 14 PUFFS/INHALER INH SCH (09:21)
[2021-04-24] MEDS: DULoxetine HCL 30 MG CAP PO SCH (09:21)
[2021-04-24] MEDS: DULoxetine HCL 60 MG CAP PO SCH (09:21)
[2021-04-24] MEDS: CLOPIDOGREL BISULFATE 75 MG TAB PO SCH (09:21)
[2021-04-24] MEDS: FERROUS SULFATE 325 MG TAB PO SCH (09:21)
[2021-04-24] MEDS: ENOXAPARIN INJ 40 MG/0.4 ML SYR SQ SCH ×2 (09:22→20:15)
[2021-04-24] MEDS: lisinopril 10 MG TAB PO SCH (09:22)
[2021-04-24] MEDS: MAGNESIUM OXIDE 400 MG TAB PO SCH (09:22)
[2021-04-24] MEDS: METOPROLOL SUCC 50MG EXT REL TAB PO SCH ×2 (09:22→20:16)
[2021-04-24] MEDS: GABAPENTIN 300 MG CAP PO SCH ×3 (09:22→20:16)
[2021-04-24] MEDS: LORATADINE 10 MG TAB PO SCH (09:22)
[2021-04-24] MEDS: MULTIVITAMIN TAB PO SCH (09:22)
[2021-04-24] MEDS: PANTOprazole 40 MG TAB PO SCH (09:22)
--- NOTE | 2021-04-24 18:00 | Hospitalist Progress Note ---
Date of Service April 24, 2021 Assessment & Plan (1) Pneumonia due to COVID-19 virus: Plan: Patient presents on the 11th day of symptoms with progressively worsening shortness of breath and acute respiratory failure with hypoxia tested positive on 04/14 for Covid-19. She was fully vaccinated in 07/2020 Chest x-ray with bilateral airspace opacities consistent with viral pneumonia continue dexamethasone 6mg IV daily On Vapotherm slightly reducing requirements CRP was significantly elevated at 8 CT angiogram chest: no PE, just shows viral pneumonia incentive spirometry and flutter valve -Encouraged prone or side positioning as tolerated -Hold home methotrexate and Xeljanz for now, xeljanz is a JAK2 inhibitor and precludes baricitinib -Lovenox 40 mg SQ twice daily for DVT prophylaxis (2) Acute respiratory failure with hypoxia: Plan: maybe optimistic but slight improvement continue Lasix 40mg PO daily (3) DM2 (diabetes mellitus, type 2): Plan: Hemoglobin A1c 6.6% earlier this year Given that she will be on IV dexamethasone, start Accu-Cheks before meals and at bedtime and NovoLog supplemental insulin as needed Check hemoglobin A1c - 6% (4) Asthma: Plan: Continue home maintenance inhalers and scheduled duo nebs no wheezing on examination (5) Diffuse myofascial pain syndrome: Plan: Continue home Cymbalta (6) Hypertension: Plan: Blood pressures are mildly elevated here Continue home lisinopril, Lasix, metoprolol (7) Obesity: Plan: BMI 36.6 Needs weight loss (8) CAD (coronary artery disease): Plan: History of NSTEMI 10/2008 with nonobstructive mid LAD stenosis as well as severe stenosis distal segment of left circumflex marginal on cardiac catheterization. No acute issues, troponin here is negative, ECG without acute ischemic changes Continue home aspirin, Plavix, statin, metoprolol, lisinopril (9) Lumbar spinal stenosis: Plan: Continue home gabapentin (10) Hypothyroidism: Plan: Continue home levothyroxine (11) Hyperlipidemia: Plan: Continue home statin (12) Depression: Plan: Continue home Cymbalta (13) Rheumatoid arthritis: Plan: Hold home NSAID, Xeljanz, and methotrexate for now Plan: DVT prophylaxis-Lovenox 40 mg twice daily Disposition-admit to telemetry unit, Covid precautions Full code Patient reports her daughter, son, and granddaughter would all be her decision makers if she cannot make decisions for herself Admission and Anticipated Discharge Date Admission Date: April 19, 2021 Subjective pt is stable still with oxygen but slightly improved from previous. non productive cough, weakness continue aggressive pulmonary toilet and body positioning to help oxygenation Review of Systems Review of Systems: Moderate distress and fatigue no headache, no visual changes no speech or swallowing issues no chest pain, pressure or palpitations significant shortness of breath, productive cough no abdominal pain, nausea or vomiting, diarrhea or constipation no dysuria, hematuria or frequency no focal joint pain or swelling no back pain, CVA tenderness or radicular pain no bruising, bleeding or rashes no focal signs of weakness or numbness or altered sensation no complaints of anxiety or depression.. Physical Exam Physical Exam: The patient appeared severely ill respiratory distress Vital signs as documented. Head exam is normocephalic atraumatic Neck is without JVD, thyromegaly, or carotid bruits. Lungs are coarse lung sounds in all fatima Cardiac exam, Rhythm is regular.. No murmurs, rubs or gallops. Abdominal exam reveals normal bowel sounds, soft non tender, no masses Extremities are nonedematous and both pedal pulses are present Neurologic exam is alert and oriented, no focal loss of strength or sensation Skin is without bruises or rashes Psychologically is without concerns for anxiety or depression.. Results & Data Results & Data ([facility]) Vital Signs (Past 12 Hours) Vital Signs Temp Pulse Pulse Resp BP Pulse Ox 04/24/21 15:32 98.8 F 57 L 23 110/55 L 93 04/24/21 14:55 66 21 93 04/24/21 12:05 97.5 F L 70 20 155/62 H 93 04/24/21 12:00 71 04/24/21 11:55 69 22 94 04/24/21 07:42 63 22 93 04/24/21 07:25 98.2 F 60 22 118/42 L 84 L 04/24/21 06:30 95 04/24/21 06:24 67 26 H 84 L 04/24/21 06:21 90 PG Care Time/CCT Total # of Minutes Spent Total Time Spent with Patient: Total time spent is greater than 50% in coordination of care (as documented) at patient's floor/unit and/or counseling patient: Coding Level of Care Code 69489 Subseq Hosp Care Lvl 2 Diagnoses Pneumonia due to COVID-19 virus U07.1; J12.82 Acute respiratory failure with hypoxia J96.01 DM2 (diabetes mellitus, type 2) E11.9 Asthma J45.909 Diffuse myofascial pain syndrome M79.18 Hypertension I10 Obesity E66.9 CAD (coronary artery disease) I25.10 Lumbar spinal stenosis M48.061 Hypothyroidism E03.9 Hyperlipidemia E78.5 Depression F32.9 Rheumatoid arthritis M06.9
--- NOTE | 2021-04-24 18:21 | Pulmonology Progress Note ---
Date of Service April 24, 2021 Assessment & Plan (1) Pneumonia due to COVID-19 virus: Plan: 70-year-old female with a history of coronary artery disease, depression, anxiety, rheumatoid arthritis and history of gel strands of methotrexate. Patient not a good candidate for baricitinib or tocilizumab as she is currently out of the window and was previously on methotrexate and Xeljanz. She runs a risk of significant immunosuppression and develop a secondary infection. Continue steroids at current dosing. She will continue to wean oxygen as able. Continue to prone. Pulmonary will follow peripherally. Please call if patient decompensates and re quires intubation and mechanical ventilation. (2) Acute respiratory failure with hypoxia: (3) DM2 (diabetes mellitus, type 2): (4) Asthma: (5) Diffuse myofascial pain syndrome: (6) Hypertension: (7) Obesity: (8) CAD (coronary artery disease): (9) Lumbar spinal stenosis: (10) Hypothyroidism: (11) Hyperlipidemia: (12) Depression: (13) Rheumatoid arthritis: Admission and Anticipated Discharge Date Admission Date: April 19, 2021 Subjective Patient seen and examined. No significant changes from yesterday. Continues on high flow nasal cannula. Review of Systems Review of Systems: All systems reviewed & are unremarkable except as noted in HPI & below Physical Exam Physical Exam: PHYSICAL EXAM: General: awake, alert, no apparent distress Head: Normocephalic, atraumatic ENT: PERRL, EOMI, no pharyngeal exudate, mucous membranes moist Neuro: AAO x 3, speech clear and appropriate, strength intact bilaterally 5/5, sensation intact and equal all extremities and dermatomes, no pronator drift Chest: equal rise and fall of the chest, scattered wheeze with rhonchi throughout, on HFNC Cardiac: Regular rate and rhythm, telemetry reviewed, skin warm dry, cap refill <3 seconds, peripheral pulses +2 no JVD, no murmur, no JVD, no edema GI: NABS x 4 quadrants, soft, nontender to palpation, no rebound, guarding or tenderness : Spontaneously voiding, no pain, no CVA tenderness, Extremities: Normal inspection, no peripheral edema or erythema, calfs nontender to palpation Psych: Normal mood and affect Results & Data Results & Data ([facility]) Vital Signs (Past 12 Hours) Vital Signs Temp Pulse Pulse Resp BP Pulse Ox 04/24/21 15:32 37.1 C 57 L 23 110/55 L 93 04/24/21 14:55 66 21 93 04/24/21 12:05 36.4 C L 70 20 155/62 H 93 04/24/21 12:00 71 04/24/21 11:55 69 22 94 04/24/21 07:42 63 22 93 04/24/21 07:25 36.8 C 60 22 118/42 L 84 L 04/24/21 06:30 95 04/24/21 06:24 67 26 H 84 L 04/24/21 06:21 90 PG Care Time/CCT Total # of Minutes Spent Total Time Spent with Patient: Total time spent is greater than 50% in coordination of care (as documented) at patient's floor/unit and/or counseling patient: Coding Level of Care Code 67359 Subseq Hosp Care Lvl 2 Diagnoses Pneumonia due to COVID-19 virus U07.1; J12.82 Acute respiratory failure with hypoxia J96.01 DM2 (diabetes mellitus, type 2) E11.9 Asthma J45.909 Diffuse myofascial pain syndrome M79.18 Hypertension I10 Obesity E66.9 CAD (coronary artery disease) I25.10 Lumbar spinal stenosis M48.061 Hypothyroidism E03.9 Hyperlipidemia E78.5 Depression F32.9 Rheumatoid arthritis M06.9
[2021-04-24] MEDS: ALPRAZolam 0.25 MG TABLET PO PRN (20:13)
[2021-04-24] MEDS: FLUTICASONE PROPIONATE NA SPR 16 GM BTL NAE SCH (20:15)
[2021-04-24] MEDS: rOPINIRole HCL 1 MG TABLET PO SCH (20:16)
[2021-04-24] MEDS ORDERED: METOPROLOL TARTRATE 1 MG/ML VIAL IV STA (21:51)
[2021-04-25] MEDS: LEVOTHYROXINE SODIUM 25 MCG TABLET PO SCH (05:57)
[2021-04-25 08:22] LABS: Hemoglobin 11.7 g/dL (12.0-16.0); Mean Corpuscular Hemoglobin 33.1 pg (25-34); Mean Corpuscular Hgb Conc 33.4 g/dL (32-36); Mean Corpuscular Volume 99.2 fL (80-100); Mean Platelet Volume 10.4 fL (7.4-10.4); Platelet Count 392 K/uL (130-400); RDW Coefficient of Variation 15.4 % (11.5-14.5); RDW Standard Deviation 54.9 fL (36.4-46.3); Red Blood Count 3.53 M/uL (4.2-5.4); White Blood Count 10.71 K/uL (4.8-10.8)
[2021-04-25] MEDS: dexAMETHasone 6 MG in SYRINGE 0 ML IV SCH ×2 (09:02→20:38)
[2021-04-25 09:03] LABS: BUN Creatinine Ratio 37.1 (10-20); Calcium 9.3 mg/dl (8.5-10.1); Creatinine Clr Calc Pharmacy 60.6 ml/min; Est GFR (African American) 73.1 ml/min; Est GFR (Non-African American) 63.1 ml/min; Potassium 3.8 mmol/L (3.5-5.1)
[2021-04-25] MEDS: lisinopril 10 MG TAB PO SCH (09:03)
[2021-04-25] MEDS: MULTIVITAMIN TAB PO SCH (09:03)
[2021-04-25] MEDS: FOLIC ACID 1 MG TAB PO SCH (09:03)
[2021-04-25] MEDS: FLUTICASONE/VILANTEROL 200/25MCG 14 PUFFS/INHALER INH SCH (09:03)
[2021-04-25] MEDS: CALCIUM CARBONATE 1250MG TAB PO SCH (09:03)
[2021-04-25] MEDS: MAGNESIUM OXIDE 400 MG TAB PO SCH (09:04)
[2021-04-25] MEDS: METOPROLOL SUCC 50MG EXT REL TAB PO SCH ×2 (09:04→20:39)
[2021-04-25] MEDS: PANTOprazole 40 MG TAB PO SCH (09:04)
[2021-04-25] MEDS: GABAPENTIN 300 MG CAP PO SCH ×3 (09:04→20:39)
[2021-04-25] MEDS: ASPIRIN 81 MG ECTAB PO SCH (09:04)
[2021-04-25] MEDS: ASCORBIC ACID 500 MG TAB PO SCH (09:05)
[2021-04-25] MEDS: ATORVASTATIN 40 MG TAB PO SCH (09:06)
[2021-04-25] MEDS: DULoxetine HCL 30 MG CAP PO SCH (09:06)
[2021-04-25] MEDS: CHOLECALCIFEROL 1,000 UNITS 25 MCG TAB PO SCH (09:06)
[2021-04-25] MEDS: FERROUS SULFATE 325 MG TAB PO SCH (09:06)
[2021-04-25] MEDS: DULoxetine HCL 60 MG CAP PO SCH (09:06)
[2021-04-25] MEDS: CLOPIDOGREL BISULFATE 75 MG TAB PO SCH (09:07)
[2021-04-25] MEDS: ENOXAPARIN INJ 40 MG/0.4 ML SYR SQ SCH ×2 (09:07→20:42)
[2021-04-25] MEDS: BENZONATATE 100 MG CAPSULE PO SCH ×3 (09:08→20:39)
[2021-04-25] MEDS: LORATADINE 10 MG TAB PO SCH (09:08)
[2021-04-25] MEDS: ALPRAZolam 0.25 MG TABLET PO PRN ×2 (09:18→22:13)
[2021-04-25] MEDS: INSULIN ASPART 100 UNITS/ML 3 ML PEN SC SCH ×4 (09:22→21:45)
--- NOTE | 2021-04-25 10:32 | Electrocardiogram Report ---
Test Reason : Blood Pressure : / mmHG Vent. Rate : 107 BPM Atrial Rate : 107 BPM P-R Int : 150 ms QRS Dur : 088 ms QT Int : 300 ms P-R-T Axes : 000 -07 262 degrees QTc Int : 400 ms ectopic atrial tachycardia Minimal voltage criteria for LVH, may be normal variant Nonspecific T wave abnormality Abnormal ECG When compared with ECG of 19-APR-2021 10:35, P-wave morphology has changed Nonspecific T wave abnormality now evident in Inferior leads Nonspecific T wave abnormality, worse in Lateral leads QT has shortened Confirmed by Dago Pina ([id number] on 04/25/2021 10:31:52 AM Referred By: REFERRED SELF Confirmed By:Cornelio Pina
--- NOTE | 2021-04-25 17:43 | Hospitalist Progress Note ---
Date of Service April 25, 2021 Assessment & Plan (1) Pneumonia due to COVID-19 virus: Plan: Patient presents on the 11th day of symptoms with progressively worsening shortness of breath and acute respiratory failure with hypoxia tested positive on 04/14 for Covid-19. She was fully vaccinated in 07/2020 Chest x-ray with bilateral airspace opacities consistent with viral pneumonia continue dexamethasone 6mg IV daily On Vapotherm slightly reducing requirements CRP was significantly elevated at 8, did not meet for baricitinab due to taking xeljanz CT angiogram chest: no PE, just shows viral pneumonia incentive spirometry and flutter valve -Encouraged prone or side positioning as tolerated -Hold home methotrexate and Xeljanz -Lovenox 40 mg SQ twice daily for DVT prophylaxis (2) Acute respiratory failure with hypoxia: Plan: darren, pulmonary has seen, not intubation level yet continue Lasix 40mg iv daily (3) DM2 (diabetes mellitus, type 2): Plan: Hemoglobin A1c 6.6% earlier this year Given that she will be on IV dexamethasone, start Accu-Cheks before meals and at bedtime and NovoLog supplemental insulin as needed Check hemoglobin A1c - 6% (4) Asthma: Plan: Continue home maintenance inhalers and scheduled duo nebs no wheezing on examination (5) Diffuse myofascial pain syndrome: Plan: Continue home Cymbalta (6) Hypertension: Plan: Blood pressures are mildly elevated here Continue home lisinopril, Lasix, metoprolol (7) Obesity: Plan: BMI 36.6 Needs weight loss (8) CAD (coronary artery disease): Plan: History of NSTEMI 10/2008 with nonobstructive mid LAD stenosis as well as severe stenosis distal segment of left circumflex marginal on cardiac catheterization. No acute issues, troponin here is negative, ECG without acute ischemic changes Continue home aspirin, Plavix, statin, metoprolol, lisinopril (9) Lumbar spinal stenosis: Plan: Continue home gabapentin (10) Hypothyroidism: Plan: Continue home levothyroxine (11) Hyperlipidemia: Plan: Continue home statin (12) Depression: Plan: Continue home Cymbalta (13) Rheumatoid arthritis: Plan: Hold home NSAID, Xeljanz, and methotrexate for now Plan: DVT prophylaxis-Lovenox 40 mg twice daily Disposition-admit to telemetry unit, Covid precautions Full code Patient reports her daughter, son, and granddaughter would all be her decision makers if she cannot make decisions for herself Admission and Anticipated Discharge Date Admission Date: April 19, 2021 Subjective Patient seen and examined. No significant changes from yesterday. Continues on high flow nasal cannula. did have some desats 04/25/21, still on vapotherm Review of Systems Review of Systems: Moderate distress and fatigue no headache, no visual changes no speech or swallowing issues no chest pain, pressure or palpitations significant shortness of breath, productive cough no abdominal pain, nausea or vomiting, diarrhea or constipation no dysuria, hematuria or frequency no focal joint pain or swelling no back pain, CVA tenderness or radicular pain no bruising, bleeding or rashes no focal signs of weakness or numbness or altered sensation no complaints of anxiety or depression.. Physical Exam Physical Exam: The patient appeared severely ill respiratory distress Vital signs as documented. Head exam is normocephalic atraumatic Neck is without JVD, thyromegaly, or carotid bruits. Lungs are coarse lung sounds in all fatima Cardiac exam, Rhythm is regular.. No murmurs, rubs or gallops. Abdominal exam reveals normal bowel sounds, soft non tender, no masses Extremities are nonedematous and both pedal pulses are present Neurologic exam is alert and oriented, no focal loss of strength or sensation Skin is without bruises or rashes Psychologically is without concerns for anxiety or depression.. Results & Data Results & Data ([facility]) Vital Signs (Past 12 Hours) Vital Signs Temp Pulse Pulse Resp BP Pulse Ox 04/25/21 15:44 88 28 H 86 L 04/25/21 14:55 98.2 F 68 22 157/62 H 92 04/25/21 11:28 98.2 F 65 24 125/60 92 04/25/21 11:20 74 20 95 04/25/21 08:00 75 04/25/21 07:24 80 20 92 04/25/21 07:08 97.3 F L 72 20 137/76 94 PG Care Time/CCT Total # of Minutes Spent Total Time Spent with Patient: Total time spent is greater than 50% in coordination of care (as documented) at patient's floor/unit and/or counseling patient: Coding Level of Care Code 56737 Subseq Hosp Care Lvl 3 Diagnoses Pneumonia due to COVID-19 virus U07.1; J12.82 Acute respiratory failure with hypoxia J96.01 DM2 (diabetes mellitus, type 2) E11.9 Asthma J45.909 Diffuse myofascial pain syndrome M79.18 Hypertension I10 Obesity E66.9 CAD (coronary artery disease) I25.10 Lumbar spinal stenosis M48.061 Hypothyroidism E03.9 Hyperlipidemia E78.5 Depression F32.9 Rheumatoid arthritis M06.9
[2021-04-25] MEDS: FLUTICASONE PROPIONATE NA SPR 16 GM BTL NAE SCH (20:39)
[2021-04-25] MEDS: rOPINIRole HCL 1 MG TABLET PO SCH (20:39)
[2021-04-26] MEDS: LEVOTHYROXINE SODIUM 25 MCG TABLET PO SCH (05:47)
[2021-04-26] MEDS: INSULIN ASPART 100 UNITS/ML 3 ML PEN SC SCH ×4 (08:41→20:35)
[2021-04-26] MEDS: PANTOprazole 40 MG TAB PO SCH (09:12)
[2021-04-26] MEDS: MULTIVITAMIN TAB PO SCH (09:12)
[2021-04-26] MEDS: FOLIC ACID 1 MG TAB PO SCH (09:13)
[2021-04-26] MEDS: CLOPIDOGREL BISULFATE 75 MG TAB PO SCH (09:13)
[2021-04-26] MEDS: METOPROLOL SUCC 50MG EXT REL TAB PO SCH ×2 (09:13→20:51)
[2021-04-26] MEDS: DULoxetine HCL 60 MG CAP PO SCH (09:13)
[2021-04-26] MEDS: CHOLECALCIFEROL 1,000 UNITS 25 MCG TAB PO SCH (09:13)
[2021-04-26] MEDS: FERROUS SULFATE 325 MG TAB PO SCH (09:13)
[2021-04-26] MEDS: MAGNESIUM OXIDE 400 MG TAB PO SCH (09:13)
[2021-04-26] MEDS: GABAPENTIN 300 MG CAP PO SCH ×3 (09:13→20:51)
[2021-04-26] MEDS: BENZONATATE 100 MG CAPSULE PO SCH ×3 (09:13→20:49)
[2021-04-26] MEDS: ASPIRIN 81 MG ECTAB PO SCH (09:13)
[2021-04-26] MEDS: lisinopril 10 MG TAB PO SCH (09:13)
[2021-04-26] MEDS: LORATADINE 10 MG TAB PO SCH (09:13)
[2021-04-26] MEDS: DULoxetine HCL 30 MG CAP PO SCH (09:13)
[2021-04-26] MEDS: dexAMETHasone 6 MG in SYRINGE 0 ML IV SCH ×2 (09:14→20:52)
[2021-04-26] MEDS: ENOXAPARIN INJ 40 MG/0.4 ML SYR SQ SCH ×2 (09:14→20:51)
[2021-04-26] MEDS: ALPRAZolam 0.25 MG TABLET PO PRN ×2 (09:14→20:52)
[2021-04-26] MEDS: ASCORBIC ACID 500 MG TAB PO SCH (09:14)
[2021-04-26] MEDS: ATORVASTATIN 40 MG TAB PO SCH (09:14)
[2021-04-26] MEDS: FLUTICASONE/VILANTEROL 200/25MCG 14 PUFFS/INHALER INH SCH (09:15)
[2021-04-26] MEDS: CALCIUM CARBONATE 1250MG TAB PO SCH (09:15)
[2021-04-26] MEDS: FUROSEMIDE 40 MG/4 ML VIAL IV SCH (09:52)
--- NOTE | 2021-04-26 11:36 | Hospitalist Progress Note ---
Date of Service April 26, 2021 Assessment & Plan (1) Pneumonia due to COVID-19 virus: Plan: Patient presents on the 11th day of symptoms with progressively worsening shortness of breath and acute respiratory failure with hypoxia tested positive on 04/14 for Covid-19. She was fully vaccinated in 07/2020 Chest x-ray with bilateral airspace opacities consistent with viral pneumonia continue dexamethasone 6mg IV daily x 10 days, day 8 today On Vapotherm slightly reducing requirements CRP was significantly elevated at 8, did not meet for baricitinab due to taking xeljanz CT angiogram chest: no PE, just shows viral pneumonia incentive spirometry and flutter valve -Encouraged prone or side positioning as tolerated -Hold home methotrexate and Xeljanz -Lovenox 40 mg SQ twice daily for DVT prophylaxis (2) Acute respiratory failure with hypoxia: Plan: darren, pulmonary has seen, not intubation level yet continue Lasix 40mg iv daily to keep lungs dry check BMP tomorrow (3) DM2 (diabetes mellitus, type 2): Plan: Hemoglobin A1c 6.6% earlier this year Given that she will be on IV dexamethasone, start Accu-Cheks before meals and at bedtime and NovoLog supplemental insulin as needed Check hemoglobin A1c - 6% monitor for hypo and hyperglycemia (4) Asthma: Plan: Continue home maintenance inhalers and scheduled duo nebs no wheezing on examination (5) Diffuse myofascial pain syndrome: Plan: Continue home Cymbalta (6) Hypertension: Plan: Blood pressures are mildly elevated here Continue home lisinopril, Lasix, metoprolol (7) Obesity: Plan: BMI 36.6 Needs weight loss (8) CAD (coronary artery disease): Plan: History of NSTEMI 10/2008 with nonobstructive mid LAD stenosis as well as severe stenosis distal segment of left circumflex marginal on cardiac catheterization. No acute issues, troponin here is negative, ECG without acute ischemic changes Continue home aspirin, Plavix, statin, metoprolol, lisinopril (9) Lumbar spinal stenosis: Plan: Continue home gabapentin (10) Hypothyroidism: Plan: Continue home levothyroxine (11) Hyperlipidemia: Plan: Continue home statin (12) Depression: Plan: Continue home Cymbalta (13) Rheumatoid arthritis: Plan: Hold home NSAID, Xeljanz, and methotrexate for now Plan: DVT prophylaxis-Lovenox 40 mg twice daily Disposition-admit to telemetry unit, Covid precautions Full code Patient reports her daughter, son, and granddaughter would all be her decision makers if she cannot make decisions for herself Admission and Anticipated Discharge Date Admission Date: April 19, 2021 Subjective patient now on high flow, she is 35L 90%, using CPAP HS due to sleep apnea she cannot eat much because she does not have much sense of taste her cough is intermittent, it is dry, no chest pain, no fever she is asking if she can go home, discussed that she needs to be on a lot less oxygen to go home, she understands Review of Systems Review of Systems: All systems reviewed & are unremarkable except as noted in Subjective Respiratory: + cough, + dyspnea and + dyspnea on exertion Physical Exam Physical Exam: General: well developed, well nourished, obese female, no acute distress, comfortable Neck: supple, trachea midline, normal thyroid Lungs: clear to auscultation bilaterally, + tachypnea, + cough, no accessory muscle use, no distress Heart: regular S1 and S2, no murmur, peripheral pulses normal, capillary refill normal, no edema Abdomen: soft, NT, ND, + BS, no hepatomegaly, normal to percussion Extremities: normal in appearance, no cyanosis, no petechiae, strength is 5/5 bilaterally Neuro: awake, cooperative, moves all extremities, no focal motor deficits, CN II-XII intact, sensation in extremities intact, normal speech Skin: warm, dry, no rash, normal turgor Psych: Awake, alert oriented x 3, euthymic affect Results & Data Results & Data ([facility]) Vital Signs (Past 12 Hours) Vital Signs Temp Pulse Pulse Resp BP Pulse Ox 04/26/21 11:35 60 18 91 04/26/21 07:39 69 20 90 04/26/21 07:07 58 L 17 120/60 92 04/26/21 03:47 36.7 C 54 L 16 130/62 92 04/26/21 02:55 57 L 24 92 04/25/21 23:40 54 L 24 91 Laboratory Results Laboratory Results - last 24 hr 04/25/21 04/25/21 04/25/21 12:12 17:02 20:29 POC Glucose 221 H 170 H 257 H 04/26/21 07:42 POC Glucose 215 H Medications Administered Current Inpatient Medications Acetaminophen (Acetaminophen 325 Mg Tab) 650 mg PO Q4H PRN PRN Reason: Pain or Fever Stop: 05/19/21 17:20 Last Admin: 04/23/21 19:45 Dose: 650 mg Documented by: Albuterol (Albut/Ipratrop 3mg/0.5mg Neb 3 Ml Vial) 3 ml NEB Q4R PRN PRN Reason: Shortness Of Breath Or Wheezing Stop: 05/20/21 10:59 Last Admin: 04/23/21 00:51 Dose: 3 ml Documented by: Alprazolam (Alprazolam 0.25 Mg Tablet) 0.25 mg PO Q8H PRN PRN Reason: Anxiety Stop: 05/19/21 17:20 Last Admin: 04/26/21 09:14 Dose: 0.25 mg Documented by: Ascorbic Acid (Ascorbic Acid 500 Mg Tab) 1,000 mg PO [facility] Stop: 05/20/21 08:59 Last Admin: 04/26/21 09:14 Dose: 1,000 mg Documented by: Aspirin (Aspirin 81 Mg Ectab) 81 mg PO [facility] Stop: 05/20/21 08:59 Last Admin: 04/26/21 09:13 Dose: 81 mg Documented by: Atorvastatin Calcium (Atorvastatin 40 Mg Tab) 80 mg PO [facility] Stop: 05/20/21 08:59 Last Admin: 04/26/21 09:14 Dose: 80 mg Documented by: Benzonatate (Benzonatate 100 Mg Capsule) 100 mg PO TID [facility] Stop: 05/23/21 01:29 Last Admin: 04/26/21 09:13 Dose: 100 mg Documented by: Calcium Carbonate (Calcium Carbonate 1250mg Tab) 1,250 mg PO [facility] Stop: 05/20/21 08:59 Last Admin: 04/26/21 09:15 Dose: 1,250 mg Documented by: Clopidogrel Bisulfate (Clopidogrel Bisulfate 75 Mg Tab) 75 mg PO [facility] Stop: 05/20/21 08:59 Last Admin: 04/26/21 09:13 Dose: 75 mg Documented by: Cyclobenzaprine HCl (Cyclobenzaprine Hcl 10 Mg Tab) 5 mg PO TID PRN PRN Reason: Muscle Spasm Stop: 05/19/21 17:20 Dextrose (Dextrose 50% 50 Ml Syringe) 25 - 50 ml IV UD PRN; Protocol PRN Reason: Hypoglycemia Protocol Stop: 05/19/21 17:20 Duloxetine HCl (Duloxetine Hcl 30 Mg Cap) 30 mg PO QAM [facility] Stop: 05/20/21 08:59 Last Admin: 04/26/21 09:13 Dose: 30 mg Documented by: Duloxetine HCl (Duloxetine Hcl 60 Mg Cap) 60 mg PO QAM [facility] Stop: 05/20/21 08:59 Last Admin: 04/26/21 09:13 Dose: 60 mg Documented by: Enoxaparin Sodium (Enoxaparin Inj 40 Mg/0.4 Ml Syr) 40 mg SQ BID [facility] Stop: 05/19/21 20:59 Last Admin: 04/26/21 09:14 Dose: 40 mg Documented by: Ferrous Sulfate (Ferrous Sulfate 325 Mg Tab) 325 mg PO QAM [facility] Stop: 05/20/21 08:59 Last Admin: 04/26/21 09:13 Dose: 325 mg Documented by: Fluticasone Propionate (Fluticasone Propionate Na Spr 16 Gm Btl) 2 sprays [facility] HS [facility] Stop: 05/19/21 20:59 Last Admin: 04/25/21 20:39 Dose: 2 sprays Documented by: Fluticasone/Vilanterol (Fluticasone/Vilanterol 200/25mcg 14 Puffs/Inhaler) 1 puffs INH DAILY [facility] Stop: 05/20/21 08:59 Last Admin: 04/26/21 09:15 Dose: 1 puffs Documented by: Folic Acid (Folic Acid 1 Mg Tab) 2 mg PO QAM [facility] Stop: 05/20/21 08:59 Last Admin: 04/26/21 09:13 Dose: 2 mg Documented by: Furosemide (Furosemide 40 Mg/4 Ml Vial) 40 mg IV DAILY [facility] Stop: 05/26/21 08:59 Last Admin: 04/26/21 09:52 Dose: 40 mg Documented by: Gabapentin (Gabapentin 300 Mg Cap) 300 mg PO TID [facility] Stop: 05/19/21 17:20 Last Admin: 04/26/21 09:13 Dose: 300 mg Documented by: Glucagon (Glucagon For Inj 1 Mg Vial) 1 mg SQ UD PRN; Protocol PRN Reason: Hypoglycemia Protocol Stop: 05/19/21 17:20 Glucose (Glucose 10 Tabs/Tube) 4 - 8 tabs PO UD PRN; Protocol PRN Reason: Hypoglycemia Protocol Stop: 05/19/21 17:20 Glucose (Glucose 40% Gel 15 Gm Tube) 15 - 30 gm PO UD PRN; Protocol PRN Reason: Hypoglycemia Protocol Stop: 05/19/21 17:20 Dexamethasone 6 mg/ Syringe 1.5 mls @ 1 mls/min IV BID [facility] Stop: 05/23/21 20:59 Last Admin: 04/26/21 09:14 Dose: 1 mls/min Documented by: Insulin Aspart (Insulin Aspart 100 Units/Ml 3 Ml Pen) 0 units SC ACHS [facility] Stop: 05/19/21 17:20 Last Admin: 04/26/21 08:41 Dose: 5 units Documented by: Levothyroxine Sodium (Levothyroxine Sodium 25 Mcg Tablet) 25 mcg PO DAILYBB [facility] Stop: 05/20/21 06:29 Last Admin: 04/26/21 05:47 Dose: 25 mcg Documented by: Lisinopril (Lisinopril 10 Mg Tab) 10 mg PO QAM [facility] Stop: 05/20/21 08:59 Last Admin: 04/26/21 09:13 Dose: 10 mg Documented by: Loratadine (Loratadine 10 Mg Tab) 10 mg PO QAM [facility] Stop: 05/20/21 08:59 Last Admin: 04/26/21 09:13 Dose: 10 mg Documented by: Magnesium Oxide (Magnesium Oxide 400 Mg Tab) 400 mg PO QAM [facility] Stop: 05/20/21 08:59 Last Admin: 04/26/21 09:13 Dose: 400 mg Documented by: Metoprolol Succinate (Metoprolol Succ 50mg Ext Rel Tab) 50 mg PO BID [facility] Stop: 05/19/21 20:59 Last Admin: 04/26/21 09:13 Dose: 50 mg Documented by: Miscellaneous (Carbohydrates For Hypoglycemia ) 15 - 30 gm PO UD PRN PRN Reason: Hypoglycemia Protocol Stop: 05/19/21 17:20 Multivitamins (Multivitamin Tab) 1 tab PO QAM [facility] Stop: 05/20/21 08:59 Last Admin: 04/26/21 09:12 Dose: 1 tab Documented by: Nitroglycerin (Nitroglycerin Sl 0.4 Mg/Tab Tab) 0.4 mg SL UD PRN PRN Reason: Chest Pain Stop: 05/19/21 17:20 Ondansetron HCl (Ondansetron Inj 2 Mg/Ml 2 Ml Vial) 4 mg IV Q6H PRN PRN Reason: Nausea Stop: 05/19/21 17:20 Pantoprazole Sodium (Pantoprazole 40 Mg Tab) 40 mg PO QAM [facility] Stop: 05/20/21 08:59 Last Admin: 04/26/21 09:12 Dose: 40 mg Documented by: Ropinirole HCl (Ropinirole Hcl 1 Mg Tablet) 1 mg PO HS [facility] Stop: 05/19/21 20:59 Last Admin: 04/25/21 20:39 Dose: 1 mg Documented by: Sodium Chloride (Sodium Chloride 0.65% Na Soln 45 Ml ([place])) 2 sprays NA TID PRN PRN Reason: Nasal Congestion Stop: 05/23/21 00:29 Last Admin: 04/23/21 01:38 Dose: 2 sprays Documented by: Vitamin D (Cholecalciferol 1,000 Units 25 Mcg Tab) 1,000 units PO QAM [facility] Stop: 05/20/21 08:59 Last Admin: 04/26/21 09:13 Dose: 1,000 units Documented by: PG Care Time/CCT Total # of Minutes Spent Total Time Spent with Patient: Total time spent is greater than 50% in coordination of care (as documented) at patient's floor/unit and/or counseling patient: Coding Level of Care Code 93469 Subseq Hosp Care Lvl 2 Diagnoses Pneumonia due to COVID-19 virus U07.1; J12.82 Acute respiratory failure with hypoxia J96.01 DM2 (diabetes mellitus, type 2) E11.9 Asthma J45.909 Diffuse myofascial pain syndrome M79.18 Hypertension I10 Obesity E66.9 CAD (coronary artery disease) I25.10 Lumbar spinal stenosis M48.061 Hypothyroidism E03.9 Hyperlipidemia E78.5 Depression F32.9 Rheumatoid arthritis M06.9
[2021-04-26] MEDS: FLUTICASONE PROPIONATE NA SPR 16 GM BTL NAE SCH (20:49)
[2021-04-26] MEDS: rOPINIRole HCL 1 MG TABLET PO SCH (20:50)
[2021-04-26] MEDS: ACETAMINOPHEN 325 MG TAB PO PRN (20:52)
[2021-04-27 04:48] LABS: Hematocrit (blood only) 34.9 % (37-47); Hemoglobin 11.6 g/dL (12.0-16.0); Mean Corpuscular Volume 99.4 fL (80-100); Mean Platelet Volume 10.6 fL (7.4-10.4); Platelet Count 366 K/uL (130-400); Red Blood Count 3.51 M/uL (4.2-5.4); White Blood Count 11.37 K/uL (4.8-10.8)
[2021-04-27 04:49] LABS: Mean Corpuscular Hgb Conc 33.2 g/dL (32-36)
[2021-04-27 05:26] LABS: Calcium 9.3 mg/dl (8.5-10.1); Creatinine Clr Calc Pharmacy 59.8 ml/min; Est GFR (African American) 74.1 ml/min; Est GFR (Non-African American) 63.9 ml/min; Magnesium 2.4 mg/dl (1.8-2.4); Potassium 4.4 mmol/L (3.5-5.1)
[2021-04-27] MEDS: LEVOTHYROXINE SODIUM 25 MCG TABLET PO SCH (06:35)
[2021-04-27] MEDS: DULoxetine HCL 60 MG CAP PO SCH (08:49)
[2021-04-27] MEDS: MAGNESIUM OXIDE 400 MG TAB PO SCH (08:49)
[2021-04-27] MEDS: ALPRAZolam 0.25 MG TABLET PO PRN ×2 (08:49→21:01)
[2021-04-27] MEDS: DULoxetine HCL 30 MG CAP PO SCH (08:49)
[2021-04-27] MEDS: FERROUS SULFATE 325 MG TAB PO SCH (08:49)
[2021-04-27] MEDS: dexAMETHasone 6 MG in SYRINGE 0 ML IV SCH ×2 (08:49→21:01)
[2021-04-27] MEDS: CLOPIDOGREL BISULFATE 75 MG TAB PO SCH (08:49)
[2021-04-27] MEDS: BENZONATATE 100 MG CAPSULE PO SCH ×3 (08:49→21:01)
[2021-04-27] MEDS: MULTIVITAMIN TAB PO SCH (08:49)
[2021-04-27] MEDS: PANTOprazole 40 MG TAB PO SCH (08:49)
[2021-04-27] MEDS: LORATADINE 10 MG TAB PO SCH (08:49)
[2021-04-27] MEDS: GABAPENTIN 300 MG CAP PO SCH ×3 (08:49→21:03)
[2021-04-27] MEDS: FOLIC ACID 1 MG TAB PO SCH (08:49)
[2021-04-27] MEDS: ASPIRIN 81 MG ECTAB PO SCH (08:50)
[2021-04-27] MEDS: METOPROLOL SUCC 50MG EXT REL TAB PO SCH ×2 (08:50→21:04)
[2021-04-27] MEDS: ENOXAPARIN INJ 40 MG/0.4 ML SYR SQ SCH ×2 (08:50→21:02)
[2021-04-27] MEDS: CHOLECALCIFEROL 1,000 UNITS 25 MCG TAB PO SCH (08:50)
[2021-04-27] MEDS: CALCIUM CARBONATE 1250MG TAB PO SCH (08:50)
[2021-04-27] MEDS: ATORVASTATIN 40 MG TAB PO SCH (08:50)
[2021-04-27] MEDS: FLUTICASONE/VILANTEROL 200/25MCG 14 PUFFS/INHALER INH SCH (08:50)
[2021-04-27] MEDS: ASCORBIC ACID 500 MG TAB PO SCH (08:50)
[2021-04-27] MEDS: lisinopril 10 MG TAB PO SCH (08:50)
[2021-04-27] MEDS: INSULIN ASPART 100 UNITS/ML 3 ML PEN SC SCH ×4 (09:44→21:59)
[2021-04-27] MEDS: FUROSEMIDE 40 MG/4 ML VIAL IV SCH (10:47)
--- NOTE | 2021-04-27 13:07 | Electrocardiogram Report ---
Test Reason : Blood Pressure : / mmHG Vent. Rate : 065 BPM Atrial Rate : 065 BPM P-R Int : 158 ms QRS Dur : 092 ms QT Int : 460 ms P-R-T Axes : 032 -09 054 degrees QTc Int : 478 ms Normal sinus rhythm Minimal voltage criteria for LVH, may be normal variant T wave abnormality, consider anterior ischemia Abnormal ECG When compared with ECG of 24-APR-2021 21:56, Inverted T waves have replaced nonspecific T wave abnormality in Anterior leads QT has lengthened Confirmed by Jd Spaulding ([id number]) on 04/27/2021 1:07:04 PM Referred By: REFERRED SELF Confirmed By:Jd Spaulding
--- NOTE | 2021-04-27 13:31 | Hospitalist Progress Note ---
Date of Service April 27, 2021 Assessment & Plan (1) Pneumonia due to COVID-19 virus: Plan: Patient presents on the 11th day of symptoms with progressively worsening shortness of breath and acute respiratory failure with hypoxia tested positive on 04/14 for Covid-19. She was fully vaccinated in 07/2020 Chest x-ray with bilateral airspace opacities consistent with viral pneumonia continue dexamethasone 6mg IV daily x 10 days, day 9 today consider 20mg IV tomorrow if still not improving On Vapotherm slightly reducing requirements CRP was significantly elevated at 8, did not meet for baricitinab due to taking xeljanz CT angiogram chest: no PE, just shows viral pneumonia incentive spirometry and flutter valve -Encouraged prone or side positioning as tolerated -Hold home methotrexate and Xeljanz -Lovenox 40 mg SQ twice daily for DVT prophylaxis (2) Acute respiratory failure with hypoxia: Plan: slight improvement at 35L and 90% consider increasing dexamethasone tomorrow continue Lasix 40mg iv daily to keep lungs dry Cr and K are stable (3) DM2 (diabetes mellitus, type 2): Plan: Hemoglobin A1c 6.6% earlier this year Given that she will be on IV dexamethasone, start Accu-Cheks before meals and at bedtime and NovoLog supplemental insulin as needed Check hemoglobin A1c - 6% monitor for hypo and hyperglycemia (4) Asthma: Plan: Continue home maintenance inhalers and scheduled duo nebs no wheezing on examination (5) Diffuse myofascial pain syndrome: Plan: Continue home Cymbalta (6) Hypertension: Plan: Blood pressures are mildly elevated here Continue home lisinopril, Lasix, metoprolol (7) Obesity: Plan: BMI 36.6 Needs weight loss (8) CAD (coronary artery disease): Plan: History of NSTEMI 10/2008 with nonobstructive mid LAD stenosis as well as severe stenosis distal segment of left circumflex marginal on cardiac catheterization. No acute issues, troponin here is negative, ECG without acute ischemic changes Continue home aspirin, Plavix, statin, metoprolol, lisinopril (9) Lumbar spinal stenosis: Plan: Continue home gabapentin (10) Hypothyroidism: Plan: Continue home levothyroxine (11) Hyperlipidemia: Plan: Continue home statin (12) Depression: Plan: Continue home Cymbalta (13) Rheumatoid arthritis: Plan: Hold home NSAID, Xeljanz, and methotrexate for now Plan: DVT prophylaxis-Lovenox 40 mg twice daily Disposition-admit to telemetry unit, Covid precautions Full code Patient reports her daughter, son, and granddaughter would all be her decision makers if she cannot make decisions for herself Admission and Anticipated Discharge Date Admission Date: April 19, 2021 Subjective patient remains on 35L and 90%, breathing is stable, no distress she keeps asking when she can go home, discussed that she is on high flow, cannot give this at home she is frustrated, tearful when I tell her it is going to be another week at least if not more she is eating okay, not great needs to have a BM, asking for Miralax Review of Systems Review of Systems: All systems reviewed & are unremarkable except as noted in Subjective Respiratory: + cough, + dyspnea and + dyspnea on exertion Gastrointestinal: + constipation Physical Exam Physical Exam: General: well developed, well nourished, obese female, no acute distress, comfortable Neck: supple, trachea midline, normal thyroid Lungs: clear to auscultation bilaterally, + tachypnea, + cough, no accessory muscle use, no distress Heart: regular S1 and S2, no murmur, peripheral pulses normal, capillary refill normal, no edema Abdomen: soft, NT, ND, + BS, no hepatomegaly, normal to percussion Extremities: normal in appearance, no cyanosis, no petechiae, strength is 5/5 bilaterally Neuro: awake, cooperative, moves all extremities, no focal motor deficits, CN II-XII intact, sensation in extremities intact, normal speech Skin: warm, dry, no rash, normal turgor Psych: Awake, alert oriented x 3, euthymic affect Results & Data Results & Data ([facility]) Vital Signs (Past 12 Hours) Vital Signs Temp Pulse Pulse Pulse Resp BP Pulse Ox 04/27/21 11:49 79 20 95 04/27/21 11:14 36.8 C 79 23 143/61 H 89 L 04/27/21 07:47 64 22 92 04/27/21 07:35 36.5 C 69 18 180/75 H 96 04/27/21 07:12 48 L 04/27/21 04:08 58 L 21 93 04/27/21 03:37 35.9 C L 56 L 20 154/84 H 94 Laboratory Results Laboratory Results - last 24 hr 04/26/21 04/26/21 04/27/21 17:00 20:16 04:29 WBC 11.37 H RBC 3.51 L Hgb 11.6 L Hct 34.9 L MCV 99.4 MCH 33.0 MCHC 33.2 RDW Std Deviation 54.0 H RDW Coeff of Matthew 15.0 H Plt Count 366 MPV 10.6 H Sodium Potassium Chloride Carbon Dioxide Anion Gap BUN Creatinine Est Cr Clr Drug Dosing Est GFR ( Amer) Est GFR (Non-Af Amer) BUN/Creatinine Ratio Glucose POC Glucose 190 H 210 H Calcium Magnesium 04/27/21 04/27/21 04/27/21 04:29 07:37 11:13 WBC RBC Hgb Hct MCV MCH MCHC RDW Std Deviation RDW Coeff of Matthew Plt Count MPV Sodium 136 Potassium 4.4 D Chloride 101 Carbon Dioxide 31 Anion Gap 4.0 BUN 35 H Creatinine 0.91 Est Cr Clr Drug Dosing 59.8 Est GFR ( Amer) 74.1 Est GFR (Non-Af Amer) 63.9 BUN/Creatinine Ratio 39.0 H Glucose 242 H POC Glucose 213 H 230 H Calcium 9.3 Magnesium 2.4 Medications Administered Current Inpatient Medications Acetaminophen (Acetaminophen 325 Mg Tab) 650 mg PO Q4H PRN PRN Reason: Pain or Fever Stop: 05/19/21 17:20 Last Admin: 04/26/21 20:52 Dose: 650 mg Documented by: Albuterol (Albut/Ipratrop 3mg/0.5mg Neb 3 Ml Vial) 3 ml NEB Q4R PRN PRN Reason: Shortness Of Breath Or Wheezing Stop: 05/20/21 10:59 Last Admin: 04/23/21 00:51 Dose: 3 ml Documented by: Alprazolam (Alprazolam 0.25 Mg Tablet) 0.25 mg PO Q8H PRN PRN Reason: Anxiety Stop: 05/19/21 17:20 Last Admin: 04/27/21 08:49 Dose: 0.25 mg Documented by: Ascorbic Acid (Ascorbic Acid 500 Mg Tab) [facility] Stop: 05/20/21 08:59 Last Admin: 04/27/21 08:50 Dose: 1,000 mg Documented by: Aspirin (Aspirin 81 Mg Ectab) 81 mg PO [facility] Stop: 05/20/21 08:59 Last Admin: 04/27/21 08:50 Dose: 81 mg Documented by: Atorvastatin Calcium (Atorvastatin 40 Mg Tab) 80 [facility] Stop: 05/20/21 08:59 Last Admin: 04/27/21 08:50 Dose: 80 mg Documented by: Benzonatate (Benzonatate 100 Mg Capsule) 100 mg PO TID [facility] Stop: 05/23/21 01:29 Last Admin: 04/27/21 08:49 Dose: 100 mg Documented by: Calcium Carbonate (Calcium Carbonate 1250mg Tab) 1,250 mg [facility] Stop: 05/20/21 08:59 Last Admin: 04/27/21 08:50 Dose: 1,250 mg Documented by: Clopidogrel Bisulfate (Clopidogrel Bisulfate 75 Mg Tab) 75 mg PO [facility] Stop: 05/20/21 08:59 Last Admin: 04/27/21 08:49 Dose: 75 mg Documented by: Cyclobenzaprine HCl (Cyclobenzaprine Hcl 10 Mg Tab) 5 mg PO TID PRN PRN Reason: Muscle Spasm Stop: 05/19/21 17:20 Dextrose (Dextrose 50% 50 Ml Syringe) 25 - 50 ml IV UD PRN; Protocol PRN Reason: Hypoglycemia Protocol Stop: 05/19/21 17:20 Duloxetine HCl (Duloxetine Hcl 30 Mg Cap) 30 mg PO [facility] Stop: 05/20/21 08:59 Last Admin: 04/27/21 08:49 Dose: 30 mg Documented by: Duloxetine HCl (Duloxetine Hcl 60 Mg Cap) 60 mg PO [facility] Stop: 05/20/21 08:59 Last Admin: 04/27/21 08:49 Dose: 60 mg Documented by: Enoxaparin Sodium (Enoxaparin Inj 40 Mg/0.4 Ml Syr) 40 mg SQ BID [facility] Stop: 05/19/21 20:59 Last Admin: 04/27/21 08:50 Dose: 40 mg Documented by: Ferrous Sulfate (Ferrous Sulfate 325 Mg Tab) 325 [facility] Stop: 05/20/21 08:59 Last Admin: 04/27/21 08:49 Dose: 325 mg Documented by: Fluticasone Propionate (Fluticasone Propionate Na Spr 16 Gm Btl) 2 sprays [facility] Stop: 05/19/21 20:59 Last Admin: 04/26/21 20:49 Dose: 2 sprays Documented by: Fluticasone/Vilanterol (Fluticasone/Vilanterol 200/25mcg 14 Puffs/Inhaler) 1 puffs INH DAILY [facility] Stop: 05/20/21 08:59 Last Admin: 04/27/21 08:50 Dose: 1 puffs Documented by: Folic Acid (Folic Acid 1 Mg Tab) 2 mg PO QAM [facility] Stop: 05/20/21 08:59 Last Admin: 04/27/21 08:49 Dose: 2 mg Documented by: Furosemide (Furosemide 40 Mg/4 Ml Vial) 40 mg IV DAILY [facility] Stop: 05/26/21 08:59 Last Admin: 04/27/21 10:47 Dose: 40 mg Documented by: Gabapentin (Gabapentin 300 Mg Cap) 300 mg PO TID [facility] Stop: 05/19/21 17:20 Last Admin: 04/27/21 08:49 Dose: 300 mg Documented by: Glucagon (Glucagon For Inj 1 Mg Vial) 1 mg SQ UD PRN; Protocol PRN Reason: Hypoglycemia Protocol Stop: 05/19/21 17:20 Glucose (Glucose 10 Tabs/Tube) 4 - 8 tabs PO UD PRN; Protocol PRN Reason: Hypoglycemia Protocol Stop: 05/19/21 17:20 Glucose (Glucose 40% Gel 15 Gm Tube) 15 - 30 gm PO UD PRN; Protocol PRN Reason: Hypoglycemia Protocol Stop: 05/19/21 17:20 Dexamethasone 6 mg/ Syringe 1.5 mls @ 1 mls/min IV BID [facility] Stop: 05/23/21 20:59 Last Admin: 04/27/21 08:49 Dose: 1 mls/min Documented by: Insulin Aspart (Insulin Aspart 100 Units/Ml 3 Ml Pen) 0 units SC ACHS [facility] Stop: 05/19/21 17:20 Last Admin: 04/27/21 12:02 Dose: 7 units Documented by: Levothyroxine Sodium (Levothyroxine Sodium 25 Mcg Tablet) 25 mcg PO DAILYBB [facility] Stop: 05/20/21 06:29 Last Admin: 04/27/21 06:35 Dose: 25 mcg Documented by: Lisinopril (Lisinopril 10 Mg Tab) 10 mg PO QAM [facility] Stop: 05/20/21 08:59 Last Admin: 04/27/21 08:50 Dose: 10 mg Documented by: Loratadine (Loratadine 10 Mg Tab) [facility] Stop: 05/20/21 08:59 Last Admin: 04/27/21 08:49 Dose: 10 mg Documented by: Magnesium Oxide (Magnesium Oxide 400 Mg Tab) 400 mg PO QAM [facility] Stop: 05/20/21 08:59 Last Admin: 04/27/21 08:49 Dose: 400 mg Documented by: Metoprolol Succinate (Metoprolol Succ 50mg Ext Rel Tab) 50 mg PO BID [facility] Stop: 05/19/21 20:59 Last Admin: 04/27/21 08:50 Dose: 50 mg Documented by: Miscellaneous (Carbohydrates For Hypoglycemia ) 15 - 30 gm PO UD PRN PRN Reason: Hypoglycemia Protocol Stop: 05/19/21 17:20 Multivitamins (Multivitamin Tab) 1 tab PO [facility] Stop: 05/20/21 08:59 Last Admin: 04/27/21 08:49 Dose: 1 tab Documented by: Nitroglycerin (Nitroglycerin Sl 0.4 Mg/Tab Tab) 0.4 mg SL UD PRN PRN Reason: Chest Pain Stop: 05/19/21 17:20 Ondansetron HCl (Ondansetron Inj 2 Mg/Ml 2 Ml Vial) 4 mg IV Q6H PRN PRN Reason: Nausea Stop: 05/19/21 17:20 Pantoprazole Sodium (Pantoprazole 40 Mg Tab) [facility] Stop: 05/20/21 08:59 Last Admin: 04/27/21 08:49 Dose: 40 mg Documented by: Ropinirole HCl (Ropinirole Hcl 1 Mg Tablet) 1 mg PO HS [facility] Stop: 05/19/21 20:59 Last Admin: 04/26/21 20:50 Dose: 1 mg Documented by: Sodium Chloride (Sodium Chloride 0.65% Na Soln 45 Ml ([place])) 2 sprays NA TID PRN PRN Reason: Nasal Congestion Stop: 05/23/21 00:29 Last Admin: 04/23/21 01:38 Dose: 2 sprays Documented by: Vitamin D (Cholecalciferol 1,000 Units 25 Mcg Tab) 1,000 units [facility] Stop: 05/20/21 08:59 Last Admin: 04/27/21 08:50 Dose: 1,000 units Documented by: PG Care Time/CCT Total # of Minutes Spent Total Time Spent with Patient: Total time spent is greater than 50% in coordination of care (as documented) at patient's floor/unit and/or counseling patient: Coding Level of Care Code 01244 Subseq Hosp Care Lvl 2 Diagnoses Pneumonia due to COVID-19 virus U07.1; J12.82 Acute respiratory failure with hypoxia J96.01 DM2 (diabetes mellitus, type 2) E11.9 Asthma J45.909 Diffuse myofascial pain syndrome M79.18 Hypertension I10 Obesity E66.9 CAD (coronary artery disease) I25.10 Lumbar spinal stenosis M48.061 Hypothyroidism E03.9 Hyperlipidemia E78.5 Depression F32.9 Rheumatoid arthritis M06.9
[2021-04-27] MEDS: FLUTICASONE PROPIONATE NA SPR 16 GM BTL NAE SCH (21:02)
[2021-04-27] MEDS: rOPINIRole HCL 1 MG TABLET PO SCH (21:06)
[2021-04-28] MEDS: LEVOTHYROXINE SODIUM 25 MCG TABLET PO SCH (05:39)
[2021-04-28] MEDS: FUROSEMIDE 40 MG/4 ML VIAL IV SCH (05:39)
[2021-04-28] MEDS: dexAMETHasone 6 MG in SYRINGE 0 ML IV SCH (09:27)
[2021-04-28] MEDS: INSULIN ASPART 100 UNITS/ML 3 ML PEN SC SCH ×4 (09:34→20:37)
[2021-04-28] MEDS: METOPROLOL SUCC 50MG EXT REL TAB PO SCH ×2 (10:27→21:39)
[2021-04-28] MEDS: lisinopril 10 MG TAB PO SCH (10:27)
[2021-04-28] MEDS: ALPRAZolam 0.25 MG TABLET PO PRN ×2 (10:27→21:37)
--- NOTE | 2021-04-28 11:12 | Hospitalist Progress Note ---
Date of Service April 28, 2021 Assessment & Plan (1) Pneumonia due to COVID-19 virus: Plan: Patient presents on the 11th day of symptoms with progressively worsening shortness of breath and acute respiratory failure with hypoxia tested positive on 04/14 for Covid-19. She was fully vaccinated in 07/2020 Chest x-ray with bilateral airspace opacities consistent with viral pneumonia continue dexamethasone 6mg IV BID day 10 today not improving, will increase to 10mg BID today x 5 days, look for improvement On Vapotherm, still on 40L and 100% CRP was significantly elevated at 8, did not meet for baricitinab due to taking xeljanz CT angiogram chest: no PE, just shows viral pneumonia getting Lasix 40mg IV daily, negative fluid balance incentive spirometry and flutter valve -Encouraged prone or side positioning as tolerated -Hold home methotrexate and Xeljanz -Lovenox 40 mg SQ twice daily for DVT prophylaxis (2) Acute respiratory failure with hypoxia: Plan: was improved to 35L 75% and now back up to 40L 100% increase dexamethasone to 10 BID continue Lasix 40mg iv daily to keep lungs dry Cr and K are stable (3) DM2 (diabetes mellitus, type 2): Plan: Hemoglobin A1c 6.6% earlier this year Check hemoglobin A1c - 6% monitor for hypo and hyperglycemia, no episodes with the increase in dexamethasone, will adjust Novolog to 30 and 10 carb ratio (4) Asthma: Plan: Continue home maintenance inhalers and scheduled duo nebs no wheezing on examination (5) Diffuse myofascial pain syndrome: Plan: Continue home Cymbalta (6) Hypertension: Plan: Blood pressures are mildly elevated here Continue home lisinopril, Lasix, metoprolol (7) Obesity: Plan: BMI 36.6 Needs weight loss (8) CAD (coronary artery disease): Plan: History of NSTEMI 10/2008 with nonobstructive mid LAD stenosis as well as severe stenosis distal segment of left circumflex marginal on cardiac catheterization. No acute issues, troponin here is negative, ECG without acute ischemic changes Continue home aspirin, Plavix, statin, metoprolol, lisinopril (9) Lumbar spinal stenosis: Plan: Continue home gabapentin (10) Hypothyroidism: Plan: Continue home levothyroxine (11) Hyperlipidemia: Plan: Continue home statin (12) Depression: Plan: Continue home Cymbalta (13) Rheumatoid arthritis: Plan: Hold home NSAID, Xeljanz, and methotrexate for now Plan: DVT prophylaxis-Lovenox 40 mg twice daily Disposition-admit to telemetry unit, Covid precautions Full code Patient reports her daughter, son, and granddaughter would all be her decision makers if she cannot make decisions for herself Admission and Anticipated Discharge Date Admission Date: April 19, 2021 Subjective patient was doing okay with 35L and 75% but she desaturated this morning, now on 40L and 100% again laying on her left side, oxygen levels in the 90's she ate her breakfast, no nausea reviewed treatment, already on dexamethasone 6mg BID and Lasix 40mg IV daily will increase to 10mg BID with the dexamethasone she is committed to getting better and getting home Review of Systems Review of Systems: All systems reviewed & are unremarkable except as noted in Subjective Constitutional: no fever Respiratory: + cough, + dyspnea and + dyspnea on exertion; no sputum production Physical Exam Physical Exam: General: well developed, well nourished, obese female, no acute distress, comfortable Neck: supple, trachea midline, normal thyroid Lungs: clear to auscultation bilaterally, + tachypnea, + cough, no accessory muscle use, no distress, laying on left side Heart: regular S1 and S2, no murmur, peripheral pulses normal, capillary refill normal, no edema Abdomen: soft, NT, ND, + BS, no hepatomegaly, normal to percussion Extremities: normal in appearance, no cyanosis, no petechiae, strength is 5/5 bilaterally Neuro: awake, cooperative, moves all extremities, no focal motor deficits, CN II-XII intact, sensation in extremities intact, normal speech Skin: warm, dry, no rash, normal turgor Psych: Awake, alert oriented x 3, euthymic affect Results & Data Results & Data ([facility]) Vital Signs (Past 12 Hours) Vital Signs Temp Pulse Pulse Resp BP BP Pulse Ox 04/28/21 08:19 57 L 22 92 04/28/21 07:30 36.6 C 56 L 24 132/82 88 L 04/28/21 04:11 175/89 H 04/28/21 03:35 36.6 C 54 L 18 177/81 H 93 04/28/21 03:28 52 L 24 93 04/27/21 23:30 36.8 C 51 L 18 142/74 H 91 Laboratory Results Laboratory Results - last 24 hr 04/27/21 04/27/21 04/27/21 11:13 16:43 20:10 POC Glucose 230 H 196 H 181 H 04/28/21 07:30 POC Glucose 189 H Medications Administered Current Inpatient Medications Acetaminophen (Acetaminophen 325 Mg Tab) 650 mg PO Q4H PRN PRN Reason: Pain or Fever Stop: 05/19/21 17:20 Last Admin: 04/26/21 20:52 Dose: 650 mg Documented by: Albuterol (Albut/Ipratrop 3mg/0.5mg Neb 3 Ml Vial) 3 ml NEB Q4R PRN PRN Reason: Shortness Of Breath Or Wheezing Stop: 05/20/21 10:59 Last Admin: 04/23/21 00:51 Dose: 3 ml Documented by: Alprazolam (Alprazolam 0.25 Mg Tablet) 0.25 mg PO Q8H PRN PRN Reason: Anxiety Stop: 05/19/21 17:20 Last Admin: 04/28/21 10:27 Dose: 0.25 mg Documented by: Ascorbic Acid (Ascorbic Acid 500 Mg Tab) 1,000 mg PO [facility] Stop: 05/20/21 08:59 Last Admin: 04/27/21 08:50 Dose: 1,000 mg Documented by: Aspirin (Aspirin 81 Mg Ectab) 81 mg PO [facility] Stop: 05/20/21 08:59 Last Admin: 04/27/21 08:50 Dose: 81 mg Documented by: Atorvastatin Calcium (Atorvastatin 40 Mg Tab) 80 mg PO [facility] Stop: 05/20/21 08:59 Last Admin: 04/27/21 08:50 Dose: 80 mg Documented by: Benzonatate (Benzonatate 100 Mg Capsule) 100 mg PO TID [facility] Stop: 05/23/21 01:29 Last Admin: 04/27/21 21:01 Dose: 100 mg Documented by: Calcium Carbonate (Calcium Carbonate 1250mg Tab) 1,250 mg PO [facility] Stop: 05/20/21 08:59 Last Admin: 04/27/21 08:50 Dose: 1,250 mg Documented by: Clopidogrel Bisulfate (Clopidogrel Bisulfate 75 Mg Tab) 75 mg PO [facility] Stop: 05/20/21 08:59 Last Admin: 04/27/21 08:49 Dose: 75 mg Documented by: Cyclobenzaprine HCl (Cyclobenzaprine Hcl 10 Mg Tab) 5 mg PO TID PRN PRN Reason: Muscle Spasm Stop: 05/19/21 17:20 Dextrose (Dextrose 50% 50 Ml Syringe) 25 - 50 ml IV UD PRN; Protocol PRN Reason: Hypoglycemia Protocol Stop: 05/19/21 17:20 Duloxetine HCl (Duloxetine Hcl 30 Mg Cap) 30 mg PO QAM [facility] Stop: 05/20/21 08:59 Last Admin: 04/27/21 08:49 Dose: 30 mg Documented by: Duloxetine HCl (Duloxetine Hcl 60 Mg Cap) 60 mg PO QAM [facility] Stop: 05/20/21 08:59 Last Admin: 04/27/21 08:49 Dose: 60 mg Documented by: Enoxaparin Sodium (Enoxaparin Inj 40 Mg/0.4 Ml Syr) 40 mg SQ BID [facility] Stop: 05/19/21 20:59 Last Admin: 04/27/21 21:02 Dose: 40 mg Documented by: Ferrous Sulfate (Ferrous Sulfate 325 Mg Tab) 325 mg PO QAM [facility] Stop: 05/20/21 08:59 Last Admin: 04/27/21 08:49 Dose: 325 mg Documented by: Fluticasone Propionate (Fluticasone Propionate Na Spr 16 Gm Btl) 2 sprays JENSEN HS [facility] Stop: 05/19/21 20:59 Last Admin: 04/27/21 21:02 Dose: 2 sprays Documented by: Fluticasone/Vilanterol (Fluticasone/Vilanterol 200/25mcg 14 Puffs/Inhaler) 1 puffs INH DAILY [facility] Stop: 05/20/21 08:59 Last Admin: 04/27/21 08:50 Dose: 1 puffs Documented by: Folic Acid (Folic Acid 1 Mg Tab) 2 mg PO QAM [facility] Stop: 05/20/21 08:59 Last Admin: 04/27/21 08:49 Dose: 2 mg Documented by: Furosemide (Furosemide 40 Mg/4 Ml Vial) 40 mg IV DAILY [facility] Stop: 05/26/21 08:59 Last Admin: 04/28/21 05:39 Dose: 40 mg Documented by: Gabapentin (Gabapentin 300 Mg Cap) 300 mg PO TID [facility] Stop: 05/19/21 17:20 Last Admin: 04/27/21 21:03 Dose: 300 mg Documented by: Glucagon (Glucagon For Inj 1 Mg Vial) 1 mg SQ UD PRN; Protocol PRN Reason: Hypoglycemia Protocol Stop: 05/19/21 17:20 Glucose (Glucose 10 Tabs/Tube) 4 - 8 tabs PO UD PRN; Protocol PRN Reason: Hypoglycemia Protocol Stop: 05/19/21 17:20 Glucose (Glucose 40% Gel 15 Gm Tube) 15 - 30 gm PO UD PRN; Protocol PRN Reason: Hypoglycemia Protocol Stop: 05/19/21 17:20 Dexamethasone 6 mg/ Syringe 1.5 mls @ 1 mls/min IV BID [facility] Stop: 05/23/21 20:59 Last Admin: 04/28/21 09:27 Dose: 1 mls/min Documented by: Insulin Aspart (Insulin Aspart 100 Units/Ml 3 Ml Pen) 0 units SC ACHS [facility] Stop: 05/19/21 17:20 Last Admin: 04/28/21 09:34 Dose: 6 units Documented by: Levothyroxine Sodium (Levothyroxine Sodium 25 Mcg Tablet) 25 mcg PO DAILYBB [facility] Stop: 05/20/21 06:29 Last Admin: 04/28/21 05:39 Dose: 25 mcg Documented by: Lisinopril (Lisinopril 10 Mg Tab) 10 mg PO QAM [facility] Stop: 05/20/21 08:59 Last Admin: 04/28/21 10:27 Dose: 10 mg Documented by: Loratadine (Loratadine 10 Mg Tab) 10 mg PO QAM [facility] Stop: 05/20/21 08:59 Last Admin: 04/27/21 08:49 Dose: 10 mg Documented by: Magnesium Oxide (Magnesium Oxide 400 Mg Tab) 400 mg PO QAM [facility] Stop: 05/20/21 08:59 Last Admin: 04/27/21 08:49 Dose: 400 mg Documented by: Metoprolol Succinate (Metoprolol Succ 50mg Ext Rel Tab) 50 mg PO BID [facility] Stop: 05/19/21 20:59 Last Admin: 04/28/21 10:27 Dose: 50 mg Documented by: Miscellaneous (Carbohydrates For Hypoglycemia ) 15 - 30 gm PO UD PRN PRN Reason: Hypoglycemia Protocol Stop: 05/19/21 17:20 Multivitamins (Multivitamin Tab) [facility] Stop: 05/20/21 08:59 Last Admin: 04/27/21 08:49 Dose: 1 tab Documented by: Nitroglycerin (Nitroglycerin Sl 0.4 Mg/Tab Tab) 0.4 mg SL UD PRN PRN Reason: Chest Pain Stop: 05/19/21 17:20 Ondansetron HCl (Ondansetron Inj 2 Mg/Ml 2 Ml Vial) 4 mg IV Q6H PRN PRN Reason: Nausea Stop: 05/19/21 17:20 Pantoprazole Sodium (Pantoprazole 40 Mg Tab) 40 mg PO QAM [facility] Stop: 05/20/21 08:59 Last Admin: 04/27/21 08:49 Dose: 40 mg Documented by: Ropinirole HCl (Ropinirole Hcl 1 Mg Tablet) 1 mg PO HS [facility] Stop: 05/19/21 20:59 Last Admin: 04/27/21 21:06 Dose: 1 mg Documented by: Sodium Chloride (Sodium Chloride 0.65% Na Soln 45 Ml ([place])) 2 sprays NA TID PRN PRN Reason: Nasal Congestion Stop: 05/23/21 00:29 Last Admin: 04/23/21 01:38 Dose: 2 sprays Documented by: Vitamin D (Cholecalciferol 1,000 Units 25 Mcg Tab) 1,000 units PO QAM [facility] Stop: 05/20/21 08:59 Last Admin: 04/27/21 08:50 Dose: 1,000 units Documented by: PG Care Time/CCT Total # of Minutes Spent Total Time Spent: 32 Total Time Spent with Patient: Total time spent is greater than 50% in coordination of care (as documented) at patient's floor/unit and/or counseling patient: Coding Level of Care Code 87364 Subseq Hosp Care Lvl 3 (25 - SIGNIFICANT, SEPARATELY IDENTIFIABLE ) Diagnoses Pneumonia due to COVID-19 virus U07.1; J12.82 Acute respiratory failure with hypoxia J96.01 DM2 (diabetes mellitus, type 2) E11.9 Asthma J45.909 Diffuse myofascial pain syndrome M79.18 Hypertension I10 Obesity E66.9 CAD (coronary artery disease) I25.10 Lumbar spinal stenosis M48.061 Hypothyroidism E03.9 Hyperlipidemia E78.5 Depression F32.9 Rheumatoid arthritis M06.9
[2021-04-28] MEDS: ASPIRIN 81 MG ECTAB PO SCH (11:36)
[2021-04-28] MEDS: MAGNESIUM OXIDE 400 MG TAB PO SCH (11:36)
[2021-04-28] MEDS: ATORVASTATIN 40 MG TAB PO SCH (11:36)
[2021-04-28] MEDS: ASCORBIC ACID 500 MG TAB PO SCH (11:36)
[2021-04-28] MEDS: CHOLECALCIFEROL 1,000 UNITS 25 MCG TAB PO SCH (11:37)
[2021-04-28] MEDS: FERROUS SULFATE 325 MG TAB PO SCH (11:37)
[2021-04-28] MEDS: GABAPENTIN 300 MG CAP PO SCH ×3 (11:37→21:39)
[2021-04-28] MEDS: PANTOprazole 40 MG TAB PO SCH (11:38)
[2021-04-28] MEDS: MULTIVITAMIN TAB PO SCH (11:38)
[2021-04-28] MEDS: CLOPIDOGREL BISULFATE 75 MG TAB PO SCH (11:38)
[2021-04-28] MEDS: DULoxetine HCL 60 MG CAP PO SCH (11:38)
[2021-04-28] MEDS: LORATADINE 10 MG TAB PO SCH (11:39)
[2021-04-28] MEDS: ENOXAPARIN INJ 40 MG/0.4 ML SYR SQ SCH ×2 (11:39→21:40)
[2021-04-28] MEDS: CALCIUM CARBONATE 1250MG TAB PO SCH (11:39)
[2021-04-28] MEDS: DULoxetine HCL 30 MG CAP PO SCH (11:39)
[2021-04-28] MEDS: FOLIC ACID 1 MG TAB PO SCH (11:40)
[2021-04-28] MEDS: BENZONATATE 100 MG CAPSULE PO SCH ×3 (11:40→21:39)
[2021-04-28] MEDS: FLUTICASONE/VILANTEROL 200/25MCG 14 PUFFS/INHALER INH SCH (11:41)
[2021-04-28] MEDS ORDERED: dexAMETHasone 4 MG in SYRINGE 0 ML IV ONE (11:45)
[2021-04-28] MEDS: dexAMETHasone 10 MG in SYRINGE 0 ML IV SCH (21:40)
[2021-04-28] MEDS: FLUTICASONE PROPIONATE NA SPR 16 GM BTL NAE SCH (21:41)
[2021-04-28] MEDS: rOPINIRole HCL 1 MG TABLET PO SCH (21:43)
[2021-04-29] MEDS: lisinopril 10 MG TAB PO SCH (04:48)
[2021-04-29] MEDS: LEVOTHYROXINE SODIUM 25 MCG TABLET PO SCH (06:14)
[2021-04-29] MEDS: ALPRAZolam 0.25 MG TABLET PO PRN ×2 (08:05→21:21)
[2021-04-29] MEDS: GABAPENTIN 300 MG CAP PO SCH ×3 (08:05→21:25)
[2021-04-29] MEDS: CALCIUM CARBONATE 1250MG TAB PO SCH (08:06)
[2021-04-29] MEDS: ASCORBIC ACID 500 MG TAB PO SCH (08:06)
[2021-04-29] MEDS: CLOPIDOGREL BISULFATE 75 MG TAB PO SCH (08:06)
[2021-04-29] MEDS: BENZONATATE 100 MG CAPSULE PO SCH ×3 (08:07→21:22)
[2021-04-29] MEDS: CHOLECALCIFEROL 1,000 UNITS 25 MCG TAB PO SCH (08:07)
[2021-04-29] MEDS: MULTIVITAMIN TAB PO SCH (08:08)
[2021-04-29] MEDS: FERROUS SULFATE 325 MG TAB PO SCH (08:08)
[2021-04-29] MEDS: PANTOprazole 40 MG TAB PO SCH (08:08)
[2021-04-29] MEDS: FOLIC ACID 1 MG TAB PO SCH (08:09)
[2021-04-29] MEDS: ATORVASTATIN 40 MG TAB PO SCH (08:09)
[2021-04-29] MEDS: METOPROLOL SUCC 50MG EXT REL TAB PO SCH ×2 (08:09→21:21)
[2021-04-29] MEDS: FUROSEMIDE 40 MG/4 ML VIAL IV SCH (08:14)
[2021-04-29] MEDS: DULoxetine HCL 60 MG CAP PO SCH (08:15)
[2021-04-29] MEDS: LORATADINE 10 MG TAB PO SCH (08:16)
[2021-04-29] MEDS: DULoxetine HCL 30 MG CAP PO SCH (08:16)
[2021-04-29] MEDS: ENOXAPARIN INJ 40 MG/0.4 ML SYR SQ SCH ×2 (08:17→21:23)
[2021-04-29] MEDS: dexAMETHasone 10 MG in SYRINGE 0 ML IV SCH ×2 (08:17→21:22)
[2021-04-29] MEDS: MAGNESIUM OXIDE 400 MG TAB PO SCH (08:18)
[2021-04-29] MEDS: FLUTICASONE/VILANTEROL 200/25MCG 14 PUFFS/INHALER INH SCH (08:18)
[2021-04-29] MEDS: ASPIRIN 81 MG ECTAB PO SCH (08:18)
[2021-04-29] MEDS: INSULIN ASPART 100 UNITS/ML 3 ML PEN SC SCH ×4 (08:30→21:52)
[2021-04-29 08:44] LABS: Hematocrit (blood only) 38.2 % (37-47); Hemoglobin 12.8 g/dL (12.0-16.0); Mean Corpuscular Hemoglobin 33.6 pg (25-34); Mean Corpuscular Hgb Conc 33.5 g/dL (32-36); Mean Corpuscular Volume 100.3 fL (80-100); Mean Platelet Volume 11.3 fL (7.4-10.4); Platelet Count 389 K/uL (130-400); RDW Coefficient of Variation 15.1 % (11.5-14.5); RDW Standard Deviation 54.5 fL (36.4-46.3); Red Blood Count 3.81 M/uL (4.2-5.4); White Blood Count 14.69 K/uL (4.8-10.8)
--- NOTE | 2021-04-29 08:51 | Hospitalist Progress Note ---
Date of Service April 29, 2021 Assessment & Plan (1) Pneumonia due to COVID-19 virus: Plan: Patient presents on the 11th day of symptoms with progressively worsening shortness of breath and acute respiratory failure with hypoxia tested positive on 04/14 for Covid-19. She was fully vaccinated in 07/2020 Chest x-ray with bilateral airspace opacities consistent with viral pneumonia continue dexamethasone 10mg IV BID for 4 more days, she was getting worse despite 6mg IV BID On Vapotherm, still on 40L and 100%, saturations mid to high 80's, will have her lay on her side CRP was significantly elevated at 8, did not meet for baricitinab due to taking xeljanz CT angiogram chest: no PE, just shows viral pneumonia getting Lasix 40mg IV daily, negative fluid balance, Cr and K are stable incentive spirometry and flutter valve -Encouraged prone or side positioning as tolerated -Lovenox 40 mg SQ twice daily for DVT prophylaxis difficult as she is not in distress but she is also not improving (2) Acute respiratory failure with hypoxia: Plan: remains on 40L 100% 2 days in a row increased dexamethasone to 10 BID on 04/28 continue Lasix 40mg iv daily to keep lungs dry Cr and K are stable (3) DM2 (diabetes mellitus, type 2): Plan: Hemoglobin A1c 6.6% earlier this year Check hemoglobin A1c - 6% monitor for hypo and hyperglycemia, no episodes with the increase in dexamethasone, will adjust Novolog to 30 and 10 carb ratio sugars stable (4) Asthma: Plan: Continue home maintenance inhalers and scheduled duo nebs no wheezing on examination (5) Diffuse myofascial pain syndrome: Plan: Continue home Cymbalta (6) Hypertension: Plan: Blood pressures are mildly elevated here Continue home lisinopril, Lasix, metoprolol (7) Obesity: Plan: BMI 36.6 Needs weight loss (8) CAD (coronary artery disease): Plan: History of NSTEMI 10/2008 with nonobstructive mid LAD stenosis as well as severe stenosis distal segment of left circumflex marginal on cardiac catheterization. No acute issues, troponin here is negative, ECG without acute ischemic changes Continue home aspirin, Plavix, statin, metoprolol, lisinopril (9) Lumbar spinal stenosis: Plan: Continue home gabapentin (10) Hypothyroidism: Plan: Continue home levothyroxine (11) Hyperlipidemia: Plan: Continue home statin (12) Depression: Plan: Continue home Cymbalta (13) Rheumatoid arthritis: Plan: Hold home NSAID, Xeljanz, and methotrexate for now Plan: DVT prophylaxis-Lovenox 40 mg twice daily Disposition-admit to telemetry unit, Covid precautions Full code Patient reports her daughter, son, and granddaughter would all be her decision makers if she cannot make decisions for herself Admission and Anticipated Discharge Date Admission Date: April 19, 2021 Subjective patient eating breakfast, no distress, she says she feels well, maybe better than yesterday her saturations are 85% on 40L 100%, told her once she is done eating she should lay on her left side again like yesterday reviewed labs, Cr and K are stable, WBC up on steroids Review of Systems Review of Systems: All systems reviewed & are unremarkable except as noted in Subjective Respiratory: + cough, + dyspnea and + dyspnea on exertion Gastrointestinal: + constipation; no abdominal pain, no nausea, no vomiting and no diarrhea/loose stools Physical Exam Physical Exam: General: well developed, well nourished, obese female, no acute distress, comfortable Neck: supple, trachea midline, normal thyroid Lungs: clear to auscultation bilaterally, + tachypnea, + cough, no accessory muscle use, no distress, laying on left side Heart: regular S1 and S2, no murmur, peripheral pulses normal, capillary refill normal, no edema Abdomen: soft, NT, ND, + BS, no hepatomegaly, normal to percussion Extremities: normal in appearance, no cyanosis, no petechiae, strength is 5/5 bilaterally Neuro: awake, cooperative, moves all extremities, no focal motor deficits, CN II-XII intact, sensation in extremities intact, normal speech Skin: warm, dry, no rash, normal turgor Psych: Awake, alert oriented x 3, euthymic affect Results & Data Results & Data ([place]) Vital Signs (Past 12 Hours) Vital Signs Temp Pulse Pulse Resp BP BP Pulse Ox 04/29/21 07:47 50 L 18 148/64 H 87 L 04/29/21 07:18 61 20 93 04/29/21 05:56 49 L 169/70 H 04/29/21 04:01 36.7 C 52 L 16 206/92 H 192/60 H 99 04/29/21 03:00 44 L 40 H 93 04/28/21 23:58 36.7 C 54 L 18 128/63 94 04/28/21 23:00 26 H 97 04/28/21 22:19 56 L Laboratory Results Laboratory Results - last 24 hr 04/28/21 04/28/21 04/28/21 11:29 16:28 19:53 WBC RBC Hgb Hct MCV MCH MCHC RDW Std Deviation RDW Coeff of Matthew Plt Count MPV Sodium Potassium Chloride Carbon Dioxide Anion Gap BUN Creatinine Est Cr Clr Drug Dosing Est GFR ( Amer) Est GFR (Non-Af Amer) BUN/Creatinine Ratio Glucose POC Glucose 181 H 223 H 241 H Calcium 04/29/21 04/29/21 04/29/21 08:00 08:00 08:03 WBC 14.69 H RBC 3.81 L Hgb 12.8 Hct 38.2 MCV 100.3 H MCH 33.6 MCHC 33.5 RDW Std Deviation 54.5 H RDW Coeff of Matthew 15.1 H Plt Count 389 MPV 11.3 H Sodium 139 Potassium 4.7 Chloride 102 Carbon Dioxide 33 H Anion Gap 5.0 BUN 32 H Creatinine 0.84 Est Cr Clr Drug Dosing 64.7 Est GFR ( Amer) 81.6 Est GFR (Non-Af Amer) 70.4 BUN/Creatinine Ratio 37.9 H Glucose 206 H POC Glucose 192 H Calcium 9.1 Medications Administered Current Inpatient Medications Acetaminophen (Acetaminophen 325 Mg Tab) 650 mg PO Q4H PRN PRN Reason: Pain or Fever Stop: 05/19/21 17:20 Last Admin: 04/26/21 20:52 Dose: 650 mg Documented by: Albuterol (Albut/Ipratrop 3mg/0.5mg Neb 3 Ml Vial) 3 ml NEB Q4R PRN PRN Reason: Shortness Of Breath Or Wheezing Stop: 05/20/21 10:59 Last Admin: 04/23/21 00:51 Dose: 3 ml Documented by: Alprazolam (Alprazolam 0.25 Mg Tablet) 0.25 mg PO Q8H PRN PRN Reason: Anxiety Stop: 05/19/21 17:20 Last Admin: 04/29/21 08:05 Dose: 0.25 mg Documented by: Ascorbic Acid (Ascorbic Acid 500 Mg Tab) 1,000 mg PO [facility] Stop: 05/20/21 08:59 Last Admin: 04/29/21 08:06 Dose: 1,000 mg Documented by: Aspirin (Aspirin 81 Mg Ectab) 81 mg PO QAM [facility] Stop: 05/20/21 08:59 Last Admin: 04/29/21 08:18 Dose: 81 mg Documented by: Atorvastatin Calcium (Atorvastatin 40 Mg Tab) 80 mg PO [facility] Stop: 05/20/21 08:59 Last Admin: 04/29/21 08:09 Dose: 80 mg Documented by: Benzonatate (Benzonatate 100 Mg Capsule) 100 mg PO TID [facility] Stop: 05/23/21 01:29 Last Admin: 04/29/21 08:07 Dose: 100 mg Documented by: Calcium Carbonate (Calcium Carbonate 1250mg Tab) 1,250 mg PO [facility] Stop: 05/20/21 08:59 Last Admin: 04/29/21 08:06 Dose: 1,250 mg Documented by: Clopidogrel Bisulfate (Clopidogrel Bisulfate 75 Mg Tab) 75 mg PO [facility] Stop: 05/20/21 08:59 Last Admin: 04/29/21 08:06 Dose: 75 mg Documented by: Cyclobenzaprine HCl (Cyclobenzaprine Hcl 10 Mg Tab) 5 mg PO TID PRN PRN Reason: Muscle Spasm Stop: 05/19/21 17:20 Dextrose (Dextrose 50% 50 Ml Syringe) 25 - 50 ml IV UD PRN; Protocol PRN Reason: Hypoglycemia Protocol Stop: 05/19/21 17:20 Duloxetine HCl (Duloxetine Hcl 30 Mg Cap) 30 mg PO [facility] Stop: 05/20/21 08:59 Last Admin: 04/29/21 08:16 Dose: 30 mg Documented by: Duloxetine HCl (Duloxetine Hcl 60 Mg Cap) 60 mg PO [facility] Stop: 05/20/21 08:59 Last Admin: 04/29/21 08:15 Dose: 60 mg Documented by: Enoxaparin Sodium (Enoxaparin Inj 40 Mg/0.4 Ml Syr) 40 mg SQ BID [facility] Stop: 05/19/21 20:59 Last Admin: 04/29/21 08:17 Dose: 40 mg Documented by: Ferrous Sulfate (Ferrous Sulfate 325 Mg Tab) 325 mg PO [facility] Stop: 05/20/21 08:59 Last Admin: 04/29/21 08:08 Dose: 325 mg Documented by: Fluticasone Propionate (Fluticasone Propionate Na Spr 16 Gm Btl) 2 sprays JENSEN HS [facility] Stop: 05/19/21 20:59 Last Admin: 04/28/21 21:41 Dose: 2 sprays Documented by: Fluticasone/Vilanterol (Fluticasone/Vilanterol 200/25mcg 14 Puffs/Inhaler) 1 puffs INH DAILY [facility] Stop: 05/20/21 08:59 Last Admin: 04/29/21 08:18 Dose: 1 puffs Documented by: Folic Acid (Folic Acid 1 Mg Tab) 2 mg PO QAM [facility] Stop: 05/20/21 08:59 Last Admin: 04/29/21 08:09 Dose: 2 mg Documented by: Furosemide (Furosemide 40 Mg/4 Ml Vial) 40 mg IV DAILY [facility] Stop: 05/26/21 08:59 Last Admin: 04/29/21 08:14 Dose: 40 mg Documented by: Gabapentin (Gabapentin 300 Mg Cap) 300 mg PO TID [facility] Stop: 05/19/21 17:20 Last Admin: 04/29/21 08:05 Dose: 300 mg Documented by: Glucagon (Glucagon For Inj 1 Mg Vial) 1 mg SQ UD PRN; Protocol PRN Reason: Hypoglycemia Protocol Stop: 05/19/21 17:20 Glucose (Glucose 10 Tabs/Tube) 4 - 8 tabs PO UD PRN; Protocol PRN Reason: Hypoglycemia Protocol Stop: 05/19/21 17:20 Glucose (Glucose 40% Gel 15 Gm Tube) 15 - 30 gm PO UD PRN; Protocol PRN Reason: Hypoglycemia Protocol Stop: 05/19/21 17:20 Dexamethasone 10 mg/ Syringe 2.5 mls @ 1 mls/min IV BID [facility] Stop: 05/28/21 20:59 Last Admin: 04/29/21 08:17 Dose: 1 mls/min Documented by: Insulin Aspart (Insulin Aspart 100 Units/Ml 3 Ml Pen) 0 units SC ACHS [facility] Stop: 05/19/21 17:20 Last Admin: 04/28/21 20:37 Dose: 7 units Documented by: Levothyroxine Sodium (Levothyroxine Sodium 25 Mcg Tablet) 25 mcg PO DAILYBB [facility] Stop: 05/20/21 06:29 Last Admin: 04/29/21 06:14 Dose: 25 mcg Documented by: Lisinopril (Lisinopril 10 Mg Tab) 10 mg PO QAM [facility] Stop: 05/20/21 08:59 Last Admin: 04/29/21 04:48 Dose: 10 mg Documented by: Loratadine (Loratadine 10 Mg Tab) 10 mg PO QAM [facility] Stop: 05/20/21 08:59 Last Admin: 04/29/21 08:16 Dose: 10 mg Documented by: Magnesium Oxide (Magnesium Oxide 400 Mg Tab) 400 mg PO QAM [facility] Stop: 05/20/21 08:59 Last Admin: 04/29/21 08:18 Dose: 400 mg Documented by: Metoprolol Succinate (Metoprolol Succ 50mg Ext Rel Tab) 50 mg PO BID [facility] Stop: 05/19/21 20:59 Last Admin: 04/29/21 08:09 Dose: Not Given Documented by: Miscellaneous (Carbohydrates For Hypoglycemia ) 15 - 30 gm PO UD PRN PRN Reason: Hypoglycemia Protocol Stop: 05/19/21 17:20 [facility]ivit[facility] ([facility]amin Tab) [facility]: 05/20/21 08:59 Last Admin: 04/29/21 08:08 Dose: 1 tab Documented by: Nitroglycerin (Nitroglycerin Sl 0.4 Mg/Tab Tab) 0.4 mg SL UD PRN PRN Reason: Chest Pain Stop: 05/19/21 17:20 Ondansetron HCl (Ondansetron Inj 2 Mg/Ml 2 Ml Vial) 4 mg IV Q6H PRN PRN Reason: Nausea Stop: 05/19/21 17:20 Pantoprazole Sodium (Pantoprazole 40 Mg Tab) [facility] Stop: 05/20/21 08:59 Last Admin: 04/29/21 08:08 Dose: 40 mg Documented by: Polyethylene Glycol (Polyethylene (Miralax) 17 Gm Pack) 17 gm PO DAILY [facility] Stop: 05/29/21 08:59 Last Admin: 04/29/21 09:30 Dose: 17 gm Documented by: Ropinirole HCl (Ropinirole Hcl 1 Mg Tablet) 1 mg PO HS [facility] Stop: 05/19/21 20:59 Last Admin: 04/28/21 21:43 Dose: 1 mg Documented by: Sodium Chloride (Sodium Chloride 0.65% Na Soln 45 Ml ([place])) 2 sprays NA TID PRN PRN Reason: Nasal Congestion Stop: 05/23/21 00:29 Last Admin: 04/23/21 01:38 Dose: 2 sprays Documented by: Vitamin D (Cholecalciferol 1,000 Units 25 Mcg Tab) 1,000 units PO QAM [facility] Stop: 05/20/21 08:59 Last Admin: 04/29/21 08:07 Dose: 1,000 units Documented by: PG Care Time/CCT Total # of Minutes Spent Total Time Spent with Patient: Total time spent is greater than 50% in coordination of care (as documented) at patient's floor/unit and/or counseling patient: Coding Level of Care Code 20858 Subseq Hosp Care Lvl 2 Diagnoses Pneumonia due to COVID-19 virus U07.1; J12.82 Acute respiratory failure with hypoxia J96.01 DM2 (diabetes mellitus, type 2) E11.9 Asthma J45.909 Diffuse myofascial pain syndrome M79.18 Hypertension I10 Obesity E66.9 CAD (coronary artery disease) I25.10 Lumbar spinal stenosis M48.061 Hypothyroidism E03.9 Hyperlipidemia E78.5 Depression F32.9 Rheumatoid arthritis M06.9
[2021-04-29 09:14] LABS: BUN Creatinine Ratio 37.9 (10-20); Calcium 9.1 mg/dl (8.5-10.1); Creatinine Clr Calc Pharmacy 64.7 ml/min; Est GFR (African American) 81.6 ml/min; Est GFR (Non-African American) 70.4 ml/min; Potassium 4.7 mmol/L (3.5-5.1)
[2021-04-29] MEDS: POLYETHYLENE (MIRALAX) 17 GM PACK PO SCH (09:30)
[2021-04-29] MEDS ORDERED: OXYMETAZOLINE 0.05% 30 ML BTL PRN (09:37)
[2021-04-29] MEDS: FLUTICASONE PROPIONATE NA SPR 16 GM BTL NAE SCH (21:22)
[2021-04-29] MEDS: rOPINIRole HCL 1 MG TABLET PO SCH (21:25)
[2021-04-30] MEDS: LEVOTHYROXINE SODIUM 25 MCG TABLET PO SCH (06:27)
[2021-04-30] MEDS: PANTOprazole 40 MG TAB PO SCH (08:33)
[2021-04-30] MEDS: ENOXAPARIN INJ 40 MG/0.4 ML SYR SQ SCH ×2 (08:33→20:00)
[2021-04-30] MEDS: GABAPENTIN 300 MG CAP PO SCH ×3 (08:33→20:01)
[2021-04-30] MEDS: lisinopril 10 MG TAB PO SCH (08:33)
[2021-04-30] MEDS: MULTIVITAMIN TAB PO SCH (08:33)
[2021-04-30] MEDS: dexAMETHasone 10 MG in SYRINGE 0 ML IV SCH ×2 (08:33→20:01)
[2021-04-30] MEDS: CALCIUM CARBONATE 1250MG TAB PO SCH (08:33)
[2021-04-30] MEDS: FERROUS SULFATE 325 MG TAB PO SCH (08:34)
[2021-04-30] MEDS: DULoxetine HCL 60 MG CAP PO SCH (08:34)
[2021-04-30] MEDS: LORATADINE 10 MG TAB PO SCH (08:34)
[2021-04-30] MEDS: METOPROLOL SUCC 50MG EXT REL TAB PO SCH ×2 (08:34→20:01)
[2021-04-30] MEDS: ASPIRIN 81 MG ECTAB PO SCH (08:34)
[2021-04-30] MEDS: MAGNESIUM OXIDE 400 MG TAB PO SCH (08:35)
[2021-04-30] MEDS: CLOPIDOGREL BISULFATE 75 MG TAB PO SCH (08:35)
[2021-04-30] MEDS: CHOLECALCIFEROL 1,000 UNITS 25 MCG TAB PO SCH (08:35)
[2021-04-30] MEDS: ASCORBIC ACID 500 MG TAB PO SCH (08:35)
[2021-04-30] MEDS: DULoxetine HCL 30 MG CAP PO SCH (08:35)
[2021-04-30] MEDS: FOLIC ACID 1 MG TAB PO SCH (08:35)
[2021-04-30] MEDS: BENZONATATE 100 MG CAPSULE PO SCH ×3 (08:35→20:01)
[2021-04-30] MEDS: POLYETHYLENE (MIRALAX) 17 GM PACK PO SCH (08:36)
[2021-04-30] MEDS: FLUTICASONE/VILANTEROL 200/25MCG 14 PUFFS/INHALER INH SCH (08:36)
[2021-04-30] MEDS: ALPRAZolam 0.25 MG TABLET PO PRN ×2 (08:43→20:05)
[2021-04-30] MEDS: ATORVASTATIN 40 MG TAB PO SCH (08:44)
[2021-04-30] MEDS: FUROSEMIDE 40 MG/4 ML VIAL IV SCH (08:56)
--- NOTE | 2021-04-30 09:22 | Hospitalist Progress Note ---
Date of Service April 30, 2021 Assessment & Plan (1) Pneumonia due to COVID-19 virus: Plan: Patient presents on the 11th day of symptoms with progressively worsening shortness of breath and acute respiratory failure with hypoxia tested positive on 04/14 for Covid-19. She was fully vaccinated in 07/2020 Chest x-ray with bilateral airspace opacities consistent with viral pneumonia continue dexamethasone 10mg IV BID for 3 more days, she was getting worse despite 6mg IV BID On Vapotherm, still on 40L, but down to 90%, saturations 92%, try to wean down further CRP was significantly elevated at 8, did not meet for baricitinab due to taking xeljanz CT angiogram chest: no PE, just shows viral pneumonia getting Lasix 40mg IV daily, negative fluid balance, Cr and K are stable incentive spirometry and flutter valve -Encouraged prone or side positioning as tolerated -Lovenox 40 mg SQ twice daily for DVT prophylaxis difficult as she is not in distress but she is also not improving (2) Acute respiratory failure with hypoxia: Plan: remains on 40L 90% this morning, improved slightly from yesterday increased dexamethasone to 10 BID on 04/28, take this for 5 days then wean down continue Lasix 40mg iv daily to keep lungs dry Cr and K are stable (3) DM2 (diabetes mellitus, type 2): Plan: Hemoglobin A1c 6.6% earlier this year Check hemoglobin A1c - 6% monitor for hypo and hyperglycemia, no episodes with the increase in dexamethasone, will adjust Novolog to 15 and 10 carb ratio sugars stable (4) Asthma: Plan: Continue home maintenance inhalers and scheduled duo nebs no wheezing on examination (5) Diffuse myofascial pain syndrome: Plan: Continue home Cymbalta (6) Hypertension: Plan: Blood pressures are mildly elevated here Continue home lisinopril, Lasix, metoprolol (7) Obesity: Plan: BMI 36.6 Needs weight loss (8) CAD (coronary artery disease): Plan: History of NSTEMI 10/2008 with nonobstructive mid LAD stenosis as well as severe stenosis distal segment of left circumflex marginal on cardiac catheterization. No acute issues, troponin here is negative, ECG without acute ischemic changes Continue home aspirin, Plavix, statin, metoprolol, lisinopril (9) Lumbar spinal stenosis: Plan: Continue home gabapentin (10) Hypothyroidism: Plan: Continue home levothyroxine (11) Hyperlipidemia: Plan: Continue home statin (12) Depression: Plan: Continue home Cymbalta (13) Rheumatoid arthritis: Plan: Hold home NSAID, Xeljanz, and methotrexate for now Plan: DVT prophylaxis-Lovenox 40 mg twice daily Disposition-admit to telemetry unit, Covid precautions Full code Patient reports her daughter, son, and granddaughter would all be her decision makers if she cannot make decisions for herself Admission and Anticipated Discharge Date Admission Date: April 19, 2021 Subjective patient doing fine, no issues over night eating well, waiting to have a BM no nausea sugars are 270, will tighten her Novolog coverage Review of Systems Review of Systems: All systems reviewed & are unremarkable except as noted in Subjective Respiratory: + cough, + dyspnea and + dyspnea on exertion Gastrointestinal: + constipation Physical Exam Physical Exam: General: well developed, well nourished, obese female, no acute distress, comfortable Neck: supple, trachea midline, normal thyroid Lungs: clear to auscultation bilaterally, + tachypnea, + cough, no accessory muscle use, no distress, laying on left side Heart: regular S1 and S2, no murmur, peripheral pulses normal, capillary refill normal, no edema Abdomen: soft, NT, ND, + BS, no hepatomegaly, normal to percussion Extremities: normal in appearance, no cyanosis, no petechiae, strength is 5/5 bilaterally Neuro: awake, cooperative, moves all extremities, no focal motor deficits, CN II-XII intact, sensation in extremities intact, normal speech Skin: warm, dry, no rash, normal turgor Psych: Awake, alert oriented x 3, euthymic affect Results & Data Results & Data ([facility]) Vital Signs (Past 12 Hours) Vital Signs Temp Pulse Pulse Resp BP BP Pulse Ox 04/30/21 07:53 68 22 91 04/30/21 07:07 36.6 C 98 H 24 144/75 H 89 L 04/30/21 03:22 36.6 C 53 L 16 151/65 H 95 04/30/21 02:43 50 L 26 H 95 04/29/21 23:00 56 L 32 H 91 04/29/21 22:20 52 L 04/29/21 22:00 36.7 C 50 L 20 116/75 93 Laboratory Results Laboratory Results - last 24 hr 04/29/21 04/29/21 04/29/21 11:32 16:30 20:06 POC Glucose 229 H 271 H 275 H 04/30/21 07:50 POC Glucose 271 H Medications Administered Current Inpatient Medications Acetaminophen (Acetaminophen 325 Mg Tab) 650 mg PO Q4H PRN PRN Reason: Pain or Fever Stop: 05/19/21 17:20 Last Admin: 04/26/21 20:52 Dose: 650 mg Documented by: Albuterol (Albut/Ipratrop 3mg/0.5mg Neb 3 Ml Vial) 3 ml NEB Q4R PRN PRN Reason: Shortness Of Breath Or Wheezing Stop: 05/20/21 10:59 Last Admin: 04/23/21 00:51 Dose: 3 ml Documented by: Alprazolam (Alprazolam 0.25 Mg Tablet) 0.25 mg PO Q8H PRN PRN Reason: Anxiety Stop: 05/19/21 17:20 Last Admin: 04/30/21 08:43 Dose: 0.25 mg Documented by: Ascorbic Acid (Ascorbic Acid 500 Mg Tab) 1,000 mg PO [facility] Stop: 05/20/21 08:59 Last Admin: 04/30/21 08:35 Dose: 1,000 mg Documented by: Aspirin (Aspirin 81 Mg Ectab) [facility] [place] Stop: 05/20/21 08:59 Last Admin: 04/30/21 08:34 Dose: 81 mg Documented by: Atorvastatin Calcium (Atorvastatin 40 Mg Tab) 80 mg PO [facility] Stop: 05/20/21 08:59 Last Admin: 04/30/21 08:44 Dose: 80 mg Documented by: Benzonatate (Benzonatate 100 Mg Capsule) 100 mg PO TID [facility] Stop: 05/23/21 01:29 Last Admin: 04/30/21 08:35 Dose: 100 mg Documented by: Calcium Carbonate (Calcium Carbonate 1250mg Tab) 1,250 mg [facility] [place] Stop: 05/20/21 08:59 Last Admin: 04/30/21 08:33 Dose: 1,250 mg Documented by: Clopidogrel Bisulfate (Clopidogrel Bisulfate 75 Mg Tab) 75 [facility] [place] Stop: 05/20/21 08:59 Last Admin: 04/30/21 08:35 Dose: 75 mg Documented by: Nystatin 30 ml/ Dexamethasone 3.75 mg/ Diphenhydramine HCl 300 mg/ Sucrose 45 ml/Microcrystalline Cellulose 45 ml/ [employer] 1 ea 0 ml PO Q4H PRN PRN Reason: mouth pain Stop: 05/29/21 21:53 Cyclobenzaprine HCl (Cyclobenzaprine Hcl 10 Mg Tab) 5 mg PO TID PRN PRN Reason: Muscle Spasm Stop: 05/19/21 17:20 Dextrose (Dextrose 50% 50 Ml Syringe) 25 - 50 ml IV UD PRN; Protocol PRN Reason: Hypoglycemia Protocol Stop: 05/19/21 17:20 Duloxetine HCl (Duloxetine Hcl 30 Mg Cap) 30 mg PO QAM [facility] Stop: 05/20/21 08:59 Last Admin: 04/30/21 08:35 Dose: 30 mg Documented by: Duloxetine HCl (Duloxetine Hcl 60 Mg Cap) 60 mg PO QAM [facility] Stop: 05/20/21 08:59 Last Admin: 04/30/21 08:34 Dose: 60 mg Documented by: Enoxaparin Sodium (Enoxaparin Inj 40 Mg/0.4 Ml Syr) 40 mg SQ BID [facility] Stop: 05/19/21 20:59 Last Admin: 04/30/21 08:33 Dose: 40 mg Documented by: Ferrous Sulfate (Ferrous Sulfate 325 Mg Tab) 325 mg PO QAM [facility] Stop: 05/20/21 08:59 Last Admin: 04/30/21 08:34 Dose: 325 mg Documented by: Fluticasone Propionate (Fluticasone Propionate Na Spr 16 Gm Btl) 2 sprays [facility] HS [facility] Stop: 05/19/21 20:59 Last Admin: 04/29/21 21:22 Dose: 2 sprays Documented by: Fluticasone/Vilanterol (Fluticasone/Vilanterol 200/25mcg 14 Puffs/Inhaler) 1 puffs INH DAILY [facility] Stop: 05/20/21 08:59 Last Admin: 04/30/21 08:36 Dose: 1 puffs Documented by: Folic Acid (Folic Acid 1 Mg Tab) 2 mg PO QAM [facility] Stop: 05/20/21 08:59 Last Admin: 04/30/21 08:35 Dose: 2 mg Documented by: Furosemide (Furosemide 40 Mg/4 Ml Vial) 40 mg IV DAILY [facility] Stop: 05/26/21 08:59 Last Admin: 04/30/21 08:56 Dose: 40 mg Documented by: Gabapentin (Gabapentin 300 Mg Cap) 300 mg PO TID [facility] Stop: 05/19/21 17:20 Last Admin: 04/30/21 08:33 Dose: 300 mg Documented by: Glucagon (Glucagon For Inj 1 Mg Vial) 1 mg SQ UD PRN; Protocol PRN Reason: Hypoglycemia Protocol Stop: 05/19/21 17:20 Glucose (Glucose 10 Tabs/Tube) 4 - 8 tabs PO UD PRN; Protocol PRN Reason: Hypoglycemia Protocol Stop: 05/19/21 17:20 Glucose (Glucose 40% Gel 15 Gm Tube) 15 - 30 gm PO UD PRN; Protocol PRN Reason: Hypoglycemia Protocol Stop: 05/19/21 17:20 Dexamethasone 10 mg/ Syringe 2.5 mls @ 1 mls/min IV BID [facility] Stop: 05/28/21 20:59 Last Admin: 04/30/21 08:33 Dose: 1 mls/min Documented by: Insulin Aspart (Insulin Aspart 100 Units/Ml 3 Ml Pen) 0 units SC ACHS [facility] Stop: 05/19/21 17:20 Last Admin: 04/29/21 21:52 Dose: 7 units Documented by: Levothyroxine Sodium (Levothyroxine Sodium 25 Mcg Tablet) 25 mcg PO DAILYBB [facility] Stop: 05/20/21 06:29 Last Admin: 04/30/21 06:27 Dose: 25 mcg Documented by: Lisinopril (Lisinopril 10 Mg Tab) 10 mg PO QAM [facility] Stop: 05/20/21 08:59 Last Admin: 04/30/21 08:33 Dose: 10 mg Documented by: Loratadine (Loratadine 10 Mg Tab) 10 mg PO QAM [facility] Stop: 05/20/21 08:59 Last Admin: 04/30/21 08:34 Dose: 10 mg Documented by: Magnesium Oxide (Magnesium Oxide 400 Mg Tab) 400 mg PO QAM [facility] Stop: 05/20/21 08:59 Last Admin: 04/30/21 08:35 Dose: 400 mg Documented by: Metoprolol Succinate (Metoprolol Succ 50mg Ext Rel Tab) 50 mg PO BID [facility] Stop: 05/19/21 20:59 Last Admin: 04/30/21 08:34 Dose: 50 mg Documented by: Miscellaneous (Carbohydrates For Hypoglycemia ) 15 - 30 gm PO UD PRN PRN Reason: Hypoglycemia Protocol Stop: 05/19/21 17:20 Multivitamins (Multivitamin Tab) 1 tab PO QAM [facility] Stop: 05/20/21 08:59 Last Admin: 04/30/21 08:33 Dose: 1 tab Documented by: Nitroglycerin (Nitroglycerin Sl 0.4 Mg/Tab Tab) 0.4 mg SL UD PRN PRN Reason: Chest Pain Stop: 05/19/21 17:20 Ondansetron HCl (Ondansetron Inj 2 Mg/Ml 2 Ml Vial) 4 mg IV Q6H PRN PRN Reason: Nausea Stop: 05/19/21 17:20 Oxymetazoline HCl (Oxymetazoline 0.05% 30 Ml Btl) 1 sprays NA Q12 PRN PRN Reason: Nasal Congestion Stop: 05/29/21 09:36 Last Admin: 04/29/21 11:12 Dose: 1 sprays Documented by: Pantoprazole Sodium (Pantoprazole 40 Mg Tab) 40 mg PO QAM [facility] Stop: 05/20/21 08:59 Last Admin: 04/30/21 08:33 Dose: 40 mg Documented by: Polyethylene Glycol (Polyethylene (Miralax) 17 Gm Pack) 17 gm PO DAILY [facility] Stop: 05/29/21 08:59 Last Admin: 04/30/21 08:36 Dose: 17 gm Documented by: Ropinirole HCl (Ropinirole Hcl 1 Mg Tablet) 1 mg PO HS [facility] Stop: 05/19/21 20:59 Last Admin: 04/29/21 21:25 Dose: 1 mg Documented by: Sodium Chloride (Sodium Chloride 0.65% Na Soln 45 Ml ([place])) 2 sprays NA TID PRN PRN Reason: Nasal Congestion Stop: 05/23/21 00:29 Last Admin: 04/23/21 01:38 Dose: 2 sprays Documented by: Vitamin D (Cholecalciferol 1,000 Units 25 Mcg Tab) 1,000 units PO QAM [facility] Stop: 05/20/21 08:59 Last Admin: 04/30/21 08:35 Dose: 1,000 units Documented by: PG Care Time/CCT Total # of Minutes Spent Total Time Spent with Patient: Total time spent is greater than 50% in coordination of care (as documented) at patient's floor/unit and/or counseling patient: Coding Level of Care Code 85719 Subseq Hosp Care Lvl 2 Diagnoses Pneumonia due to COVID-19 virus U07.1; J12.82 Acute respiratory failure with hypoxia J96.01 DM2 (diabetes mellitus, type 2) E11.9 Asthma J45.909 Diffuse myofascial pain syndrome M79.18 Hypertension I10 Obesity E66.9 CAD (coronary artery disease) I25.10 Lumbar spinal stenosis M48.061 Hypothyroidism E03.9 Hyperlipidemia E78.5 Depression F32.9 Rheumatoid arthritis M06.9
[2021-04-30] MEDS: INSULIN ASPART 100 UNITS/ML 3 ML PEN SC SCH ×4 (09:27→20:41)
[2021-04-30] MEDS: FLUTICASONE PROPIONATE NA SPR 16 GM BTL NAE SCH (19:58)
[2021-04-30] MEDS: rOPINIRole HCL 1 MG TABLET PO SCH (20:01)
[2021-05-01] MEDS: LEVOTHYROXINE SODIUM 25 MCG TABLET PO SCH (06:02)
[2021-05-01] MEDS: ALPRAZolam 0.25 MG TABLET PO PRN ×3 (08:40→21:19)
[2021-05-01] MEDS: FUROSEMIDE 40 MG/4 ML VIAL IV SCH (08:40)
[2021-05-01] MEDS: CLOPIDOGREL BISULFATE 75 MG TAB PO SCH (08:41)
[2021-05-01] MEDS: DULoxetine HCL 60 MG CAP PO SCH (08:41)
[2021-05-01] MEDS: ASPIRIN 81 MG ECTAB PO SCH (08:41)
[2021-05-01] MEDS: DULoxetine HCL 30 MG CAP PO SCH (08:41)
[2021-05-01] MEDS: lisinopril 10 MG TAB PO SCH (08:41)
[2021-05-01] MEDS: FOLIC ACID 1 MG TAB PO SCH (08:41)
[2021-05-01] MEDS: dexAMETHasone 10 MG in SYRINGE 0 ML IV SCH ×2 (08:41→21:13)
[2021-05-01] MEDS: CALCIUM CARBONATE 1250MG TAB PO SCH (08:41)
[2021-05-01] MEDS: ASCORBIC ACID 500 MG TAB PO SCH (08:41)
[2021-05-01] MEDS: MAGNESIUM OXIDE 400 MG TAB PO SCH (08:42)
[2021-05-01] MEDS: GABAPENTIN 300 MG CAP PO SCH ×3 (08:42→21:17)
[2021-05-01] MEDS: ENOXAPARIN INJ 40 MG/0.4 ML SYR SQ SCH ×2 (08:42→21:15)
[2021-05-01] MEDS: LORATADINE 10 MG TAB PO SCH (08:42)
[2021-05-01] MEDS: ATORVASTATIN 40 MG TAB PO SCH (08:42)
[2021-05-01] MEDS: CHOLECALCIFEROL 1,000 UNITS 25 MCG TAB PO SCH (08:42)
[2021-05-01] MEDS: FERROUS SULFATE 325 MG TAB PO SCH (08:42)
[2021-05-01] MEDS: PANTOprazole 40 MG TAB PO SCH (08:42)
[2021-05-01] MEDS: BENZONATATE 100 MG CAPSULE PO SCH ×3 (08:42→21:12)
[2021-05-01] MEDS: POLYETHYLENE (MIRALAX) 17 GM PACK PO SCH (08:43)
[2021-05-01] MEDS: FLUTICASONE/VILANTEROL 200/25MCG 14 PUFFS/INHALER INH SCH (08:43)
[2021-05-01] MEDS: METOPROLOL SUCC 50MG EXT REL TAB PO SCH ×2 (08:45→21:18)
[2021-05-01] MEDS: MULTIVITAMIN TAB PO SCH (08:45)
[2021-05-01] MEDS: INSULIN ASPART 100 UNITS/ML 3 ML PEN SC SCH ×2 (09:02→13:19)
--- NOTE | 2021-05-01 12:14 | Hospitalist Progress Note ---
Date of Service May 01, 2021 Assessment & Plan (1) Pneumonia due to COVID-19 virus: Plan: Patient presents on the 11th day of symptoms with progressively worsening shortness of breath and acute respiratory failure with hypoxia tested positive on 04/14 for Covid-19. She was fully vaccinated in 07/2020 Chest x-ray with bilateral airspace opacities consistent with viral pneumonia continue dexamethasone 10mg IV BID for 2 more days, she was getting worse despite 6mg IV BID On Vapotherm, still on 40L, 100%, saturations 92%, try to wean down further but not having much success CRP was significantly elevated at 8, did not meet for baricitinab due to taking xeljanz CT angiogram chest: no PE, just shows viral pneumonia getting Lasix 40mg IV daily, negative fluid balance, Cr and K are stable incentive spirometry and flutter valve -Encouraged prone or side positioning as tolerated -Lovenox 40 mg SQ twice daily for DVT prophylaxis 05/01: discussed goals of care, explained she has been sick for 3 weeks, stuck on high flow for about 10 days she says she would want intubated if she gets worse I explained that sometimes the damage done to the lungs does not get better she was very tearful, just wants to get better and go home (2) Acute respiratory failure with hypoxia: Plan: remains on 40L 100% this morning, no improvement all this week increased dexamethasone to 10 BID on 04/28, take this for 5 days then wean down to 5mg IV BID continue Lasix 40mg iv daily to keep lungs dry Cr and K are stable (3) DM2 (diabetes mellitus, type 2): Plan: Hemoglobin A1c 6.6% earlier this year Check hemoglobin A1c - 6% monitor for hypo and hyperglycemia, no episodes with the increase in dexamethasone, will adjust Novolog to 15 and 10 carb ratio sugars stable (4) Asthma: Plan: Continue home maintenance inhalers and scheduled duo nebs no wheezing on examination (5) Diffuse myofascial pain syndrome: Plan: Continue home Cymbalta (6) Hypertension: Plan: Blood pressures are mildly elevated here Continue home lisinopril, Lasix, metoprolol (7) Obesity: Plan: BMI 36.6 Needs weight loss (8) CAD (coronary artery disease): Plan: History of NSTEMI 10/2008 with nonobstructive mid LAD stenosis as well as severe stenosis distal segment of left circumflex marginal on cardiac catheterization. No acute issues, troponin here is negative, ECG without acute ischemic changes Continue home aspirin, Plavix, statin, metoprolol, lisinopril (9) Lumbar spinal stenosis: Plan: Continue home gabapentin (10) Hypothyroidism: Plan: Continue home levothyroxine (11) Hyperlipidemia: Plan: Continue home statin (12) Depression: Plan: Continue home Cymbalta (13) Rheumatoid arthritis: Plan: Hold home NSAID, Xeljanz, and methotrexate for now Plan: DVT prophylaxis-Lovenox 40 mg twice daily Disposition-admit to telemetry unit, Covid precautions Full code Patient reports her daughter, son, and granddaughter would all be her decision makers if she cannot make decisions for herself Admission and Anticipated Discharge Date Admission Date: April 19, 2021 Subjective patient remains on 40L 100%, she was down a little yesterday but had to be turned back up today she is not in distress, eating well, got washed up this morning I discussed with her that she is not getting better, she has been on high flow for a week I asked her to think about whether or not she would want intubated if she would suddenly get worse she started to get very upset, asked "am I dying" I assured her she is not dying right now, but her lungs are not recovering, she has been here for 14 days she is still eating and she is not in distress which is good but I told her I was worried that she might not improve, sometimes the damage to the lungs does not reverse she understands I assured her we would continue to do everything for her, I will stay optimistic for her Review of Systems Review of Systems: All systems reviewed & are unremarkable except as noted in Subjective Respiratory: + cough, + dyspnea and + dyspnea on exertion Physical Exam Physical Exam: General: well developed, well nourished, obese female, no acute distress, comfortable Neck: supple, trachea midline, normal thyroid Lungs: clear to auscultation bilaterally, + tachypnea, + cough, no accessory muscle use, no distress, sitting upright Heart: regular S1 and S2, no murmur, peripheral pulses normal, capillary refill normal, no edema Abdomen: soft, NT, ND, + BS, no hepatomegaly, normal to percussion Extremities: normal in appearance, no cyanosis, no petechiae, strength is 5/5 bilaterally Neuro: awake, cooperative, moves all extremities, no focal motor deficits, CN II-XII intact, sensation in extremities intact, normal speech Skin: warm, dry, no rash, normal turgor Psych: Awake, alert oriented x 3, euthymic affect Results & Data Results & Data ([facility]) Vital Signs (Past 12 Hours) Vital Signs Temp Pulse Pulse Resp BP BP Pulse Ox 05/01/21 11:34 63 18 89 L 05/01/21 11:27 36.8 C 59 L 25 H 144/63 H 88 L 05/01/21 08:00 48 L 50 L 24 92 05/01/21 07:06 36.7 C 47 L 21 166/67 H 94 05/01/21 03:35 36.5 C 50 L 18 148/67 H 96 05/01/21 01:52 45 L 22 92 Medications Administered Current Inpatient Medications Acetaminophen (Acetaminophen 325 Mg Tab) 650 mg PO Q4H PRN PRN Reason: Pain or Fever Stop: 05/19/21 17:20 Last Admin: 04/26/21 20:52 Dose: 650 mg Documented by: Albuterol (Albut/Ipratrop 3mg/0.5mg Neb 3 Ml Vial) 3 ml NEB Q4R PRN PRN Reason: Shortness Of Breath Or Wheezing Stop: 05/20/21 10:59 Last Admin: 04/23/21 00:51 Dose: 3 ml Documented by: Alprazolam (Alprazolam 0.25 Mg Tablet) 0.25 mg PO Q8H PRN PRN Reason: Anxiety Stop: 05/19/21 17:20 Last Admin: 05/01/21 08:40 Dose: 0.25 mg Documented by: Ascorbic Acid (Ascorbic Acid 500 Mg Tab) 1,000 mg PO [facility] Stop: 05/20/21 08:59 Last Admin: 05/01/21 08:41 Dose: 1,000 mg Documented by: Aspirin (Aspirin 81 Mg Ectab) 81 mg PO [facility] Stop: 05/20/21 08:59 Last Admin: 05/01/21 08:41 Dose: 81 mg Documented by: Atorvastatin Calcium (Atorvastatin 40 Mg Tab) 80 mg PO [facility] Stop: 05/20/21 08:59 Last Admin: 05/01/21 08:42 Dose: 80 mg Documented by: Benzonatate (Benzonatate 100 Mg Capsule) 100 mg PO TID [facility] Stop: 05/23/21 01:29 Last Admin: 05/01/21 08:42 Dose: 100 mg Documented by: Calcium Carbonate (Calcium Carbonate 1250mg Tab) 1,250 mg PO [facility] Stop: 05/20/21 08:59 Last Admin: 05/01/21 08:41 Dose: 1,250 mg Documented by: Clopidogrel Bisulfate (Clopidogrel Bisulfate 75 Mg Tab) 75 mg PO [facility] Stop: 05/20/21 08:59 Last Admin: 05/01/21 08:41 Dose: 75 mg Documented by: Nystatin 30 ml/ Dexamethasone 3.75 mg/ Diphenhydramine HCl 300 mg/ Sucrose 45 ml/Microcrystalline Cellulose 45 ml/ [employer] 1 ea 0 ml PO Q4H PRN PRN Reason: mouth pain Stop: 05/29/21 21:53 Cyclobenzaprine HCl (Cyclobenzaprine Hcl 10 Mg Tab) 5 mg PO TID PRN PRN Reason: Muscle Spasm Stop: 05/19/21 17:20 Dextrose (Dextrose 50% 50 Ml Syringe) 25 - 50 ml IV UD PRN; Protocol PRN Reason: Hypoglycemia Protocol Stop: 05/19/21 17:20 Duloxetine HCl (Duloxetine Hcl 30 Mg Cap) 30 mg PO [facility] Stop: 05/20/21 08:59 Last Admin: 05/01/21 08:41 Dose: 30 mg Documented by: Duloxetine HCl (Duloxetine Hcl 60 Mg Cap) 60 mg PO [facility] Stop: 05/20/21 08:59 Last Admin: 05/01/21 08:41 Dose: 60 mg Documented by: Enoxaparin Sodium (Enoxaparin Inj 40 Mg/0.4 Ml Syr) 40 mg SQ BID [facility] Stop: 05/19/21 20:59 Last Admin: 05/01/21 08:42 Dose: 40 mg Documented by: Ferrous Sulfate (Ferrous Sulfate 325 Mg Tab) 325 [facility] [place] Stop: 05/20/21 08:59 Last Admin: 05/01/21 08:42 Dose: 325 mg Documented by: Fluticasone Propionate (Fluticasone Propionate Na Spr 16 Gm Btl) 2 sprays [facility] Stop: 05/19/21 20:59 Last Admin: 04/30/21 19:58 Dose: 2 sprays Documented by: Fluticasone/Vilanterol (Fluticasone/Vilanterol 200/25mcg 14 Puffs/Inhaler) 1 puffs INH DAILY [facility] Stop: 05/20/21 08:59 Last Admin: 05/01/21 08:43 Dose: 1 puffs Documented by: Folic Acid (Folic Acid 1 Mg Tab) 2 mg PO QAM [facility] Stop: 05/20/21 08:59 Last Admin: 05/01/21 08:41 Dose: 2 mg Documented by: Furosemide (Furosemide 40 Mg/4 Ml Vial) 40 mg IV DAILY [facility] Stop: 05/26/21 08:59 Last Admin: 05/01/21 08:40 Dose: 40 mg Documented by: Gabapentin (Gabapentin 300 Mg Cap) 300 mg PO TID [facility] Stop: 05/19/21 17:20 Last Admin: 05/01/21 08:42 Dose: 300 mg Documented by: Glucagon (Glucagon For Inj 1 Mg Vial) 1 mg SQ UD PRN; Protocol PRN Reason: Hypoglycemia Protocol Stop: 05/19/21 17:20 Glucose (Glucose 10 Tabs/Tube) 4 - 8 tabs PO UD PRN; Protocol PRN Reason: Hypoglycemia Protocol Stop: 05/19/21 17:20 Glucose (Glucose 40% Gel 15 Gm Tube) 15 - 30 gm PO UD PRN; Protocol PRN Reason: Hypoglycemia Protocol Stop: 05/19/21 17:20 Dexamethasone 10 mg/ Syringe 2.5 mls @ 1 mls/min IV BID [facility] Stop: 05/28/21 20:59 Last Admin: 05/01/21 08:41 Dose: 1 mls/min Documented by: Insulin Aspart (Insulin Aspart 100 Units/Ml 3 Ml Pen) 0 units SC ACHS [facility] Stop: 05/19/21 17:20 Last Admin: 05/01/21 09:02 Dose: 9 units Documented by: Levothyroxine Sodium (Levothyroxine Sodium 25 Mcg Tablet) 25 mcg PO DAILYBB [facility] Stop: 05/20/21 06:29 Last Admin: 05/01/21 06:02 Dose: 25 mcg Documented by: Lisinopril (Lisinopril 10 Mg Tab) 10 mg PO QAM [facility] Stop: 05/20/21 08:59 Last Admin: 05/01/21 08:41 Dose: 10 mg Documented by: Loratadine (Loratadine 10 Mg Tab) 10 mg PO QAM [facility] Stop: 05/20/21 08:59 Last Admin: 05/01/21 08:42 Dose: 10 mg Documented by: Magnesium Oxide (Magnesium Oxide 400 Mg Tab) 400 mg PO QAM [facility] Stop: 05/20/21 08:59 Last Admin: 05/01/21 08:42 Dose: 400 mg Documented by: Metoprolol Succinate (Metoprolol Succ 50mg Ext Rel Tab) 50 mg PO BID [facility] Stop: 05/19/21 20:59 Last Admin: 05/01/21 08:45 Dose: Not Given Documented by: Miscellaneous (Carbohydrates For Hypoglycemia ) 15 - 30 gm PO UD PRN PRN Reason: Hypoglycemia Protocol Stop: 05/19/21 17:20 Multivitamins (Multivitamin Tab) 1 tab PO QAM [facility] Stop: 05/20/21 08:59 Last Admin: 05/01/21 08:45 Dose: 1 tab Documented by: Nitroglycerin (Nitroglycerin Sl 0.4 Mg/Tab Tab) 0.4 mg SL UD PRN PRN Reason: Chest Pain Stop: 05/19/21 17:20 Ondansetron HCl (Ondansetron Inj 2 Mg/Ml 2 Ml Vial) 4 mg IV Q6H PRN PRN Reason: Nausea Stop: 05/19/21 17:20 Oxymetazoline HCl (Oxymetazoline 0.05% 30 Ml Btl) 1 sprays NA Q12 PRN PRN Reason: Nasal Congestion Stop: 05/29/21 09:36 Last Admin: 04/29/21 11:12 Dose: 1 sprays Documented by: Pantoprazole Sodium (Pantoprazole 40 Mg Tab) 40 mg PO QAM [facility] Stop: 05/20/21 08:59 Last Admin: 05/01/21 08:42 Dose: 40 mg Documented by: Polyethylene Glycol (Polyethylene (Miralax) 17 Gm Pack) 17 gm PO DAILY [facility] Stop: 05/29/21 08:59 Last Admin: 05/01/21 08:43 Dose: 17 gm Documented by: Ropinirole HCl (Ropinirole Hcl 1 Mg Tablet) 1 mg PO HS [facility] Stop: 05/19/21 20:59 Last Admin: 04/30/21 20:01 Dose: 1 mg Documented by: Sodium Chloride (Sodium Chloride 0.65% Na Soln 45 Ml ([place])) 2 sprays NA TID PRN PRN Reason: Nasal Congestion Stop: 05/23/21 00:29 Last Admin: 04/23/21 01:38 Dose: 2 sprays Documented by: Vitamin D (Cholecalciferol 1,000 Units 25 Mcg Tab) 1,000 units PO QAM [facility] Stop: 05/20/21 08:59 Last Admin: 05/01/21 08:42 Dose: 1,000 units Documented by: PG Care Time/CCT Total # of Minutes Spent Total Time Spent with Patient: Total time spent is greater than 50% in coordination of care (as documented) at patient's floor/unit and/or counseling patient: Coding Level of Care Code 71911 Subseq Hosp Care Lvl 2 Diagnoses Pneumonia due to COVID-19 virus U07.1; J12.82 Acute respiratory failure with hypoxia J96.01 DM2 (diabetes mellitus, type 2) E11.9 Asthma J45.909 Diffuse myofascial pain syndrome M79.18 Hypertension I10 Obesity E66.9 CAD (coronary artery disease) I25.10 Lumbar spinal stenosis M48.061 Hypothyroidism E03.9 Hyperlipidemia E78.5 Depression F32.9 Rheumatoid arthritis M06.9
[2021-05-01] MEDS: INSULIN ASPART PER UNIT SC SCH ×3 (13:12→21:26)
[2021-05-01] MEDS: FLUTICASONE PROPIONATE NA SPR 16 GM BTL NAE SCH (21:16)
[2021-05-01] MEDS: rOPINIRole HCL 1 MG TABLET PO SCH (21:18)
[2021-05-02] MEDS: LEVOTHYROXINE SODIUM 25 MCG TABLET PO SCH (05:27)
[2021-05-02 07:58] LABS: Hemoglobin 13.2 g/dL (12.0-16.0); Mean Corpuscular Hemoglobin 33.2 pg (25-34); Mean Corpuscular Volume 100.5 fL (80-100); Mean Platelet Volume 11.7 fL (7.4-10.4); Platelet Count 337 K/uL (130-400); RDW Coefficient of Variation 14.9 % (11.5-14.5); RDW Standard Deviation 53.7 fL (36.4-46.3); Red Blood Count 3.98 M/uL (4.2-5.4); White Blood Count 15.05 K/uL (4.8-10.8)
[2021-05-02 08:31] LABS: BUN Creatinine Ratio 47.7 (10-20); Calcium 9.1 mg/dl (8.5-10.1); Est GFR (African American) 66.9 ml/min; Est GFR (Non-African American) 57.7 ml/min; Magnesium 2.6 mg/dl (1.8-2.4); Potassium 4.9 mmol/L (3.5-5.1)
[2021-05-02 08:32] LABS: C Reactive Protein 1.96 mg/dl (0-0.29)
[2021-05-02] MEDS: METOPROLOL SUCC 50MG EXT REL TAB PO SCH (08:55)
[2021-05-02] MEDS: lisinopril 10 MG TAB PO SCH ×2 (09:01→09:45)
[2021-05-02] MEDS: ATORVASTATIN 40 MG TAB PO SCH ×2 (09:01→09:44)
[2021-05-02] MEDS: PANTOprazole 40 MG TAB PO SCH ×2 (09:02→09:45)
[2021-05-02] MEDS: ASPIRIN 81 MG ECTAB PO SCH ×2 (09:02→09:43)
[2021-05-02] MEDS: CHOLECALCIFEROL 1,000 UNITS 25 MCG TAB PO SCH ×2 (09:02→09:44)
[2021-05-02] MEDS: ASCORBIC ACID 500 MG TAB PO SCH ×2 (09:03→09:43)
[2021-05-02] MEDS: MULTIVITAMIN TAB PO SCH ×2 (09:03→09:45)
[2021-05-02] MEDS: CALCIUM CARBONATE 1250MG TAB PO SCH ×2 (09:03→09:44)
[2021-05-02] MEDS: GABAPENTIN 300 MG CAP PO SCH ×4 (09:04→20:42)
[2021-05-02] MEDS: BENZONATATE 100 MG CAPSULE PO SCH ×4 (09:04→20:40)
[2021-05-02] MEDS: FERROUS SULFATE 325 MG TAB PO SCH ×2 (09:04→09:44)
[2021-05-02] MEDS: DULoxetine HCL 60 MG CAP PO SCH ×2 (09:05→09:44)
[2021-05-02] MEDS: FOLIC ACID 1 MG TAB PO SCH ×2 (09:05→09:45)
[2021-05-02] MEDS: LORATADINE 10 MG TAB PO SCH ×2 (09:05→09:45)
[2021-05-02] MEDS: MAGNESIUM OXIDE 400 MG TAB PO SCH ×2 (09:07→09:45)
[2021-05-02] MEDS: FLUTICASONE/VILANTEROL 200/25MCG 14 PUFFS/INHALER INH SCH ×2 (09:07→09:45)
[2021-05-02] MEDS: ENOXAPARIN INJ 40 MG/0.4 ML SYR SQ SCH ×2 (09:08→20:40)
[2021-05-02] MEDS: DULoxetine HCL 30 MG CAP PO SCH ×2 (09:08→09:44)
[2021-05-02] MEDS: dexAMETHasone 10 MG in SYRINGE 0 ML IV SCH (09:08)
[2021-05-02] MEDS: CLOPIDOGREL BISULFATE 75 MG TAB PO SCH ×2 (09:09→09:44)
[2021-05-02] MEDS: POLYETHYLENE (MIRALAX) 17 GM PACK PO SCH (09:10)
[2021-05-02] MEDS: FUROSEMIDE 40 MG/4 ML VIAL IV SCH (09:34)
[2021-05-02] MEDS: INSULIN ASPART PER UNIT SC SCH ×4 (09:38→21:23)
[2021-05-02] MEDS: ALPRAZolam 0.25 MG TABLET PO PRN (12:05)
--- NOTE | 2021-05-02 12:52 | Hospitalist Progress Note ---
Date of Service May 02, 2021 Assessment & Plan (1) Pneumonia due to COVID-19 virus: Plan: Patient presents on the 11th day of symptoms with progressively worsening shortness of breath and acute respiratory failure with hypoxia tested positive on 04/14 for Covid-19. She was fully vaccinated in 07/2020 Chest x-ray with bilateral airspace opacities consistent with viral pneumonia dexamethasone, decrease to 10mg daily today, taper off quickly, CRP on 1.96 so high dose steroids likely not helping situation On Vapotherm, still on 40L, 100% with 15L mask over avoid CPAP with pneumomediastinum and pneumothorax prognosis is getting worse with increased oxygen requirements, pressure support, pneumothorax CTA chest 05/02: no PE, shows the pneumothorax bilaterally and pneumomediastinum CRP was significantly elevated at 8, did not meet for baricitinab due to taking xeljanz getting Lasix 40mg IV daily, negative fluid balance, Cr and K are stable, BNP is 210 incentive spirometry and flutter valve -Encouraged prone or side positioning as tolerated -Lovenox 40 mg SQ twice daily for DVT prophylaxis *discussed worsening condition on 05/02, she is not ready to , would want intubated if necessary I updated her daughter about our conversation and her condition (2) Pneumothorax: Plan: right side 26mm, small anterior chest tube placed, applied to suction, expand lung (3) Pneumomediastinum: Plan: avoid CPAP as this will cause more expansion monitor closely (4) Acute respiratory failure with hypoxia: Plan: had been stable on high flow 40L 100% all week but unable to wean down 05/02 requiring CPAP with pressure 10, FiO2 90% 05/02 ABG: hypoxemia and respiratory alkalosis BNP normal, procalcitonin normal CRP is 1.9 cut dexamethasone to 10mg IV daily and would taper quickly as steroids likely not helping continue Lasix 40mg iv daily to keep lungs dry (5) DM2 (diabetes mellitus, type 2): Plan: Hemoglobin A1c 6.6% earlier this year Check hemoglobin A1c - 6% monitor for hypo and hyperglycemia, no episodes with the increase in dexamethasone, will adjust Novolog to 15 and 10 carb ratio sugars stable (6) Asthma: Plan: Continue home maintenance inhalers and scheduled duo nebs no wheezing on examination (7) Diffuse myofascial pain syndrome: Plan: Continue home Cymbalta (8) Hypertension: Plan: Blood pressures are mildly elevated here Continue home lisinopril, Lasix, metoprolol (9) Obesity: Plan: BMI 36.6 Needs weight loss (10) CAD (coronary artery disease): Plan: History of NSTEMI 10/2008 with nonobstructive mid LAD stenosis as well as severe stenosis distal segment of left circumflex marginal on cardiac catheterization. No acute issues, troponin here is negative, ECG without acute ischemic changes Continue home aspirin, Plavix, statin, metoprolol, lisinopril (11) Lumbar spinal stenosis: Plan: Continue home gabapentin (12) Hypothyroidism: Plan: Continue home levothyroxine (13) Hyperlipidemia: Plan: Continue home statin (14) Depression: Plan: Continue home Cymbalta (15) Rheumatoid arthritis: Plan: Hold home NSAID, Xeljanz, and methotrexate for now Plan: DVT prophylaxis-Lovenox 40 mg twice daily Disposition-admit to telemetry unit, Covid precautions Full code, wants intubated if she gets worse Patient reports her daughter, son, and granddaughter would all be her decision makers if she cannot make decisions for herself please call her daughter Margarita with any updates Admission and Anticipated Discharge Date Admission Date: April 19, 2021 Subjective patient not doing well today, requiring CPAP, drops her saturations to the 70's just to take pills she is comfortable on pressure of 10 and FiO2 90%, sats 90-91% she is belly breathing a little she is very tearful, she is scared because she is getting worse we talked for a while about being on CPAP, that it is a bridge to either getting back on high flow or proceeding to intubation she asked if she was intubated would she come off the ventilator I was honest and told her that the likelihood of her coming off was very low she has been sick for 3 weeks, hospitalize for 2 weeks, on high flow for 10 days and now getting worse we have tried high dose steroids and Lasix, she has been eating well but her lungs are getting worse and she is fatigued she asked that I call her family spoke with her daughter Margarita, she understands how ill the patient is, that she may need intubated and that she is unlikely to come off the ventilator spoke with Dr. Puentes, will get a CXR and BNP, procalcitonin, ABG CXR with small bilateral pneumothorax, bigger on right at 26mm Dr. Puentes placed small anterior chest tube, applied to suction to help expand lung keep off CPAP, use high flow with 15L mask over, saturations were >90% Dr. Puentes available to intubate if she gets worse ABG : 7.47, 38, 62, 27 procalcitonin < 0.05, BNP 210 Review of Systems Review of Systems: All systems reviewed & are unremarkable except as noted in Subjective Constitutional: + fatigue and + weakness Respiratory: + dyspnea and + dyspnea on exertion Psychiatric: + anxiety Physical Exam Physical Exam: General: well developed, well nourished, obese female, no acute distress, comfortable Neck: supple, trachea midline, normal thyroid Lungs: clear to auscultation bilaterally, + tachypnea, + cough, slight accessory muscle use, no distress, sitting upright Heart: regular S1 and S2, no murmur, peripheral pulses normal, capillary refill normal, no edema Abdomen: soft, NT, ND, + BS, no hepatomegaly, normal to percussion Extremities: normal in appearance, no cyanosis, no petechiae, strength is 5/5 bilaterally Neuro: awake, cooperative, moves all extremities, no focal motor deficits, CN II-XII intact, sensation in extremities intact, normal speech Skin: warm, dry, no rash, normal turgor Psych: Awake, alert oriented x 3, anxious affect Results & Data Results & Data ([facility]) Vital Signs (Past 12 Hours) Vital Signs Temp Pulse Pulse Resp BP Pulse Ox 05/02/21 11:23 36.6 C 110 H 19 130/80 92 05/02/21 11:17 102 H 23 93 05/02/21 07:55 36.5 C 49 L 20 143/63 H 95 05/02/21 03:15 93 H 22 93 05/02/21 03:05 36.4 C L 97 H 20 118/71 90 05/02/21 01:20 55 L Laboratory Results Laboratory Results - last 24 hr 05/02/21 05/02/21 05/02/21 07:29 07:29 07:53 WBC 15.05 H RBC 3.98 L Hgb 13.2 Hct 40.0 MCV 100.5 H MCH 33.2 MCHC 33.0 RDW Std Deviation 53.7 H RDW Coeff of Matthew 14.9 H Plt Count 337 MPV 11.7 H ABG pH ABG pCO2 ABG pO2 ABG HCO3 ABG O2 Saturation ABG Base Excess Shoaib Test Barometric Pressure Oxygen Given Sodium 134 L Potassium 4.9 Chloride 97 L Carbon Dioxide 32 Anion Gap 4.0 BUN 47 H Creatinine 0.99 Est Cr Clr Drug Dosing 54.0 Est GFR ( Amer) 66.9 Est GFR (Non-Af Amer) 57.7 BUN/Creatinine Ratio 47.7 H Glucose 226 H POC Glucose 240 H Calcium 9.1 Magnesium 2.6 H C-Reactive Protein 1.96 H NT-Pro-B Natriuret Pep Procalcitonin 05/02/21 05/02/21 05/02/21 12:02 16:54 16:54 WBC RBC Hgb Hct MCV MCH MCHC RDW Std Deviation RDW Coeff of Matthew Plt Count MPV ABG pH ABG pCO2 ABG pO2 ABG HCO3 ABG O2 Saturation ABG Base Excess Shoaib Test Barometric Pressure Oxygen Given Sodium Potassium Chloride Carbon Dioxide Anion Gap BUN Creatinine Est Cr Clr Drug Dosing Est GFR ( Amer) Est GFR (Non-Af Amer) BUN/Creatinine Ratio Glucose POC Glucose 174 H Calcium Magnesium C-Reactive Protein NT-Pro-B Natriuret Pep 210 Procalcitonin < 0.05 05/02/21 05/02/21 05/02/21 16:54 16:56 20:31 WBC RBC Hgb Hct MCV MCH MCHC RDW Std Deviation RDW Coeff of Matthew Plt Count MPV ABG pH 7.47 H ABG pCO2 38 ABG pO2 62 L ABG HCO3 27 H ABG O2 Saturation 92.8 ABG Base Excess 3.2 H Shoaib Test Pos Barometric Pressure 732.7 Oxygen Given ROOM AIT Sodium Potassium Chloride Carbon Dioxide Anion Gap BUN Creatinine Est Cr Clr Drug Dosing Est GFR ( Amer) Est GFR (Non-Af Amer) BUN/Creatinine Ratio Glucose POC Glucose 198 H 236 H Calcium Magnesium C-Reactive Protein NT-Pro-B Natriuret Pep Procalcitonin Medications Administered Current Inpatient Medications Acetaminophen (Acetaminophen 325 Mg Tab) 650 mg PO Q4H PRN PRN Reason: Pain or Fever Stop: 05/19/21 17:20 Last Admin: 04/26/21 20:52 Dose: 650 mg Documented by: Albuterol (Albut/Ipratrop 3mg/0.5mg Neb 3 Ml Vial) 3 ml NEB Q4R PRN PRN Reason: Shortness Of Breath Or Wheezing Stop: 05/20/21 10:59 Last Admin: 04/23/21 00:51 Dose: 3 ml Documented by: Aspirin (Aspirin 81 Mg Ectab) 81 mg PO QAM [facility] Stop: 05/20/21 08:59 Last Admin: 05/02/21 09:43 Dose: Not Given Documented by: Benzonatate (Benzonatate 100 Mg Capsule) 100 mg PO TID [facility] Stop: 05/23/21 01:29 Last Admin: 05/02/21 20:40 Dose: 100 mg Documented by: Calcium Carbonate (Calcium Carbonate 1250mg Tab) 1,250 mg PO [facility] Stop: 05/20/21 08:59 Last Admin: 05/02/21 09:44 Dose: Not Given Documented by: Clopidogrel Bisulfate (Clopidogrel Bisulfate 75 Mg Tab) 75 mg PO [facility] Stop: 05/20/21 08:59 Last Admin: 05/02/21 09:44 Dose: Not Given Documented by: Nystatin 30 ml/ Dexamethasone 3.75 mg/ Diphenhydramine HCl 300 mg/ Sucrose 45 ml/Microcrystalline Cellulose 45 ml/ [employer] 1 ea 0 ml PO Q4H PRN PRN Reason: mouth pain Stop: 05/29/21 21:53 Last Admin: 05/02/21 23:44 Dose: 5 ml Documented by: Cyclobenzaprine HCl (Cyclobenzaprine Hcl 10 Mg Tab) 5 mg PO TID PRN PRN Reason: Muscle Spasm Stop: 05/19/21 17:20 Dextrose (Dextrose 50% 50 Ml Syringe) 25 - 50 ml IV UD PRN; Protocol PRN Reason: Hypoglycemia Protocol Stop: 05/19/21 17:20 Duloxetine HCl (Duloxetine Hcl 30 Mg Cap) 30 mg PO [facility] Stop: 05/20/21 08:59 Last Admin: 05/02/21 09:44 Dose: Not Given Documented by: Duloxetine HCl (Duloxetine Hcl 60 Mg Cap) 60 mg PO [facility] Stop: 05/20/21 08:59 Last Admin: 05/02/21 09:44 Dose: Not Given Documented by: Enoxaparin Sodium (Enoxaparin Inj 40 Mg/0.4 Ml Syr) 40 mg SQ BID [facility] Stop: 05/19/21 20:59 Last Admin: 05/02/21 20:40 Dose: 40 mg Documented by: Fluticasone Propionate (Fluticasone Propionate Na Spr 16 Gm Btl) 2 sprays JENSEN HS [facility] Stop: 05/19/21 20:59 Last Admin: 05/02/21 20:41 Dose: 2 sprays Documented by: Fluticasone/Vilanterol (Fluticasone/Vilanterol 200/25mcg 14 Puffs/Inhaler) 1 puffs INH DAILY [facility] Stop: 05/20/21 08:59 Last Admin: 05/02/21 09:45 Dose: Not Given Documented by: Folic Acid (Folic Acid 1 Mg Tab) 2 mg PO QAM [facility] Stop: 05/20/21 08:59 Last Admin: 05/02/21 09:45 Dose: Not Given Documented by: Furosemide (Furosemide 40 Mg/4 Ml Vial) 40 mg IV DAILY [facility] Stop: 05/26/21 08:59 Last Admin: 05/02/21 09:34 Dose: 40 mg Documented by: Gabapentin (Gabapentin 300 Mg Cap) 300 mg PO TID [facility] Stop: 05/19/21 17:20 Last Admin: 05/02/21 20:42 Dose: 300 mg Documented by: Glucagon (Glucagon For Inj 1 Mg Vial) 1 mg SQ UD PRN; Protocol PRN Reason: Hypoglycemia Protocol Stop: 05/19/21 17:20 Glucose (Glucose 10 Tabs/Tube) 4 - 8 tabs PO UD PRN; Protocol PRN Reason: Hypoglycemia Protocol Stop: 05/19/21 17:20 Glucose (Glucose 40% Gel 15 Gm Tube) 15 - 30 gm PO UD PRN; Protocol PRN Reason: Hypoglycemia Protocol Stop: 05/19/21 17:20 Lorazepam (Ativan) 0.25 mg in 0.5 mls @ 0.5 mls/min IV Q8H PRN PRN Reason: Anxiety Stop: 06/01/21 13:01 Last Admin: 05/02/21 23:45 Dose: 0.5 mls/min Documented by: Dexamethasone 4 mg/ Syringe 1 mls @ 1 mls/min IV DAILY [facility] Stop: 06/02/21 08:59 Insulin Aspart (Insulin Aspart Per Unit) 0 units SC ACHS [facility] Stop: 05/31/21 13:02 Last Admin: 05/02/21 21:23 Dose: 7 units Documented by: Levothyroxine Sodium (Levothyroxine Sodium 25 Mcg Tablet) 25 mcg PO DAILYBB [facility] Stop: 05/20/21 06:29 Last Admin: 05/02/21 05:27 Dose: 25 mcg Documented by: Loratadine (Loratadine 10 Mg Tab) 10 mg PO QAM [facility] Stop: 05/20/21 08:59 Last Admin: 05/02/21 09:45 Dose: Not Given Documented by: Metoprolol Succinate (Metoprolol Succ 50mg Ext Rel Tab) 50 mg PO BID [facility] Stop: 05/19/21 20:59 Last Admin: 05/02/21 08:55 Dose: Not Given Documented by: Metoprolol Tartrate (Metoprolol Tartrate 1 Mg/Ml Vial) 5 mg IV Q6 [facility] Stop: 06/01/21 17:59 Last Admin: 05/02/21 23:44 Dose: Not Given Documented by: Miscellaneous (Carbohydrates For Hypoglycemia ) 15 - 30 gm PO UD PRN PRN Reason: Hypoglycemia Protocol Stop: 05/19/21 17:20 Morphine Sulfate (Morphine Sulfate 2 Mg/Ml [place]) 1 mg IV Q4 PRN PRN Reason: Pain Stop: 05/16/21 14:58 Last Admin: 05/02/21 21:23 Dose: 1 mg Documented by: [facility]ivitamins ([facility]itamin Tab) [facility] Stop: 05/20/21 08:59 Last Admin: 05/02/21 09:45 Dose: Not Given Documented by: Nitroglycerin (Nitroglycerin Sl 0.4 Mg/Tab Tab) 0.4 mg SL UD PRN PRN Reason: Chest Pain Stop: 05/19/21 17:20 Ondansetron HCl (Ondansetron Inj 2 Mg/Ml 2 Ml Vial) 4 mg IV Q6H PRN PRN Reason: Nausea Stop: 05/19/21 17:20 Oxymetazoline HCl (Oxymetazoline 0.05% 30 Ml Btl) 1 sprays NA Q12 PRN PRN Reason: Nasal Congestion Stop: 05/29/21 09:36 Last Admin: 04/29/21 11:12 Dose: 1 sprays Documented by: Polyethylene Glycol (Polyethylene (Miralax) 17 Gm Pack) 17 gm PO DAILY [facility] Stop: 05/29/21 08:59 Last Admin: 05/02/21 09:10 Dose: Not Given Documented by: Ropinirole HCl (Ropinirole Hcl 1 Mg Tablet) 1 mg PO HS [facility] Stop: 05/19/21 20:59 Last Admin: 05/02/21 20:42 Dose: 1 mg Documented by: Sodium Chloride (Sodium Chloride 0.65% Na Soln 45 Ml ([place])) 2 sprays NA TID PRN PRN Reason: Nasal Congestion Stop: 05/23/21 00:29 Last Admin: 04/23/21 01:38 Dose: 2 sprays Documented by: Vitamin D (Cholecalciferol 1,000 Units 25 Mcg Tab) 1,000 units PO QAM [facility] Stop: 05/20/21 08:59 Last Admin: 05/02/21 09:44 Dose: Not Given Documented by: PG Care Time/CCT Total # of Minutes Spent Total Time Spent: 35 Total Time Spent with Patient: Total time spent is greater than 50% in coordination of care (as documented) at patient's floor/unit and/or counseling patient: Coding Level of Care Code 23068 Subseq Hosp Care Lvl 3 Diagnoses Pneumonia due to COVID-19 virus U07.1; J12.82 Acute respiratory failure with hypoxia J96.01 DM2 (diabetes mellitus, type 2) E11.9 Asthma J45.909 Diffuse myofascial pain syndrome M79.18 Hypertension I10 Obesity E66.9 CAD (coronary artery disease) I25.10 Lumbar spinal stenosis M48.061 Hypothyroidism E03.9 Hyperlipidemia E78.5 Depression F32.9 Rheumatoid arthritis M06.9 Pneumothorax J93.9 Pneumomediastinum J98.2
--- NOTE | 2021-05-02 13:54 | XRay Report ---
XR chest 1V portable HISTORY: 70 years-old Female hypoxia acute hypoxia COMPARISON: Chest radiograph 04/23/2021, CTA chest 04/19/2021 TECHNIQUE: Portable AP view of the chest FINDINGS: The cardiomediastinal and hilar silhouettes are unchanged. Interstitial coarsening with multifocal bi lateral airspace opacities., Similar to prior. Subcutaneous emphysema of the right supraclavicular ti ssues. Pneumomediastinum with right apical pneumothorax, 2.6 cm pleural separation. Tiny left apical pneumothorax, pleural separation of 4 mm. Rotator cuff calcific tendinosis. Degenerative changes of t he shoulders and spine. Lumbar spinal fusion hardware. IMPRESSION: 1. Right greater than left apical pneumothoraces with subcutaneous emphysema and pneumomediastinum is new from 04/23/2021. 2. Mixed interstitial and alveolar opacities redemonstrated suggestive of viral pneumonia. ACT 112: Negative or not required by law. The above report was generated using voice recognition software. It may contain grammatical, syntax o r spelling errors. Electronically signed by: Mane Graham M.D. 05/02/2021 1:52 PM
--- NOTE | 2021-05-02 15:05 | Procedure Note ---
Procedure Note Date of Service May 02, 2021 Note Procedure: 8 Guyanese pneumothorax catheter placement on the right Indication: Pneumothorax in the setting of Covid pneumonia Consent: Risks and benefits were explained to the patient. She verbally agreed. Due to the gravity of the situation, written consent was not available. Anesthesia: 5 mL 1% lidocaine locally without epinephrine Proceduralist Dr. Puentes Estimated blood loss none Procedure: Patient was sitting upright in the bed. She was on BiPAP. She developed hypoxemia and chest x-ray today demonstrated right greater than left bilateral apical pneumothoraces with some pneumomediastinum. Consent was obtained from the patient. She was placed seated upright and anatomic landmarks were easily identified. Using chlorhexidine, sterile field was established and a drape was placed over the anterior chest in the midclavicular line just below the clavicle. Using lidocaine, the skin and subcutaneous tissues were anesthetized down to the rib. A skin tito was made with a #11 blade scalpel. And over the needle 8 [place]yanese pneumothorax catheter was then advanced through the skin and subcutaneous tissues. We were able to aspirate air. The catheter was advanced over the needle and the needle was withdrawn. The tube was attached to 20 cm wall suction via a Fela. Bubbling and titling was observed. Using 1-0 silk suture, the tube was secured. A Vaseline impregnated gauze was placed around the incision site and Tegaderm was applied. Post procedure chest x-ray has been ordered and is currently pending. The patient tolerated the procedure well with some pain. Morphine will be added for analgesia. Coding CPT Codes Pulmonary/Thoracic - Pulmonary and Thoracic: 56511 Tube thoracostomy ([id number]) [facility] [place] Codes (Charges) Pulmonary/Thoracic Procedure 1: Pulmonary and Thoracic: 59870 Tube thoracostomy
--- NOTE | 2021-05-02 15:16 | Pulmonology Progress Note ---
Date of Service May 02, 2021 Assessment & Plan (1) Acute respiratory failure with hypoxia: (2) Pneumonia due to COVID-19 virus: (3) Pneumothorax: (4) Pneumomediastinum: Plan: Impression: 70-year-old female with prolonged course of Covid now with pneumothoraces bilaterally right greater than left and pneumomediastinum. Recommendations: 1. Right greater than left pneumothorax. Patient will undergo catheter thoracostomy on the right. Will check chest x-ray post procedurally. We'll monitor the pneumothorax on the left as well as the pneumomediastinum. Recommend that we avoid positive airway pressure ventilation or at least try and minimize it is much as possible. In an effort to pursue that would recommend the patient be taken off CPAP BiPAP and transition to high flow. If Vapotherm is inadequate to achieve appropriate oxygenation, would consider augmenting it with nonrebreather facemask. 2. Hypoxemic respiratory failure: Secondary to Covid pneumonitis. Other etiologies including secondary infection appear less likely. May be reasonable to proceed with a CT angiogram to exclude thromboembolic disease is the patient's been hospitalized for about 2 weeks. Her CRP is normal so I do not think increasing steroids at this point time is likely to offer her a clinical benefit. 3. Covid pneumonitis: Normal CRP at this point time. No indication for escalated steroids. We'll decrease her down to 4 mg a day with plans to taper off over the next several days. Patient's prognosis is certainly guarded at this point time. Should her condition deteriorate, she is open to the prospect of needing intubation mechanical ventilation although her prognosis would be quite guarded. We'll follow with you. Feel free to contact us with questions in the interim. Patient is critically ill at this point time. A total of 40 minutes critical care time exclusive of procedures was spent in evaluation management this patient with life-threatening illness. Admission and Anticipated Discharge Date Admission Date: April 19, 2021 Subjective Asked by hospitalist to reevaluate this patient with hypoxemic respiratory failure secondary to COVID-19 pneumonia and new bilateral pneumothoraces and pneumomediastinum. The patient had been seen previously by pulmonary during the course of this hospitalization. She was initially seen 04/23/2021. She has a history of morbid obesity and rheumatoid arthritis on Biologics in the outpatient setting. Has been hospitalized for an extended period of time and is hospital day #14. Due to progressive hypoxemia and dependence on BiPAP, an x-ray was performed today which demonstrated pneumomediastinum as well as bilateral pneumothoraces. Pulmonary was asked to reevaluate the patient. I evaluated the patient in the room. She is awake alert on BiPAP. She is complaining of some difficulty breathing. She confirms that she would be agreeable to intubation mechanical ventilation if it was felt to be medically necessary but she would like to avoid that if at all possible. She does not feel that her breathing is too onerous or uncomfortable currently. She is not experiencing any crepitus, chest pain, or dysphagia. Review of Systems Review of Systems: All systems reviewed & are unremarkable except as noted in Subjective Physical Exam Physical Exam: General: well developed, well nourished, obese female, no acute distress, comfortable Neck: supple, trachea midline, normal thyroid Lungs: clear to auscultation bilaterally, + tachypnea, + cough, no accessory muscle use, no distress, sitting upright Heart: regular S1 and S2, no murmur, peripheral pulses normal, capillary refill normal, no edema Abdomen: soft, NT, ND, + BS, no hepatomegaly, normal to percussion Extremities: normal in appearance, no cyanosis, no petechiae, strength is 5/5 bilaterally Neuro: awake, cooperative, moves all extremities, no focal motor deficits, CN II-XII intact, sensation in extremities intact, normal speech Skin: warm, dry, no rash, normal turgor Psych: Awake, alert oriented x 3, euthymic affect Results & Data Results & Data ([facility]) Vital Signs (Past 12 Hours) Vital Signs Temp Pulse Pulse Resp BP Pulse Ox 05/02/21 14:28 114 H 19 93 05/02/21 11:23 36.6 C 110 H 19 130/80 92 05/02/21 11:17 102 H 23 93 05/02/21 07:55 36.5 C 49 L 20 143/63 H 95 05/02/21 03:15 93 H 22 93 Critical Care Results & Data Vital Signs (Past 12 Hours) Vital Signs Temp Pulse Pulse Resp BP Pulse Ox 05/02/21 14:28 114 H 19 93 05/02/21 11:23 36.6 C 110 H 19 130/80 92 05/02/21 11:17 102 H 23 93 05/02/21 07:55 36.5 C 49 L 20 143/63 H 95 05/02/21 03:15 93 H 22 93 Lab & Micro Results (Past 24 Hours) RBC 3.98 M/uL (4.2-5.4) L 05/02/21 WBC 15.05 K/uL (4.8-10.8) H 05/02/21 Hgb 13.2 g/dL (12.0-16.0) 05/02/21 Hct 40.0 % (37-47) 05/02/21 MCV 100.5 fL (80-100) H 05/02/21 MCH 33.2 pg (25-34) 05/02/21 MCHC 33.0 g/dL (32-36) 05/02/21 RDW Standard Deviation 53.7 fL (36.4-46.3) H 05/02/21 RDW Coefficient of Variation 14.9 % (11.5-14.5) H 05/02/21 Plt Count 337 K/uL (130-400) 05/02/21 MPV 11.7 fL (7.4-10.4) H 05/02/21 Na 134 mmol/L (136-145) L 05/02/21 K 4.9 mmol/L (3.5-5.1) 05/02/21 Cl 97 mmol/L (98-107) L 05/02/21 CO2 32 mmol/L (21-32) 05/02/21 Anion Gap 4.0 (3-11) 05/02/21 BUN 47 mg/dl (7-18) H 05/02/21 Creatinine 0.99 mg/dl (0.6-1.2) 05/02/21 Estimated GFR ( Amer) 66.9 ml/min 05/02/21 Estimated GFR (Non-Af Amer) 57.7 ml/min 05/02/21 BUN/Creatinine Ratio 47.7 (10-20) H 05/02/21 Glu 226 mg/dl (70-99) H 05/02/21 Ca 9.1 mg/dl (8.5-10.1) 05/02/21 Mg 2.6 mg/dl (1.8-2.4) H 05/02/21 07:29 05/02/21 Calcium Level 9.1 mg/dl (8.5-10.1) 05/02/21 07:29 05/02/21 Diagnostic Findings (Past 24 Hours) Chest X-Ray 05/02/21 13:15 XR chest 1V portable HISTORY: 70 years-old Female hypoxia acute hypoxia COMPARISON: Chest radiograph 04/23/2021, CTA chest 04/19/2021 TECHNIQUE: Portable AP view of the chest FINDINGS: The cardiomediastinal and hilar silhouettes are unchanged. Interstitial coarsening with multifocal bilateral airspace opacities., Similar to prior. Subcutaneous emphysema of the right supraclavicular tissues. Pneumomediastinum with right apical pneumothorax, 2.6 cm pleural separation. Tiny left apical pneumothorax, pleural separation of 4 mm. Rotator cuff calcific tendinosis. Degenerative changes of the shoulders and spine. Lumbar spinal fusion hardware. IMPRESSION: 1. Right greater than left apical pneumothoraces with subcutaneous emphysema and pneumomediastinum is new from 04/23/2021. 2. Mixed interstitial and alveolar opacities redemonstrated suggestive of viral pneumonia. ACT 112: Negative or not required by law. The above report was generated using voice recognition software. It may contain grammatical, syntax or spelling errors. Electronically signed by: Mane Graham M.D. 05/02/2021 1:52 PM I & O Totals 24 Hours 05/01/21 05/02/21 05/03/21 06:59 06:59 06:59 Intake Total 700 / 700 120 / 120 Output Total 1500 / 1500 1525 / 1525 1000 / 1000 Balance -800 / -800 -1405 / -1405 -1000 / -1000 Cumulative 04/19/21 10:03 thru 05/02/21 14:00 Intake Total 7495 Output Total 65115 Balance -8216 RT Ventilator Mngmt (Last Documented) Ventilator Ordered Settings Respiratory Rate 19 05/02/21 14:28 Fraction of Inspired Oxygen 80 05/02/21 14:28 Ventilator - PT Measurements Respiratory Rate 19 PG Care Time/CCT Total # of Minutes Spent Total Time Spent with Patient: Total time spent is greater than 50% in coordination of care (as documented) at patient's floor/unit and/or counseling patient: Coding Level of Care Code Critical Care 1st 30-74 mins Diagnoses Acute respiratory failure with hypoxia J96.01 Pneumonia due to COVID-19 virus U07.1; J12.82 Pneumothorax J93.9 Pneumomediastinum J98.2 Time Spent (min) 40
[2021-05-02] MEDS ORDERED: OPTIRAY 320 125ml IV ONE (15:46)
--- NOTE | 2021-05-02 16:32 | CT Scan Report ---
CT angio chest PE protocol CT DOSE: 749.55 mGy.cm HISTORY: 70 years-old Female with PE. Acute shortness of breath TECHNIQUE: Multiple CTA images of the chest were obtained after the intravenous administration of 120 ml Optiray. Coronal and sagittal MIPS were obtained from the axial data set and were submitted for review. All measurements were obtained according to NASCET criteria. A dose lowering technique was u tilized adhering to the principles of ALARA. COMPARISON: CTA chest 04/19/2021 FINDINGS: CTA: The heart is normal in size. No pericardial effusion. Extensive coronary artery calcifications. No th oracic aortic aneurysm or dissection. Patency of the imaged great vessels. Unremarkable pulmonary art conrad. No filling defects identified to suggest thromboembolic disease. CT CHEST: Unremarkable thyroid. No adenopathy. There is a large amount of pneumomediastinum with associated pne umopericardium, neck, right chest and supravesicular subcutaneous emphysema. Right-sided pneumothorax with pleural separation measuring up to 2.1 cm anteriorly. Left pneumothorax with pleural separation measuring 10 mm anteriorly. Extensive right greater than left bilateral mixed groundglass and airspa ce opacities with areas of intralobular septal thickening. The central airways are patent. 6 mm solid nodule of the right upper lobe is better seen on prior. A right-sided chest tube distal tip terminat es adjacent to the right upper lobe. No acute process of the imaged upper abdomen. Unremarkable soft tissues. Right shoulder rotator cuff calcific tendinosis. IMPRESSION: 1. Cardiomegaly without pulmonary emboli. 2. Extensive pneumomediastinum with associated pneumopericardium, neck, right chest and supraclavicul ar subcutaneous emphysema. 3. Right greater than left bilateral pneumothoraces. Right-sided chest tube distal tip terminates adj acent to the right upper lobe. 4. Extensive right greater than left intermixed groundglass and consolidative opacities are compatibl e with viral pneumonia ACT 112: Negative or not required by law. The above report was generated using voice recognition software. It may contain grammatical, syntax o r spelling errors. Electronically signed by: Mane Graham M.D. 05/02/2021 4:31 PM
[2021-05-02] MEDS: MoRPHine SULFATE 2 MG/ML CARP IV PRN ×2 (16:34→21:23)
[2021-05-02 17:13] LABS: Allen Test Pos (Pos); Base Excess ABG 3.2 mEq/L (-9-1.8); HCO3 ABG 27 mmol/L (19-24); Oxygen Saturation ABG 92.8 % (90-95); PCO2 ABG 38 mmHg (35-46); PO2 ABG 62 mmHg (80-95); pH ABG 7.47 (7.35-7.45)
[2021-05-02] MEDS: METOPROLOL TARTRATE 1 MG/ML VIAL IV SCH ×2 (17:52→23:44)
--- NOTE | 2021-05-02 19:30 | XRay Report ---
XR chest 1V portable HISTORY: 70 years-old Female R chest tube status post placement of a right-sided chest tube COMPARISON: CTA chest of same day, chest radiograph of same day at 1:22 PM TECHNIQUE: Portable AP view of the chest FINDINGS: Cardiac silhouette is enlarged. Extensive bilateral pulmonary opacities appear unchanged. Subcutaneou s emphysema with pneumomediastinum, pneumopericardium bilateral pneumothoraces redemonstrated. The le ft pneumothorax is unchanged with pleural separation of 4 mm. There is improved aeration of the right lung, now with pleural separation 10 mm. A right-sided pleural drainage catheter projects along the lateral aspect of the right midlung. No acute fracture. IMPRESSION: 1. A right-sided chest tube projects over the lateral aspect of the right midlung. The small right ap ical pneumothorax has decreased in size from prior. 2. Tiny left apical pneumothorax is unchanged. 3. Otherwise stable exam. ACT 112: Negative or not required by law. The above report was generated using voice recognition software. It may contain grammatical, syntax o r spelling errors. Electronically signed by: Mane Graham M.D. 05/02/2021 7:28 PM
[2021-05-02] MEDS: FLUTICASONE PROPIONATE NA SPR 16 GM BTL NAE SCH (20:41)
[2021-05-02] MEDS: rOPINIRole HCL 1 MG TABLET PO SCH (20:42)
[2021-05-02] MEDS: LORazepam 0.25 MG/0.5 ML VIAL IV PRN (23:45)
[2021-05-03] MEDS: METOPROLOL TARTRATE 1 MG/ML VIAL IV SCH ×4 (06:25→23:38)
[2021-05-03] MEDS: LEVOTHYROXINE SODIUM 25 MCG TABLET PO SCH (06:25)
--- NOTE | 2021-05-03 08:13 | Hospitalist Progress Note ---
Date of Service May 03, 2021 Assessment & Plan (1) Pneumonia due to COVID-19 virus: Plan: Patient presents on the day of symptoms with progressively worsening shortness of breath and acute respiratory failure with hypoxia tested positive on 04/14 for Covid-19. She was fully vaccinated in 07/2020 Chest x-ray with bilateral airspace opacities consistent with viral pneumonia dexamethasone, decreased to 4mg daily today, On Vapotherm, still on 60L, 100% saturations with minimal movement avoid CPAP with pneumomediastinum and pneumothorax Pigtail chest tube is fallen out today prognosis is getting worse with increased oxygen requirements, pressure support, pneumothorax CTA chest 05/02: no PE, shows the pneumothorax bilaterally and pneumomediastinum CRP was significantly elevated at 8, did not meet for baricitinab due to taking xeljanz getting Lasix 40mg IV daily, negative fluid balance, Cr and K are stable, BNP is 210 incentive spirometry and flutter valve -Encouraged prone or side positioning as tolerated -Lovenox 40 mg SQ twice daily for DVT prophylaxis *discussed worsening condition on 05/03, she is not ready to , would want intubated if necessary Patient understands the gravity of her situation. If intubated patient would have prolonged hospital course with no guaranteed success of survival given the marked changes seen in her lungs and pneumothorax and pneumomediastinum (2) Pneumothorax: Plan: dislodged am of 05/03/21, repeat chest x-ray on the afternoon of the pneumothorax has not worsened on this image (3) Pneumomediastinum: Plan: avoid CPAP as this will cause more expansion monitor closely (4) Acute respiratory failure with hypoxia: Plan: had been stable on high flow 40L 100% all week but unable to wean down 05/02 requiring CPAP with pressure 10, FiO2 90% 05/02 ABG: hypoxemia and respiratory alkalosis BNP normal, procalcitonin normal CRP is 1.9 cut dexamethasone to 10mg IV daily and would taper quickly as steroids likely not helping continue Lasix 40mg iv daily to keep lungs dry (5) DM2 (diabetes mellitus, type 2): Plan: Hemoglobin A1c 6.6% earlier this year Check hemoglobin A1c - 6% monitor for hypo and hyperglycemia, no episodes with the increase in dexamethasone, will adjust Novolog to 15 and 10 carb ratio Glucose remained stable (6) Asthma: Plan: Continue home maintenance inhalers and scheduled duo nebs no wheezing on examination (7) Diffuse myofascial pain syndrome: Plan: Continue home Cymbalta (8) Hypertension: Plan: Blood pressures are mildly elevated here Continue home lisinopril, Lasix, metoprolol (9) Obesity: Plan: BMI 36.6 Needs weight loss (10) CAD (coronary artery disease): Plan: History of NSTEMI 10/2008 with nonobstructive mid LAD stenosis as well as severe stenosis distal segment of left circumflex marginal on cardiac catheterization. No acute issues, troponin here is negative, ECG without acute ischemic changes Continue home aspirin, Plavix, statin, metoprolol, lisinopril (11) Lumbar spinal stenosis: Plan: Continue home gabapentin (12) Hypothyroidism: Plan: Continue home levothyroxine (13) Hyperlipidemia: Plan: Continue home statin (14) Depression: Plan: Continue home Cymbalta (15) Rheumatoid arthritis: Plan: Hold home NSAID, Xeljanz, and methotrexate for now Plan: DVT prophylaxis-Lovenox 40 mg twice daily Disposition-admit to telemetry unit, Covid precautions Full code, wants intubated if she gets worse Patient reports her daughter, son, and granddaughter would all be her decision makers if she cannot make decisions for herself Admission and Anticipated Discharge Date Admission Date: April 19, 2021 Subjective Patient is tearful she is in moderate to severe distress. Discussion with pulmonary medicine regarding the gravity of the situation have created his profound emotional impact on this patient. She remains on high flow 60 L 100% Review of Systems Review of Systems: Moderate distress and fatigue no headache, no visual changes no speech or swallowing issues no chest pain, pressure or palpitations Continue shortness of breath, nonproductive cough or wheezes no abdominal pain, nausea or vomiting, no diarrhea no dysuria, hematuria or frequency no focal joint pain or swelling no back pain, CVA tenderness or radicular pain no bruising, bleeding or rashes no focal signs of weakness or numbness or altered sensation no complaints of anxiety or depression.. Physical Exam Physical Exam: The patient appeared mild to moderate respiratory distress Vital signs as documented. Head exam is normocephalic atraumatic Neck is without JVD, thyromegaly, or carotid bruits. Lungs are coarse bilaterally in all lung fatima, tachypnea, accessory muscle use is present Cardiac exam, Rhythm is regular.. No murmurs, rubs or gallops. Abdominal exam reveals normal bowel sounds, soft non tender, no masses Extremities are nonedematous and both pedal pulses are present Neurologic exam is alert and oriented, no focal loss of strength or sensation Skin is without bruises or rashes Psychologically is without concerns for anxiety or depression.. Results & Data Results & Data ([facility]) Vital Signs (Past 12 Hours) Vital Signs Temp Pulse Pulse Pulse Resp BP BP 05/03/21 08:00 97.7 F 118 H 26 H 05/03/21 06:25 55 L 130/65 05/03/21 05:43 55 L 05/03/21 03:15 97.7 F 65 17 130/65 05/03/21 03:14 56 L 20 05/02/21 23:44 57 L 131/60 05/02/21 23:43 57 L 05/02/21 23:12 97.9 F 63 18 131/60 05/02/21 23:05 64 20 05/02/21 22:20 60 BP Pulse Ox 05/03/21 08:00 135/62 90 05/03/21 06:25 05/03/21 05:43 05/03/21 03:15 94 05/03/21 03:14 93 05/02/21 23:44 05/02/21 23:43 05/02/21 23:12 91 05/02/21 23:05 92 05/02/21 22:20 PG Care Time/CCT Total # of Minutes Spent Total Time Spent with Patient: Total time spent is greater than 50% in coordination of care (as documented) at patient's floor/unit and/or counseling patient: Coding Level of Care Code 87739 Subseq Hosp Care Lvl 3 Diagnoses Pneumonia due to COVID-19 virus U07.1; J12.82 Pneumothorax J93.9 Pneumomediastinum J98.2 Acute respiratory failure with hypoxia J96.01 DM2 (diabetes mellitus, type 2) E11.9 Asthma J45.909 Diffuse myofascial pain syndrome M79.18 Hypertension I10 Obesity E66.9 CAD (coronary artery disease) I25.10 Lumbar spinal stenosis M48.061 Hypothyroidism E03.9 Hyperlipidemia E78.5 Depression F32.9 Rheumatoid arthritis M06.9
[2021-05-03] MEDS ORDERED: dexAMETHasone 10 MG in SYRINGE 0 ML IV SCH (09:00)
--- NOTE | 2021-05-03 09:09 | XRay Report ---
XR chest 1V portable CLINICAL HISTORY: Follow-up bilateral pneumothoraces.. COMPARISON STUDY: No previous studies for comparison. TECHNIQUE: 1 view of the chest FINDINGS: Single frontal view of the chest demonstrates the heart size to be enlarged. Compared to the previous examination, right-sided chest tube has been pulled outside the chest wall. There are small right ap ical pneumothorax is again seen and unchanged. No definite left pneumothorax is seen on the current s tudy. Patchy interstitial and alveolar opacities are again seen bilaterally along with left basilar atelect asis. There is a small left pleural effusion. There is no evidence for vascular congestion. There is no acute osseous pathology. IMPRESSION: 1. Compared to the previous study, the right-sided chest tube has been pulled outside the chest wall. Only a very small right apical pneumothorax is still seen. 2. No evidence for left apical pneumothorax. 3. Bilateral interstitial and alveolar opacities are again seen along with left basilar atelectasis a nd small left pleural effusion. The floor will be informed of these findings. ACT 112: Negative or not required by law. Electronically signed by: Mart Mtz M.D. 05/03/2021 9:08 AM
[2021-05-03] MEDS: dexAMETHasone 4 MG in SYRINGE 0 ML IV SCH (09:29)
[2021-05-03] MEDS: ASPIRIN 81 MG ECTAB PO SCH (09:31)
[2021-05-03] MEDS: CLOPIDOGREL BISULFATE 75 MG TAB PO SCH (09:32)
[2021-05-03] MEDS: DULoxetine HCL 30 MG CAP PO SCH (09:33)
[2021-05-03] MEDS: LORATADINE 10 MG TAB PO SCH (09:33)
[2021-05-03] MEDS: DULoxetine HCL 60 MG CAP PO SCH (09:33)
[2021-05-03] MEDS: CHOLECALCIFEROL 1,000 UNITS 25 MCG TAB PO SCH (09:33)
[2021-05-03] MEDS: GABAPENTIN 300 MG CAP PO SCH ×3 (09:34→19:55)
[2021-05-03] MEDS: MULTIVITAMIN TAB PO SCH (09:34)
[2021-05-03] MEDS: ENOXAPARIN INJ 40 MG/0.4 ML SYR SQ SCH ×2 (09:35→19:59)
[2021-05-03] MEDS: CALCIUM CARBONATE 1250MG TAB PO SCH (09:40)
[2021-05-03] MEDS: POLYETHYLENE (MIRALAX) 17 GM PACK PO SCH (09:40)
[2021-05-03] MEDS: FOLIC ACID 1 MG TAB PO SCH (09:40)
[2021-05-03] MEDS: BENZONATATE 100 MG CAPSULE PO SCH ×3 (09:40→19:58)
[2021-05-03] MEDS: FLUTICASONE/VILANTEROL 200/25MCG 14 PUFFS/INHALER INH SCH (09:40)
[2021-05-03] MEDS: INSULIN ASPART PER UNIT SC SCH ×4 (10:21→21:20)
[2021-05-03] MEDS: FUROSEMIDE 40 MG/4 ML VIAL IV SCH (10:21)
--- NOTE | 2021-05-03 11:13 | Pulmonology Progress Note ---
Date of Service May 03, 2021 Assessment & Plan (1) Acute respiratory failure with hypoxia: (2) Pneumonia due to COVID-19 virus: (3) Pneumothorax: (4) Pneumomediastinum: Plan: Impression: 70-year-old female with prolonged course of Covid now with pneumothoraces bilaterally right greater than left and pneumomediastinum. Her CT scan demonstrates fairly diffuse parenchymal lung disease with pneumomediastinum and bilateral pneumothoraces Recommendations: 1. Right greater than left pneumothorax. Tube thoracostomy was done yesterday. The patient inadvertently removed the tube. Her x-ray does not demonstrate significant reaccumulation of the pneumothorax. Would continue to follow clinically at this point time. Follow-up chest x-ray has been ordered by the primary service 2. Hypoxemic respiratory failure: Secondary to Covid pneumonitis. Continue s upportive care. Avoid positive airway pressure ventilation as this will likely aggravate her pneumothoraces and pneumomediastinum 3. Covid pneumonitis: Normal CRP at this point time. No indication for escalated steroids. Recommend tapering I had a long discussion with the patient as well as the daughter Bailee on the phone. I advised her that based on the appearance of her lungs on CT scan, po sitive airway pressure would very likely result in need for bilateral tube thoracostomy's. In addition given the severity of her lung disease, I think that if she were to go on mechanical ventilation would be unlikely that she would unlikely be able to weaned and would likely need tracheostomy and long- term vent. I think her mortality is quite high regardless of whether or not we pursue intubation mechanical ventilation or current supportive care as she appears to be declining over the last several days. Palliative care would be very appropriate. I recommended that the patient and the daughter consider what interventions might be appropriate. If she were to fail her current therapeutic regimen, it would be very reasonable to consider palliative care measures at that point in time. Please contact us should the patient's clinical condition deteriorate or if the pneumothoraces should increase in size Total of 45 minutes critical care time was spent evaluation management this patient including end-of-life issues. Admission and Anticipated Discharge Date Admission Date: April 19, 2021 Subjective Patient seen and examined. She feels better. She is transition to high flow nasal cannula with nonrebreather. She remains tachypneic. The chest tube inad vertently was pulled out overnight. Follow-up chest x-rays have not demonstrated any recurrence of the pneumothorax. Review of Systems Review of Systems: All systems reviewed & are unremarkable except as noted in Subjective Physical Exam Physical Exam: General: well developed, well nourished, obese female, no acute distress, comfortable Neck: supple, trachea midline, normal thyroid Lungs: clear to auscultation bilaterally, + tachypnea, + cough, slight accessory muscle use, no distress, sitting upright Heart: regular S1 and S2, no murmur, peripheral pulses normal, capillary refill normal, no edema Abdomen: soft, NT, ND, + BS, no hepatomegaly, normal to percussion Extremities: normal in appearance, no cyanosis, no petechiae, strength is 5/5 bilaterally Neuro: awake, cooperative, moves all extremities, no focal motor deficits, CN II-XII intact, sensation in extremities intact, normal speech Skin: warm, dry, no rash, normal turgor Psych: Awake, alert oriented x 3, anxious affect Results & Data Results & Data ([facility]) Vital Signs (Past 12 Hours) Vital Signs Temp Pulse Pulse Pulse Resp BP BP 05/03/21 10:34 109 H 26 H 05/03/21 10:00 57 L 05/03/21 09:23 120 H 135/62 05/03/21 08:00 36.5 C 118 H 26 H 05/03/21 06:25 55 L 130/65 05/03/21 05:43 55 L 05/03/21 03:15 36.5 C 65 17 130/65 05/03/21 03:14 56 L 20 05/02/21 23:44 57 L 131/60 05/02/21 23:43 57 L 05/02/21 23:12 36.6 C 63 18 131/60 BP Pulse Ox 05/03/21 10:34 90 05/03/21 10:00 05/03/21 09:23 05/03/21 08:00 135/62 90 05/03/21 06:25 05/03/21 05:43 05/03/21 03:15 94 05/03/21 03:14 93 05/02/21 23:44 05/02/21 23:43 05/02/21 23:12 91 Critical Care Results & Data Vital Signs (Past 12 Hours) Vital Signs Temp Pulse Pulse Pulse Resp BP BP 05/03/21 10:34 109 H 26 H 05/03/21 10:00 57 L 05/03/21 09:23 120 H 135/62 05/03/21 08:00 36.5 C 118 H 26 H 05/03/21 06:25 55 L 130/65 05/03/21 05:43 55 L 05/03/21 03:15 36.5 C 65 17 130/65 05/03/21 03:14 56 L 20 05/02/21 23:44 57 L 131/60 05/02/21 23:43 57 L BP Pulse Ox 05/03/21 10:34 90 05/03/21 10:00 05/03/21 09:23 05/03/21 08:00 135/62 90 05/03/21 06:25 05/03/21 05:43 05/03/21 03:15 94 05/03/21 03:14 93 05/02/21 23:44 05/02/21 23:43 Lab & Micro Results (Past 24 Hours) No Data to Display No Data to Display Blood Gas Barometric Pressure 732.7 mm/Hg 05/02/21 16:54 05/02/21 Arterial Blood pH 7.47 (7.35-7.45) H 05/02/21 16:54 05/02/21 Arterial Blood Partial Pressure CO2 38 mmHg (35-46) 05/02/21 16:54 05/02/21 Arterial Blood Partial Pressure O2 62 mmHg (80-95) L 05/02/21 16:54 05/02/21 Arterial Blood HCO3 27 mmol/L (19-24) H 05/02/21 16:54 05/02/21 Arterial Blood Base Excess 3.2 mEq/L (-9-1.8) H 05/02/21 16:54 05/02/21 Arterial Blood Oxygen Saturation 92.8 % (90-95) 05/02/21 16:54 05/02/21 Blood Gas Oxygen Given ROOM AIT 05/02/21 16:54 05/02/21 Shoaib Test Pos (Pos) 05/02/21 16:54 05/02/21 Blood Gas Barometric Pressure 732.7 mm/Hg 05/02/21 16:54 05/02/21 Diagnostic Findings (Past 24 Hours) Chest X-Ray 05/02/21 13:15 XR chest 1V portable HISTORY: 70 years-old Female hypoxia acute hypoxia COMPARISON: Chest radiograph 04/23/2021, CTA chest 04/19/2021 TECHNIQUE: Portable AP view of the chest FINDINGS: The cardiomediastinal and hilar silhouettes are unchanged. Interstitial coarsening with multifocal bilateral airspace opacities., Similar to prior. Subcutaneous emphysema of the right supraclavicular tissues. Pneumomediastinum with right apical pneumothorax, 2.6 cm pleural separation. Tiny left apical pneumothorax, pleural separation of 4 mm. Rotator cuff calcific tendinosis. Degenerative changes of the shoulders and spine. Lumbar spinal fusion hardware. IMPRESSION: 1. Right greater than left apical pneumothoraces with subcutaneous emphysema and pneumomediastinum is new from 04/23/2021. 2. Mixed interstitial and alveolar opacities redemonstrated suggestive of viral pneumonia. ACT 112: Negative or not required by law. The above report was generated using voice recognition software. It may contain grammatical, syntax or spelling errors. Electronically signed by: Mane Graham M.D. 05/02/2021 1:52 PM Chest X-Ray 05/02/21 14:58 XR chest 1V portable HISTORY: 70 years-old Female R chest tube status post placement of a right- sided chest tube COMPARISON: CTA chest of same day, chest radiograph of same day at 1:22 PM TECHNIQUE: Portable AP view of the chest FINDINGS: Cardiac silhouette is enlarged. Extensive bilateral pulmonary opacities appear unchanged. Subcutaneous emphysema with pneumomediastinum, pneumopericardium bilateral pneumothoraces redemonstrated. The left pneumothorax is unchanged with pleural separation of 4 mm. There is improved aeration of the right lung, now with pleural separation 10 mm. A right-sided pleural drainage catheter projects along the lateral aspect of the right midlung. No acute fracture. IMPRESSION: 1. A right-sided chest tube projects over the lateral aspect of the right midlung. The small right apical pneumothorax has decreased in size from prior. 2. Tiny left apical pneumothorax is unchanged. 3. Otherwise stable exam. ACT 112: Negative or not required by law. The above report was generated using voice recognition software. It may contain grammatical, syntax or spelling errors. Electronically signed by: Mane Graham M.D. 05/02/2021 7:28 PM Chest CTA 05/02/21 15:15 CT angio chest PE protocol CT DOSE: 749.55 mGy.cm HISTORY: 70 years-old Female with PE. Acute shortness of breath TECHNIQUE: Multiple CTA images of the chest were obtained after the intravenous administration of 120 ml Optiray. Coronal and sagittal MIPS were obtained from the axial data set and were submitted for review. All measurements were obtained according to NASCET criteria. A dose lowering technique was utilized adhering to the principles of ALARA. COMPARISON: CTA chest 04/19/2021 FINDINGS: CTA: The heart is normal in size. No pericardial effusion. Extensive coronary artery calcifications. No thoracic aortic aneurysm or dissection. Patency of the imaged great vessels. Unremarkable pulmonary artery. No filling defects identified to suggest thromboembolic disease. CT CHEST: Unremarkable thyroid. No adenopathy. There is a large amount of pneumomediastinum with associated pneumopericardium, neck, right chest and supravesicular subcutaneous emphysema. Right-sided pneumothorax with pleural separation measuring up to 2.1 cm anteriorly. Left pneumothorax with pleural separation measuring 10 mm anteriorly. Extensive right greater than left bilateral mixed groundglass and airspace opacities with areas of intralobular septal thickening. The central airways are patent. 6 mm solid nodule of the right upper lobe is better seen on prior. A right-sided chest tube distal tip terminates adjacent to the right upper lobe. No acute process of the imaged upper abdomen. Unremarkable soft tissues. Right shoulder rotator cuff calcific tendinosis. IMPRESSION: 1. Cardiomegaly without pulmonary emboli. 2. Extensive pneumomediastinum with associated pneumopericardium, neck, right chest and supraclavicular subcutaneous emphysema. 3. Right greater than left bilateral pneumothoraces. Right-sided chest tube distal tip terminates adjacent to the right upper lobe. 4. Extensive right greater than left intermixed groundglass and consolidative opacities are compatible with viral pneumonia ACT 112: Negative or not required by law. The above report was generated using voice recognition software. It may contain grammatical, syntax or spelling errors. Electronically signed by: Mane Grhaam M.D. 05/02/2021 4:31 PM Chest X-Ray 05/03/21 07:00 XR chest 1V portable CLINICAL HISTORY: Follow-up bilateral pneumothoraces.. COMPARISON STUDY: No previous studies for comparison. TECHNIQUE: 1 view of the chest FINDINGS: Single frontal view of the chest demonstrates the heart size to be enlarged. Compared to the previous examination, right-sided chest tube has been pulled outside the chest wall. There are small right apical pneumothorax is again seen and unchanged. No definite left pneumothorax is seen on the current study. Patchy interstitial and alveolar opacities are again seen bilaterally along with left basilar atelectasis. There is a small left pleural effusion. There is no evidence for vascular congestion. There is no acute osseous pathology. IMPRESSION: 1. Compared to the previous study, the right-sided chest tube has been pulled outside the chest wall. Only a very small right apical pneumothorax is still seen. 2. No evidence for left apical pneumothorax. 3. Bilateral interstitial and alveolar opacities are again seen along with left basilar atelectasis and small left pleural effusion. The floor will be informed of these findings. ACT 112: Negative or not required by law. Electronically signed by: Mart Mtz M.D. 05/03/2021 9:08 AM I & O Totals 24 Hours 05/02/21 05/03/21 05/04/21 06:59 06:59 06:59 Intake Total 120 / 120 250 / 250 240 / 240 Output Total 1525 / 1525 1600 / 1600 0 / 0 Balance -1405 / -1405 -1350 / -1350 240 / 240 Cumulative 04/19/21 10:03 thru 05/03/21 10:00 Intake Total 7985 Output Total 21232 Balance -8326 RT Ventilator Mngmt (Last Documented) Ventilator Ordered Settings Respiratory Rate 26 05/03/21 10:34 Fraction of Inspired Oxygen 100 05/03/21 10:34 Ventilator - PT Measurements Respiratory Rate 26 PG Care Time/CCT Total # of Minutes Spent Total Time Spent with Patient: Total time spent is greater than 50% in coordination of care (as documented) at patient's floor/unit and/or counseling patient: Coding Level of Care Code Critical Care 1st 30-74 mins Diagnoses Acute respiratory failure with hypoxia J96.01 Pneumonia due to COVID-19 virus U07.1; J12.82 Pneumothorax J93.9 Pneumomediastinum J98.2 Time Spent (min) 41
--- NOTE | 2021-05-03 13:13 | XRay Report ---
XR chest 1V portable at 12:34 PM CLINICAL HISTORY: progression or regression of right pneumothorax. Status post right-sided chest tu be removal COMPARISON STUDY: Portable chest from 05/03/2021 at 6:49 AM TECHNIQUE: 1 view of the chest FINDINGS: Single frontal view of the chest demonstrates the heart size to again be enlarged. Compared to the ea rlier examination, no evidence for pneumothorax is identified on the right. No left-sided pneumothora x is seen either. Bilateral interstitial and alveolar opacities are again seen and unchanged. There is again evidence f or left pleural effusion and left basilar atelectasis. There is no evidence for vascular congestion. There is no acute osseous pathology. IMPRESSION: 1. Compared to the earlier examination, there is no evidence for right-sided pneumothorax is identifi ed. 2. Bilateral interstitial and alveolar opacities are again seen and unchanged. 3. There is left lower lobe atelectasis/collapse and left pleural effusion. ACT 112: Negative or not required by law. Electronically signed by: Mart Mtz M.D. 05/03/2021 1:12 PM
[2021-05-03] MEDS: LORazepam 0.25 MG/0.5 ML VIAL IV PRN ×2 (17:18→23:38)
[2021-05-03] MEDS: ACETAMINOPHEN 325 MG TAB PO PRN (17:18)
[2021-05-03] MEDS: MoRPHine SULFATE 2 MG/ML CARP IV PRN (19:35)
[2021-05-03] MEDS: rOPINIRole HCL 1 MG TABLET PO SCH (19:56)
[2021-05-03] MEDS: FLUTICASONE PROPIONATE NA SPR 16 GM BTL NAE SCH (19:58)
[2021-05-04] MEDS: MoRPHine SULFATE 2 MG/ML CARP IV PRN (04:11)
[2021-05-04] MEDS: METOPROLOL TARTRATE 1 MG/ML VIAL IV SCH ×4 (05:55→23:41)
[2021-05-04] MEDS: LEVOTHYROXINE SODIUM 25 MCG TABLET PO SCH (05:55)
[2021-05-04] MEDS: INSULIN ASPART PER UNIT SC SCH ×4 (08:00→21:50)
[2021-05-04] MEDS ORDERED: KETOROLAC TROMETHAMINE 15 MG/ML VIAL IV ONE (08:00)
[2021-05-04] MEDS: dexAMETHasone 4 MG in SYRINGE 0 ML IV SCH (08:30)
[2021-05-04] MEDS: ENOXAPARIN INJ 40 MG/0.4 ML SYR SQ SCH ×2 (08:31→21:51)
[2021-05-04] MEDS: BENZONATATE 100 MG CAPSULE PO SCH ×3 (09:08→21:51)
[2021-05-04] MEDS: ASPIRIN 81 MG ECTAB PO SCH (09:08)
[2021-05-04] MEDS: CHOLECALCIFEROL 1,000 UNITS 25 MCG TAB PO SCH (09:08)
[2021-05-04] MEDS: CLOPIDOGREL BISULFATE 75 MG TAB PO SCH (09:08)
[2021-05-04] MEDS: CALCIUM CARBONATE 1250MG TAB PO SCH (09:08)
[2021-05-04] MEDS: DULoxetine HCL 30 MG CAP PO SCH (09:08)
[2021-05-04] MEDS: FOLIC ACID 1 MG TAB PO SCH (09:09)
[2021-05-04] MEDS: LORATADINE 10 MG TAB PO SCH (09:09)
[2021-05-04] MEDS: FLUTICASONE/VILANTEROL 200/25MCG 14 PUFFS/INHALER INH SCH (09:09)
[2021-05-04] MEDS: GABAPENTIN 300 MG CAP PO SCH ×3 (09:09→21:51)
[2021-05-04] MEDS: POLYETHYLENE (MIRALAX) 17 GM PACK PO SCH (09:09)
[2021-05-04] MEDS: DULoxetine HCL 60 MG CAP PO SCH (09:09)
[2021-05-04] MEDS: MULTIVITAMIN TAB PO SCH (09:09)
[2021-05-04] MEDS: FUROSEMIDE 40 MG/4 ML VIAL IV SCH (09:10)
--- NOTE | 2021-05-04 10:21 | XRay Report ---
XR chest 1V portable CLINICAL HISTORY: pneumothorax TECHNIQUE: Single frontal radiograph of the chest was obtained. Comparison: Comparison is made to chest one view 05/03/2021 FINDINGS: No lines and tubes are seen. The cardiomediastinal silhouette is obscured. Lungs are underinflated bu t clear. Diffuse airspace opacities are again noted, slightly increased on the right. No evidence of pleural effusion or pneumothorax. IMPRESSION: 1. Normal worsening of right sided airspace opacities. Stable left airspace opacities. 2. No pneumothorax. ACT 112: Negative or not required by law. Electronically signed by: Del Estrada M.D. 05/04/2021 10:20 AM
--- NOTE | 2021-05-04 11:20 | Pulmonology Progress Note ---
Date of Service May 04, 2021 Assessment & Plan (1) Acute respiratory failure with hypoxia: (2) Pneumonia due to COVID-19 virus: (3) Pneumothorax: (4) Pneumomediastinum: Plan: Impression: 70-year-old female with prolonged course of Covid now with pneumothoraces bilaterally right greater than left and pneumomediastinum. Her CT scan demonstrates fairly diffuse parenchymal lung disease with pneumomediastinum and bilateral pneumothoraces Recommendations: 1. Right greater than left pneumothorax. Follow-up chest x-ray has not demonstrated any recurrence of the pneumothoraces. Recommend that we continue to avoid positive airway pressure is much as possible as these may have been caused or exacerbated by application of CPAP/BiPAP 2. Hypoxemic respiratory failure: Secondary to Covid pneumonitis. Continue supportive care. Avoid positive airway pressure ventilation as this will likely aggravate her pneumothoraces and pneumomediastinum. Agree with facemask in combination with heated high flow nasal cannula 3. Covid pneumonitis: Normal CRP at this point time. No indication for escalated steroids. Recommend tapering Recommend palliative care consultation Please contact us should the patient's clinical condition deteriorate or if the pneumothoraces should increase in size Admission and Anticipated Discharge Date Admission Date: April 19, 2021 Subjective Patient seen and examined. EMR reviewed. Called by hospitalist that the patient has had an escalating oxygen requirement although her requirement appears to be relatively stable compared to where she was yesterday. The patient states that she is breathing fine. She is using a high flow mask in conjunction with her heated high flow nasal cannula. She denies any increased work of breathing tachypnea or chest pain. She thinks she is getting better. She endorses no respiratory distress Review of Systems Review of Systems: All systems reviewed & are unremarkable except as noted in Subjective Physical Exam Physical Exam: General: well developed, well nourished, obese female, no acute distress, comfortable Neck: supple, trachea midline, normal thyroid Lungs: clear to auscultation bilaterally, + tachypnea, + cough, slight accessory muscle use, no distress, sitting upright Heart: regular S1 and S2, no murmur, peripheral pulses normal, capillary refill normal, no edema Abdomen: soft, NT, ND, + BS, no hepatomegaly, normal to percussion Extremities: normal in appearance, no cyanosis, no petechiae, strength is 5/5 bilaterally Neuro: awake, cooperative, moves all extremities, no focal motor deficits, CN II-XII intact, sensation in extremities intact, normal speech Skin: warm, dry, no rash, normal turgor Psych: Awake, alert oriented x 3, anxious affect Results & Data Results & Data ([facility]) Vital Signs (Past 12 Hours) Vital Signs Temp Pulse Pulse Pulse Resp BP BP 05/04/21 08:01 37.0 C 128 H 24 05/04/21 07:42 116 H 05/04/21 07:16 125 H 28 H 05/04/21 05:55 129 H 132/74 05/04/21 04:05 37.4 C 126 H 22 05/04/21 02:55 120 H 30 H 05/03/21 23:38 131 H 103/65 05/03/21 23:36 36.6 C 131 H 20 103/65 BP Pulse Ox 05/04/21 08:01 110/66 90 05/04/21 07:42 05/04/21 07:16 90 05/04/21 05:55 05/04/21 04:05 134/79 94 05/04/21 02:55 94 05/03/21 23:38 05/03/21 23:36 93 Critical Care Results & Data Vital Signs (Past 12 Hours) Vital Signs Temp Pulse Pulse Pulse Resp BP BP 05/04/21 08:01 37.0 C 128 H 24 05/04/21 07:42 116 H 05/04/21 07:16 125 H 28 H 05/04/21 05:55 129 H 132/74 05/04/21 04:05 37.4 C 126 H 22 05/04/21 02:55 120 H 30 H 05/03/21 23:38 131 H 103/65 05/03/21 23:36 36.6 C 131 H 20 103/65 BP Pulse Ox 05/04/21 08:01 110/66 90 05/04/21 07:42 05/04/21 07:16 90 05/04/21 05:55 05/04/21 04:05 134/79 94 05/04/21 02:55 94 05/03/21 23:38 05/03/21 23:36 93 Lab & Micro Results (Past 24 Hours) No Data to Display No Data to Display No Data to Display Diagnostic Findings (Past 24 Hours) Chest X-Ray 05/03/21 13:00 XR chest 1V portable at 12:34 PM CLINICAL HISTORY: progression or regression of right pneumothorax. Status post right-sided chest tube removal COMPARISON STUDY: Portable chest from 05/03/2021 at 6:49 AM TECHNIQUE: 1 view of the chest FINDINGS: Single frontal view of the chest demonstrates the heart size to again be enlarged. Compared to the earlier examination, no evidence for pneumothorax is identified on the right. No left-sided pneumothorax is seen either. Bilateral interstitial and alveolar opacities are again seen and unchanged. There is again evidence for left pleural effusion and left basilar atelectasis. There is no evidence for vascular congestion. There is no acute osseous pathology. IMPRESSION: 1. Compared to the earlier examination, there is no evidence for right-sided pneumothorax is identified. 2. Bilateral interstitial and alveolar opacities are again seen and unchanged. 3. There is left lower lobe atelectasis/collapse and left pleural effusion. ACT 112: Negative or not required by law. Electronically signed by: Mart Mtz M.D. 05/03/2021 1:12 PM Chest X-Ray 05/04/21 07:00 XR chest 1V portable CLINICAL HISTORY: pneumothorax TECHNIQUE: Single frontal radiograph of the chest was obtained. Comparison: Comparison is made to chest one view 05/03/2021 FINDINGS: No lines and tubes are seen. The cardiomediastinal silhouette is obscured. Lungs are underinflated but clear. Diffuse airspace opacities are again noted, slightly increased on the right. No evidence of pleural effusion or pneumothorax. IMPRESSION: 1. Normal worsening of right sided airspace opacities. Stable left airspace opacities. 2. No pneumothorax. ACT 112: Negative or not required by law. Electronically signed by: Del Estrada M.D. 05/04/2021 10:20 AM I & O Totals 24 Hours 05/03/21 05/04/21 05/05/21 06:59 06:59 06:59 Intake Total 250 / 250 580 / 580 Output Total 1600 / 1600 1300 / 1300 Balance -1350 / -1350 -720 / -720 Cumulative 04/19/21 10:03 thru 05/04/21 05:46 Intake Total 8325 Output Total 83950 Balance -9286 RT Ventilator Mngmt (Last Documented) Ventilator Ordered Settings Respiratory Rate 24 05/04/21 08:01 Fraction of Inspired Oxygen 100 05/04/21 09:58 Ventilator - PT Measurements Respiratory Rate 24 PG Care Time/CCT Total # of Minutes Spent Total Time Spent with Patient: Total time spent is greater than 50% in coordination of care (as documented) at patient's floor/unit and/or counseling patient: Coding Level of Care Code 42482 Subseq Hosp Care Lvl 2 Diagnoses Acute respiratory failure with hypoxia J96.01 Pneumonia due to COVID-19 virus U07.1; J12.82 Pneumothorax J93.9 Pneumomediastinum J98.2
--- NOTE | 2021-05-04 18:09 | Hospitalist Progress Note ---
Date of Service May 04, 2021 Assessment & Plan (1) Pneumonia due to COVID-19 virus: Plan: Patient presents on the day of symptoms with progressively worsening shortness of breath and acute respiratory failure with hypoxia tested positive on 04/14 for Covid-19. She was fully vaccinated in 07/2020 Chest x-ray with bilateral airspace opacities consistent with viral pneumonia dexamethasone, decreased to 4mg daily On Vapotherm, still on 60L, 100% saturations with minimal movement, at times needing 15 L oxymask on it additionally avoid CPAP with pneumomediastinum and pneumothorax Pigtail chest tube is fallen out 05/03 prognosis is getting worse with increased oxygen requirements, pressure support, pneumothorax CTA chest 05/02: no PE, shows the pneumothorax bilaterally and pneumomediastinum CRP was significantly elevated at 8, did not meet for baricitinab due to taking xeljanz getting Lasix 40mg IV daily, negative fluid balance, Cr and K are stable, BNP is 210 incentive spirometry and flutter valve -Encouraged prone or side positioning as tolerated -Lovenox 40 mg SQ twice daily for DVT prophylaxis *discussed worsening condition on 05/03, she is not ready to , would want intubated if necessary Patient understands the gravity of her situation. If intubated patient would have prolonged hospital course with no guaranteed success of survival given the marked changes seen in her lungs and pneumothorax and pneumomediastinum (2) Pneumothorax: Plan: dislodged am of 05/03/21, repeat chest x-ray on the afternoon of the pneumothorax has not worsened on this image (3) Pneumomediastinum: Plan: avoid CPAP as this will cause more expansion monitor closely (4) Acute respiratory failure with hypoxia: Plan: on high flow 60L 100% unable to wean down 05/02 ABG: hypoxemia and respiratory alkalosis BNP normal, procalcitonin normal CRP is 1.9 cut dexamethasone to 10mg IV daily and pulmonary med recommends tapering continue Lasix 40mg iv daily to keep lungs dry (5) DM2 (diabetes mellitus, type 2): Plan: Hemoglobin A1c 6.6% earlier this year Check hemoglobin A1c - 6% monitor for hypo and hyperglycemia, no episodes with the increase in dexamethasone, will adjust Novolog to 15 and 10 carb ratio Glucose remained stable (6) Asthma: Plan: Continue home maintenance inhalers and scheduled duo nebs no wheezing on examination (7) Diffuse myofascial pain syndrome: Plan: Continue home Cymbalta (8) Hypertension: Plan: Blood pressures are mildly elevated here Continue home lisinopril, Lasix, metoprolol (9) Obesity: Plan: BMI 36.6 Needs weight loss (10) CAD (coronary artery disease): Plan: History of NSTEMI 10/2008 with nonobstructive mid LAD stenosis as well as severe stenosis distal segment of left circumflex marginal on cardiac catheterization. No acute issues, troponin here is negative, ECG without acute ischemic changes Continue home aspirin, Plavix, statin, metoprolol, lisinopril (11) Lumbar spinal stenosis: Plan: Continue home gabapentin (12) Hypothyroidism: Plan: Continue home levothyroxine (13) Hyperlipidemia: Plan: Continue home statin (14) Depression: Plan: Continue home Cymbalta (15) Rheumatoid arthritis: Plan: Hold home NSAID, Xeljanz, and methotrexate for now Plan: DVT prophylaxis-Lovenox 40 mg twice daily Disposition-admit to telemetry unit, Covid precautions Full code, wants intubated if she gets worse Patient reports her daughter, son, and granddaughter would all be her decision makers if she cannot make decisions for herself Admission and Anticipated Discharge Date Admission Date: April 19, 2021 Subjective this morning she was using a high flow mask in conjunction with her heated high flow nasal cannula. She denies any increased work of breathing tachypnea or chest pain. She thinks she is getting better. She endorses no respiratory distress. Discussion with pulmonary medicine attempts to avoid intubation as positive pressure will exacerbate pneumothorax. Review of Systems Review of Systems: Moderate distress and fatigue no headache, no visual changes no speech or swallowing issues no chest pain, pressure or palpitations Continue shortness of breath, nonproductive cough or wheezes no abdominal pain, nausea or vomiting, no diarrhea no dysuria, hematuria or frequency no focal joint pain or swelling no back pain, CVA tenderness or radicular pain no bruising, bleeding or rashes no focal signs of weakness or numbness or altered sensation no complaints of anxiety or depression.. Physical Exam Constitutional: The patient appeared moderate respiratory distress Vital signs as documented. Head exam is normocephalic atraumatic Neck is without JVD, thyromegaly, or carotid bruits. Lungs are coarse bilaterally in all lung fatima tachypnea Cardiac exam, Rhythm is regular.. No murmurs, rubs or gallops. Abdominal exam reveals normal bowel sounds, soft non tender, no masses Extremities are nonedematous and both pedal pulses are present Neurologic exam is alert and oriented, no focal loss of strength or sensation Skin is without bruises or rashes Psychologically is with concerns for anxiety or depression. Results & Data Results & Data ([facility]) Vital Signs (Past 12 Hours) Vital Signs Temp Pulse Pulse Resp BP Pulse Ox Pulse Ox 05/04/21 17:50 127 H 05/04/21 16:31 98.2 F 128 H 20 135/72 93 05/04/21 15:24 113 H 22 89 L 05/04/21 15:00 94 05/04/21 12:18 98.1 F 133 H 22 144/83 H 96 05/04/21 12:16 138 H 05/04/21 11:56 135 H 20 92 05/04/21 08:01 98.6 F 128 H 24 110/66 90 05/04/21 07:42 116 H 05/04/21 07:16 125 H 28 H 90 PG Care Time/CCT Total # of Minutes Spent Total Time Spent with Patient: Total time spent is greater than 50% in coordination of care (as documented) at patient's floor/unit and/or counseling patient: Coding Level of Care Code 94309 Subseq Hosp Care Lvl 3 Diagnoses Pneumonia due to COVID-19 virus U07.1; J12.82 Pneumothorax J93.9 Pneumomediastinum J98.2 Acute respiratory failure with hypoxia J96.01 DM2 (diabetes mellitus, type 2) E11.9 Asthma J45.909 Diffuse myofascial pain syndrome M79.18 Hypertension I10 Obesity E66.9 CAD (coronary artery disease) I25.10 Lumbar spinal stenosis M48.061 Hypothyroidism E03.9 Hyperlipidemia E78.5 Depression F32.9 Rheumatoid arthritis M06.9
[2021-05-04] MEDS: FLUTICASONE PROPIONATE NA SPR 16 GM BTL NAE SCH (21:51)
[2021-05-04] MEDS: rOPINIRole HCL 1 MG TABLET PO SCH (21:51)
[2021-05-05] MEDS ORDERED: RAPID SEQUENCE INDUCTION BAG ONE (04:38)
[2021-05-05] MEDS ORDERED: STAT IV Infusion **Titration per Protocol STA ×3 (05:06→10:38)
[2021-05-05] MEDS ORDERED: MIDAZOLAM HCL 125MG/250ML D5W ONE (05:06)
[2021-05-05] MEDS: CISATRACURIUM BESYLATE 40 MG in 0.9 % SODIUM CHLORIDE 80 ML IV SCH ×3 (05:30→17:28)
--- NOTE | 2021-05-05 06:02 | Emergency Department Note ---
ED Visit Note Endotracheal Intubation Note Indication respiratory failure. The patient was on high flow nasal cannula, oxygen mask, and NRB prior to the procedure. Suction, airway equipment, RSI drugs, respiratory equipment, and appropriate personnel were prepared prior to the initiation of the procedure. A time out was taken. Induction was performed with 30 mg of Etomidate. After observing the clinical benefit of the medications, the airway was easily visualized utilizing a glide scope. A 7.5 size ETT tube was placed atraumatically to 24.5 cm using standard. The cuff inflated without signs of malfunction. There were bilateral breath sounds, positive colormetric change, no gastric sounds, and post procedure pulse oximetry was 85%. There were no com plications. .
[2021-05-05] MEDS: ARTIFICIAL TEARS OP OINT 3.5 GM TUBE OP SCH ×5 (06:33→20:11)
[2021-05-05] MEDS: LEVOTHYROXINE SODIUM 25 MCG TABLET PO SCH (06:34)
[2021-05-05] MEDS ORDERED: ICU PROTOCOL FOR HYPERGLYCEMIA PRN (06:47)
--- NOTE | 2021-05-05 06:56 | Procedure Note ---
Procedure Note Date of Service May 05, 2021 Note Procedure: Internal Jugular Central Line Placement Attending: Dr. Puentes APC: Bao Falk PA-C Indication: Central Drug Administration, Poor Venous Access, Multiple Lab Draws Necessary, etc. Anesthesia: Lidocaine 1% Emergent consent implied in the setting of respiratory failure requiring emergent intubation, need for multiple medications, poor peripheral access, frequent lab draws, etc. A time-out was completed verifying correct patient, procedure, site, positioning, and implants(s) or special equipment if applicable. Patient�s RIGHT Neck was cleansed and draped in the typical sterile fashion using Chloraprep. The Internal Jugular Vein and Carotid Artery were identified using ultrasound. The superficial tissue was anesthetized using 4.0 mL of 1% lidocaine without epinephrine under direct visualization with the ultrasound. After adequate anesthetization was achieved, the Internal Jugular vein was cannulated under direct ultrasound guidance using an introducer needle on a syringe. Good venous blood return was maintained prior to removal of syringe from introducer needle. Using Seldinger Technique, a guide wire was advanced through the introducer needle without resistance. The introducer needle was removed and ultrasound images were obtained of the guide wire within the Internal Jugular Vein and saved to the patient�s medical record.The dilator was advanced to the vessel without resistance. The dilator was exchanged for the triple lumen catheter which was advanced into the vessel without resistance. The guide wire was removed intact from the catheter without issue. Claves were placed on each catheter tip with confirmation of good blood flow from each lumen. Each port was easily flushed with sterile saline. The catheter was placed at 15 cm and sut[address] in place. BioPatch was applied to the catheter and a sterile Tegaderm dressing was applied over the catheter with careful attention to sterility. Patient tolerated procedure well. No immediate complications were met. Post procedure x-ray was completed, placement was appropriate and no pneumothorax was noted. Images obtained are saved for permanent record Procedural Ultrasound Guidance: Procedure Date: 05/05/2021 Indication: Poor peripheral access, frequent lab draws, multiple drips Attending: Dr. Puentes APC: Bao Falk PA-C Artery AND Vein visualized: YES Compressible Vein: YES Guidewire or Short Catheter seen in vein prior to dilation: YES Line confirmed in Vein with ultrasound: YES Images obtained are saved for permanent record. Coding CPT Codes Tubes, Drains, and Vasc Access - Tubes, Drains, and Vasc Access: [id number] Insertion Of Non-tunneled Catheter Age 5 Yrs> ([id number]) Tubes, Drains, and Vasc Access - Tubes, Drains, and Vasc Access: [id number] Ultrasound Guidance For Vascular ([id number]) [facility] [place] Procedure Codes (Charges) Tubes, Drains, and Vasc Access Procedure 1: Tubes, Drains, and Vasc Access: [id number] Insertion Of Non-tunneled Catheter Age 5 Yrs> Procedure 2: Tubes, Drains, and Vasc Access: [id number] Ultrasound Guidance For Vascular
--- NOTE | 2021-05-05 06:58 | Procedure Note ---
Procedure Note Date of Service May 05, 2021 Note Procedure: Arterial Line Placement Attending: Dr. Puentes APC: Bao Falk PA-C Indication: Hemodynamic monitoring Anesthesia: Lidocaine 1% Emergent Consent implied in the setting of clinical deterioration and need for close hemodynamic monitoring, ABG monitoring, frequent lab draws, etc. A time-out was completed verifying correct patient, procedure, site, positioning, and implant(s) or special equipment if applicable. Shoaib�s test was performed to ensure adequate perfusion. Patient�s LEFT wrist was prepped and draped in the usual sterile fashion. Ultrasound guidance was used to aid needle placement. A 20g Arrow arterial line was introduced into the LEFT Radial artery. Catheter was threaded, and the needle was removed with appropriate blood return. Good waveform was observed. The patient tolerated the procedure well. Confi rmation of placement with ultrasound. It should be noted that initial attempt was performed on the RIGHT wrist without success. Despite cannulating the vessel in first attempt and being able to thr ead the guidewire, I was unable to advance the catheter. Procedure was aborted. Blood Loss: Minimal Complications: None Procedural Ultrasound Guidance: Procedure Date: 05/05/2021 Indication: Hemodynamic Monitoring, Frequent ABGs/Lab draws. Attending: Dr. Puentes APC: Bao Falk PA-C Artery Identified: YES Line confirmed in Artery with ultrasound: YES Complications: NONE Patient tolerated procedure: WELL Coding CPT Codes Tubes, Drains, and Vasc Access - Tubes, Drains, and Vasc Access: [id number] Place Catheter In Artery ([id number]) [facility] [place], [place] Procedure Codes (Charges) Tubes, Drains, and Vasc Access Procedure 3: Tubes, Drains, and Vasc Access: [id number] Place Catheter In Artery
--- NOTE | 2021-05-05 07:00 | Critical Care Consultation ---
Date of Consultation May 05, 2021 Assessment & Plan (1) Admitted to intensive care unit: Reason Critically Ill: 70-year-old female with acute hypoxic respiratory failure in the setting of COVID-19 pneumonia with worsening respiratory failure and hypoxia requiring emergent endotracheal intubation. NEURO - * Sedation: Versed * Pain: Fentanyl * NMB: Nimbex CARDIAC/VASCULAR - * Hypertension, hyperlipidemia, coronary artery disease: * Hold on a.m. doses today until we balance out her sedation as I am suspicious that she will likely develop a degree of hypotension. Otherwise, restart home medications as tolerated. * Atrial tachycardia: * Continue with as needed metoprolol as needed. * Monitor on telemetry. RESPIRATORY - * Hypoxic respiratory failure secondary to COVID-19 pneumonia: * Hospitalization complicated by bilateral pneumothoraces status post chest tube placement with subsequent removal of RIGHT-sided chest tube. Patient has required high levels of oxygenation over the last 48 hours. Worsening respiratory failure and inability to recover this morning resulting in need for emergent endotracheal intubation. * Will use low PEEP high FiO2 secondary to recent barotrauma with BiPAP settings. * On Decadron taper currently. GI/NUTRITION - * OGT in place * Prophylaxis: Famotidine RENAL/LYTES - * No significant electrolyte derangements currently. * Has been on scheduled Lasix dosing. * Trend renal function. Electrolyte replacement as needed. - * Hicks in place - Strict I&Os. ENDO - * DMII * BSGs per unit protocol. ISS --> gtt per unit policy. HEME - * H&H noted to be stable previously. * Repeat labs this morning. ID - * COVID-19 pneumonia: * Will repeat procalcitonin, CRP in the setting of worsening respiratory distress and unilaterally worsening pulmonary infiltrates. LINES/IV ACCESS - * PIVs x1 * RIGHT IJ CVL * LEFT radial arterial line * Hicks catheter * ET tube * OG tube DVT PROPHYLAXIS - * Lovenox * SCDs I have personally spent 90 minutes of critical care time in the direct management of this patient. This is a life/limb threatening event. This includes time spent evaluating patient, direct bedside care, chart review, placing orders, interpretation of diagnostic studies, discussion with consultants, patient, and family members, as well as other required patient management activities. This time is exclusive of all separately billable procedures, and teaching time and separate from and in addition to any other critical care service time. Thank you for allowing us to participate in the care of this patient. Please refer to my attending physician's documentation for any further recommendations. (2) Acute respiratory failure with hypoxia: (3) Pneumonia due to COVID-19 virus: (4) Pneumomediastinum: (5) Pneumothorax: (6) Rheumatoid arthritis: (7) DM2 (diabetes mellitus, type 2): (8) Tachycardia: (9) Ectopic atrial tachycardia: History of Present Illness Attending Physician: Evan Olsen MD History of Present Illness Patient is a 70-year-old female who is hospital day 16 with admission diagnosis of respiratory failure secondary to COVID-19 pneumonia. The patient has been tolerating high flow nasal cannula, however her requirement has been increasing over the last few days. Her hospital course has been complicated by bilateral pneumothoraces in the setting of barotrauma secondary to BiPAP use. She initially received RIGHT-sided pigtail catheter which unfortunately was pulled out by the patient in some point during her hospitalization. Thankfully, the pneumothoraces had seem to improve. Patient was requiring high flow nasal cannula with oxygen mask, however the patient was comfortable and in no distress. Hesitation for positive pressure ventilation secondary to recent pneumothoraces. Unfortunately, earlier this morning, the patient developed significant desaturation into the low 70s when she was laid flat to be boosted upright in bed. She did not recover with her high flow and OxyMask. Nonrebreather was applied in addition to the high flow and OxiMax. Despite all 3 methods at max flow rates, the patient continued to saturate in the mid to high 70s. The patient is tachypneic on exam. I was called to bedside by respiratory therapy given significant change in patient's status. I had extensive conversation with bedside and discussing management at this point. The patient continues to be hesitant with intubation, however, the patient is now beyond maximal therapy, remains hypoxic and in respiratory distress with significant tachypnea, and still wishes to be intubated. At this point, the patient verbally agrees to emergent endotracheal intubation. Emergency room room physician graciously performed emergent endotracheal intubation. Post chest x-ray was obtained. The ET tube was removed 2 cm. The patient was transferred immediately to the ICU for ongoing care. Allergies Allergy/AdvReac Type Severity Reaction Status Date / Time doxycycline Allergy Severe rash Verified 11/27/21 11:31 Tetracyclines Allergy Intermediate HIVES Verified 04/19/21 11:31 lidocaine AdvReac Unknown PT Verified 04/19/21 11:31 REQUIRES A LARGER DOSE TO HAVE EFFECT Unclassified Drugs Allergy Unknown ANTIBIOTICS Uncoded 04/19/21 11:31 GIVE HER A YEAST INFECTION Home Medications Medication Instructions Recorded Confirmed Type B-complex with vitamin C (Super B 1 tab PO QA 12/13/20 04/19/21 History Complex-Vitamin C) Tumeric 400mg Capsule 400 mg PO QA 12/13/20 04/19/21 History ascorbic acid (vitamin C) 1,000 mg 1,000 mg PO QAM 12/13/20 04/19/21 History tablet (Vitamin C) aspirin 81 mg tablet,delayed 81 mg PO [facility] 12/13/20 04/19/21 History release (Aspirin Low Dose) lumddjx-pzqajfqpayskt-sxjpdhlv 250 2 tab PO Q6H PRN 12/13/20 04/19/21 History mg-250 mg-65 mg tablet (Excedrin Extra Strength) atorvastatin 80 mg tablet (Lipitor) 80 mg PO [facility] 12/13/20 04/19/21 History calcium carbonate 600 mg calcium 600 mg PO [facility] 12/13/20 04/19/21 History (1,500 mg) tablet (Calcium) cholecalciferol (vitamin D3) 25 25 mcg PO QA 12/13/20 04/19/21 History mcg (1,000 unit) capsule (Vitamin D3) clopidogrel 75 mg tablet (Plavix) 75 mg PO [facility] 12/13/20 04/19/21 History etodolac 200 mg capsule 200 mg PO Q12H PRN #14 cap 12/13/20 04/19/21 Rx ferrous sulfate 325 mg (65 mg 325 mg PO QA 12/13/20 04/19/21 History iron) tablet (Iron (ferrous sulfate)) folic acid 1 mg tablet 2 mg PO QA 12/13/20 04/19/21 History furosemide 40 mg tablet (Lasix) 40 mg PO QA 12/13/20 04/19/21 History glucosamine QSl-A4-[id number] 2 tab PO QAM 12/13/20 04/19/21 History mckinley 1,500 mg-400 unit-100 mg tablet (Glucosamine Daily Complex) ipratropium 0.5 mg-albuterol 3 mg 3 ml INHALATION TID PRN 12/13/20 04/19/21 History (2.5 mg base)/3 mL nebulization soln loratadine 10 mg tablet (Claritin) 10 mg PO QAM 12/13/20 04/19/21 History magnesium oxide 400 mg PO QAM 12/13/20 04/19/21 History meclizine 25 mg tablet (Motion 25 mg PO Q6H PRN 12/13/20 04/19/21 History Sickness (meclizine)) methotrexate sodium 2.5 mg tablet 20 mg PO WK 12/13/20 04/19/21 History metoprolol succinate 50 mg 50 mg PO BID 12/13/20 04/19/21 History tablet,extended release 24 hr (Toprol XL) multivitamin (Daily Multi-Vitamin) 1 tab PO QAM 12/13/20 04/19/21 History omega 9-lsv-lfz-fish oil 1,000 mg 1 cap PO QAM 12/13/20 04/19/21 History (120 mg-180 mg) capsule (Fish Oil) pantoprazole 40 mg tablet,delayed 40 mg PO QAM 12/13/20 04/19/21 History release (Protonix) ropinirole 0.5 mg tablet 1 mg PO HS 12/13/20 04/19/21 History tofacitinib 11 mg tablet,extended 11 mg PO QAM 12/13/20 04/19/21 History release 24 hr (Xeljanz XR) cyclobenzaprine 5 mg tablet 5 mg PO TID PRN 12/24/20 04/19/21 History docusate sodium 100 mg capsule 100 mg PO DAILY 12/24/20 04/19/21 History (Colace) ondansetron HCl 4 mg tablet 4 mg PO Q8H PRN 12/24/20 04/19/21 History probiotic 1 tab PO DAILY 12/24/20 04/19/21 History albuterol sulfate 90 mcg/actuation 1 - 2 puff INHALATION Q4H PRN #8.5 01/31/21 04/19/21 Rx aerosol inhaler (ProAir HFA) g conjugated estrogens 0.625 mg/gram 0.625 mg VAGINAL QAM #30 g 01/31/21 04/19/21 Rx vaginal cream (Premarin) fluticasone 250 mcg-salmeterol 50 1 inh INHALATION BID #60 ea 01/31/21 04/19/21 Rx mcg/dose blistr powdr for inhalation (Advair Diskus) fluticasone propionate 50 2 spray INTRANASAL HS #16 g 01/31/21 04/19/21 Rx mcg/actuation nasal spray,suspension (Flonase Allergy Relief) levothyroxine 25 mcg tablet 25 mcg PO DAILYBB #90 tab 01/31/21 04/19/21 Rx (Synthroid) nitroglycerin 0.4 mg sublingual 0.4 mg SUBLINGUAL UD #30 tab 01/31/21 04/19/21 Rx tablet (Nitrostat) nystatin 100,000 unit/gram topical 1 applic TOPICAL BID #30 g 01/31/21 04/19/21 Rx powder duloxetine 30 mg capsule,delayed 30 mg PO QAM #90 cap 02/03/21 04/19/21 Rx release (Cymbalta) duloxetine 60 mg capsule,delayed 60 mg PO QAM #90 cap 02/03/21 04/19/21 Rx release (Cymbalta) alprazolam 0.25 mg tablet (Xanax) 0.25 mg PO Q8H PRN #90 tab 03/05/21 04/19/21 Rx gabapentin 300 mg capsule 300 mg PO TID #90 cap 03/05/21 04/19/21 Rx (Neurontin) lisinopril 10 mg tablet (Zestril) 10 mg PO QAM #90 tab 03/05/21 04/19/21 Rx Patient History Medical History Anemia Anxiety Asthma inhalers--daily/prn, nebulizer prn CAD (coronary artery disease) Chest pain Chronic back pain Chronic obstructive pulmonary disease Depression Diffuse myofascial pain syndrome Diverticulosis of colon DM2 (diabetes mellitus, type 2) Edema GERD (gastroesophageal reflux disease) Hemorrhoids Hyperlipidemia Hypertension Hypothyroidism Left hip pain Left wrist fracture Lumbar facet joint syndrome TN (myocardial infarction) Migraine Myocardial Infarction 2009 Obesity Osteoarthritis Postlaminectomy syndrome of lumbosacral region Restless leg syndrome Rheumatoid arthritis Right hip pain Venous insufficiency Surgical History History of bilateral cataract extraction History of bilateral tubal ligation History of cardiac cath 2008--no stent--follows w Dr. Varma History of carpal tunnel release of both wrists History of cholecystectomy History of colonoscopy History of dilatation and curettage History of laminectomy History of lumbar fusion L3,4,5 History of lumpectomy of right breast benign tumor removed History of tooth extraction all teeth History of total abdominal hysterectomy and bilateral salpingo-oophorectomy History of ventral hernia repair Hx of removal of cyst R breast Status post endovenous radiofrequency ablation (RFA) of saphenous vein greater saphenous vein Status post trigger finger release R thumb Status post trigger finger release L thumb Family History Sister Family history of diabetes mellitus Daughter Family history of diabetes mellitus Grandmother (Maternal) Myocardial infarction Grandfather (Paternal) Myocardial infarction Denies family history of Ovarian cancer Prostate cancer Breast cancer Colorectal cancer Social History Smoking Status: Never smoker Second Hand Exposure: Yes; Do You Dip or Chew Tobacco: No; Tobacco Cessation Education Requested by Patient: No Hx Alcohol Use: No Hx Substance Use: No Preferred Language: Yakut Communication Ability: Effective Cutting Machine Offbearer Required: No Beliefs That Will Affect Care: None marital status: / Current Living Situation: Family Current Living Situation Comment: with Bailee current occupational status: retired Other Information That Helps Us Care for You: No Feels Safe at Home: Yes Safety Concerns: Feels Safe At This Time caffeine: Yes Dental Care, Regularly: No Physical Activity Frequency: Daily Seatbelt Use: always Sunscreen Use: Yes Assistive Devices: Glasses and Oxygen - Continuous Assistive Devices Comment: hearing aids at home Review of Systems Review of Systems: Unable to obtain secondary to current state of respiratory distress. Physical Exam Physical Exam: VITAL SIGNS - Vital signs and nursing notes were reviewed. GENERAL - 70-year-old stated age who is in significant respiratory distress. Tachypneic. Can only answer yes/no secondary to respiratory distress. HEAD - NC/AT. EYES - PERRL with EOMI bilaterally. Sclera anicteric. EARS - No deformities of external structures noted on gross examination bilaterally. NOSE - Midline and without cyanosis. Bloody secretions noted in the mouth. MOUTH/OROPHARYNX - Without perioral cyanosis. Buccal mucosa pink and dry. NECK - Neck with FROM. Supple to palpation. LUNGS -tachypneic with accessory muscle use appreciated. Coarse breath sounds noted bilaterally. Equal lung sounds appreciated in the apices bilaterally. CARDIAC -tachycardic. No murmur, rubs, or gallops appreciated. ABDOMEN - Abdominal contour obese without pulsations or visible masses. BS normoactive all four quadrants. No tenderness, palpable masses, hepatosp lenomegaly, or ascites noted. EXTREMITIES - No clubbing or peripheral cyanosis. No pretibial edema present. +3/5 radial and dorsalis pedis pulses palpated throughout. NEUROLOGIC - Cranial nerves II through XII grossly intact. PSYCH - A&Ox3 despite her current stat of respiratory distress. Results & Data Results & Data ([facility]) Vital Signs (Past 12 Hours) Vital Signs Temp Pulse Pulse Pulse Resp BP BP 05/05/21 05:35 113 H 20 05/05/21 05:00 135 H 20 05/04/21 23:41 132 H 145/71 H 05/04/21 23:30 132 H 26 H 05/04/21 23:10 36.8 C 132 H 24 145/71 H 05/04/21 20:33 123 H 30 H 05/04/21 19:36 36.5 C 122 H 22 121/71 Pulse Ox 05/05/21 05:35 93 05/05/21 05:00 83 L 05/04/21 23:41 05/04/21 23:30 91 05/04/21 23:10 89 L 05/04/21 20:33 94 05/04/21 19:36 98 Coding Level of Care Code Critical Care 1st 30-74 mins Diagnoses Admitted to intensive care unit Z78.9 Acute respiratory failure with hypoxia J96.01 Pneumonia due to COVID-19 virus U07.1; J12.82 Pneumomediastinum J98.2 Pneumothorax J93.9 Rheumatoid arthritis M06.9 DM2 (diabetes mellitus, type 2) E11.9 Tachycardia R00.0 Ectopic atrial tachycardia I47.1 Time Spent (min) 90
[2021-05-05] MEDS: CHOLECALCIFEROL 1,000 UNITS 25 MCG TAB PO SCH (07:32)
[2021-05-05] MEDS: CALCIUM CARBONATE 1250MG TAB PO SCH (07:32)
[2021-05-05] MEDS: BENZONATATE 100 MG CAPSULE PO SCH ×2 (07:32→10:20)
[2021-05-05] MEDS: DULoxetine HCL 30 MG CAP PO SCH (07:32)
[2021-05-05] MEDS: ASPIRIN 81 MG ECTAB PO SCH (07:32)
[2021-05-05] MEDS: GABAPENTIN 300 MG CAP PO SCH ×2 (07:33→10:20)
[2021-05-05] MEDS: LORATADINE 10 MG TAB PO SCH (07:33)
[2021-05-05] MEDS: POLYETHYLENE (MIRALAX) 17 GM PACK PO SCH (07:33)
[2021-05-05] MEDS: FOLIC ACID 1 MG TAB PO SCH (07:33)
[2021-05-05] MEDS: MULTIVITAMIN TAB PO SCH (07:33)
[2021-05-05] MEDS: FLUTICASONE/VILANTEROL 200/25MCG 14 PUFFS/INHALER INH SCH (07:33)
[2021-05-05] MEDS: DULoxetine HCL 60 MG CAP PO SCH (07:33)
[2021-05-05 07:35] LABS: iSTAT Arterial Blood Gas HCO3 29 meg/L (19-24); iSTAT Arterial Blood Gas pCO2 54 mmHg (35-46); iSTAT Arterial Blood Gas pH 7.34 (7.35-7.45); iSTAT Arterial Blood Gas pO2 63 mmHg (80-95); iSTAT Carbon Dioxide 31 mmol/L (24-31); iSTAT FiO2 100 %; iSTAT Site Art Line
[2021-05-05] MEDS: METOPROLOL TARTRATE 1 MG/ML VIAL IV SCH ×2 (07:44→10:58)
[2021-05-05] MEDS: FUROSEMIDE 40 MG/4 ML VIAL IV SCH (07:45)
[2021-05-05] MEDS: dexAMETHasone 4 MG in SYRINGE 0 ML IV SCH (07:47)
[2021-05-05] MEDS ORDERED: MIDAZOLAM BOLUS FROM BAG IV PRN (07:53)
[2021-05-05] MEDS ORDERED: MIDAZOLAM HCL 125 MG/250 ML BAG IV SCH (08:00)
[2021-05-05] MEDS: ENOXAPARIN INJ 40 MG/0.4 ML SYR SQ SCH ×2 (08:00→20:11)
[2021-05-05] MEDS: CLOPIDOGREL BISULFATE 75 MG TAB PO SCH (08:01)
[2021-05-05] MEDS: INSULIN ASPART PER UNIT SC SCH ×4 (08:02→18:53)
--- NOTE | 2021-05-05 08:13 | XRay Report ---
SINGLE VIEW CHEST CLINICAL HISTORY: Pneumothorax. FINDINGS: An AP, portable, upright chest radiograph is compared to study dated 05/04/2021. Correlatio n is made with chest CT dated 05/02/2021. The examination is degraded by portable technique and patie nt rotation. The cardiomediastinal silhouette is unremarkable. An endotracheal tube has been placed. The tip projects over the right mainstem bronchus. Pneumomediastinum is observed. There are low lung volumes. Multifocal airspace consolidation is similar to previous. No large pleural effusion is iden tified. No pneumothorax is seen. The skeletal structures are osteopenic. The bony thorax is grossly i ntact. IMPRESSION: 1. An endotracheal tube has been placed. The tip projects over the right mainstem bronchus. 2. Multifocal airspace consolidation is unchanged from previous. 3. Pneumomediastinum persists. 4. No pneumothorax is clearly identified. ACT 112: Negative or not required by law. Electronically signed by: Juan Francisco Lux M.D. 05/05/2021 8:12 AM
--- NOTE | 2021-05-05 08:17 | XRay Report ---
SINGLE VIEW CHEST CLINICAL HISTORY: Central venous catheter placement. FINDINGS: An AP, portable, upright chest radiograph is compared to study early the same day . The examination is degraded by portable technique and patient rotation. A right internal jugular c entral venous catheter has been placed. The tip projects over the cavoatrial junction. An enteric tub e has been placed. The tip projects below the diaphragm over the distal stomach. An endotracheal tube is repositioned. The tip now projects just above the miladys. Pneumomediastinum persists. There are l ow lung lines. Multifocal airspace consolidation is unchanged. No large pleural effusion or pneumotho rax is seen. The skeletal structures are osteopenic. The bony thorax is grossly intact. Lumbar fusion hardware is partially visualized. IMPRESSION: 1. An endotracheal tube has been repositioned. The tip now projects just above the miladys (less than a centimeter). 2. An enteric tube and a central venous catheter have been placed as above. 3. No pneumothorax is clearly seen. 4. Trace pneumomediastinum. 5. Multifocal airspace consolidation is similar to previous. ACT 112: Negative or not required by law. Electronically signed by: Juan Francisco Lux M.D. 05/05/2021 8:15 AM
[2021-05-05 08:35] LABS: Hematocrit (blood only) 44.1 % (37-47); Hemoglobin 14.2 g/dL (12.0-16.0); Mean Corpuscular Hemoglobin 33.2 pg (25-34); Mean Corpuscular Hgb Conc 32.2 g/dL (32-36); Mean Platelet Volume 12.3 fL (7.4-10.4); Platelet Count 329 K/uL (130-400); RDW Coefficient of Variation 15.2 % (11.5-14.5); RDW Standard Deviation 56.6 fL (36.4-46.3); Red Blood Count 4.28 M/uL (4.2-5.4); White Blood Count 25.92 K/uL (4.8-10.8)
[2021-05-05 08:51] LABS: INR 1.1 (0.9-1.1); Partial Thromboplastin Ratio 0.9; Partial Thromboplastin Time 24.2 Seconds (21.0-31.0); Prothrombin Time 10.7 Seconds (9.0-12.0)
[2021-05-05 08:52] LABS: Basophils # (auto) 0.02 K/uL (0-0.2); Basophils % (auto) 0.1 %; Eosinophils # (auto) 0.09 K/uL (0-0.5); Eosinophils % (auto) 0.3 %; Immature Granulocytes # (auto) 0.15 K/uL (0.00-0.02); Immature Granulocytes % (auto) 0.6 %; Lymphocytes # (auto) 1.73 K/uL (1.2-3.4); Lymphocytes % (auto) 6.7 %; Monocytes % (auto) 8.1 %; Neutrophils # (auto) 21.83 K/uL (1.4-6.5); Neutrophils % (auto) 84.2 %
[2021-05-05 09:02] LABS: BUN Creatinine Ratio 39.9 (10-20); C Reactive Protein 9.69 mg/dl (0-0.29); Creatinine Clr Calc Pharmacy 42.1 ml/min; Est GFR (Non-African American) 43.1 ml/min; Magnesium 2.5 mg/dl (1.8-2.4)
[2021-05-05 09:03] LABS: Phosphorus 4.8 mg/dl (2.5-4.9)
[2021-05-05 09:09] LABS: Potassium 4.8 mmol/L (3.5-5.1)
[2021-05-05] MEDS ORDERED: ACETAMINOPHEN SUSP 325 MG/10.15 ML UDC PO PRN (09:45)
[2021-05-05] MEDS: fentaNYL DRIP 1,250 MCG/250 ML BAG IV SCH ×2 (10:42→13:48)
[2021-05-05] MEDS ORDERED: PHENYLEPHRINE HCL 20 MG in DEXTROSE 5% 500 ML IV SCH (10:45)
[2021-05-05] MEDS ORDERED: PANTOprazole 40 MG in SYRINGE 0 ML IV SCH (11:00)
--- NOTE | 2021-05-05 11:55 | Communication Note ---
Date of Service: May 05, 2021 Patient seen and examined. EMR reviewed. Discussed with critical care LUTHER overnight. The patient deteriorated overnight with refractory hypoxemia requiring intubation mechanical ventilation. Central lines and arterial lines were placed. This morning she has been hypotensive and vasopressor agents were required. She is on high oxygen but lowered her PEEP as she has had previous pneumothoraces and pneumomediastinum. Initial x-ray did not show any recurrence. We will plan on repeating a chest x-ray later this afternoon as well as on a daily basis. Continue to try and run lower airway pressures in an effort to prevent additional barotrauma. Called daughter Bailee and she was updated on the last 24-hour events. Tried to readdress CODE STATUS as I do not think CPR would be beneficial in improving this patient's overall outcome or recovery. She does take it under advisement and wishes to talk to other family members before reconvening. We also briefly discussed long-term issues including tracheostomy feeding tube placement etc.. She is not ready to consider those issues as well. Patient remains critically ill at this point time with significant possibility of loss of life or function. An additional 40 minutes critical care time including end-of-life issues. Coding Level of Care Code Critical Care davie addt'l 30 min Time Spent (min) 40
--- NOTE | 2021-05-05 13:33 | XRay Report ---
XR chest 1V portable HISTORY: 70 years-old Female resp failure acute respiratory failure COMPARISON: Chest radiograph 05/05/2021 TECHNIQUE: Portable AP view of the chest FINDINGS: The endotracheal tube overlies the midline, 1.1 cm superior to the miladys. Unchanged positioning of t he right IJ central venous catheter and enteric tube. The cardiac silhouette is enlarged. Pneumomedia stinum redemonstrated. No definite pneumothorax. Small pleural effusions with extensive right greater than left airspace opacities redemonstrated. Partially imaged lumbar spinal fusion hardware. IMPRESSION: 1. Endotracheal tube terminates 1.1 cm superior to the miladys. 2. The remaining lines and tubes appear to be in satisfactory positioning. 3. Extensive right greater than left airspace opacities appear unchanged. 4. Small amount of pneumomediastinum redemonstrated. ACT 112: Negative or not required by law. The above report was generated using voice recognition software. It may contain grammatical, syntax o r spelling errors. Electronically signed by: Mane Graham M.D. 05/05/2021 1:32 PM
[2021-05-05] MEDS: PHENYLEPHRINE HCL 20 MG in SODIUM CHLORIDE 0.9% 500 ML IV SCH ×2 (15:24→17:28)
[2021-05-05] MEDS: PHENYLEPHRINE HCL 40 MG in SODIUM CHLORIDE 0.9% 500 ML IV SCH ×2 (18:26→21:59)
--- NOTE | 2021-05-05 20:07 | Communication Note ---
Date of Service: May 05, 2021 Had a discussion with nursing staff regarding CODE STATUS. Apparently patient's POA, Bailee Garcia (daughter), I called and spoke with Karen earlier in the day and expressed wishes of the family for the patient to be made DNR/DNI status. There was also question as the family had all called in and essentially "said their goodbyes" over the phone to the patient. Nursing was asking for clarification. At this point, I did reach out to the patient's daughter and Bailee DAUGHERTY. 1954: Spoke with patient's daughter, Bailee. She does reiterate that she had spoke with family and they all agreed that the patient should be made DNR/DNI at this point. We did discuss clinical decline throughout the day including increasing oxygen requirements as well as decline in kidney function. States he is aware and reports that she and her family are "preparing for the worst". We did discuss the next several hours will certainly be critical in assessing the p atient's clinical improvement/decline. I did offer that we would be obtaining repeat labs in the morning and certainly if there was change or any overnight events that suggest decline, we will certainly have a better picture tomorrow. I did offer that I will contact her in the event of any changes. At this point, all questions have been answered and she was provided contact information for the ICU in the event that she has any further questions. Again, the patient will now be DNR/DNI status as confirmed by patient's POA. Orders updated in the chart. I have personally spent 20 minutes of critical care time in the direct management of this patient. This is a life/limb threatening event. This includes time spent evaluating patient, direct bedside care, chart review, placing orders, interpretation of diagnostic studies, discussion with consultants, patient, and family members, as well as other required patient management activities. This time is exclusive of all separately billable procedures, and teaching time and separate from and in addition to any other critical care service time. Coding Level of Care Code Critical Care davie kimt'l 30 min Time Spent (min) 20
--- NOTE | 2021-05-05 20:41 | Hospitalist Progress Note ---
Date of Service May 05, 2021 Assessment & Plan (1) Pneumonia due to COVID-19 virus: Plan: Patient presents on the day of symptoms with progressively worsening shortness of breath and acute respiratory failure with hypoxia tested positive on 04/14 for Covid-19. She was fully vaccinated in 07/2020 Patient decompensated was intubated in the morning hours of 05/05/2021 concern for ventilation given bilateral pneumothoraces and pneumomediastinum dexamethasone, decreased to 4mg daily Pigtail chest tube is fallen out 05/03 prognosis is getting worse with increased oxygen requirements, pressure support, pneumothorax CTA chest 05/02: no PE, shows the pneumothorax bilaterally and pneumomediastinum CRP was significantly elevated at 8, did not meet for baricitinab due to taking xeljanz Lasix discontinued by critical care team incentive spirometry and flutter valve -Encouraged prone or side positioning as tolerated -Lovenox 40 mg SQ twice daily for DVT prophylaxis *discussed worsening condition on 05/03, she is not ready to , would want intubated if necessary Patient understands the gravity of her situation. If intubated patient would have prolonged hospital course with no guaranteed success of survival given the marked changes seen in her lungs and pneumothorax and pneumomediastinum patient gave verbal consent and the patient prior to on 05/05/2021 (2) Pneumothorax: Plan: dislodged am of 05/03/21, repeat chest x-ray on the afternoon of the pneumothorax has not worsened on this image (3) Pneumomediastinum: Plan: avoid CPAP as this will cause more expansion monitor closely (4) Acute respiratory failure with hypoxia: (5) DM2 (diabetes mellitus, type 2): Plan: Hemoglobin A1c 6.6% earlier this year Check hemoglobin A1c - 6% monitor for hypo and hyperglycemia, no episodes with the increase in dexamethasone, will adjust Novolog to 15 and 10 carb ratio Glucose remained stable intensive care glucose control protocol but pharmacy oversight (6) Diffuse myofascial pain syndrome: Plan: Continue home Cymbalta (7) Hypertension: Plan: Blood pressures are mildly elevated here Typically takes home lisinopril, Lasix, metoprolol (8) Obesity: Plan: BMI 36.6 Dependent risk factor for mortality with COVID-19 infection (9) CAD (coronary artery disease): Plan: History of NSTEMI 10/2008 with nonobstructive mid LAD stenosis as well as severe stenosis distal segment of left circumflex marginal on cardiac catheterization. No acute issues, troponin here is negative, ECG without acute ischemic changes Continue home aspirin, Plavix, statin, metoprolol, lisinopril (10) Lumbar spinal stenosis: Plan: Continue home gabapentin (11) Hypothyroidism: Plan: Continue home levothyroxine (12) Hyperlipidemia: Plan: Continue home statin (13) Depression: Plan: Continue home Cymbalta (14) Rheumatoid arthritis: Plan: Hold home NSAID, Xeljanz, and methotrexate for now Plan: DVT prophylaxis-Lovenox 40 mg twice daily Disposition-admit to telemetry unit, Covid precautions Full code, wants intubated if she gets worse Patient reports her daughter, son, and granddaughter would all be her decision makers if she cannot make decisions for herself Admission and Anticipated Discharge Date Admission Date: April 19, 2021 Subjective this pt desaturated with repositioning and did not recover was intubated in the director of early childhood hours of 05/05/12 Review of Systems Review of Systems: Unobtainable due to cognitive status and Unobtainable due to endotracheal tube Physical Exam Physical Exam: The patient appeared severe respiratory distress Vital signs as documented. Head exam is normocephalic atraumatic Neck is trachea midline no stridor Lungs are coarse bilaterally in all lung fatima Cardiac exam, Rhythm is tachycardic Abdominal exam reveals normal bowel sounds, soft non tender, no masses Extremities are nonedematous and both pedal pulses are present Neurologic exam is sedated and ventilated Results & Data Results & Data ([facility]) Vital Signs (Past 12 Hours) Vital Signs Temp Pulse Resp BP Pulse Ox 05/05/21 19:00 98.4 F 116 H 20 95 05/05/21 18:00 98.4 F 115 H 20 94 05/05/21 17:00 98.6 F 117 H 20 92 05/05/21 16:00 98.8 F 115 H 20 92 05/05/21 15:00 99.1 F 119 H 20 92 05/05/21 14:45 119 H 20 91 05/05/21 14:00 99.5 F 122 H 20 90 05/05/21 13:00 99.9 F H 126 H 20 91 05/05/21 12:00 100.0 F H 132 H 18 93 05/05/21 11:00 100.6 F H 132 H 18 88 L 05/05/21 10:58 74/43 L 05/05/21 10:15 133 H 20 90 05/05/21 10:00 101.3 F H 135 H 20 91 05/05/21 09:00 133 H 20 92 PG Care Time/CCT Total # of Minutes Spent Total Time Spent with Patient: Total time spent is greater than 50% in coordination of care (as documented) at patient's floor/unit and/or counseling patient: Coding Level of Care Code 32110 Subseq Hosp Care Lvl 2 Diagnoses Pneumonia due to COVID-19 virus U07.1; J12.82 Pneumothorax J93.9 Pneumomediastinum J98.2 Acute respiratory failure with hypoxia J96.01 DM2 (diabetes mellitus, type 2) E11.9 Diffuse myofascial pain syndrome M79.18 Hypertension I10 Obesity E66.9 CAD (coronary artery disease) I25.10 Lumbar spinal stenosis M48.061 Hypothyroidism E03.9 Hyperlipidemia E78.5 Depression F32.9 Rheumatoid arthritis M06.9
[2021-05-06] MEDS: INSULIN ASPART PER UNIT SC SCH ×3 (00:17→08:52)
[2021-05-06] MEDS: ARTIFICIAL TEARS OP OINT 3.5 GM TUBE OP SCH ×3 (00:20→07:50)
[2021-05-06] MEDS: CISATRACURIUM BESYLATE 40 MG in 0.9 % SODIUM CHLORIDE 80 ML IV SCH (01:01)
[2021-05-06] MEDS: PHENYLEPHRINE HCL 40 MG in SODIUM CHLORIDE 0.9% 500 ML IV SCH ×3 (01:24→03:55)
[2021-05-06] MEDS ORDERED: STAT IV Infusion **Titration per Protocol STA (02:13)
[2021-05-06] MEDS ORDERED: VASOPRESSIN 20 UNITS in 0.9 % SODIUM CHLORIDE 100 ML IV SCH (02:15)
[2021-05-06 02:46] LABS: iSTAT Arterial Blood Gas HCO3 28 meg/L (19-24); iSTAT Arterial Blood Gas pCO2 105 mmHg (35-46); iSTAT Arterial Blood Gas pH 7.03 (7.35-7.45); iSTAT Arterial Blood Gas pO2 105 mmHg (80-95); iSTAT Carbon Dioxide 31 mmol/L (24-31); iSTAT FiO2 90 %; iSTAT Site Art Line
[2021-05-06] MEDS: PHENYLEPHRINE HCL 80 MG in SODIUM CHLORIDE 0.9% 500 ML IV SCH ×4 (03:12→08:53)
[2021-05-06 05:20] LABS: Hematocrit (blood only) 42.3 % (37-47); Hemoglobin 13.1 g/dL (12.0-16.0); Mean Corpuscular Hemoglobin 32.9 pg (25-34); Mean Corpuscular Volume 106.3 fL (80-100); Mean Platelet Volume 12.3 fL (7.4-10.4); Platelet Count 229 K/uL (130-400); RDW Coefficient of Variation 14.6 % (11.5-14.5); RDW Standard Deviation 56.2 fL (36.4-46.3); Red Blood Count 3.98 M/uL (4.2-5.4); White Blood Count 44.67 K/uL (4.8-10.8)
[2021-05-06 05:24] LABS: Basophils # (auto) 0.02 K/uL (0-0.2); Eosinophils # (auto) 0.01 K/uL (0-0.5); Immature Granulocytes # (auto) 0.38 K/uL (0.00-0.02); Immature Granulocytes % (auto) 0.9 %; Lymphocytes # (auto) 0.94 K/uL (1.2-3.4); Lymphocytes % (auto) 2.1 %; Monocytes # (auto) 1.91 K/uL (0.11-0.59); Monocytes % (auto) 4.3 %; Neutrophils # (auto) 41.41 K/uL (1.4-6.5); Neutrophils % (auto) 92.7 %; RBC Morphology Unremarkable
[2021-05-06 05:26] LABS: iSTAT Arterial Blood Gas HCO3 23 meg/L (19-24); iSTAT Arterial Blood Gas pCO2 82 mmHg (35-46); iSTAT Arterial Blood Gas pH 7.05 (7.35-7.45); iSTAT Arterial Blood Gas pO2 71 mmHg (80-95); iSTAT Carbon Dioxide 25 mmol/L (24-31); iSTAT FiO2 80 %; iSTAT Site Art Line
[2021-05-06] MEDS: LEVOTHYROXINE SODIUM 25 MCG TABLET PO SCH (05:37)
[2021-05-06] MEDS ORDERED: VANCOMYCIN CONSULT ACTIVE PRN (06:17)
[2021-05-06] MEDS ORDERED: PIPERACILL/TAZOBAC CONSULT ACTIVE PRN (06:17)
[2021-05-06] MEDS: fentaNYL DRIP 1,250 MCG/250 ML BAG IV SCH (06:18)
[2021-05-06 06:28] LABS: BUN Creatinine Ratio 22.6 (10-20); Calcium 7.8 mg/dl (8.5-10.1); Creatinine Clr Calc Pharmacy 17.3 ml/min; Est GFR (African American) 17.2 ml/min; Est GFR (Non-African American) 14.8 ml/min; Magnesium 2.9 mg/dl (1.8-2.4); Phosphorus 11.7 mg/dl (2.5-4.9); Potassium 6.5 mmol/L (3.5-5.1)
[2021-05-06] MEDS ORDERED: VANCOMYCIN HCL 1,750 MG in SODIUM CHLORIDE 0.9% 500 ML IV ONE (06:30)
[2021-05-06] MEDS ORDERED: PIPERACILLIN/TAZOBACTAM 4.5 GM in DEXTROSE 5% 100 ML IV ONE (06:30)
[2021-05-06] MEDS ORDERED: SODIUM BICARB 8.4% INJ 50 MEQ/50 ML SYR IV STA (06:30)
[2021-05-06] MEDS ORDERED: CALCIUM CHLORIDE 10% 1,000 MG in SODIUM CHLORIDE 0.9% 50 ML IV STA (06:30)
[2021-05-06] MEDS ORDERED: DEXTROSE 50% 50 ML SYRINGE IV ONE (06:45)
[2021-05-06] MEDS ORDERED: INSULIN HUMAN REGULAR PER UNIT 6 UNITS in SYRINGE 5.94 ML IV ONE (06:45)
[2021-05-06] MEDS: POLYETHYLENE (MIRALAX) 17 GM PACK PO SCH (06:57)
--- NOTE | 2021-05-06 07:05 | Communication Note ---
Date of Service: May 06, 2021 Patient was noted to have increasing pressor requirement throughout the night. Vasopressin was added and repeat ABG was obtained which seem to demonstrate a worsening respiratory acidosis with CO2 greater than 105 and pH of 7.03. Patient's respiratory rate in the ventilator was increased to 28 from 20 breaths/min. FiO2 was dropped to 80%. End-tidal CO2 was noted to decline. Pressor requirement improved with improvement of CO2 as well as addition of vasopressin. Despite this, the patient has remained essentially an uric throughout the night. Unfortunately, morning labs confirm acute renal failure with creatinine greater than 3. Patient was also significantly hyperkalemic with a potassium of 6.5. This is likely secondary to the acidosis as well as renal injury. Additional labs were ordered including blood cultures and serum lactate. Patient's white blood cell count is greater than 45. Orders were placed for potassium correction as well as broad-spectrum antibiotic coverage including Zosyn and vancomycin to be administered after blood cultures were obtained. At this point, I did feel it appropriate to discuss change in clini king status with the patient's daughter. 0635: I did reach out to the patient's daughter, Bailee. Provided update of change in status including need for additional pressor, acidosis, worsening renal injury, an uric state, etc. I had a lengthy discussion with her regarding ongoing management this point. During last night conversation, we had discussed monitoring the patient's labs, oxygenation, and urine output throughout the night prior to making any further decisions. During our discussion, she states that she would "want what is best" in regards to outcome for her mother. I did discuss that at this point, she now has multisystem failure including renal failure. She is likely not a great candidate for hemodialysis as she is now requiring significant doses of vasopressors and would not tolerate dialysis regardless. States he understands and is uncertain she would want this anyway. We did discuss possibility of compassionate extubation as option as well. States he does seem to be more open to this option, but does wish to discuss this with her family. I did discuss discontinuation of paralytic as this could prolong time for ability to perform compassionate extubation today if they so choose to. States he agrees with discontinuing paralytic and continuing current medications at this point. Unfortunately, as I am familiar only with function of night club manager visiting policies at this time, I will defer to my dayshift colleagues including palliative care to help facilitate Bailee being able to visit if feasible. At this point, I do feel that the patient is at an end-stage terminal state with multisystem failure with little chance of meaningful recovery at this point. I have personally spent 45 minutes of critical care time in the direct management of this patient. This is a life/limb threatening event. This includes time spent evaluating patient, direct bedside care, chart review, placing orders, interpretation of diagnostic studies, discussion with consultants, patient, and family members, as well as other required patient management activities. This time is exclusive of all separately billable procedures, and teaching time and separate from and in addition to any other critical care service time. Coding Level of Care Code Critical Care 1st 30-74 mins Time Spent (min) 45
[2021-05-06] MEDS ORDERED: ASPIRIN 81 MG CHEW ONE (07:42)
[2021-05-06] MEDS: ENOXAPARIN INJ 40 MG/0.4 ML SYR SQ SCH ×2 (07:47→09:00)
[2021-05-06] MEDS: ASPIRIN 81 MG CHEW PO SCH ×2 (07:48→08:59)
[2021-05-06] MEDS: CLOPIDOGREL BISULFATE 75 MG TAB PO SCH ×2 (07:48→09:01)
[2021-05-06] MEDS: CALCIUM CARBONATE 1250MG TAB PO SCH ×2 (07:48→09:01)
[2021-05-06] MEDS: dexAMETHasone 4 MG in SYRINGE 0 ML IV SCH ×2 (07:48→09:02)
[2021-05-06] MEDS ORDERED: MoRPHine SULFATE 2 MG/ML CARP IV PRN (08:00)
[2021-05-06] MEDS ORDERED: LORazepam 0.5 MG TAB PO PRN (08:00)
[2021-05-06] MEDS ORDERED: ONDANSETRON INJ 2 MG/ML 2 ML VIAL IV PRN (08:00)
[2021-05-06] MEDS ORDERED: ONDANSETRON 4 MG OD TAB SL PRN (08:00)
[2021-05-06] MEDS ORDERED: LORazepam 0.5 MG/1 ML VIAL IV PRN (08:00)
--- NOTE | 2021-05-06 08:11 | Critical Care Progress Note ---
Date of Service May 06, 2021 Assessment & Plan (1) Acute respiratory failure with hypoxia: (2) Pneumonia due to COVID-19 virus: (3) Severe sepsis with septic shock: (4) Renal failure: (5) Acidosis: (6) Hyperkalemia: (7) ARDS (adult respiratory distress syndrome): Plan: Impression: 70-year-old female hospital day 17 with ARDS/hypoxemic respiratory failure. She failed high flow oxygen and CPAP resulted in pneumomediastinum as well as bilateral pneumothoraces. She was brought to the ICU and intubated 05/05. 24-hour events: The patient has required initiation of vasopressor agents and escalating doses. She is currently on a moderate dose of Kosta-Synephrine as well as vasopressin. She remains tachycardic in the 130s. She has developed refractory acidosis, oliguria, and hyperkalemia. She also appears to be having black bloody drainage from her orogastric tube. I am suspicious that she may have a component of mesenteric ischemia. Recommendations: 1. Neurologic: Neuromuscular blockade has been appropriately discontinued. She is currently sedated on fentanyl and Versed. See comments below. 2. Cardiovascular: Severe sepsis with severe septic shock and multiorgan system failure. She is on 2 vasopressor agents. This does not appear to be recoverable. We do not have source control currently and she is in no condition to consider additional imaging studies or potential surgical intervention for an intra-abdominal catastrophe. 3. Pulmonary: Severe ARDS with pneumothorax and pneumomediastinum: She is on 80% on the ventilator. We will try and keep PEEP lowered given her history of pneumothoraces. 4. Renal: Acute renal failure, suspect ATN. She is now hyperkalemic with refractory acidosis. She is on 2 pressors. Dialysis does not appear to be an option as her renal failure is a marker of multiorgan system dysfunction and dialysis would be unlikely to improve her overall outcomes. 5. ID: Sputum cultures pending. She is hypothermic but white count is increased to 44,000. Again suspicious of intra-abdominal process given her refractory acidosis and orogastric drainage. Antibiotics alone are not going to be effective in reversing this course. 6. Endocrine: Tapering steroids. 7. Heme-onc: Marked leukocytosis secondary to probable catastrophic sepsis. Case was discussed with the critical care LUTHER overnight. I also had several discussions with daughter, Bailee, yesterday and again this morning. She had the opportunity to meet with all of her family members involved with the patient yesterday evening. They are all in agreement that this situation is dire and her mortality is approaching 100%. We discussed transition to palliative care. They agree that this is what their mother would want. The patient will have pressors discontinued and subsequently be extubated to comfort measures. Anticipate that she will pass away relatively quickly. Support was offered to the family. They were offered the opportunity to come to the window and see their mother however the family uniformly state that they do not want to see their mother with tubes and lines and in this condition. Reviewed with critical care nursing at bedside. Palliative care orders were entered. Total of 60 minutes in critical care time was spent in evaluation and management and end-of-life issues for this patient. Admission and Anticipated Discharge Date Admission Date: April 19, 2021 Subjective Intubated and sedated Review of Systems Review of Systems: Unobtainable due to endotracheal tube Physical Exam Constitutional: + acute distress, + ill appearing and + morbidly obese Neck: trachea midline, no thyromegaly Respiratory: Agonal breaths despite being on the ventilator Cardiovascular: RRR, no murmur, no edema Gastrointestinal (Abdomen): Bowel sounds are diminished. She does not appear significantly distended. Musculoskeletal: Extremities: extremities normal to inspection Skin: no rashes, warm and dry Neurologic: Sedated Lymphatic: no cervical lymphadenopathy Results & Data Results & Data ([facility]) Vital Signs (Past 12 Hours) Vital Signs Temp Pulse Resp BP Pulse Ox 05/06/21 04:45 36.3 C L 116 H 28 H 05/06/21 04:30 36.3 C L 117 H 28 H 05/06/21 04:15 36.3 C L 117 H 28 H 05/06/21 04:00 36.3 C L 117 H 28 H 05/06/21 03:45 36.3 C L 118 H 28 H 05/06/21 03:30 36.2 C L 117 H 28 H 05/06/21 03:15 36.2 C L 116 H 28 H 05/06/21 03:00 36.3 C L 116 H 23 93 05/06/21 02:45 36.3 C L 116 H 25 H 05/06/21 02:30 36.4 C L 117 H 25 H 92 05/06/21 02:20 117 H 28 H 92 05/06/21 02:15 36.4 C L 117 H 18 92 05/06/21 02:00 36.4 C L 117 H 17 92 05/06/21 01:48 117 H 05/06/21 01:45 36.5 C 117 H 18 92 05/06/21 01:44 108/61 05/06/21 01:30 36.5 C 116 H 17 93 05/06/21 01:15 36.5 C 117 H 18 92 05/06/21 01:00 36.5 C 117 H 17 92 05/06/21 00:45 36.5 C 117 H 17 92 05/06/21 00:30 36.6 C 117 H 17 92 05/06/21 00:15 36.6 C 116 H 17 92 05/06/21 00:00 36.6 C 117 H 21 92 05/05/21 23:45 36.6 C 117 H 20 92 05/05/21 23:30 36.6 C 117 H 20 92 05/05/21 23:15 36.7 C 117 H 20 93 05/05/21 23:00 36.7 C 117 H 20 93 05/05/21 22:45 36.7 C 117 H 20 92 05/05/21 22:30 36.7 C 118 H 20 92 05/05/21 22:15 36.8 C 118 H 20 93 05/05/21 22:00 36.8 C 118 H 20 90 05/05/21 21:45 36.8 C 118 H 20 91 05/05/21 21:30 36.8 C 118 H 20 91 05/05/21 21:15 36.9 C 117 H 20 92 05/05/21 21:00 36.9 C 117 H 20 93/60 L 92 05/05/21 20:59 118 H 20 92 05/05/21 20:45 36.9 C 117 H 20 95 05/05/21 20:30 36.9 C 117 H 20 94 05/05/21 20:15 36.9 C 117 H 20 94 Critical Care Results & Data Vital Signs (Past 12 Hours) Vital Signs Temp Pulse Resp BP Pulse Ox 05/06/21 04:45 36.3 C L 116 H 28 H 92 05/06/21 04:30 36.3 C L 117 H 28 H 92 05/06/21 04:15 36.3 C L 117 H 28 H 91 05/06/21 04:00 36.3 C L 117 H 28 H 92 05/06/21 03:45 36.3 C L 118 H 28 H 91 05/06/21 03:30 36.2 C L 117 H 28 H 92 05/06/21 03:15 36.2 C L 116 H 28 H 92 05/06/21 03:00 36.3 C L 116 H 23 93 05/06/21 02:45 36.3 C L 116 H 25 H 92 05/06/21 02:30 36.4 C L 117 H 25 H 92 05/06/21 02:20 117 H 28 H 92 05/06/21 02:15 36.4 C L 117 H 18 92 05/06/21 02:00 36.4 C L 117 H 17 92 05/06/21 01:48 117 H 05/06/21 01:45 36.5 C 117 H 18 92 05/06/21 01:44 108/61 05/06/21 01:30 36.5 C 116 H 17 93 05/06/21 01:15 36.5 C 117 H 18 92 05/06/21 01:00 36.5 C 117 H 17 92 05/06/21 00:45 36.5 C 117 H 17 92 05/06/21 00:30 36.6 C 117 H 17 92 05/06/21 00:15 36.6 C 116 H 17 92 05/06/21 00:00 36.6 C 117 H 21 05/05/21 23:45 36.6 C 117 H 20 92 05/05/21 23:30 36.6 C 117 H 20 92 05/05/21 23:15 36.7 C 117 H 20 93 05/05/21 23:00 36.7 C 117 H 20 93 05/05/21 22:45 36.7 C 117 H 20 92 05/05/21 22:30 36.7 C 118 H 20 92 05/05/21 22:15 36.8 C 118 H 20 93 05/05/21 22:00 36.8 C 118 H 20 90 05/05/21 21:45 36.8 C 118 H 20 91 05/05/21 21:30 36.8 C 118 H 20 91 05/05/21 21:15 36.9 C 117 H 20 92 05/05/21 21:00 36.9 C 117 H 20 93/60 L 92 05/05/21 20:59 118 H 20 92 05/05/21 20:45 36.9 C 117 H 20 95 05/05/21 20:30 36.9 C 117 H 20 94 05/05/21 20:15 36.9 C 117 H 20 94 Lab & Micro Results (Past 24 Hours) RBC 3.98 M/uL (4.2-5.4) L 05/06/21 WBC 44.67 K/uL (4.8-10.8) H* 05/06/21 Hgb 13.1 g/dL (12.0-16.0) 05/06/21 Hct 42.3 % (37-47) 05/06/21 MCV 106.3 fL (80-100) H 05/06/21 MCH 32.9 pg (25-34) 05/06/21 MCHC 31.0 g/dL (32-36) L 05/06/21 RDW Standard Deviation 56.2 fL (36.4-46.3) H 05/06/21 RDW Coefficient of Variation 14.6 % (11.5-14.5) H 05/06/21 Plt Count 229 K/uL (130-400) 05/06/21 MPV 12.3 fL (7.4-10.4) H 05/06/21 Neutrophils (%) (Auto) 92.7 % 05/06/21 Lymphocytes (%) (Auto) 2.1 % 05/06/21 Monocytes # (Auto) 1.91 K/uL (0.11-0.59) H 05/06/21 Eosinophils # (Auto) 0.01 K/uL (0-0.5) 05/06/21 Immature Granulocyte % (Auto) 0.9 % 05/06/21 Neutrophils # (Auto) 41.41 K/uL (1.4-6.5) H 05/06/21 Lymphocytes # (Auto) 0.94 K/uL (1.2-3.4) L 05/06/21 Monocytes # (Auto) 1.91 K/uL (0.11-0.59) H 05/06/21 Eosinophils # (Auto) 0.01 K/uL (0-0.5) 05/06/21 Basophils # (Auto) 0.02 K/uL (0-0.2) 05/06/21 Immature Granulocyte # (Auto) 0.38 K/uL (0.00-0.02) H 05/06/21 Hypersegmented Neutrophils Occasional 05/05/21 Red Blood Cell Morphology Unremarkable 05/06/21 Na 133 mmol/L (136-145) L 05/06/21 K 6.5 mmol/L (3.5-5.1) H* 05/06/21 Cl 102 mmol/L (98-107) 05/06/21 CO2 22 mmol/L (21-32) 05/06/21 Anion Gap 9.0 (3-11) 05/06/21 BUN 69 mg/dl (7-18) H 05/06/21 Creatinine 3.05 mg/dl (0.6-1.2) H 05/06/21 Estimated GFR ( Amer) 17.2 ml/min 05/06/21 Estimated GFR (Non-Af Amer) 14.8 ml/min 05/06/21 BUN/Creatinine Ratio 22.6 (10-20) H 05/06/21 Glu 159 mg/dl (70-99) H 05/06/21 Ca 7.8 mg/dl (8.5-10.1) L 05/06/21 Phosphorus Level 11.7 mg/dl (2.5-4.9) H 05/06/21 Mg 2.9 mg/dl (1.8-2.4) H 05/06/21 04:33 05/06/21 Calcium Level 7.8 mg/dl (8.5-10.1) L 05/06/21 04:33 05/06/21 Prothromb Time International Ratio 1.1 (0.9-1.1) 05/05/21 08:10 05/05/21 Shoaib Test NA 05/06/21 05:12 05/06/21 Microbiology 05/05/21 10:15 Gram Stain - Final Sputum,Vent Suction Diagnostic Findings (Past 24 Hours) Chest X-Ray 05/05/21 05:59 SINGLE VIEW CHEST CLINICAL HISTORY: Central venous catheter placement. FINDINGS: An AP, portable, upright chest radiograph is compared to study early the same day 05/05/2021. The examination is degraded by portable technique and patient rotation. A right internal jugular central venous catheter has been placed. The tip projects over the cavoatrial junction. An enteric tube has been placed. The tip projects below the diaphragm over the distal stomach. An endotracheal tube is repositioned. The tip now projects just above the miladys. Pneumomediastinum persists. There are low lung lines. Multifocal airspace consolidation is unchanged. No large pleural effusion or pneumothorax is seen. The skeletal structures are osteopenic. The bony thorax is grossly intact. Lumbar fusion hardware is partially visualized. IMPRESSION: 1. An endotracheal tube has been repositioned. The tip now projects just above the miladys (less than a centimeter). 2. An enteric tube and a central venous catheter have been placed as above. 3. No pneumothorax is clearly seen. 4. Trace pneumomediastinum. 5. Multifocal airspace consolidation is similar to previous. ACT 112: Negative or not required by law. Electronically signed by: Juan Francisco Lux M.D. 05/05/2021 8:15 AM Chest X-Ray 05/05/21 07:00 SINGLE VIEW CHEST CLINICAL HISTORY: Pneumothorax. FINDINGS: An AP, portable, upright chest radiograph is compared to study dated 05/04/2021. Correlation is made with chest CT dated 05/02/2021. The examination is degraded by portable technique and patient rotation. The cardiomediastinal silhouette is unremarkable. An endotracheal tube has been placed. The tip projects over the right mainstem bronchus. Pneumomediastinum is observed. There are low lung volumes. Multifocal airspace consolidation is similar to previous. No large pleural effusion is identified. No pneumothorax is seen. The skeletal structures are osteopenic. The bony thorax is grossly intact. IMPRESSION: 1. An endotracheal tube has been placed. The tip projects over the right mainstem bronchus. 2. Multifocal airspace consolidation is unchanged from previous. 3. Pneumomediastinum persists. 4. No pneumothorax is clearly identified. ACT 112: Negative or not required by law. Electronically signed by: Juan Francisco Lux M.D. 05/05/2021 8:12 AM Chest X-Ray 05/05/21 13:00 XR chest 1V portable HISTORY: 70 years-old Female resp failure acute respiratory failure COMPARISON: Chest radiograph 05/05/2021 TECHNIQUE: Portable AP view of the chest FINDINGS: The endotracheal tube overlies the midline, 1.1 cm superior to the miladys. Unch anged positioning of the right IJ central venous catheter and enteric tube. The cardiac silhouette is enlarged. Pneumomediastinum redemonstrated. No definite pneumothorax. Small pleural effusions with extensive right greater than left airspace opacities redemonstrated. Partially imaged lumbar spinal fusion hardware. IMPRESSION: 1. Endotracheal tube terminates 1.1 cm superior to the miladys. 2. The remaining lines and tubes appear to be in satisfactory positioning. 3. Extensive right greater than left airspace opacities appear unchanged. 4. Small amount of pneumomediastinum redemonstrated. ACT 112: Negative or not required by law. The above report was generated using voice recognition software. It may contain grammatical, syntax or spelling errors. Electronically signed by: Mane Graham M.D. 05/05/2021 1:32 PM I & O Totals 24 Hours 05/05/21 05/06/21 05/07/21 06:59 06:59 06:59 Intake Total 350 / 350 3675.626 / 3675.626 Output Total 1250 / 1250 185 / 185 Balance -900 / -900 3490.626 / 3490.626 Cumulative 04/19/21 10:03 thru 05/06/21 06:36 Intake Total 97877.626 Output Total 96755 Balance -6695.374 RT Ventilator Mngmt (Last Documented) Ventilator Ordered Settings Ventilator Support Mode Assist Control 05/06/21 0 4:00 Respiratory Rate 28 05/06/21 04:45 Ventilator Tidal Volume 300 05/06/21 04:00 Setting Minute Ventilation 8.4 05/06/21 02:20 Ventilator Positive Pressure 8 05/05/21 16:00 Support Setting Positive End Expiratory 8 05/06/21 04:00 Pressure Fraction of Inspired Oxygen 80 05/06/21 04:00 Peak Inspiratory Flow 30 05/06/21 02:20 Machine Comment FiO2 titrated at this time, RN 05/05/21 20:59 aware Ventilator - PT Measurements Respiratory Rate 28 Exhaled Tidal Volume 300 Minute Ventilation 8.4 Peak Inspiratory Airway 34 Pressure Plateau Pressure 32 Respiratory Cycle Inspiratory: 1:2.1 Expiratory Ratio Inspiratory Phase Time 0.97 End-Tidal CO2 48 Static Lung Compliance 12.50 Dynamic Lung Compliance 11.54 Normal Static Lung Compliance 42.[address] Puentes made aware of rising EtCO2. Coding Level of Care Code Critical Care 1st 30-74 mins Diagnoses Acute respiratory failure with hypoxia J96.01 Pneumonia due to COVID-19 virus U07.1; J12.82 Severe sepsis with septic shock A41.9; R65.21 Renal failure N19 Acidosis E87.2 Hyperkalemia E87.5 ARDS (adult respiratory distress syndrome) J80 Time Spent (min) 60
--- NOTE | 2021-05-06 09:05 | XRay Report ---
SINGLE VIEW CHEST CLINICAL HISTORY: Respiratory failure. FINDINGS: 2 AP, portable, upright chest radiographs are compared to studies dated 05/05/2021. Correla tion is made with chest CT dated 05/02/2021. The examination is degraded by portable technique and pa tient rotation. An endotracheal tube, an enteric tube, and a right internal jugular central venous ca theter are unchanged in position. The cardiomediastinal silhouette is grossly unremarkable. There are low lung volumes. Multifocal airspace consolidation is similar to previous. No large pleural effusio n is identified. No pneumothorax is clearly seen. The skeletal structures are osteopenic. The bony th orax is grossly intact. IMPRESSION: 1. Stable lines and tubes. 2. Multifocal airspace consolidation is unchanged from previous. ACT 112: Negative or not required by law. Electronically signed by: Juan Francisco Lux M.D. 05/06/2021 9:04 AM
[2021-05-06] MEDS ORDERED: MIDAZOLAM HCL 5 MG/ML 10 ML IV ONE (10:24)
[2021-05-06] MEDS ORDERED: ETOMIDATE 2 MG/ML 20 ML VIAL IV ONE (10:24)
[2021-05-06] MEDS ORDERED: fentaNYL citrate 100 MCG/2 ML VIAL IV ONE (10:24)
--- NOTE | 2021-05-06 10:40 | Ultrasound Report ---
ULTRASOUND BILATERAL LOWER EXTREMITY ARTERIAL CLINICAL HISTORY: Loss of lower extremity pulses. COMPARISON STUDY: Bilateral lower extremity arterial ultrasound dated 03/08/2014. TECHNIQUE: Portable real-time grayscale and color Doppler sonography of the right and left lower extr emity is performed from the inguinal crease to the foot. Ankle-brachial indices were not performed on this portable examination. FINDINGS: Right lower extremity: Atherosclerotic plaque and irregularity is seen throughout the arteries of the right lower extremity. There are triphasic waveforms in the common femoral artery with velocities me asuring up to 82 cm/s. The profunda femoris artery is patent with velocities measuring up to 81 cm/s. Monophasic arterial waveforms are seen throughout the superficial femoral and popliteal artery. [place]o [place] in the superficial femoral artery measure up to 117 cm/s and velocities in the popliteal arter y measure up to 40 cm/s. There is three-vessel runoff to the foot with monophasic arterial waveforms. Velocities in the calf arteries measure up to 74 cm/s. The dorsalis pedis artery is patent with velo [place] measuring up to 21 cm/s. Left lower extremity: Atherosclerotic plaque and irregularity is seen throughout the arteries of the left lower extremity. Triphasic waveforms are noted in the common femoral artery with velocities sudhakar suring up to 98 cm/s. The profundus femoris artery is patent with velocities measuring up to 34 cm/s. There are monophasic arterial waveforms throughout the superficial femoral and popliteal arteries. V elocities in the superficial femoral artery measure up to 123 cm/s, and velocities in the popliteal a rtery measure up to 71 cm/s. The imaged portions of the calf arteries appear patent, with all 3 vesse ls showing flow at the ankle joint. There are monophasic waveforms throughout the calf with velocitie s in the calf arteries measuring up to 67 cm/s. The dorsalis pedis is patent with velocities measurin g up to 16 cm/s. IMPRESSION: Atherosclerotic plaque and peripheral vascular disease with no sonographic evidence of fo king/high-grade stenosis or vessel occlusion in the right or left lower extremity. Dictated: 05/06/2021 8:52 AM Transcribed: 05/06/2021 9:14 AM Korin [id number] ANNA_Luis Enrique Electronically signed by: Juan Francisco Lux M.D. 05/06/2021 10:39 AM
[2021-05-06] MEDS ORDERED: PIPERACILLIN/TAZOBACTAM 4.5 GM in DEXTROSE 5% 100 ML IV SCH (14:00)
--- NOTE | 2021-05-06 16:33 | Electrocardiogram Report ---
Test Reason : Blood Pressure : / mmHG Vent. Rate : 120 BPM Atrial Rate : 120 BPM P-R Int : 164 ms QRS Dur : 090 ms QT Int : 304 ms P-R-T Axes : 036 -39 148 degrees QTc Int : 429 ms Sinus tachycardia with Premature atrial complexes Left axis deviation Left ventricular hypertrophy with repolarization abnormality Abnormal ECG When compared with ECG of 27-APR-2021 03:53, HR has increased Premature atrial complexes are now Present Confirmed by Mani Pruitt ([id number]) on 05/06/2021 4:33:25 PM Referred By: REFERRED SELF Confirmed By:Mani Pruitt
--- NOTE | 2021-05-06 16:36 | Discharge Summary ---
Date of Service May 06, 2021 Admission HPI Per Admitting Provider This patient is a 70-year-old fully Covid vaccinated patient with a history of obesity, CAD, COPD, DM 2, HTN, hypothyroidism, migraines, RLS, RA on Xeljanz and MTX who presents to the ER with progressively worsening shortness of breath and was hypoxic at home with pulse ox in the 70s on room air. She was diagnosed with Covid on 04/14 with a positive test at this facility, but started having symptoms approximately 11 days ago on 04/09/2021. Her symptoms have mostly involved cough and shortness of breath, but also initially had headache, diarrhea, body aches, weakness, and fevers. She initially had some dry heaves as well but that has resolved and she has been able to eat some foods like toast and broth and Jell-O. She does report having pain with deep inspiration in the center of her chest which has been ongoing for 10 days. In the ER, she was found to have a pulse ox of 78% on room air and was placed on supplemental O2-she was with a pulse ox of 98% on 4 L when I saw her. She also had a fever and was tachycardic. She was given Tylenol, IV dexamethasone, and 500 mL bolus of normal saline. Her chest x-ray showed bilateral airspace opacities consistent with viral pneumonia. She was feeling a bit better after being on the oxygen. She will be admitted for Covid-19 pneumonia with acute respiratory failure with hypoxia. Principal Diagnosis [id number] 05/06/21 acute respiratory failure with hypoxia pneumonia covid infection Discharge Exam called to see pt after terminal extubation, no spontaneous breath sounds, no audible heart tones, pt was pronounced at 0857 hours 05/06/21 Discharge Data Allergies Allergy/AdvReac Type Severity Reaction Status Date / Time doxycycline Allergy Severe rash Verified 04/19/21 11:31 Tetracyclines Allergy Intermediate HIVES Verified 04/19/21 11:31 lidocaine AdvReac Unknown PT Verified 04/19/21 11:31 REQUIRES A LARGER DOSE TO HAVE EFFECT Unclassified Drugs Allergy Unknown ANTIBIOTICS Uncoded 04/19/21 11:31 GIVE HER A YEAST INFECTION Consultations 04/19/21 12:17 ED Decision to Admit Stat 04/23/21 12:22 Consult Pulmonology Routine Ordered Studies 04/19/21 14:40 CT angio chest PE protocol Stat 05/02/21 15:15 CT angio chest PE protocol Routine 05/05/21 05:16 US point of care ultrasound Urgent 05/05/21 21:13 US arterial duplex LE Urgent Hospital Course (1) : Pt pronounced at 0857 hours, secondary to acute respiratory failure from pneumonia from covid the remainder of note is from earlier in the hospital stay (2) Pneumonia due to COVID-19 virus: Patient presents on the day of symptoms with progressively worsening shortness of breath and acute respiratory failure with hypoxia tested positive on 04/14 for Covid-19. She was fully vaccinated in 07/2020 Patient decompensated was intubated in the morning hours of 05/05/2021 concern for ventilation given bilateral pneumothoraces and pneumomediastinum extubated for comfort care 05/06/21 dexamethasone, Pigtail chest tube is fallen out 05/03 CTA chest 05/02: no PE, shows the pneumothorax bilaterally and pneumomediastinum CRP was significantly elevated at 8, did not meet for baricitinab due to taking xeljanz *discussed worsening condition on 05/03, she is not ready to , would want intubated if necessary Patient understands the gravity of her situation. If intubated patient would have prolonged hospital course with no guaranteed success of survival given the marked changes seen in her lungs and pneumothorax and pneumomediastinum patient gave verbal consent and the patient prior to on 05/05/2021, family requested to withdraw care 05/06/21 (3) Pneumothorax: dislodged am of 05/03/21, repeat chest x-ray on the afternoon of the pneumothorax has not worsened on this image (4) Pneumomediastinum: (5) Acute respiratory failure with hypoxia: (6) DM2 (diabetes mellitus, type 2): (7) Diffuse myofascial pain syndrome: (8) Hypertension: (9) Obesity: BMI 36.6 Dependent risk factor for mortality with COVID-19 infection (10) CAD (coronary artery disease): History of NSTEMI 10/2008 with nonobstructive mid LAD stenosis as well as severe stenosis distal segment of left circumflex marginal on cardiac catheterization. No acute issues, troponin here is negative, ECG without acute ischemic changes (11) Lumbar spinal stenosis: (12) Hypothyroidism: (13) Hyperlipidemia: (14) Depression: (15) Rheumatoid arthritis: Total Time Total Time Spent Total Time Spent (In Minutes): Discharge 30 including time spent revealing discharge summary and certificate Discharge Plan Discharge Items Patient Disposition: Other Date/Time: 05/06/21 08:57 Coding Level of Care Code D/C DAY MANAGEMENT >30 MINS Diagnoses Pneumonia due to COVID-19 virus U07.1; J12.82 Pneumothorax J93.9 Pneumomediastinum J98.2 Acute respiratory failure with hypoxia J96.01 DM2 (diabetes mellitus, type 2) E11.9 Diffuse myofascial pain syndrome M79.18 Hypertension I10 Obesity E66.9 CAD (coronary artery disease) I25.10 Lumbar spinal stenosis M48.061 Hypothyroidism E03.9 Hyperlipidemia E78.5 Depression F32.9 Rheumatoid arthritis M06.9 R99
== END 2021-05-06 10:25 | disposition expired | DRG 208 ==
LOC: ED 10:28 → SUATTDRO 13:15 → 2S 13:15 → 1E 05-05 05:15
DX: E87.2 Acidosis; Z88.1 Allergy status to other antibiotic agents; Z79.82 Long term (current) use of aspirin; R34 Anuria and oliguria; F41.9 Anxiety disorder, unspecified; I25.10 Atherosclerotic heart disease of native coronary artery without angina pectoris; I25.2 Old myocardial infarction; Z79.899 Other long term (current) drug therapy; J44.0 Chronic obstructive pulmonary disease with (acute) lower respiratory infection; I47.1 Supraventricular tachycardia; R65.21 Severe sepsis with septic shock; J93.9 Pneumothorax, unspecified; E66.9 Obesity, unspecified; Z68.36 Body mass index [BMI] 36.0-36.9, adult; J96.01 Acute respiratory failure with hypoxia; N17.0 Acute kidney failure with tubular necrosis; J80 Acute respiratory distress syndrome; J98.2 Interstitial emphysema; M48.061 Spinal stenosis, lumbar region without neurogenic claudication; G25.81 Restless legs syndrome; A41.9 Sepsis, unspecified organism; Z51.5 Encounter for palliative care; Z79.890 Hormone replacement therapy; F32.A Depression, unspecified; E78.5 Hyperlipidemia, unspecified; K21.9 Gastro-esophageal reflux disease without esophagitis; Z66 Do not resuscitate; E11.9 Type 2 diabetes mellitus without complications; Z79.02 Long term (current) use of antithrombotics/antiplatelets; I10 Essential (primary) hypertension; Z88.4 Allergy status to anesthetic agent; U07.1 COVID-19; E87.5 Hyperkalemia; R79.1 Abnormal coagulation profile; E03.9 Hypothyroidism, unspecified; Z79.51 Long term (current) use of inhaled steroids; M06.9 Rheumatoid arthritis, unspecified; J12.82 Pneumonia due to coronavirus disease 2019; M79.18 Myalgia, other site